=== PATIENT | female | born 1945 | race Caucasian/White ===

== ENCOUNTER 2018-07-13 09:38 | Inpatient (IN) | payer MEDICARE, OTHER, SELFPAY ==
[2018-06-29 10:52] VITALS: BMI 38.0
[2018-07-13] VITALS (23 sets, daily range): BP systolic 112–173; BP diastolic 63–97; PULSE 60–104; RESP 10–20; TEMP 36–37.1; O2SAT 88–97; BMI 38.0
--- NOTE | 2018-07-13 08:07 | DI.RAD.S_ITS ---
PROCEDURE: XR KNEE LT 1TO2V INDICATIONS: post operative total left knee TECHNIQUE: 2 view(s) of the knee acquired. COMPARISON: [facility] [place], XR KNEE ARTHRITIC SERIES LT, 01/28/2018, 14:30. FINDINGS: Bones: Patient is status post total knee joint arthroplasty. Hardware components are in expected positions. Visualized bony structures are intact. Soft tissues: Overlying postoperative changes are noted. IMPRESSION: Expected post surgical changes. Dictated by: Jack Duron M.D. on 07/13/2018 at 14:48 Approved by: Jack Duron M.D. on 07/13/2018 at 14:48
[2018-07-13] MEDS: LACTATED RINGERS 1,000 ML 42 ML IV ×2 (09:48→14:20)
[2018-07-13] MEDS: ACETAMINOPHEN 325 MG TABLET 975 MG PO ×2 (10:07→21:58)
[2018-07-13] MEDS: CELECOXIB 200 MG CAPSULE PO (10:09)
[2018-07-13] MEDS: PREGABALIN 75 MG CAPSULE PO (10:09)
--- NOTE | 2018-07-13 11:11 | PM.PREOP ---
Pre-operative Note Interval Note Pre-op Check: Yes History & Physical Reviewed by Physician and Yes Exam Performed Changes: No
[2018-07-13] MEDS: CEFAZOLIN 2 GM/100 ML FROZ.PIGGY IV ×2 (11:55→20:14)
--- NOTE | 2018-07-13 12:23 | SUR.OPER ---
Supine on padded OR bed. Pillow under head, arms secured on padded armboards <90 degree abduction. Safety belt across torso. Non-operative leg secured with tape over blanket over lower leg. Operative leg secured in DeMayo positioner.
--- NOTE | 2018-07-13 13:09 | SUR.OPER ---
Left Lateral Uni Knee components X 3 removed.
[2018-07-13] MEDS: BUPIVACAINE LIPOSOME 266 MG/20 ML VIAL INJ (13:25)
[2018-07-13] MEDS: MORPHINE 4 MG/ML INJ IM (13:26)
[2018-07-13] MEDS: BUPIVACAINE 0.25% W/ EPI VIAL 50 ML INJ (13:26)
--- NOTE | 2018-07-13 13:48 | PM.OP.1 ---
Operative Date/Time/Diagnoses Date of procedure: 07/13/18 Time of procedure: 13:40 Pre-op diagnosis: Left knee osteoarthritis with failed lateral unicompartmental arthroplasty Post-op diagnosis: same Procedure & Clinicians Procedure: Revision of left unicompartmental arthroplasty to total knee replacement Same procedure as scheduled: Yes Indications: The patient has had progressively worsening left knee pain with radiographic changes consistent with arthritis, worsening around her previously placed lateral unicompartmental replacement. Non-operative management has failed and the patient has requested total knee replacement. The risks, benefits and alternatives to surgery were discussed with the patient prior to proceeding. Risks discussed included, but were not limited to, failure to relieve pain, stiffness, infection, nerve damage, deep venous thrombosis, pulmonary embolism, stroke, coma, heart attack, permanent paralysis and , as well as the potential need for eventual revision of the prosthetic. Surgeon: Guanako Hillman Poultry Pinner: Channing Reich Click Yes if Unassisted: No Anesthesia Type: General, Spinal and Local Operative Notes Findings: Medial and patellofemoral osteoarthritis and fairly loose femoral component. Closure Type: primary Specimen(s): none sent Implants & Drains: The components of a Russell unicompartmental knee replacement were removed. Implants used in this procedure were manufactured by the [employer] and [employer] and included the BCS II Journey total knee replacement with a size 7 left cobalt chromium femur, 5 left non porous tibial base plate, 10 mm cross-linked polyethylene tibial insert, and a 32 mm oval Keyana II patellar component. Applied: implant(s) Estimated Blood Loss (mL): 100 Blood products transfused: none Tourniquet time (min): 65 Procedure in detail: The patient was seen in the pre-operative area, where the left knee was identified as the operative site and this was marked with my initials. The patient received pre-operative antibiotics with an appropriate 1st generation cephalosporin, and was taken to the operating room and placed on the operative table in the supine position. After satisfactory anesthesia, a die drawing checker out was performed. The left leg was encircled with a tourniquet about the proximal thigh, and the leg was prepared from the toes to the tourniquet with ChloroPrep in the usual fashion and draped through sterile drapes. The leg was elevated and exsanguinated with an Eschmark bandage and the tourniquet inflated to 250 mmHg pressure. The knee was approached through an approximately 18 cm incision centered over the patella, incorporating her prior lateral Uni incision, and carried into the knee through a medial parapatellar arthrotomy. The anterior osteophytes and soft tissues were removed. The rotational landmarks of Fortino's line and the transepicondylar axis were marked on the femur with electrocautery, and intramedullary guide holes for the femur and tibia were created. The distal femoral cutting guide was used to place the pins for a 6 degree valgus cut in the primary setting. The femoral prosthetic component was then removed using osteotomes. Minimal bone came with the prosthetic. The tibial component was then removed using osteotomes as well. The proximal tibial cut was then made using the intramedullary guide, taking 1 mm of bone off the lateral side where the prior prosthetic had been. The rotation of the femoral component confirmed with the markings previously made on the femur. The anterior, posterior and chamfer cuts were then made. The posterior osteophytes and soft tissues were then removed. The posterior capsule was injected with part of a mixture of 50 ml 0.25% Marcaine mixed with 20 ml Exparel and 4 mg of morphine for post-operative pain control. The remainder of this mixture was injected into the capsule and subcutaneous tissues during cement curing. The tibia was prepared with the rotation set by an extra medullary guide. Trial tibial and femoral components were then placed and the intercondylar notch cut through the femoral trial. Range of motion was 0-120 degrees, with good stability throughout the range. Further flexion was limited by the patient's obesity. The patella was then cut to accommodate the patellar prosthetic. There was no need for a lateral release. The trials were then removed, and the femoral hole plugged with a bone plug. The bone was prepared with pulsatile lavage, and dried with a sponge. Cement was applied and the final prosthetics placed. Excess cement was removed during and after cement curing. After confirming there was no extruded cement posteriorly, the final tibial insert was placed. The knee was copiously irrigated and the tourniquet deflated. Hemostasis was obtained. The capsule was closed with interrupted # 2 polyester sutures. The subcutaneous layer was closed with 3-0 Vicryl, and the skin with a running 3-0 V-Lock suture and SteriStrips. A Phong dressing was applied and the patient was taken to recovery having tolerated the procedure well. Complications: none Condition: stable Disposition: PACU Plan for aftercare: The patient will be maintained on a standard total knee replacement protocol with weight bearing as tolerated. The patient will receive aspirin and sequential compression devices for DVT prophylaxis. The patient will be discharged home when safe for the home environment.
[2018-07-13] MEDS: HYDROMORPHONE 2 MG INJ 0.5 MG IV ×2 (14:16→15:36)
[2018-07-13] MEDS: HYDROMORPHONE 2 MG INJ 1 MG IV ×2 (14:33→14:52)
--- NOTE | 2018-07-13 14:43 | SUR.PHASEI ---
Says pain is not decreasing but need for O2 and somnolent state increasing with BP decreasing. Told can not safely give an additional dose of pain med now for concern of resp state already in need for CPAP and oxygen.
--- NOTE | 2018-07-13 14:55 | SUR.PHASEI ---
Reviewing the patient history and speaking with patient, it is seen that there is a history of po opiod use. As a result will agive additioal opiod due in part to probable tolerance behind pain rating voiced.
[2018-07-13] MEDS: hydrOXYzine pamoate 25 MG CAPSULE PO ×2 (15:06→23:59)
--- NOTE | 2018-07-13 15:19 | SUR.PHASEI ---
Has been sleeping most of past 15 minutes. Does note pain to knee upon awakening. Still VS are showing meds have had some effect. Have had to increase o2 flow slightly during this time. Awaiting RN on AC to be available after shift report completed.
[2018-07-13] MEDS: OXYCODONE IR 5 MG TABLET PO ×4 (15:34→23:54)
--- NOTE | 2018-07-13 15:37 | SUR.PHASEI ---
With shift change and only able to give one Oxycodone IR (5mg), considering patient history an additional 0.5mg of Dilaudid given for pain rating of 8. Again the patient sleeps when left alone, but once awake pain rating is high. Fibromyalgia history may influence this along with hx of opiod use. As shift has just changed the additional Dilaudid is to help bridge until a full assessment by MARTA RN is able.
--- NOTE | 2018-07-13 16:00 | SUR.PHASEI ---
To floor on 4L NC. Awake for trip and CPAP off.
[2018-07-13] MEDS: LACTATED RINGERS 1,000 ML 125 ML IV (17:07)
--- NOTE | 2018-07-13 19:35 | PC.NURSE ---
Addendum entered by Brittany Ackerman R.N. 07/13/18 22:32: Pt had relatively uneventful evening. Left knee dsg CDI. Med w/good relief. Satisfactory post op course. Call light w/in reach, bed alarm on for pt. safety. Continue w/plan of care. Original Note: Addendum entered by Brittany Ackerman R.N. 07/13/18 20:26: Med at this time w/oxycodone for 7/10 pain. Original Note: Pt arrived to floor from PACU at 1555. Awake.drowsy. Denies discomfort upon arrival. IV LR infusing via pump as per orders w/o incidence. Dsg on left surgical knee CDI (concha & aquacell). Med at 1715 w/oxycodone w/fair relief. Call light w/in reach/ bed alarm on for pt safety.
--- NOTE | 2018-07-13 20:02 | RT ---
Addendum entered by Lorelei Osei, RT 07/13/18 20:24: Pt set up own CPAP and states she is self-sufficient on CPAP. Original Note: Pt worklist will not allow me to add eval and treat flow sheet. Evaluated pt, clear breath sounds, no hx of pulmonary disease, no hx of smoking, no history of respiratory medications. Pt does have home CPAP in room.
[2018-07-13] MEDS: GABAPENTIN 600 MG TABLET 1200 MG PO (20:16)
[2018-07-13] MEDS: DOCUSATE 100 MG CAPSULE PO (20:17)
[2018-07-13] MEDS: ZOLPIDEM 5 MG TABLET PO (23:56)
[2018-07-14 00:13] VITALS: BP 109/64; PULSE 65; RESP 16; TEMP 36.5; O2SAT 96
[2018-07-14] MEDS: HYDROMORPHONE 0.5 MG INJ IV ×6 (00:30→12:52)
[2018-07-14] MEDS: LACTATED RINGERS 1,000 ML 125 ML IV (01:37)
[2018-07-14] MEDS: CEFAZOLIN 2 GM/100 ML FROZ.PIGGY IV (04:14)
[2018-07-14] MEDS: OXYCODONE IR 5 MG TABLET PO ×2 (04:23→08:22)
[2018-07-14 04:44] VITALS: BP 124/75; PULSE 74; RESP 18; TEMP 36.5; O2SAT 95
[2018-07-14 06:13] LABS: Hematocrit 37.3 % (36-46); Hemoglobin 12.3 g/dL (12.0-16.0)
--- NOTE | 2018-07-14 07:45 | PM.PNPO.1 ---
Subjective Date Patient Seen: 07/14/18 Time Patient Seen: 07:45 Interval history: The patient reports she had a rough night. She has had significant, but expected pain after her knee replacement. Exam Vital Signs (past 8 hours): - 07/14/18 00:13 07/14/18 04:44 Temperature 97.7 F 97.7 F Pulse Rate 65 74 Respiratory Rate 16 18 Blood Pressure 109/64 124/75 Pulse Oximetry 96 95 Oxygen Delivery Method Room Air Oxygen Flow Rate 6 Narrative Exam Narrative: Left knee wound is dressed with no drainage on the bandage. Calf is soft. Light touch and motion are intact in the left lower extremity. Objective Labs Result Diagrams: 07/14/18 06:00 Labs: Laboratory Results - last 24 hr 07/14/18 06:00 Hgb 12.3 Hct 37.3 Assessment & Plan Post-op Postoperative Procedures Operation Date: 07/13/18 11:45 Actual Procedures Side Surgeon p Total Knee Arthroplasty Revision Left Left Guanako Hillman MD Postoperative day: 1 Postoperative status: doing well, marginal pain control and anemia Postoperative status narrative: The patient is stable postoperative day 1 after revision of a left unicompartmental knee replacement to a total knee replacement. She has had some issues with marginal pain control but generally things are going well. She has a mild and expected post hemorrhagic anemia. Postoperative plan: routine post-op care and ambulate Postoperative plan narrative: The patient will be initiated on physical therapy. It is clear she is not ready to go home and will require an additional day at minimum before discharge. Time Spent With Patient less than 15 minutes Quality VTE Deep Vein Thrombosis/Pulmonary Embolism Present on Admission: No
[2018-07-14 07:55] VITALS: BP 137/74; RESP 16; TEMP 36.5; O2SAT 100
[2018-07-14] MEDS: ACETAMINOPHEN 325 MG TABLET 975 MG PO ×3 (08:13→20:40)
[2018-07-14] MEDS: DOCUSATE 100 MG CAPSULE PO ×2 (08:20→20:41)
[2018-07-14] MEDS: ATENOLOL 25 MG TABLET PO (08:21)
[2018-07-14] MEDS: SERTRALINE 50 MG TABLET 100 MG PO (08:21)
[2018-07-14] MEDS: hydrOXYzine pamoate 25 MG CAPSULE PO ×3 (08:21→20:42)
[2018-07-14] MEDS: GABAPENTIN 600 MG TABLET 1200 MG PO ×2 (08:21→20:41)
--- NOTE | 2018-07-14 10:08 | PC.NURSE ---
Addendum entered by Cris Siddiqui R.N. 07/14/18 13:57: Pain control since increaseding oxycodone has not been adequate, SWATI Snell, rec'd orders to increase IV Dil Original Note: Am shift note Pt is uncontrolled pain and using oxycodone, and IV dilaudid. Fax down to OR for PA attention. Will continue IV dilaudid until orders rec'd.
--- NOTE | 2018-07-14 10:30 | PT.IIE ---
Current Diagnoses Unilateral primary osteoarthritis, left knee (07/13/18) Presence of left artificial knee joint (07/13/18) Surgery Performed Operation Date: 07/13/18 11:45 Actual Procedures p Total Knee Arthroplasty Revision Left(Left) - Guanako Hillman MD Surgical History (Last Updated 06/29/18 @ 11:22 by Rowan Sterling RN) History of ankle surgery (Acute) History of arthroplasty of left knee (Acute) History of arthroplasty of right knee (Acute) History of bilateral tubal ligation (Acute) Hx of appendectomy (Acute) Hx of arthroscopic knee surgery (Acute) Hx of cholecystectomy (Acute) Hx of laminectomy (Acute) Hx of thumb surgery (Acute) Hx of tonsillectomy (Acute) S/P lumbar fusion (Acute) S/P lumpectomy, left breast (Acute) S/P lumpectomy, right breast (Acute) S/P rotator cuff repair (Acute) Status post carpal tunnel release of both wrists (Acute) Medical History (Last Updated 06/29/18 @ 11:22 by Rowan Sterling RN) Anxiety and depression (Acute) Arthritis (Acute) Bilateral cataracts (Acute) Edema (Acute) Fibromyalgia (Acute) Foot fracture, right (Acute) GERD (gastroesophageal reflux disease) (Acute) Ganglion cyst (Acute) H/O: hysterectomy (Acute) HTN (hypertension) (Acute) Hamstring tendon rupture (Acute) Hyperlipidemia (Acute) Lumbar stenosis (Acute) Neuroma (Acute) JEFFERSON on CPAP (Acute) Osteoporosis (Acute) PVCs (premature ventricular contractions) (Acute) Pericarditis (Acute) Peripheral neuropathy (Acute) Pneumonia (Acute) Polycystic kidney disease (Acute) Thin skin (Acute) Physical Therapy Inpatient Evaluation/Re-Eval M1 PT/OT-IP Prior Functional Status Start: 07/14/18 12:28 Freq: NEEDED Status: Active Protocol: Document 07/14/18 10:30 AB (Rec: 07/14/18 12:44 AB [id number]) Medical Review Prior Functional Status Medical History Reviewed Yes Communication able to make needs known Mobility and Gait stated that she is modified independent with all mobilities and ambulation using SPC indoors/outdoors but occassionally without AD depending on pain level and dizziness per pt. Social History Household Members spouse Living Arrangements House Number of Floors (Floors) One Floor Number of Stairs To Enter/Railing? has ~14 steps to enter ( 5steps+platform+4steps+ platforms+ 4 steps) with wide rails on B sides can only hold on to one rail at a time. Home Environment High Toilet Walk in Shower Home Equipment Hand Held Shower Employment Status Unemployed Additional Social History Comment pt stated that spouse works and cannot assist her 07/04 at home. M2 PT-IP Current Condition Start: 07/14/18 12:28 Freq: NEEDED Status: Active Protocol: Document 07/14/18 10:30 AB (Rec: 07/14/18 12:44 AB [id number]) Physical Therapy Current Condition Current Condition Evaluation Date 07/14/18 Treatment Diagnosis s/p L TKA Onset Date Weight Bearing Status Weight Bearing Status Weight Bear as Tolerated M3 PT-IP Subjective Start: 07/14/18 12:28 Freq: NEEDED Status: Active Protocol: Document 07/14/18 10:30 AB (Rec: 07/14/18 12:44 AB [id number]) Subjective Physical Therapy Visit Type Type Initial Evaluation Visit Start Time 10:30 Visit Stop Time 11:16 Total Visit Minutes 46 Number of KENNEL AIDE Visits 0 Physical Therapy Visit Comments Patient Comments pt agreeable to do PT when asked regarding outpt PT; pt stated that she wants homehealth PT first since spouse works and she will not be able to drive Therapy Pain Assessment Pain When Pain Assessed At Rest Pain Present Pain Present Pain Reported Location Left Knee Intensity 4 Scale Used 4/10 at rest but stated increases to 12 with mobility Pain Management Techniques Apply Cold Distraction Modification of Treatment Re-positioning Timing of Activity with Medications M4 PT-IP Mobility and Gait Start: 07/14/18 12:28 Freq: NEEDED Status: Active Protocol: Document 07/14/18 10:30 AB (Rec: 07/14/18 12:44 AB [id number]) PT-Bed Mobility Assessment Supine to Sit Supine to Sit Moderate Assistance Bedrails Sit to Supine Sit to Supine Moderate Assistance Bedrails PT-Transfer Assessment Sit to and From Stand Sit to and from Stand Maximum Assistance 2 Person Assistance Use of Upper Extremities Equipment Transfer Assistive Device Front Wheeled Walker Orthotic/Prosthetic Devices or Brace: No Transfers Transfer Destination Toilet Transfer Technique pt ambulated to the toilet using FWW Transfer Ability Level of Assist Moderate Assistance 1 Person Assistance Use of Upper Extremities Comments Mobility Comments pt required 3 attempts with sit to stand requiring max A x 2 and max cues. c/o increase pain on L knee with difficulty with weight bearing . Gait Assessment Gait Gait Assistance Required: Moderate Assistance 1 Person Assist Distance (Feet) 5 Able to Maintain Weight Bearing Status Yes During Gait Assistive Devices Assistive Device Gait Belt Front Wheeled Walker Orthotic/Prosthetic Devices or Brace: No Gait Deviations General Gait Pattern Antalgic Decreased Stride Length Decreased Feet Clearance Factors Limiting Gait Function Factors Limiting Gait Function Decreased Activity Tolerance Decreased Sensation Decreased Strength Limited Range of Motion Pain Poor Balance Poor Safety Awareness Comments Gait Comments pt with difficulty moving LLE and just tends to drag it forward during ambulation. presents with LE weakness and increase pain with mobility. PT-Balance Assessment Sitting Balance and Reactions Static Sitting Balance Ability Good Standing Balance and Reactions Static Standing Balance Ability Poor Dynamic Standing Balance Ability Poor Device Used FWW M5 PT-IP Objective Assessments Start: 07/14/18 12:28 Freq: NEEDED Status: Active Protocol: Document 07/14/18 10:30 AB (Rec: 07/14/18 12:44 AB [id number]) Orientation Orientation/Cognition Level of Alertness Alert Orientation Name Age Birthday Month Date Year Day of Week Place Situation Safety Awareness Decreased Safety Awareness Gross Range of Motion Lower Extremity ROM Assessment Bilaterally Impaired Impairments L knee flexion decreased: ~ 30 deg bilateral ankle DF decrease with h/o R ankle surgeries. Strength Lower Extremity Strength Assessment Left Impaired Knee 3-/5 Sensation Assessment Sensation Gross Sensation Right LE Impaired Left LE Impaired Light Touch Impaired Sensation Description Numbness Comments Sensation Comments stated decrease sensation on BLE from the knee down to feet M6 PT-IP Treatment Start: 07/14/18 12:28 Freq: NEEDED Status: Active Protocol: Document 07/14/18 10:30 AB (Rec: 07/14/18 12:44 AB [id number]) Physical Therapy Treatment Exercises Exercises Heel Slides Education Education Provided Precautions Weight Bearing Status Post-Op Packet Safety M7 PT-IP Assessment and Plan Start: 07/14/18 12:28 Freq: NEEDED Status: Active Protocol: Document 07/14/18 10:30 AB (Rec: 07/14/18 12:44 AB [id number]) PT Summary Assessment and Plan Potential Rehabilitation Potential Poor Status of Condition at Evaluation Evolving Summary Impairments Pain ROM Strength Balance Coordination Sensation Tone Cognition Bed Mobility Transfers Gait Activity Tolerance Assessment Summary pt requiring 2 person assist with mobility and unable to tolerate weight bearing on LLE presenting with unsteady gait with decrease LE elevation. pt will require SNF rehab to improve strength and mobility Goals Bed Mobility Goal Standby Assistance Transfer Goal Standby Assistance Front Wheeled Walker Gait Goal Standby Assistance Front Wheel Walker Gait Distance 100 Other Goals up/down 14-15 stes using one rail Days to Meet Goals 5 Frequency of Treatment Frequency Of Treatment Twice a Day Treatment Plan Physical Therapy Treatment Plan Bed Mobility Training Transfer Training Gait Training Therapeutic Exercise Balance Retraining Post Op Education Discharge Planning Hot or Cold Pack Neuromuscular Re-ed Coordination Retraining Manual Therapy Other Recommendations and Next Treatment ambulation Focus Recommendations To Nursing Amount of Assist Needed 2 Person Assist Discharge Recommendations PT Discharge Recommendations SNF Rehab Equipment Needed for Home Before FWW Discharge
[2018-07-14] MEDS: ASPIRIN 325 MG TABLET PO (10:58)
[2018-07-14] MEDS: OXYCODONE IR 10 MG TABLET PO ×3 (10:58→21:01)
[2018-07-14 11:40] VITALS: BP 128/72; PULSE 63; RESP 20; TEMP 36.7; O2SAT 94
--- NOTE | 2018-07-14 12:48 | CM.DANOTE ---
Discharge Planning/Care Management DCP: assessment: case received, EMR reviewed and met with pt. Introduced self and role. PT is lying in bed, eating lunch, looking somewhat uncomfortable. She admits the knee has really been hurting. It's to be expected. Pt will see PT for the first time today. OT is not ordered at this point. Pt identifies her d/c plan as in process.. She says it is clear to her that she will not be ready to go home with her tomorrow. She is leaning toward idea of snf rehab then HH and plans to discuss same with Dr. Hillman. She also is sending her on a tour of [facility], [facility] and [facility]. P: DCP team to followup tomorrow to discuss further with her after she has had more therapy and needs are clearer. CM Discharge Assessment Start: 07/14/18 12:41 Freq: Status: Active Protocol: Document 07/14/18 12:41 ITV (Rec: 07/14/18 12:47 ITV [id number]) Discharge Planning Assessment Advance Directives? Yes Advance Directives on File Yes History Provided By Patient Medical Record Prior Living Arrangements House Household Members spouse Independent with ADL's Yes Is patient alert and oriented? Yes Caregiver for Another No Patient/Family Preference [facility] Home with Home Health Comment pt considering snf rehab then HH vs home/spouse/HH. She has choice list for both. Barriers to Discharge Yes Comment would not be comfortable going home with her 's assist unles she could do basic mobility and toileting independently. Additional Comment pt has choice list and spouse plans to do some touring....no referral placed yet. Pt expects to have a clearer idea tomorrow of what will work best for her. Comment pt will have met 3 day inpt stay/snf Medicare criteria Jul 16. Medicare Choice List Provided Yes Comment waiting for choice Whiteboard Updated in Patient Room with Yes name and ext. # of Casualty Claims Supervisor Review Status In Process Next Review Type Continued Stay Review Pre-Anesthesia Assessment Start: 06/29/18 10:52 Freq: Status: Active Protocol: Document 06/29/18 10:52 VLJ (Rec: 06/29/18 11:31 [facility] [id number]) Pre-Anesthesia Assessment Patient Information Reviewed Via Phone Assessment Assessment Completed With Patient Lab Results BMP/CMP CBC Other Comment A1c Primary Care Provider Travon Burr Seen Specialist in Last 12 Months Yes Specialist Seen Orthopedist Primary Language Czech Job Service Consultant Required No Height 175.26 cm Weight 117.027 kg Body Mass Index (BMI) 38.0 Hearing Ability Normal Visual Assist Glasses Dentition Type Teeth, Natural Present Teeth, Missing Barriers to Learning Age related Memory Other Aids No Hx Anesthesia Reactions No Hx Family Anesthesia Reaction No Hx Malignant Hyperthermia No Hx Blood Transfusions No Anesthesia Review Requested No Railroad Car Repairman No alcohol intake current alcohol intake frequency a few times a week Smoking Status Former smoker how long ago did patient quit smoking Quit 1972 Substance Use Type does not use Pain Present Pain Reported Musculoskeletal Symptoms Abnormal Gait Back Pain Difficulty Walking Joint Pain Muscle Spasms Muscle Weakness Numbness History of Falling (Recent or History of Yes ) Patient is completely paralyzed or No completely immobile Prosthesis or Orthotic Device Cane Mental Status Oriented to own ability Is patient on oxygen? No Does patient have CRAWFORD/SOB Yes: r/t weight, fatigue with increased activity/pace Hx Sleep Apnea Yes CPAP/BIPAP use prescribed and used routinely Will Bring CPAP/BIPAP DOS Yes Currently Taking a Beta Prashanth Yes: Atenolol Can You Climb a Flight of Stairs Without Yes SOB Hx Chest Pain No Hx SOB Yes: r/t weight, fatigue with increased activity/pace Hx Syncope or Dizziness No Anti-Coagulant Therapy No Has a Supervisor Hide House No Cardiac Testing No Hx Pacemaker/ICD No Pacemaker Rep Required? No Cardiac Clearance Received Not Applicable Diet Type At Home Regular dysphagia No Bladder Pattern Incontinent, Stress Urinary Catheter Present No Hx Urinary Self Catheterization No Diabetes No HgbA1C 6.0 Date 07/01/18 Patient No Lactating No Hx Drug Resistant Organism Yes: MRSA Presence of External or Internal Medical Yes Devices Have you traveled outside the [facility] in the last 30 days? Marital Status Lives With spouse Prior Living Arrangements House Number of Floors (Floors) One Floor Number of Stairs To Enter/Railing? 14, railing present Support System Friend(s) Spouse Does the Patient Have Assistance After Yes Surgery Patient Discharge Plan Description Return Home Comment Pt advised 2-3 day length of stay per surgeon's office Feels Safe in Current Environment Yes Been Physically Hurt or Threatened By a No Person in Current Environment Do you have thoughts of harming yourself None or others? Are you currently considering suicide? No Do you have a plan to hurt yourself or No Plan others? Do You Have Any Spiritual Beliefs That No May Affect Your HC Choices? Do You Have Any Cultural Practices That No May Affect Your HC Choices? Spiritual Referral None Comment Alevism Who Can We Speak to About Patient's Care Family, friends Identifying Code for Release of Patient Declines to issue Information Health Care Proxy/Next of Kin Tyron () Health Care Proxy [phone] Emergency Contact Name Tyron () Emergency Contact [phone] Advance Directives? Yes Advance Directives on File Yes Power of Glass Lathe Operator Yes Power of Glass Lathe Operator Name Tyron () Power of Glass Lathe Operator [phone] PAC Instructions Do not shave/clip surgical site Durable medical equipment Medications to take/avoid Nasal antibiotic No ETOH/petroleum product on skin DOS NPO Post-op transportation Pre-surgical wash Sturdy shoes/comfortable clothes Do not bring valuables and remove jewelry
[2018-07-14] MEDS: ONDANSETRON 4 MG ODT PO (14:38)
--- NOTE | 2018-07-14 15:10 | PT.IPTN ---
Current Diagnoses Unilateral primary osteoarthritis, left knee (07/13/18) Presence of left artificial knee joint (07/13/18) Surgery Performed Operation Date: 07/13/18 11:45 Actual Procedures p Total Knee Arthroplasty Revision Left(Left) - Guanako Hillman MD Physical Therapy Treatment Note M2 PT-IP Current Condition Start: 07/14/18 12:28 Freq: NEEDED Status: Active Protocol: Document 07/14/18 10:30 AB (Rec: 07/14/18 12:44 AB [id number]) Physical Therapy Current Condition Current Condition Evaluation Date 07/14/18 Treatment Diagnosis s/p L TKA Onset Date Weight Bearing Status Weight Bearing Status Weight Bear as Tolerated M3 PT-IP Subjective Start: 07/14/18 12:28 Freq: NEEDED Status: Active Protocol: Document 07/14/18 15:10 AB (Rec: 07/14/18 16:25 AB [id number]) Subjective Physical Therapy Visit Type Type Treatment Note Visit Start Time 15:10 Visit Stop Time 15:48 Total Visit Minutes 38 Number of POLICE PATROL LIEUTENANT Visits 0 Physical Therapy Visit Comments Patient Comments pt initially refusing but then agreed to do ambulation Therapy Pain Assessment Pain When Pain Assessed At Rest Pain Present Pain Present Pain Reported Location Left Knee Intensity 2 Scale Used pain increased per pt w/ wt bearing & ambulation but pain scale not stated Pain Management Techniques Apply Cold Re-positioning Timing of Activity with Medications M4 PT-IP Mobility and Gait Start: 07/14/18 12:28 Freq: NEEDED Status: Active Protocol: Document 07/14/18 15:10 AB (Rec: 07/14/18 16:25 AB [id number]) PT-Bed Mobility Assessment Supine to Sit Supine to Sit Maximum Assistance 1 Person Assistance 2 Person Assistance Bedrails Sit to Supine Sit to Supine Maximum Assistance 2 Person Assistance Bedrails Scooting Scooting to Edge of Bed Maximum Assistance Scooting Up and Down in Bed Maximum Assistance PT-Transfer Assessment Sit to and From Stand Sit to and from Stand Maximum Assistance 1 Person Assistance 2 Person Assistance Use of Upper Extremities Equipment Transfer Assistive Device Gait Belt Front Wheeled Walker Orthotic/Prosthetic Devices or Brace: No Transfers Transfer Destination Toilet Transfer Technique pt ambulated to the toilet using FWW Transfer Ability Level of Assist Maximum Assistance 2 Person Assistance Use of Upper Extremities Comments Mobility Comments pt requested to use the toilet . pt ambulated from the bed to the toilet using FWW mod to max A and cues. BP in room air at rest 90-94%; (+) wheezing and SOB during sit to stand and ambulation and O2 sat decreased to 93-88%. asked nurse if pt can use O2 and stated yest with 3L/min. O2 provided. O2 sat increased to 92%. Gait Assessment Gait Gait Assistance Required: Moderate Assistance Maximum Assistance Distance (Feet) 30 Able to Maintain Weight Bearing Status Yes During Gait Assistive Devices Assistive Device Gait Belt Front Wheeled Walker Orthotic/Prosthetic Devices or Brace: No Gait Deviations General Gait Pattern Antalgic Decreased Stride Length Step-to Gait Factors Limiting Gait Function Factors Limiting Gait Function Decreased Activity Tolerance Decreased Sensation Decreased Strength Pain Poor Balance Poor Safety Awareness Comments Gait Comments pt ambulated in room using FWW ~ 30 ft and requested to use the toilet after ambulation ( pls refer to mobility section) M5 PT-IP Objective Assessments Start: 07/14/18 12:28 Freq: NEEDED Status: Active Protocol: Document 07/14/18 10:30 AB (Rec: 07/14/18 12:44 AB [id number]) Orientation Orientation/Cognition Level of Alertness Alert Orientation Name Age Birthday Month Date Year Day of Week Place Situation Safety Awareness Decreased Safety Awareness Gross Range of Motion Lower Extremity ROM Assessment Bilaterally Impaired Impairments L knee flexion decreased: ~ 30 deg bilateral ankle DF decrease with h/o R ankle surgeries. Strength Lower Extremity Strength Assessment Left Impaired Knee 3-/5 Sensation Assessment Sensation Gross Sensation Right LE Impaired Left LE Impaired Light Touch Impaired Sensation Description Numbness Comments Sensation Comments stated decrease sensation on BLE from the knee down to feet M6 PT-IP Treatment Start: 07/14/18 12:28 Freq: NEEDED Status: Active Protocol: Document 07/14/18 15:10 AB (Rec: 07/14/18 16:25 AB [id number]) Physical Therapy Treatment Exercises Exercises Ankle Pumps Quad Sets Education Education Provided Precautions Weight Bearing Status Post-Op Packet Safety M7 PT-IP Assessment and Plan Start: 07/14/18 12:28 Freq: NEEDED Status: Active Protocol: Document 07/14/18 15:10 AB (Rec: 07/14/18 16:25 AB [id number]) PT Summary Assessment and Plan Potential Rehabilitation Potential Fair Summary Impairments Pain ROM Strength Balance Coordination Sensation Tone Cognition Bed Mobility Transfers Gait Activity Tolerance Progress Towards Goals Slow Progress due to Pain Slow Progress due to Medical Issues Slow Progress due to Activity Tolerance Assessment Summary pt requiring mod to max A with mobility and unable to tolerate much activity with (+ ) SOB with decrearse O2 sat with mobility. Pt will require SNF rehab to improve strength and functional mobility Goals Bed Mobility Goal Standby Assistance Transfer Goal Standby Assistance Front Wheeled Walker Gait Goal Standby Assistance Front Wheel Walker Gait Distance 100 Other Goals up/down 14-15 steps using one rail Days to Meet Goals 5 Frequency of Treatment Frequency Of Treatment Twice a Day Treatment Plan Physical Therapy Treatment Plan Bed Mobility Training Transfer Training Gait Training Therapeutic Exercise Balance Retraining Post Op Education Discharge Planning Hot or Cold Pack Neuromuscular Re-ed Coordination Retraining Manual Therapy Other Recommendations and Next Treatment ambulation Focus Recommendations To Nursing Amount of Assist Needed 2 Person Assist Discharge Recommendations PT Discharge Recommendations SNF Rehab
--- NOTE | 2018-07-14 15:24 | PC.NURSE ---
student nurse charting. I supervised RN student Kinga with Pt care and medications today. Agree with all SN charting.
--- NOTE | 2018-07-14 15:31 | PC.NURSE ---
SN charting Kinga MADRIGAL working with Pt under my supervision today. Agree with all charting.
[2018-07-14 16:50] VITALS: BP 110/75; PULSE 78; RESP 20; TEMP 36.8; O2SAT 91
--- NOTE | 2018-07-14 18:49 | PC.NURSE ---
Addendum entered by Brittany Ackerman R.N. 07/14/18 22:36: Satisfactory post op course. Med at 2100 for discomfort w/good relief. Asssisted to BR w/ 2PA/FWW, MADHU dsg CDI. Call light w/in reach, bed alarm on for pt safety. Continue w/ plan of care. Original Note: Pt resting quietly, denies discomfort early in shift. MADHU Dsg to left surgical knee CDI. HL intact/patent. Stable post op course. Call light w/in reach, bed alarm on for pt safety.
[2018-07-14 19:48] VITALS: BP 145/78; PULSE 78; RESP 18; TEMP 36.6; O2SAT 100
[2018-07-15] MEDS: OXYCODONE IR 5 MG TABLET PO ×2 (00:39→04:04)
[2018-07-15 00:55] VITALS: BP 137/69; PULSE 80; RESP 21; TEMP 36.5; O2SAT 93
[2018-07-15] MEDS: OXYCODONE IR 10 MG TABLET PO ×5 (01:04→20:40)
[2018-07-15 03:46] VITALS: BP 128/74; PULSE 78; RESP 16; TEMP 36.8; O2SAT 93
[2018-07-15] MEDS: hydrOXYzine pamoate 25 MG CAPSULE PO ×2 (04:05→10:17)
[2018-07-15 08:02] VITALS: BP 132/77; PULSE 72; RESP 20; TEMP 37.2; O2SAT 97
[2018-07-15] MEDS: ASPIRIN 325 MG TABLET PO (08:22)
[2018-07-15] MEDS: ATENOLOL 25 MG TABLET PO (08:22)
[2018-07-15] MEDS: ACETAMINOPHEN 325 MG TABLET 975 MG PO ×3 (08:22→20:40)
[2018-07-15] MEDS: GABAPENTIN 600 MG TABLET 1200 MG PO ×2 (08:23→20:41)
[2018-07-15] MEDS: DOCUSATE 100 MG CAPSULE PO ×2 (08:23→20:40)
[2018-07-15] MEDS: SERTRALINE 50 MG TABLET 100 MG PO (08:23)
--- NOTE | 2018-07-15 08:26 | PM.PNPO.1 ---
Subjective Date Patient Seen: 07/15/18 Time Patient Seen: 08:27 Interval history: POD #2 status post L total knee revision by Dr. Hillman. Patient is sitting upright in bed comfortably with no signs of distress. Patient reports that her pain is a 4/10 while resting and a 8/10 with mobility. Her pain is well managed at this time with Vistaril and oxycodone. She experienced SOB with decrease O2 sat with mobility during PT yesterday. She reports ambulating to bathroom. PT recommended patient be discharged to SNF. Patient is open to SNF but would prefer home health if possible. Patient denies any fever, chills, nausea, vomiting or chest pain. Exam Vital Signs (past 8 hours): - 07/15/18 00:55 07/15/18 03:46 07/15/18 08:02 Temperature 97.7 F 98.3 F 98.9 F Pulse Rate 80 78 72 Respiratory Rate 21 16 20 Blood Pressure 137/69 128/74 132/77 Pulse Oximetry 93 93 97 Oxygen Delivery Method CPAP Oxygen Flow Rate 0 Narrative Exam Narrative: Patient is sitting upright in bed comfortably in no acute distress. She is AOx3. Radial and dorsalis pedis pulses 2+ and symmetric. Sensation to light touch intact in legs yet decreased in foot bilaterally due to history of neuropathy. L knee dressing CDI. She is not able to dorisflex or plantarflex L foot due to neuropathy, however she has adequate strength in R foot and security services manager bilaterally. L calf tender to palpation in comparison to R, otherwise calfs are soft and compressible. Objective Labs Result Diagrams: 07/14/18 06:00 Assessment & Plan Post-op Postoperative Procedures Operation Date: 07/13/18 11:45 Actual Procedures Side Surgeon p Total Knee Arthroplasty Revision Left Left Guanako Hillman MD Postoperative day: 2 Postoperative plan: routine post-op care Postoperative plan narrative: Continue mobilizing, ambulating and sitting in chair with PT. Continue pain management. Case management has been consulted. Likely to be discharged to SNF or home health in next 1-2 days. Time Spent With Patient less than 15 minutes Quality VTE Deep Vein Thrombosis/Pulmonary Embolism Present on Admission: No
--- NOTE | 2018-07-15 10:17 | CM.DPC ---
Referral faxed to [facility] per Margo
--- NOTE | 2018-07-15 10:30 | PT.IPTN ---
Current Diagnoses Unilateral primary osteoarthritis, left knee (07/13/18) Presence of left artificial knee joint (07/13/18) Surgery Performed Operation Date: 07/13/18 11:45 Actual Procedures p Total Knee Arthroplasty Revision Left(Left) - Guanako Hillman MD Physical Therapy Treatment Note M2 PT-IP Current Condition Start: 07/14/18 12:28 Freq: NEEDED Status: Active Protocol: Document 07/14/18 10:30 AB (Rec: 07/14/18 12:44 AB [id number]) Physical Therapy Current Condition Current Condition Evaluation Date 07/14/18 Treatment Diagnosis s/p L TKA Onset Date Weight Bearing Status Weight Bearing Status Weight Bear as Tolerated M3 PT-IP Subjective Start: 07/14/18 12:28 Freq: NEEDED Status: Active Protocol: Document 07/15/18 10:30 GGD (Rec: 07/15/18 12:13 GGD [id number]) Subjective Physical Therapy Visit Type Type Treatment Note Visit Start Time 10:05 Visit Stop Time 10:30 Total Visit Minutes 25 Number of REPAIRER RESISTANCE WELDING MACHINES Visits 1 Physical Therapy Visit Comments Patient Comments Pt states she would like to shower. Therapy Pain Assessment Pain When Pain Assessed At Rest Pain Present Pain Present Pain Reported Location Left Knee Intensity 5 Scale Used Numeric (1 - 10) Pain Management Techniques Apply Cold Timing of Activity with Medications M4 PT-IP Mobility and Gait Start: 07/14/18 12:28 Freq: NEEDED Status: Active Protocol: Document 07/15/18 10:30 GGD (Rec: 07/15/18 12:13 GGD [id number]) PT-Transfer Assessment Sit to and From Stand Sit to and from Stand Moderate Assistance 1 Person Assistance Use of Upper Extremities Equipment Transfer Assistive Device Gait Belt Front Wheeled Walker Orthotic/Prosthetic Devices or Brace: No Transfers Transfer Destination Bedside Commode Transfer Ability Level of Assist Moderate Assistance 1 Person Assistance Use of Upper Extremities Gait Assessment Gait Gait Assistance Required: Moderate Assistance Distance (Feet) 60 Able to Maintain Weight Bearing Status Yes During Gait Assistive Devices Assistive Device Gait Belt Front Wheeled Walker Orthotic/Prosthetic Devices or Brace: No Gait Deviations General Gait Pattern Antalgic Decreased Stride Length Step-to Gait Factors Limiting Gait Function Factors Limiting Gait Function Decreased Activity Tolerance Decreased Sensation Decreased Strength Pain Poor Balance Poor Safety Awareness Comments Gait Comments Pt need mod cues for FWW management. M5 PT-IP Objective Assessments Start: 07/14/18 12:28 Freq: NEEDED Status: Active Protocol: Document 07/14/18 10:30 AB (Rec: 07/14/18 12:44 AB [id number]) Orientation Orientation/Cognition Level of Alertness Alert Orientation Name Age Birthday Month Date Year Day of Week Place Situation Safety Awareness Decreased Safety Awareness Gross Range of Motion Lower Extremity ROM Assessment Bilaterally Impaired Impairments L knee flexion decreased: ~ 30 deg bilateral ankle DF decrease with h/o R ankle surgeries. Strength Lower Extremity Strength Assessment Left Impaired Knee 3-/5 Sensation Assessment Sensation Gross Sensation Right LE Impaired Left LE Impaired Light Touch Impaired Sensation Description Numbness Comments Sensation Comments stated decrease sensation on BLE from the knee down to feet M6 PT-IP Treatment Start: 07/14/18 12:28 Freq: NEEDED Status: Active Protocol: Document 07/15/18 10:30 GGD (Rec: 07/15/18 12:13 GGD [id number]) Physical Therapy Treatment Exercises Exercises Ankle Pumps Quad Sets Seated Knee Flexion/Extension Education Education Provided Safety M7 PT-IP Assessment and Plan Start: 07/14/18 12:28 Freq: NEEDED Status: Active Protocol: Document 07/15/18 10:30 GGD (Rec: 07/15/18 12:13 GGD [id number]) PT Summary Assessment and Plan Summary Assessment Summary Pt unsteady with transfers and gait. She need mod A for transfers. She needed mod cues to stay close to FWW with gait and use of UE. She would benifit from SNF rehab. Frequency of Treatment Frequency Of Treatment Twice a Day Treatment Plan Other Recommendations and Next Treatment ambulation Focus Recommendations To Nursing Amount of Assist Needed 2 Person Assist Discharge Recommendations PT Discharge Recommendations SNF Rehab
[2018-07-15 11:00] VITALS: O2SAT 98
--- NOTE | 2018-07-15 14:05 | PT.IPTN ---
Current Diagnoses Unilateral primary osteoarthritis, left knee (07/13/18) Presence of left artificial knee joint (07/13/18) Surgery Performed Operation Date: 07/13/18 11:45 Actual Procedures p Total Knee Arthroplasty Revision Left(Left) - Guanako Hillman MD Physical Therapy Treatment Note M2 PT-IP Current Condition Start: 07/14/18 12:28 Freq: NEEDED Status: Active Protocol: Document 07/14/18 10:30 AB (Rec: 07/14/18 12:44 AB [id number]) Physical Therapy Current Condition Current Condition Evaluation Date 07/14/18 Treatment Diagnosis s/p L TKA Onset Date Weight Bearing Status Weight Bearing Status Weight Bear as Tolerated M3 PT-IP Subjective Start: 07/14/18 12:28 Freq: NEEDED Status: Active Protocol: Document 07/15/18 14:30 GGD (Rec: 07/15/18 16:03 GGD [id number]) Subjective Physical Therapy Visit Type Type Treatment Note Visit Start Time 14:05 Visit Stop Time 14:30 Number of SCREEDMAN Visits 2 Physical Therapy Visit Comments Patient Comments Pt states she is tired. Therapy Pain Assessment Pain When Pain Assessed At Rest Pain Present Pain Present Pain Reported Location Left Knee Intensity 6 Scale Used Numeric (1 - 10) Pain Management Techniques Apply Cold M4 PT-IP Mobility and Gait Start: 07/14/18 12:28 Freq: NEEDED Status: Active Protocol: Document 07/15/18 14:30 GGD (Rec: 07/15/18 16:03 GGD [id number]) PT-Bed Mobility Assessment Supine to Sit Supine to Sit Moderate Assistance 1 Person Assistance Bedrails Sit to Supine Sit to Supine Moderate Assistance 1 Person Assistance Bedrails PT-Transfer Assessment Sit to and From Stand Sit to and from Stand Moderate Assistance 1 Person Assistance Use of Upper Extremities Equipment Transfer Assistive Device Gait Belt Front Wheeled Walker Orthotic/Prosthetic Devices or Brace: No Transfers Transfer Destination Bed Transfer Ability Level of Assist Moderate Assistance 1 Person Assistance Use of Upper Extremities Gait Assessment Gait Gait Assistance Required: Moderate Assistance 1 Person Assist Distance (Feet) 70 Able to Maintain Weight Bearing Status Yes During Gait Assistive Devices Assistive Device Gait Belt Front Wheeled Walker Orthotic/Prosthetic Devices or Brace: No Gait Deviations General Gait Pattern Antalgic Decreased Stride Length Step-to Gait Factors Limiting Gait Function Factors Limiting Gait Function Decreased Activity Tolerance Decreased Sensation Decreased Strength Pain Poor Balance Poor Safety Awareness M5 PT-IP Objective Assessments Start: 07/14/18 12:28 Freq: NEEDED Status: Active Protocol: Document 07/14/18 10:30 AB (Rec: 07/14/18 12:44 AB [id number]) Orientation Orientation/Cognition Level of Alertness Alert Orientation Name Age Birthday Month Date Year Day of Week Place Situation Safety Awareness Decreased Safety Awareness Gross Range of Motion Lower Extremity ROM Assessment Bilaterally Impaired Impairments L knee flexion decreased: ~ 30 deg bilateral ankle DF decrease with h/o R ankle surgeries. Strength Lower Extremity Strength Assessment Left Impaired Knee 3-/5 Sensation Assessment Sensation Gross Sensation Right LE Impaired Left LE Impaired Light Touch Impaired Sensation Description Numbness Comments Sensation Comments stated decrease sensation on BLE from the knee down to feet M6 PT-IP Treatment Start: 07/14/18 12:28 Freq: NEEDED Status: Active Protocol: Document 07/15/18 14:30 GGD (Rec: 07/15/18 16:03 GGD [id number]) Physical Therapy Treatment Exercises Exercises Ankle Pumps Quad Sets Seated Knee Flexion/Extension Education Education Provided Safety M7 PT-IP Assessment and Plan Start: 07/14/18 12:28 Freq: NEEDED Status: Active Protocol: Document 07/15/18 14:30 GGD (Rec: 07/15/18 16:03 GGD [id number]) PT Summary Assessment and Plan Summary Assessment Summary Pt improving slowly with mobility. She was able to progress gait and need less cues. She did fatigue quickly and had increase unsteadiness with fatigue. She needs min to mod a for bed mobility and transfers. Frequency of Treatment Frequency Of Treatment Twice a Day Treatment Plan Physical Therapy Treatment Plan Bed Mobility Training Transfer Training Gait Training Therapeutic Exercise Balance Retraining Post Op Education Discharge Planning Hot or Cold Pack Neuromuscular Re-ed Coordination Retraining Manual Therapy Other Recommendations and Next Treatment ambulation Focus Recommendations To Nursing Amount of Assist Needed 2 Person Assist Discharge Recommendations PT Discharge Recommendations SNF Rehab
--- NOTE | 2018-07-15 14:43 | CM.DPC ---
DCP Cont: Spoke to patient in her room this morning. She was contemplating between home health or skilled. Stated that if she goes to skilled, would want [facility]. Also is requesting a private room. Let her know that we would discuss at rounds with the therapy team to see what would work better for her. Discussed case at rounds with physical therapy team. They feel that patient would benefit from longterm, for she is a max assist. Went ahead and called Tamie at [facility], and faxed clinicals. Tamie stated that she could not guarantee that she would get a private room, and if she wanted one, may have to pay extra. Faxed clinicals to [facility] as well. Spoke to Lynette, and asked about a private room. Stated that she might be able to make this happen. She mentioned that this would have to do with availability, for if patient's are in isolation or have severe medical needs, they would have preference. P: DCP to continue to follow. Plan is for longterm for rehab, either at [facility], or [facility]. Natividad Love RN/Respiratory Assistant
[2018-07-15 15:15] VITALS: BP 143/64; PULSE 76; RESP 18; TEMP 36.7; O2SAT 90
[2018-07-15 19:42] VITALS: BP 145/73; PULSE 66; RESP 18; TEMP 37.1; O2SAT 95
[2018-07-16] MEDS: OXYCODONE IR 10 MG TABLET PO ×3 (01:19→11:44)
[2018-07-16 01:52] VITALS: BP 113/70; PULSE 74; RESP 18; TEMP 36.8; O2SAT 91
[2018-07-16] MEDS: OXYCODONE IR 5 MG TABLET PO (03:19)
[2018-07-16] MEDS: hydrOXYzine pamoate 25 MG CAPSULE PO (03:21)
[2018-07-16 06:38] VITALS: BP 136/75; PULSE 70; RESP 20; TEMP 36.6; O2SAT 92
[2018-07-16 07:25] VITALS: BP 148/75; PULSE 78; RESP 20; TEMP 36.8; O2SAT 93
--- NOTE | 2018-07-16 07:48 | PM.DS.1 ---
History of Present Illness Date Patient Seen: 07/16/18 Chief complaint: left total knee revision [id number] Narrative: Patient seen bedside s/p R. TKA revision POD #3. Pain is high right now but has not received medication in several hours. She is ready to go to [facility] today. Discharge Providers Date of admission: 07/13/18 09:38 Primary care physician: Travon Burr MD Consults: 07/13/18 16:14 Consult to Discharge Planning Routine Comment: Consult to Physical Therapy Evaluate & Treat Comment: Physician Instructions: postop TKA protocol Consult to Respiratory Therapy Evaluate & Treat Comment: Physician Instructions: Evaluate and treat Discharge provider: Sultana Phan PA-C Discharge Date: 07/16/18 Summary Discharge Diagnosis: Right knee osteoarthritis Hospital Course: Patient was admitted on 07/13/18 s/p R. TKA revision. Patient tolerated procedure well with no major complications. Patient was seen by PT and recommended for d/c to SNF. Patient was stable and ready for discharge on 07/16/18. Status at Discharge Cognitive/behavioral status at discharge: Alert and oriented x3 Functional status at discharge: uses cane/walker Overall status at discharge: patient is progressing back to baseline Time Spent with Patient Less than 30 minutes Exam Vital Signs (past 8 hours): - 07/16/18 01:52 07/16/18 06:38 Temperature 98.2 F 97.8 F Pulse Rate 74 70 Respiratory Rate 18 20 Blood Pressure 113/70 136/75 Pulse Oximetry 91 92 Oxygen Delivery Method Room Air,CPAP Oxygen Flow Rate 0 Objective Labs Result Diagrams: 07/14/18 06:00 Discharge Plan Discharge Plan Patient Disposition: SNF Under care of provider: pcp I certify the postop hospital long term care is medically necessary on a continuing basis for any conditions for which he/ she received care during this hospitalization.: Yes The receiving facility has agreed to accept transfer and provide medical treatment.: Yes Discharge Med Rec/Prescriptions Prescriptions: New acetaminophen 325 mg Tablet 975 mg PO TID Qty: 0 RF: 0 docusate sodium 100 mg Capsule 100 mg PO BID Qty: 0 RF: 0 oxycodone 5 mg Tablet 5 mg PO Q4H PRN (Reason: Pain, Moderate (4-6)) Qty: 15 RF: 0 hydroxyzine pamoate 25 mg Capsule 25 mg PO Q6HR PRN (Reason: Nausea) Qty: 0 RF: 0 Continue gabapentin [Neurontin] 600 MG tablet 1,200 mg PO BID Qty: 0 RF: 0 aspirin 325 mg Tablet 325 mg PO DAILY RF: 0 sertraline [Zoloft] 100 mg Tablet 100 mg PO DAILY RF: 0 atenolol 25 mg Tablet 25 mg PO DAILY RF: 0 omeprazole 20 mg capsule,delayed release(DR/EC) 20 mg PO DAILY RF: 0 Discharge Health Status Precautions: [place] Provider Discharge Instructions Diet: Diet as Tolerated Activity: WBAT, use walker until cleared by PT Cold/Heat Therapy: Apply ice 20 minutes at a time to surgical area at least hourly while awake Skin/Wound/Dressing Care Dressing: Keep dressing clean, dry, and intact. May shower with dressing in place but no soaking. [facility] Rehabilitation Services Reason for rehabilitation: Post-operative therapy Rehab type: Physical therapy and Occupational therapy Visit Report/Discharge Packet Instructions: DI for Knee Replacement Discharge Data Primary Care Provider: Travon Burr Attending Provider: Guanako Hillman Admit Date/Time: 07/13/18 09:38 Quality VTE Deep Vein Thrombosis/Pulmonary Embolism Present on Admission: No
[2018-07-16] MEDS: GABAPENTIN 600 MG TABLET 1200 MG PO (09:38)
[2018-07-16] MEDS: DOCUSATE 100 MG CAPSULE PO (09:38)
[2018-07-16] MEDS: ATENOLOL 25 MG TABLET PO (09:39)
[2018-07-16] MEDS: SERTRALINE 50 MG TABLET 100 MG PO (09:39)
[2018-07-16] MEDS: ACETAMINOPHEN 325 MG TABLET 975 MG PO (09:39)
[2018-07-16] MEDS: ASPIRIN 325 MG TABLET PO (09:39)
--- NOTE | 2018-07-16 11:03 | CM.DPC ---
Packet faxed to [facility] per Margo. Still need signed med sheet
--- NOTE | 2018-07-16 11:40 | PT.IPTN ---
Current Diagnoses Unilateral primary osteoarthritis, left knee (07/13/18) Presence of left artificial knee joint (07/13/18) Surgery Performed Operation Date: 07/13/18 11:45 Actual Procedures p Total Knee Arthroplasty Revision Left(Left) - Guanako Hillman MD Physical Therapy Treatment Note M2 PT-IP Current Condition Start: 07/14/18 12:28 Freq: NEEDED Status: Active Protocol: Document 07/14/18 10:30 AB (Rec: 07/14/18 12:44 AB [id number]) Physical Therapy Current Condition Current Condition Evaluation Date 07/14/18 Treatment Diagnosis s/p L TKA Onset Date Weight Bearing Status Weight Bearing Status Weight Bear as Tolerated M3 PT-IP Subjective Start: 07/14/18 12:28 Freq: NEEDED Status: Active Protocol: Document 07/16/18 11:40 GGD (Rec: 07/16/18 11:59 GGD [email or web address]) Subjective Physical Therapy Visit Type Type Treatment Note Visit Start Time 11:25 Visit Stop Time 11:40 Total Visit Minutes 15 Number of PRINCIPAL AUTOMATION ENGINEER Visits 3 Physical Therapy Visit Comments Patient Comments Pt states that she needs to use the bathroom. Therapy Pain Assessment Pain When Pain Assessed At Rest Pain Present Pain Present Pain Reported Location Left Knee Intensity 9 Scale Used Numeric (1 - 10) M4 PT-IP Mobility and Gait Start: 07/14/18 12:28 Freq: NEEDED Status: Active Protocol: Document 07/16/18 11:40 GGD (Rec: 07/16/18 11:59 GGD [email or web address]) PT-Bed Mobility Assessment Supine to Sit Supine to Sit Maximum Assistance 1 Person Assistance Head of Bed Elevated Bedrails Scooting Scooting to Edge of Bed Moderate Assistance PT-Transfer Assessment Sit to and From Stand Sit to and from Stand Minimal Assistance 1 Person Assistance Use of Upper Extremities Equipment Transfer Assistive Device Gait Belt Front Wheeled Walker Orthotic/Prosthetic Devices or Brace: No Transfers Transfer Destination Toilet Transfer Ability Level of Assist Moderate Assistance 1 Person Assistance Use of Upper Extremities Comments Mobility Comments Pt stood from EOB with min A from high bed. Gait Assessment Gait Gait Assistance Required: Moderate Assistance 1 Person Assist Distance (Feet) 10 Able to Maintain Weight Bearing Status Yes During Gait Assistive Devices Assistive Device Gait Belt Front Wheeled Walker Orthotic/Prosthetic Devices or Brace: No Gait Deviations General Gait Pattern Antalgic Decreased Stride Length Step-to Gait Factors Limiting Gait Function Factors Limiting Gait Function Decreased Activity Tolerance Decreased Sensation Decreased Strength Pain Poor Balance Poor Safety Awareness M5 PT-IP Objective Assessments Start: 07/14/18 12:28 Freq: NEEDED Status: Active Protocol: Document 07/14/18 10:30 AB (Rec: 07/14/18 12:44 AB [id number]) Orientation Orientation/Cognition Level of Alertness Alert Orientation Name Age Birthday Month Date Year Day of Week Place Situation Safety Awareness Decreased Safety Awareness Gross Range of Motion Lower Extremity ROM Assessment Bilaterally Impaired Impairments L knee flexion decreased: ~ 30 deg bilateral ankle DF decrease with h/o R ankle surgeries. Strength Lower Extremity Strength Assessment Left Impaired Knee 3-/5 Sensation Assessment Sensation Gross Sensation Right LE Impaired Left LE Impaired Light Touch Impaired Sensation Description Numbness Comments Sensation Comments stated decrease sensation on BLE from the knee down to feet M6 PT-IP Treatment Start: 07/14/18 12:28 Freq: NEEDED Status: Active Protocol: Document 07/15/18 14:30 GGD (Rec: 07/15/18 16:03 GGD [id number]) Physical Therapy Treatment Exercises Exercises Ankle Pumps Quad Sets Seated Knee Flexion/Extension Education Education Provided Safety M7 PT-IP Assessment and Plan Start: 07/14/18 12:28 Freq: NEEDED Status: Active Protocol: Document 07/16/18 11:40 GGD (Rec: 07/16/18 11:59 GGD [email or web address]) PT Summary Assessment and Plan Summary Assessment Summary Pt improved with FWW management with gait. SHe needed increase in assistance with bed mobility and controlled sit. She is limited by pain. She will need SNF rehab. Frequency of Treatment Frequency Of Treatment Twice a Day Treatment Plan Physical Therapy Treatment Plan Bed Mobility Training Transfer Training Gait Training Therapeutic Exercise Balance Retraining Post Op Education Discharge Planning Hot or Cold Pack Neuromuscular Re-ed Coordination Retraining Manual Therapy Other Recommendations and Next Treatment ambulation Focus Recommendations To Nursing Amount of Assist Needed 2 Person Assist Discharge Recommendations PT Discharge Recommendations SNF Rehab
--- NOTE | 2018-07-16 12:00 | PC.NURSE ---
AM NOTE - pt awake, states pain 8/10 when she has to move and was req pain medication, given 10mg oxycodone w/juice and crackers, repeated at 1145 just prior to transport, assist x 2 person oob, pt moves very slowly and req that staff hold her l leg until she can slowly dangle and then up w/fww, cues to not push walker too far out in front, able ambul to br, voiding, discussed constipation and narcotics, had ashley, declines miralax this am, plan to tsf today to [facility], rosina dsg intact w/green light flashing, some old serosang at distal end, dsg intact w/o leakage, estella gen diet this am, phys therapy in, assisted to br w/void prior to transfer, belongings gathered and packed, including cell phone, tablet and chargers, bag, clothing, shoes, own cpap, packet with oxycodone script given to transport staff, report called to MAY Cadet at [facility].
== END 2018-07-16 12:05 | DRG 467 ==
PROVIDERS: Admitting Provider Orthopaedic Surgery; PCP Family Medicine; Visit Provider Orthopaedic Surgery
PROC: 0SRD0J9 Replacement of Left Knee Joint with Synthetic Substitute, Cemented, Open Approach (ICD-10-PCS; principal; 2018-07-13 11:45)
DX: M17.12 Unilateral primary osteoarthritis, left knee (principal); T84.033A Mechanical loosening of internal left knee prosthetic joint, initial encounter; Q61.3 Polycystic kidney, unspecified; Y79.2 Prosthetic and other implants, materials and accessory orthopedic devices associated with adverse incidents; G47.33 Obstructive sleep apnea (adult) (pediatric); G62.9 Polyneuropathy, unspecified; I10 Essential (primary) hypertension; K21.9 Gastro-esophageal reflux disease without esophagitis
CPT/HCPCS: 36415; 73560; 85014; 85018; 97116; 97162; 97530; C1776; C9290; J0690; J1100; J1170; J2250; J2270; J2405; J2704; J3010

== ENCOUNTER → 2018-08-03 15:36 | Outpatient (CLI) | payer MEDICARE, OTHER, SELFPAY ==
[2018-07-13 17:33] VITALS: BMI 38.0
--- NOTE | 2018-08-03 | DI.US.S_ITS ---
PROCEDURE: US PERIPH VENOUS LOW EXTREM LT INDICATIONS: LEFT KNEE ARTHRITIS TECHNIQUE: Real-time imaging, as well as color and pulse Doppler interrogation, were performed of the lower extremity deep veins from the inguinal ligament to the popliteal fossa. COMPARISON: None. FINDINGS: The deep veins are normally compressible, and free of intraluminal thrombus. Color and pulse Doppler demonstrate normal phasic intraluminal flow. There is normal augmentation response to distal compression maneuver. IMPRESSION: Negative for deep venous thrombosis. Note: Concordant preliminary findings given by the swahili teacher upon the completion of the examination to [facility] Surgery at 1709 hrs. [place] time on August 03, 2018. Dictated by: Scottie Roberts M.D. on 08/03/2018 at 16:38 Approved by: Scottie Roberts M.D. on 08/03/2018 at 16:39
== END ==
PROVIDERS: PCP Family Medicine; Visit Provider Physician Assistant
DX: M17.12 Unilateral primary osteoarthritis, left knee (principal); Z96.652 Presence of left artificial knee joint
CPT/HCPCS: 93971

== ENCOUNTER 2018-08-07 12:39 | Emergency (ER) | payer MEDICARE, OTHER, SELFPAY ==
[2018-07-13 17:33] VITALS: BMI 38.0
[2018-08-07 12:46] VITALS: BP 123/54; PULSE 50; RESP 14; TEMP 36.6; O2SAT 100; BMI 38.4
--- NOTE | 2018-08-07 13:58 | ED.EXTPRO ---
HPI - Extremity Problem <ADRIEN Perez - Last Filed: 08/07/18 22:24> General Chief complaint: Extremity Problem,Nontraumatic Stated complaint: Cyst on back of leg Time Seen by Provider: 08/07/18 13:58 History of Present Illness HPI Narrative: 73-year-old female with history of hypertension and is a nonsmoker here for complaint of a pain and swelling to her left knee over the past 4 weeks. She reports that almost 4 weeks ago she had a left knee replacement which is her 4th knee replacement by Dr. [facility]. She reports that she has had swelling and pain into that left knee since this timeframe. She has been performing physical therapy. She was seen by orthopedics earlier this week with an x-ray and was negative and then also obtained a ultrasound to the left calf area which was also negative for a clot. She denies any trauma to the knee. She reports that the pain has not resolved. She states she was told that she has a Francisco cyst and would like to have that Francisco cyst treated. She denies any other concerns or complaints at this time. Related Data Home Medications Medication Instructions Recorded Confirmed gabapentin [Neurontin] 1,200 mg PO BID #0 08/20/16 07/13/18 aspirin 325 mg PO DAILY 06/29/18 07/13/18 atenolol 25 mg PO DAILY 06/29/18 07/13/18 sertraline [Zoloft] 100 mg PO DAILY 06/29/18 07/13/18 omeprazole 20 mg PO DAILY 07/13/18 07/13/18 Previous Rx's Medication Instructions Recorded acetaminophen 975 mg PO TID #0 tab 07/16/18 docusate sodium 100 mg PO BID #0 cap 07/16/18 hydroxyzine pamoate 25 mg PO Q6HR PRN #0 cap 07/16/18 oxycodone 5 mg PO Q4H PRN #15 tab 07/16/18 methylprednisolone [Medrol (Maicol)] See Label Instructions PO PER PKG 08/07/18 DIR #21 each Allergies Allergy/AdvReac Type Severity Reaction Status Date / Time fenoprofen [FENOPROFEN] Allergy Intermediate Rash Verified 08/07/18 12:52 adhesive [ADHESIVE] Allergy Mild RASH Verified 08/07/18 12:52 (PAPER/SILK TAPE OK) Review of Systems <ADRIEN Perez - Last Filed: 08/07/18 22:24> Constitutional Denies chills, Denies fever(s), Denies lethargy and Denies weakness Eyes Denies change in vision, Denies eye discharge, Denies irritation and Denies loss of vision ENT Ears, Nose, Mouth, and Throat: Denies change in voice, Denies neck pain and Denies sore throat Cardiovascular Denies chest pain, Denies irregular heart rhythm, Denies lightheadedness, Denies palpitations, Denies dyspnea, Denies dyspnea on exertion and Denies orthopnea Respiratory Denies cough, Denies dyspnea, Denies dyspnea on exertion and Denies wheezing Gastrointestinal Gastrointestinal: Denies abdominal pain, Denies change in bowel habits, Denies diarrhea, Denies nausea and Denies vomiting Genitourinary Denies hematuria, Denies flank pain, Denies urinary incontinence and Denies urinary urgency Musculoskeletal Denies neck pain Comments: Left knee pain Integumentary/Breasts Denies pruritus, Denies erythema, Denies rash and Denies wounds Neurologic Denies confusion, Denies loss of vision and Denies weakness Psychiatric Denies anxiety, Denies confusion, Denies depression, Denies homicidal ideation and Denies suicidal ideation Endocrine Denies palpitations Hematologic/Lymphatic Denies easy bruising Allergic/Immunologic Denies wheezing Exam <ADRIEN Perez - Last Filed: 08/07/18 22:24> Initial Vital Signs Initial Vital Signs: Vital Signs Temperature 97.9 F 08/07/18 12:46 Pulse Rate 50 L 08/07/18 12:46 Respiratory Rate 14 08/07/18 12:46 Blood Pressure 123/54 L 08/07/18 12:46 Pulse Oximetry 100 08/07/18 12:46 Const General: cooperative and well developed Nutritional Appearance: well nourished Orientation: alert, awake, oriented x3 and not confused [facility] Mouth: oral mucosae normal and moist mucous membranes Eyes Conjunctivae: conjunctivae normal Sclera: sclerae normal Pupils: PERRL EOM: EOM intact bilaterally Resp Effort & Inspection: normal respiratory effort, able to speak in complete sentences, no respiratory distress and no use of accessory muscles Auscultation: clear to auscultation bilaterally, no rales, no rhonchi and no wheezes Cardio Rate: regular rate Rhythm: regular rhythm Heart Sounds: no click, no gallops, no murmurs and no rubs Pulses: normal peripheral pulses Skin General: no rashes or lesions noted, No jaundice and No petechiae Neuro General: alert, oriented x3, gait normal and no focal motor deficits Speech: speech normal Extrem Other: Left knee with swelling. Incision site looks to be healing well. No signs of infection. No surrounding erythema. No fluctuance or induration. Distal sensation is intact. Distal pulses are intact. Distal range of motion is intact. <Travon Robnis DO - Last Filed: 08/08/18 07:04> Initial Vital Signs Initial Vital Signs: Vital Signs Temperature 97.9 F 08/07/18 12:46 Pulse Rate 50 L 08/07/18 12:46 Respiratory Rate 14 08/07/18 12:46 Blood Pressure 123/54 L 08/07/18 12:46 Pulse Oximetry 100 08/07/18 12:46 Course <ADRIEN Perez - Last Filed: 08/07/18 22:24> Orders Ordered: Discontinued Medications Hydromorphone HCl (Dilaudid) 4 mg PO NOW ONE Stop: 08/07/18 16:11 Vital Signs - 8 hr 08/07/18 16:48 Pulse Rate 59 L Respiratory Rate 20 Blood Pressure 135/75 Pulse Oximetry 98 <DO Rachna Berman Last Filed: 08/08/18 07:04> Orders Ordered: Discontinued Medications Hydromorphone HCl (Dilaudid) 4 mg PO NOW ONE Stop: 08/07/18 16:11 Vital Signs - 8 hr 08/07/18 16:48 Pulse Rate 59 L Respiratory Rate 20 Blood Pressure 135/75 Pulse Oximetry 98 MDM - Extremity (Nontraumatic) <ADRIEN Perez - Last Filed: 08/07/18 22:24> Imaging Data knee pain: Radiologist's impression: [address] [address] XRay Report Signed Patient: Lizzy Sawant GMR#: [id number] : 6Acct:[id number] Age/Sex: 73 / FDate of Service: 08/07/18 Loc: ED Accession Number: [id number] Procedure: XR knee LT 3V Ordering Provider: Morgan Mayfield PROCEDURE: XR KNEE LT 3V INDICATIONS: Recent knee replacement surgery increased knee pain TECHNIQUE: 3 views of the knee were acquired. COMPARISON: [facility], , XR KNEE LT 1TO2V, 07/13/2018, 14:17. [facility], , KNEE 1-2 VIEWS RIGHT, 07/06/2011, 12:48. FINDINGS: Bones: No fractures or dislocations. No suspicious bony lesions. Soft tissues: No joint effusion. No suspicious soft tissue calcifications. There is soft tissue swelling above the knee level ventrally. IMPRESSION: Soft tissue swelling about the knee, ventrally. A joint effusion or intra-articular loose body is not seen. No evidence of device loosening or disruption is found. Dictated by: Chance Flores M.D. on 08/07/2018 at 15:30 Approved by: Chance Flores M.D. on 08/07/2018 at 15:31 MDM Narrative Medical decision making narrative: Repeat x-ray of the left knee was obtained was negative for any acute findings. Discussed case with Dr. ofote who is on-call for Orthopedics who evaluated the knee. He recommends placing the patient on Medrol Dosepak. Which is been prescribed. He also recommends that she continue using her prescribed medications as prescribed following up with Dr. Hillman beginning of next week. For any worsening symptoms return to the emergency room. Discharge Plan Departure Patient Disposition: Home Clinical Impression: Left knee pain Discharge Date/Time: 08/07/18 16:48 Interventions: ED Discharge Assessment Last Done: 08/07/18 16:48 Instructions: DI for Knee Pain Activity Restrictions/Additional Instructions: X-ray the left knee was obtained was negative for any acute findings. Signs and symptoms presents as postsurgical pain. No signs of infection are appreciated. Dr. foote orthopedics evaluated the knee and recommends steroids which have been prescribed use as directed. Follow up with Dr. Hillman beginning of next week for re-evaluation. For any worsening symptoms return to the emergency room. Prescriptions: New methylprednisolone [Medrol (Maicol)] 4 mg tablets,dose pack See Label Instructions PO PER PKG DIR Qty: 21 RF: 0 No Action gabapentin [Neurontin] 600 MG tablet 1,200 mg PO BID Qty: 0 RF: 0 aspirin 325 mg Tablet 325 mg PO DAILY RF: 0 sertraline [Zoloft] 100 mg Tablet 100 mg PO DAILY RF: 0 atenolol 25 mg Tablet 25 mg PO DAILY RF: 0 omeprazole 20 mg capsule,delayed release(DR/EC) 20 mg PO DAILY RF: 0 acetaminophen 325 mg Tablet 975 mg PO TID Qty: 0 RF: 0 docusate sodium 100 mg Capsule 100 mg PO BID Qty: 0 RF: 0 oxycodone 5 mg Tablet 5 mg PO Q4H PRN (Reason: Pain, Moderate (4-6)) Qty: 15 RF: 0 hydroxyzine pamoate 25 mg Capsule 25 mg PO Q6HR PRN (Reason: Nausea) Qty: 0 RF: 0 Referrals: Travon Burr MD [Primary Care Provider] - <Travon Robins DO - Last Filed: 08/08/18 07:04> Cosign ED Attending [facility] Attestation: I was available for consultation during this patient's emergency department encounter
[2018-08-07 14:08] VITALS: PULSE 88
--- NOTE | 2018-08-07 14:50 | DI.RAD.S_ITS ---
PROCEDURE: XR KNEE LT 3V INDICATIONS: Recent knee replacement surgery increased knee pain TECHNIQUE: 3 views of the knee were acquired. COMPARISON: [facility], [place], XR KNEE LT 1TO2V, 07/13/2018, 14:17. [facility], [place], KNEE 1-2 VIEWS RIGHT, 07/06/2011, 12:48. FINDINGS: Bones: No fractures or dislocations. No suspicious bony lesions. Soft tissues: No joint effusion. No suspicious soft tissue calcifications. There is soft tissue swelling above the knee level ventrally. IMPRESSION: Soft tissue swelling about the knee, ventrally. A joint effusion or intra-articular loose body is not seen. No evidence of device loosening or disruption is found. Dictated by: Chance Flores M.D. on 08/07/2018 at 15:30 Approved by: Chance Flores M.D. on 08/07/2018 at 15:31
--- NOTE | 2018-08-07 16:29 | P.CONS_ITS ---
History of Present Illness Date Patient Seen: 08/07/18 Time Patient Seen: 16:25 Chief complaint: Cyst on back of leg Reason for consult: L knee pain Requesting provider: Morgan Mayfield Narrative: She is 1 month after a left total knee replacement with Dr. Hillman. She was converted from a unicondylar knee to a total knee. She has been having ongoing pain into the left knee. The swelling is not going away and when she is on her leg it is much more swollen. She was seen in the clinic last week and sent for an ultrasound but there was no sign of DVT. She is taking Naprosyn b.i.d.. She is also taking Dilaudid 2-6 mg at a time without significant relief of her pain. No recent change in the pain level, just not getting any better. No fever or chills. She has been working with a home physical therapist who told her she probably had a Francisco cyst. She came in today hoping someone could take care of that for her. [facility] Medical History Anxiety and depression (Acute) Arthritis (Acute) Bilateral cataracts (Acute) Edema (Acute) Fibromyalgia (Acute) Foot fracture, right (Acute) GERD (gastroesophageal reflux disease) (Acute) Ganglion cyst (Acute) H/O: hysterectomy (Acute) HTN (hypertension) (Acute) Hamstring tendon rupture (Acute) Hyperlipidemia (Acute) Lumbar stenosis (Acute) Neuroma (Acute) JEFFERSON on CPAP (Acute) Osteoporosis (Acute) PVCs (premature ventricular contractions) (Acute) Pericarditis (Acute) Peripheral neuropathy (Acute) Pneumonia (Acute) Polycystic kidney disease (Acute) Thin skin (Acute) Surgical History History of ankle surgery (Acute) History of arthroplasty of left knee (Acute) History of arthroplasty of right knee (Acute) History of bilateral tubal ligation (Acute) Hx of appendectomy (Acute) Hx of arthroscopic knee surgery (Acute) Hx of cholecystectomy (Acute) Hx of laminectomy (Acute) Hx of thumb surgery (Acute) Hx of tonsillectomy (Acute) S/P lumbar fusion (Acute) S/P lumpectomy, left breast (Acute) S/P lumpectomy, right breast (Acute) S/P rotator cuff repair (Acute) Status post carpal tunnel release of both wrists (Acute) Social History household members: spouse Smoking Status: Former smoker alcohol intake: current Meds Home Medications Medication Instructions Recorded Confirmed Type gabapentin [Neurontin] 1,200 mg PO BID #0 08/20/16 07/13/18 History aspirin 325 mg PO DAILY 06/29/18 07/13/18 History atenolol 25 mg PO DAILY 06/29/18 07/13/18 History sertraline [Zoloft] 100 mg PO DAILY 06/29/18 07/13/18 History omeprazole 20 mg PO DAILY 07/13/18 07/13/18 History acetaminophen 975 mg PO TID #0 tab 07/16/18 Rx docusate sodium 100 mg PO BID #0 cap 07/16/18 Rx hydroxyzine pamoate 25 mg PO Q6HR PRN #0 cap 07/16/18 Rx oxycodone 5 mg PO Q4H PRN #15 tab 07/16/18 Rx methylprednisolone [Medrol (Maicol)] See Label Instructions PO PER PKG 08/07/18 Rx DIR #21 each Allergies Allergy/AdvReac Type Severity Reaction Status Date / Time fenoprofen [FENOPROFEN] Allergy Intermediate Rash Verified 08/07/18 12:52 adhesive [ADHESIVE] Allergy Mild RASH Verified 08/07/18 12:52 (PAPER/SILK TAPE OK) Review of Systems Constitutional Constitutional: Denies chills and Denies fever(s) Cardiovascular Cardiovascular: Denies chest pain and Denies shortness of breath Respiratory Respiratory: Denies dyspnea Exam Vital Signs (past 8 hours): - 08/07/18 12:46 08/07/18 14:08 Temperature 97.9 F Pulse Rate 50 L Pulse Rate [Left Dorsalis Pedis] 88 Respiratory Rate 14 Blood Pressure 123/54 L Pulse Oximetry 100 Oxygen Delivery Method Room Air Const Orientation: alert and oriented x3 Extrem Other: Left knee well-healed incision. Range of motion 0 to 105? without any noticeable pain. No erythema or induration or fluctuance. No drainage. Soft calf. 2+ dorsalis pedis pulse. Moderate tenderness along the medial joint line and posterior to the knee but no mass palpated behind this. Approximately 30% larger than the right knee. Assessment & Plan Plan: Assessment/Plan Narrative: She has ongoing left knee pain after a total joint replacement 1 month ago. I see no sign of any infection as she has no erythema or induration, no fever or chills, the wound looks very good, and she has a very good pain-free range of motion of the knee, nor is the pain level worsening, it is just not getting better. I am not inclined to put a needle into this as this could possibly seed an infection into the joint. I explained her that she probably does not have a Francisco cyst as she has now had a knee replacement and the inflammation should be dying down, but there still could be some residual cyst that has not resolved yet. She is already on pain medication and anti-inflammatories. My recommendation is to start her on prednisone with a Medrol Dosepak. Hopefully this will get her through the weekend and get some of the swelling down. If she is not better by Friday, she should call up to get seen by Dr. Hillman.
[2018-08-07 16:48] VITALS: BP 135/75; PULSE 59; RESP 20; O2SAT 98
== END 2018-08-07 16:48 | disposition home or self-care (01) ==
PROVIDERS: Emergency Provider Nurse Practitioner Family; PCP Family Medicine
DX: M25.562 Pain in left knee (principal); Z96.652 Presence of left artificial knee joint
CPT/HCPCS: 73562; 99282; 99283

== ENCOUNTER → 2019-06-15 15:20 | Outpatient (CLI) | payer MEDICARE, OTHER, SELFPAY ==
[2018-07-13 17:33] VITALS: BMI 38.0
--- NOTE | 2019-06-15 | DI.MG.S_ITS ---
BILATERAL DIGITAL SCREENING MAMMOGRAM 3D/2D WITH CAD: 06/15/2019 CLINICAL: Routine screening. Comparison is made to exams dated: 08/11/2017 mammogram, 01/20/2017 mammogram, 08/09/2016 mammogram, and 07/25/2016 mammogram - [facility]. There are scattered fibroglandular elements in both breasts. Current study was also evaluated with a Computer Aided Detection (CAD) system. There is an irregular asymmetry in the left breast anterior depth superior region seen on the mediolateral oblique view only. There also is an asymmetry in the left breast anterior depth central to the nipple seen on the mediolateral oblique view only. Additionally, there is an irregular asymmetry in the left breast anterior depth lateral region seen on the craniocaudal view only. This may correlate with the asymmetries described above on mediolateral oblique view. No other significant masses, calcifications, or other findings are seen in either breast. IMPRESSION: INCOMPLETE: NEEDS ADDITIONAL IMAGING EVALUATION The irregular asymmetry in the left breast anterior depth superior region seen on the mediolateral oblique view only is indeterminate. Additional views with possible ultrasound are recommended. The asymmetry in the left breast anterior depth central to the nipple seen on the mediolateral oblique view only is indeterminate. Additional views with possible ultrasound are recommended. The irregular asymmetry in the left breast anterior depth lateral region seen on the craniocaudal view only is indeterminate. Additional views with possible ultrasound are recommended. This exam was interpreted at Station ID: [id number]. NOTE: For mammograms, a report in lay terms will be sent to the patient. Approximately 15% of breast malignancies will not be visualized mammographically. In the management of a palpable breast mass, a negative mammogram must not discourage biopsy of a clinically suspicious lesion. Electronically Signed By: Delvin Mims M.D. ecl/:06/15/2019 17:01:01 letter sent: Additional Imaging Needed ACR BI-RADS Category 0: Incomplete [id number]
== END ==
PROVIDERS: PCP Family Medicine; Visit Provider Family Medicine
DX: Z12.31 Encounter for screening mammogram for malignant neoplasm of breast (principal)
CPT/HCPCS: 77063; 77067

== ENCOUNTER → 2019-06-22 08:20 | Outpatient (CLI) | payer MEDICARE, OTHER, SELFPAY ==
[2018-07-13 17:33] VITALS: BMI 38.0
--- NOTE | 2019-06-22 | DI.MG.S_ITS ---
UNILATERAL LEFT DIGITAL DIAGNOSTIC MAMMOGRAM 3D/2D WITH ADDITIONAL VIEWS: 06/22/2019 CLINICAL: Additional evaluation requested from prior study. Comparison is made to exams dated: 06/15/2019 mammogram, 08/11/2017 mammogram, and 01/20/2017 mammogram - [facility]. There are scattered fibroglandular elements in left breast. The asymmetries in the left breast seen on the complarison screening mammogram dated 06/15/19 are not seen on additional views. IMPRESSION: The asymmetries in the left breast seen on the screening mammogram likely respresent superimposed fibroglandular tissue and are benign. There is no mammographic evidence of malignancy. A 1 year screening mammogram is recommended. This exam was interpreted at Station ID: [id number]. NOTE: For mammograms, a report in lay terms will be sent to the patient. Approximately 15% of breast malignancies will not be visualized mammographically. In the management of a palpable breast mass, a negative mammogram must not discourage biopsy of a clinically suspicious lesion. Electronically Signed By: Ashly Metz M.D. lk/:06/22/2019 08:55:22 letter sent: Normal Exam ACR BI-RADS Category 2: Benign Finding(s) 3342F
== END ==
PROVIDERS: PCP Family Medicine; Visit Provider Family Medicine
DX: R92.8 Other abnormal and inconclusive findings on diagnostic imaging of breast (principal); N64.89 Other specified disorders of breast
CPT/HCPCS: 77065; G0279

== ENCOUNTER 2019-11-04 13:45 | Outpatient (RCR) | payer MEDICARE, OTHER, SELFPAY ==
[2018-07-13 17:33] VITALS: BMI 38.0
--- NOTE | 2019-08-24 16:37 | PT.OIE ---
Current Diagnoses Primary osteoarthritis, right shoulder (08/24/19) Unspecified disorder of synovium and tendon, right shoulder (08/24/19) Unspecified disorder of synovium and tendon, right upper arm (08/24/19) Incomplete rotator cuff tear or rupture of right shoulder, not specified as traumatic (08/24/19) Past Medical History (Last Updated 07/24/19 @ 16:15 by ADRIEN Tai) Anxiety and depression (Chronic) Arthritis (Acute) Bilateral cataracts (Chronic) Edema (Chronic) Fibromyalgia (Acute) Foot fracture, right (Acute) Ganglion cyst (Chronic) GERD (gastroesophageal reflux disease) (Chronic) Hamstring tendon rupture (Acute) HTN (hypertension) (Chronic) Hyperlipidemia (Chronic) Lumbar stenosis (Chronic) Neuroma (Chronic) Obstructive sleep apnea syndrome (Chronic) Osteoporosis (Chronic) Pericarditis (Acute) Peripheral neuropathy (Chronic) Pneumonia (Acute) Polycystic kidney disease (Chronic) Primary insomnia (Chronic) PVCs (premature ventricular contractions) (Acute) Thin skin (Acute) Past Surgical History (Last Reviewed 08/07/18 @ 16:30 by ADRIEN Perez) H/O: hysterectomy (Acute) History of ankle surgery (Acute) History of arthroplasty of left knee (Acute) History of arthroplasty of right knee (Acute) History of bilateral tubal ligation (Acute) Hx of appendectomy (Acute) Hx of arthroscopic knee surgery (Acute) Hx of cholecystectomy (Acute) Hx of laminectomy (Acute) Hx of thumb surgery (Acute) Hx of tonsillectomy (Acute) S/P lumbar fusion (Acute) S/P lumpectomy, left breast (Acute) S/P lumpectomy, right breast (Acute) S/P rotator cuff repair (Acute) Status post carpal tunnel release of both wrists (Acute) Visit Care Team Role Provider Type Travon Burr MD Primary Care Provider Physician Specialty: Family Practice Address: [facility] [place], [address] Email: [email or web address] Jaden Yip DO Attending Provider Non-Staff Specialty: Orthopedics Address: [facility] [place], [address] Email: Physical Therapy Initial Evaluation PT-OP-A Visit Information Start: 08/24/19 07:24 Freq: Status: Active Protocol: Document 08/24/19 13:49 MB (Rec: 08/24/19 14:30 MB [id number]) Out-Patient Physical Therapy Visit Information Visit Information Visit Type Initial Evaluation Visit Note Medicare, unlimited visit Visit Start Time 13:49 Visit Stop Time 14:29 Total Visit Minutes 40 Visit Number 1 PT-OP-B Current Condition Start: 08/24/19 07:24 Freq: Status: Active Protocol: Document 08/24/19 13:49 MB (Rec: 08/24/19 14:30 MB [id number]) Current Condition History of Current Condition Onset Date 3 years ago, right shoulder pain after fall History of Current Condition Pt hurt right shoulder after fall 3 years ago and then had another episode on January 22 when she went to fall forward and reached back to catch her balance on the door frame. She slammed her right shoulder back into the wall and she hurt a pop. Before that, she had cortisone injections in her right shoulder. Pt reports a history of 12 shots. On 07/01/19, pt underwent rotator cuff repair. She had had a biceps tear from the injury in January. She is just now getting into therapy. She just got out of the sling last week. Pt reports that she has had B LE neuropathy since back and foot surgeries. This occurs B below knees to feet. It affects her gait and she occ uses a cane at home. She describes burning sensation. Her does the driving. PMH: B LE neuropathy, ideopathic dizziness and history of low BP, falls, fibromyalgia, B TKR x2, OP, HTN, edema, JEFFERSON, arthritis, cervical disk disease, back surgery and fusion Pt is awakening 3 times a night d/t right shoulder pain. She is sleeping on her left side or her back. Pt is right handed. She has had trouble with personal hygiene. 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 Pt reports pain up to 5/10 in right shoulder. She denies numbness and tingling in UEs but she has electrical shock pain up to her right neck. Pt states that she drinks coffee in the a.m. until 11 a. m. She then drinks 4-5 glasses of water in the afternoon Pt mentions that she had complete right hamstring tear Prior Treatments and Tests Surgeries and cortisone injections PT for her right hand Pt reports that she had a poor experience with PT in the past in that she was left on machines. PT-OP-C Subjective Start: 08/24/19 07:24 Freq: Status: Active Protocol: Document 08/24/19 13:49 MB (Rec: 08/24/19 14:30 MB [id number]) OP-PT Subjective Patient Comments Patient Comments Pt's goals for PT are to decrease pain and increase right shoulder ROM and UE strength Patient Questionnaires Quick Dash- Upper Extremity Quick Dash UE Impairment 40 to 59% Impaired (Score 40- 59) PT-OP-K Range of Motion Start: 08/24/19 07:24 Freq: Status: Active Protocol: Document 08/24/19 13:49 MB (Rec: 08/24/19 16:36 MB [id number]) Cervical Spine Range of Motion Cervical Spine Active Testing Position Standing Flexion 5 Extension 15 Rotation Left 50 Rotation Right 30 Lateral Flexion Left 15 Lateral Flexion Right 15 Shoulder Goniometric Range of Motion Shoulder Right Shoulder ROM WFL No Testing Position Standing Flexion 88 Abduction 120 Internal Rotation Behind Back (text) To right sciatic notch level Left Shoulder ROM WFL Yes Testing Position Standing Internal Rotation Behind Back (text) To T12-L1 level Shoulder ROM Limitations Comments Passive ER and IR B shoulders with arm in 90/90 are normal. Pt has 3-4/10 right shoulder pain with this PT-OP-M Strength Start: 08/24/19 07:24 Freq: Status: Active Protocol: Document 08/24/19 13:49 MB (Rec: 08/24/19 16:36 MB [id number]) Shoulder Strength Shoulder Manual Muscle Testing Right Flexion 2 Poor Abduction (C5) 2 Poor External Rotation 3- Fair- Internal Rotation 3- Fair- Left Flexion 5 Normal Abduction (C5) 5 Normal External Rotation 5 Normal Internal Rotation 5 Normal Elbow/Forearm Strength Elbow and Forearm Manual Muscle Testing Right Flexion (C6) 4 Good Extension (C7) 5 Normal Pronation 4 Good Supination 4 Good Left Flexion (C6) 5 Normal Extension (C7) 5 Normal Pronation 5 Normal Supination 5 Normal Wrist Strength Wrist Manual Muscle Testing Right Flexion (C7) 5 Normal Extension (C6) 5 Normal Left Flexion (C7) 5 Normal Extension (C6) 5 Normal PT-OP-T Assessment and Plan Start: 08/24/19 07:24 Freq: Status: Active Protocol: Document 08/24/19 13:49 MB (Rec: 08/24/19 16:36 MB [id number]) Physical Therapy Assessment Rehab Potential Rehabilitation Potential Good Evaluation Complexity Number of Personal Factors/Comorbidities 3 or More Number of Body Systems Impaired 1-2 Clinical Presentation at Evaluation Evolving Impairments Impairments Activity Tolerance,Balance, Pain,Posture,ROM,Soft Tissue Mobility,Strength Other Impairments UE sensation is intact to light touch. Medical presentation is complicated in that pt presents with B LE neuropathy that affects standing balance and gait, she has multiple orthopedic problems including history of multiple surgeries and right hamstring and biceps tears, she has had many falls. She has trouble tolerating exercise d/t LEs, she reports. Goals 7 Mcc Goal (LTG) Pt will perform progressive HEP including ROM, flexibility , core and UE strengthening with I by 10/25/19. LTG Duration 8 weeks 6 Mcc Goal (LTG) Pt will present with improved left shoulder strength to 5/5 flexion, abduction, ER and IR by 10/25/19. LTG Duration 8 weeks 5 Stabilizing Machine Operator Goal (LTG) Pt will present with AROM right shoulder flexion to 120 deg flexion and abduction and internal rotation behind back to L2 by 10/25/19. LTG Duration 8 weeks 4 Mcc Goal (LTG) Pt will present with improved cervical ROM to at least 20 deg extension and 55 deg B rotation by 10/25/19. LTG Duration 8 weeks 3 Stabilizing Machine Operator Goal (LTG) Pt will report a 75% improvement in right shoulder pain by 10/25/19. LTG Duration 8 weeks 2 Mcc Goal (LTG) Pt will present with a QuickDASH score reflecting no more than 15% impairment by 07/04. LTG Duration 8 weeks 1 Stabilizing Machine Operator Goal (LTG) Pt will deny falls for 8 weeks by 10/25/19. LTG Duration 8 weeks Assessment Summary Assessment Pt is a 74 y/o female presenting with right shoulder decreased ROM and strength post-op right shoulder arthroscopy. She has a complicated medical history including multiple orthopedic injuries and surgeries, falls and LE neuropathy. Her balance is poor with performing UE tasks for evaluation. She will benefit from PT to improve ROM, strength and posture. Physical Therapy Plan Frequency and Duration Frequency of Treatment 2x/Week Duration of Treatment 8 weeks Plan of Care Start Date 08/24/19 Plan of Care End Date 10/25/19 Therapeutic Interventions Therapeutic Interventions Aquatic Therapy,Balance Training,Canalithic Repositioning,Home Exercise Program,Manual Therapy, Neuromuscular Re-education, Patient/Caregiver Education, Self-Care/Home Management,Soft Tissue Mobilization,Taping, Therapeutic Exercises Modalities Cold Pack/Ice Massage,Electric Stimulation,Hot Packs, Ultrasound Next Visit Focus/Plan Next Note Type Treatment Note Next Visit Plan Initiate HEP
--- NOTE | 2019-08-24 16:37 | PT.OPPOC ---
Current Diagnoses Primary osteoarthritis, right shoulder (08/24/19) Unspecified disorder of synovium and tendon, right shoulder (08/24/19) Unspecified disorder of synovium and tendon, right upper arm (08/24/19) Incomplete rotator cuff tear or rupture of right shoulder, not specified as traumatic (08/24/19) Visit Care Team Role Provider Type Travon Burr MD Primary Care Provider Physician Specialty: Family Practice Address: [address] [place] [address], [address], [place], [address] Email: [email or web address] Jaden Yip DO Attending Provider Non-Staff Specialty: Orthopedics Address: [facility] [facility], [place], [address] Email: Plan Of Care PT-OP-T Assessment and Plan Start: 08/24/19 07:24 Freq: Status: Active Protocol: Document 08/24/19 13:49 MB (Rec: 08/24/19 16:36 MB [id number]) Physical Therapy Assessment Rehab Potential Rehabilitation Potential Good Evaluation Complexity Number of Personal Factors/Comorbidities 3 or More Number of Body Systems Impaired 1-2 Clinical Presentation at Evaluation Evolving Impairments Impairments Activity Tolerance,Balance, Pain,Posture,ROM,Soft Tissue Mobility,Strength Other Impairments UE sensation is intact to light touch. Medical presentation is complicated in that pt presents with B LE neuropathy that affects standing balance and gait, she has multiple orthopedic problems including history of multiple surgeries and right hamstring and biceps tears, she has had many falls. She has trouble tolerating exercise d/t LEs, she reports. Goals 7 Medical Observer Goal (LTG) Pt will perform progressive HEP including ROM, flexibility , core and UE strengthening with I by 10/25/19. LTG Duration 8 weeks 6 Medical Observer Goal (LTG) Pt will present with improved left shoulder strength to 5/5 flexion, abduction, ER and IR by 10/25/19. LTG Duration 8 weeks 5 Medical Observer Goal (LTG) Pt will present with AROM right shoulder flexion to 120 deg flexion and abduction and internal rotation behind back to L2 by 10/25/19. LTG Duration 8 weeks 4 Senior Care Goal (LTG) Pt will present with improved cervical ROM to at least 20 deg extension and 55 deg B rotation by 10/25/19. LTG Duration 8 weeks 3 Senior Care Goal (LTG) Pt will report a 75% improvement in right shoulder pain by 10/25/19. LTG Duration 8 weeks 2 Senior Care Goal (LTG) Pt will present with a QuickDASH score reflecting no more than 15% impairment by 07/04. LTG Duration 8 weeks 1 Medical Observer Goal (LTG) Pt will deny falls for 8 weeks by 10/25/19. LTG Duration 8 weeks Assessment Summary Assessment Pt is a 74 y/o female presenting with right shoulder decreased ROM and strength post-op right shoulder arthroscopy. She has a complicated medical history including multiple orthopedic injuries and surgeries, falls and LE neuropathy. Her balance is poor with performing UE tasks for evaluation. She will benefit from PT to improve ROM, strength and posture. Physical Therapy Plan Frequency and Duration Frequency of Treatment 2x/Week Duration of Treatment 8 weeks Plan of Care Start Date 08/24/19 Plan of Care End Date 10/25/19 Therapeutic Interventions Therapeutic Interventions Aquatic Therapy,Balance Training,Canalithic Repositioning,Home Exercise Program,Manual Therapy, Neuromuscular Re-education, Patient/Caregiver Education, Self-Care/Home Management,Soft Tissue Mobilization,Taping, Therapeutic Exercises Modalities Cold Pack/Ice Massage,Electric Stimulation,Hot Packs, Ultrasound Next Visit Focus/Plan Next Note Type Treatment Note Next Visit Plan Initiate HEP Plan of Care Dates Plan of Care Start Date 08/24/19 Plan of Care End Date 10/25/19
--- NOTE | 2019-08-31 13:54 | PT.OTN ---
Current Diagnoses Primary osteoarthritis, right shoulder (08/31/19) Unspecified disorder of synovium and tendon, right shoulder (08/31/19) Unspecified disorder of synovium and tendon, right upper arm (08/31/19) Incomplete rotator cuff tear or rupture of right shoulder, not specified as traumatic (08/31/19) Physical Therapy Treatment Note PT-OP-A Visit Information Start: 08/24/19 07:24 Freq: Status: Active Protocol: Document 08/31/19 13:11 MB (Rec: 08/31/19 13:54 MB [id number]) Out-Patient Physical Therapy Visit Information Visit Information Visit Type Treatment Note Visit Note Pt arrives late to appointment Visit Start Time 13:11 Visit Stop Time 13:41 Total Visit Minutes 30 Visit Number 2/unlimited PT-OP-B Current Condition Start: 08/24/19 07:24 Freq: Status: Active Protocol: Document 08/24/19 13:49 MB (Rec: 08/24/19 14:30 MB [id number]) Current Condition History of Current Condition Onset Date 3 years ago, right shoulder pain after fall History of Current Condition Pt hurt right shoulder after fall 3 years ago and then had another episode on January 22 when she went to fall forward and reached back to catch her balance on the door frame. She slammed her right shoulder back into the wall and she hurt a pop. Before that, she had cortisone injections in her right shoulder. Pt reports a history of 12 shots. On 07/01/19, pt underwent rotator cuff repair. She had had a biceps tear from the injury in January. She is just now getting into therapy. She just got out of the sling last week. Pt reports that she has had B LE neuropathy since back and foot surgeries. This occurs B below knees to feet. It affects her gait and she occ uses a cane at home. She describes burning sensation. Her does the driving. PMH: B LE neuropathy, ideopathic dizziness and history of low BP, falls, fibromyalgia, B TKR x2, OP, HTN, edema, JEFFERSON, arthritis, cervical disk disease, back surgery and fusion Pt is awakening 3 times a night d/t right shoulder pain. She is sleeping on her left side or her back. Pt is right handed. She has had trouble with personal hygiene. 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 Pt reports pain up to 5/10 in right shoulder. She denies numbness and tingling in UEs but she has electrical shock pain up to her right neck. Pt states that she drinks coffee in the a.m. until 11 a. m. She then drinks 4-5 glasses of water in the afternoon Pt mentions that she had complete right hamstring tear Prior Treatments and Tests Surgeries and cortisone injections PT for her right hand Pt reports that she had a poor experience with PT in the past in that she was left on machines. PT-OP-C Subjective Start: 08/24/19 07:24 Freq: Status: Active Protocol: Document 08/31/19 13:11 MB (Rec: 08/31/19 13:54 MB [id number]) OP-PT Subjective Patient Comments Patient Comments Pt states that her right shoulder hurts as if she didn' t have surgery. PT-OP-K Range of Motion Start: 08/24/19 07:24 Freq: Status: Active Protocol: Document 08/24/19 13:49 MB (Rec: 08/24/19 16:36 MB [id number]) Cervical Spine Range of Motion Cervical Spine Active Testing Position Standing Flexion 5 Extension 15 Rotation Left 50 Rotation Right 30 Lateral Flexion Left 15 Lateral Flexion Right 15 Shoulder Goniometric Range of Motion Shoulder Right Shoulder ROM WFL No Testing Position Standing Flexion 88 Abduction 120 Internal Rotation Behind Back (text) To right sciatic notch level Left Shoulder ROM WFL Yes Testing Position Standing Internal Rotation Behind Back (text) To T12-L1 level Shoulder ROM Limitations Comments Passive ER and IR B shoulders with arm in 90/90 are normal. Pt has 3-4/10 right shoulder pain with this PT-OP-M Strength Start: 08/24/19 07:24 Freq: Status: Active Protocol: Document 08/24/19 13:49 MB (Rec: 08/24/19 16:36 MB [id number]) Shoulder Strength Shoulder Manual Muscle Testing Right Flexion 2 Poor Abduction (C5) 2 Poor External Rotation 3- Fair- Internal Rotation 3- Fair- Left Flexion 5 Normal Abduction (C5) 5 Normal External Rotation 5 Normal Internal Rotation 5 Normal Elbow/Forearm Strength Elbow and Forearm Manual Muscle Testing Right Flexion (C6) 4 Good Extension (C7) 5 Normal Pronation 4 Good Supination 4 Good Left Flexion (C6) 5 Normal Extension (C7) 5 Normal Pronation 5 Normal Supination 5 Normal Wrist Strength Wrist Manual Muscle Testing Right Flexion (C7) 5 Normal Extension (C6) 5 Normal Left Flexion (C7) 5 Normal Extension (C6) 5 Normal PT-OP-Q Treatments Start: 08/24/19 07:24 Freq: Status: Active Protocol: Document 08/31/19 13:11 MB (Rec: 08/31/19 13:54 MB [id number]) Therapeutic Exercises Supine Exercises Cane flexion supine Comments Cane flexion supine Standing Exercises Scapular retraction Comments Scapular retraction against wall Racquet ball massage Comments Over infraspinatus (no shoulder movement today), intrascapular Manual Therapy Treatment Manual Techniques KT to support right shoulder Comments I strip from mid delt to shoulder to support elevation and mid delt V strip to decrease delt tension PT-OP-T Assessment and Plan Start: 08/24/19 07:24 Freq: Status: Active Protocol: Document 08/31/19 13:11 MB (Rec: 08/31/19 13:54 MB [id number]) Physical Therapy Assessment Rehab Potential Rehabilitation Potential Good Evaluation Complexity Number of Personal Factors/Comorbidities 3 or More Number of Body Systems Impaired 1-2 Clinical Presentation at Evaluation Evolving Impairments Impairments Activity Tolerance,Balance, Pain,Posture,ROM,Soft Tissue Mobility,Strength Other Impairments UE sensation is intact to light touch. Medical presentation is complicated in that pt presents with B LE neuropathy that affects standing balance and gait, she has multiple orthopedic problems including history of multiple surgeries and right hamstring and biceps tears, she has had many falls. She has trouble tolerating exercise d/t LEs, she reports. Goals 7 Endoscopy Technican Goal (LTG) Pt will perform progressive HEP including ROM, flexibility , core and UE strengthening with I by 10/25/19. LTG Duration 8 weeks 6 Endoscopy Technican Goal (LTG) Pt will present with improved left shoulder strength to 5/5 flexion, abduction, ER and IR by 10/25/19. LTG Duration 8 weeks 5 Care Home Goal (LTG) Pt will present with AROM right shoulder flexion to 120 deg flexion and abduction and internal rotation behind back to L2 by 10/25/19. LTG Duration 8 weeks 4 Endoscopy Technican Goal (LTG) Pt will present with improved cervical ROM to at least 20 deg extension and 55 deg B rotation by 10/25/19. LTG Duration 8 weeks 3 Care Home Goal (LTG) Pt will report a 75% improvement in right shoulder pain by 10/25/19. LTG Duration 8 weeks 2 Care Home Goal (LTG) Pt will present with a QuickDASH score reflecting no more than 15% impairment by 07/04. LTG Duration 8 weeks 1 Care Home Goal (LTG) Pt will deny falls for 8 weeks by 10/25/19. LTG Duration 8 weeks Assessment Summary Assessment Pt arrives late to appointment . Initiated HEP today. Pt with pain face with all exercises and self-massage. She does not rate pain and states it is helpful-type pain. Physical Therapy Plan Frequency and Duration Frequency of Treatment 2x/Week Duration of Treatment 8 weeks Plan of Care Start Date 08/24/19 Plan of Care End Date 10/25/19 Therapeutic Interventions Therapeutic Interventions Aquatic Therapy,Balance Training,Canalithic Repositioning,Home Exercise Program,Manual Therapy, Neuromuscular Re-education, Patient/Caregiver Education, Self-Care/Home Management,Soft Tissue Mobilization,Taping, Therapeutic Exercises Modalities Cold Pack/Ice Massage,Electric Stimulation,Hot Packs, Ultrasound Next Visit Focus/Plan Next Note Type Treatment Note Next Visit Plan Progress HEP
--- NOTE | 2019-09-03 14:38 | PT.OTN ---
Current Diagnoses Primary osteoarthritis, right shoulder (09/03/19) Unspecified disorder of synovium and tendon, right shoulder (09/03/19) Unspecified disorder of synovium and tendon, right upper arm (09/03/19) Incomplete rotator cuff tear or rupture of right shoulder, not specified as traumatic (09/03/19) Physical Therapy Treatment Note PT-OP-A Visit Information Start: 08/24/19 07:24 Freq: Status: Active Protocol: Document 09/03/19 13:48 MB (Rec: 09/03/19 14:38 MB [id number]) Out-Patient Physical Therapy Visit Information Visit Information Visit Type Treatment Note Visit Start Time 13:48 Visit Stop Time 14:28 Total Visit Minutes 40 Visit Number 3/unlimited PT-OP-B Current Condition Start: 08/24/19 07:24 Freq: Status: Active Protocol: Document 08/24/19 13:49 MB (Rec: 08/24/19 14:30 MB [id number]) Current Condition History of Current Condition Onset Date 3 years ago, right shoulder pain after fall History of Current Condition Pt hurt right shoulder after fall 3 years ago and then had another episode on January 22 when she went to fall forward and reached back to catch her balance on the door frame. She slammed her right shoulder back into the wall and she hurt a pop. Before that, she had cortisone injections in her right shoulder. Pt reports a history of 12 shots. On 07/01/19, pt underwent rotator cuff repair. She had had a biceps tear from the injury in January. She is just now getting into therapy. She just got out of the sling last week. Pt reports that she has had B LE neuropathy since back and foot surgeries. This occurs B below knees to feet. It affects her gait and she occ uses a cane at home. She describes burning sensation. Her does the driving. PMH: B LE neuropathy, ideopathic dizziness and history of low BP, falls, fibromyalgia, B TKR x2, OP, HTN, edema, JEFFERSON, arthritis, cervical disk disease, back surgery and fusion Pt is awakening 3 times a night d/t right shoulder pain. She is sleeping on her left side or her back. Pt is right handed. She has had trouble with personal hygiene. 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 Pt reports pain up to 5/10 in right shoulder. She denies numbness and tingling in UEs but she has electrical shock pain up to her right neck. Pt states that she drinks coffee in the a.m. until 11 a. m. She then drinks 4-5 glasses of water in the afternoon Pt mentions that she had complete right hamstring tear Prior Treatments and Tests Surgeries and cortisone injections PT for her right hand Pt reports that she had a poor experience with PT in the past in that she was left on machines. PT-OP-C Subjective Start: 08/24/19 07:24 Freq: Status: Active Protocol: Document 09/03/19 13:48 MB (Rec: 09/03/19 14:38 MB [id number]) OP-PT Subjective Patient Comments Patient Comments Pt states that she feels a little better with the racquet ball massage. PT-OP-K Range of Motion Start: 08/24/19 07:24 Freq: Status: Active Protocol: Document 08/24/19 13:49 MB (Rec: 08/24/19 16:36 MB [id number]) Cervical Spine Range of Motion Cervical Spine Active Testing Position Standing Flexion 5 Extension 15 Rotation Left 50 Rotation Right 30 Lateral Flexion Left 15 Lateral Flexion Right 15 Shoulder Goniometric Range of Motion Shoulder Right Shoulder ROM WFL No Testing Position Standing Flexion 88 Abduction 120 Internal Rotation Behind Back (text) To right sciatic notch level Left Shoulder ROM WFL Yes Testing Position Standing Internal Rotation Behind Back (text) To T12-L1 level Shoulder ROM Limitations Comments Passive ER and IR B shoulders with arm in 90/90 are normal. Pt has 3-4/10 right shoulder pain with this PT-OP-M Strength Start: 08/24/19 07:24 Freq: Status: Active Protocol: Document 08/24/19 13:49 MB (Rec: 08/24/19 16:36 MB [id number]) Shoulder Strength Shoulder Manual Muscle Testing Right Flexion 2 Poor Abduction (C5) 2 Poor External Rotation 3- Fair- Internal Rotation 3- Fair- Left Flexion 5 Normal Abduction (C5) 5 Normal External Rotation 5 Normal Internal Rotation 5 Normal Elbow/Forearm Strength Elbow and Forearm Manual Muscle Testing Right Flexion (C6) 4 Good Extension (C7) 5 Normal Pronation 4 Good Supination 4 Good Left Flexion (C6) 5 Normal Extension (C7) 5 Normal Pronation 5 Normal Supination 5 Normal Wrist Strength Wrist Manual Muscle Testing Right Flexion (C7) 5 Normal Extension (C6) 5 Normal Left Flexion (C7) 5 Normal Extension (C6) 5 Normal PT-OP-Q Treatments Start: 08/24/19 07:24 Freq: Status: Active Protocol: Document 09/03/19 13:48 MB (Rec: 09/03/19 14:38 MB [id number]) Therapeutic Exercises Supine Exercises Posterior capsule stretch Comments Performed this date and pt to perform at home Cane abduction Comments Performed today and added to HEP Cane flexion supine Comments Cane flexion supine Manual Therapy Treatment Other Other Manual Treatments MWM right delt, infraspinatus, biceps and upper traps and pt performs active motion PT-OP-T Assessment and Plan Start: 08/24/19 07:24 Freq: Status: Active Protocol: Document 09/03/19 13:48 MB (Rec: 09/03/19 14:38 MB [id number]) Physical Therapy Assessment Rehab Potential Rehabilitation Potential Good Evaluation Complexity Number of Personal Factors/Comorbidities 3 or More Number of Body Systems Impaired 1-2 Clinical Presentation at Evaluation Evolving Impairments Impairments Activity Tolerance,Balance, Pain,Posture,ROM,Soft Tissue Mobility,Strength Other Impairments UE sensation is intact to light touch. Medical presentation is complicated in that pt presents with B LE neuropathy that affects standing balance and gait, she has multiple orthopedic problems including history of multiple surgeries and right hamstring and biceps tears, she has had many falls. She has trouble tolerating exercise d/t LEs, she reports. Goals 7 Line Up Machine Operator Goal (LTG) Pt will perform progressive HEP including ROM, flexibility , core and UE strengthening with I by 10/25/19. LTG Duration 8 weeks 6 Line Up Machine Operator Goal (LTG) Pt will present with improved left shoulder strength to 5/5 flexion, abduction, ER and IR by 10/25/19. LTG Duration 8 weeks 5 Custodial Goal (LTG) Pt will present with AROM right shoulder flexion to 120 deg flexion and abduction and internal rotation behind back to L2 by 10/25/19. LTG Duration 8 weeks 4 Line Up Machine Operator Goal (LTG) Pt will present with improved cervical ROM to at least 20 deg extension and 55 deg B rotation by 10/25/19. LTG Duration 8 weeks 3 Custodial Goal (LTG) Pt will report a 75% improvement in right shoulder pain by 10/25/19. LTG Duration 8 weeks 2 Line Up Machine Operator Goal (LTG) Pt will present with a QuickDASH score reflecting no more than 15% impairment by 07/04. LTG Duration 8 weeks 1 Line Up Machine Operator Goal (LTG) Pt will deny falls for 8 weeks by 10/25/19. LTG Duration 8 weeks Assessment Summary Assessment Initiated manual work today to improve range and decrease pain. Improved myofascial mobility afterwards. Con't to progress. Pt to start posterior capsule stretch. Physical Therapy Plan Frequency and Duration Frequency of Treatment 2x/Week Duration of Treatment 8 weeks Plan of Care Start Date 08/24/19 Plan of Care End Date 10/25/19 Therapeutic Interventions Therapeutic Interventions Aquatic Therapy,Balance Training,Canalithic Repositioning,Home Exercise Program,Manual Therapy, Neuromuscular Re-education, Patient/Caregiver Education, Self-Care/Home Management,Soft Tissue Mobilization,Taping, Therapeutic Exercises Modalities Cold Pack/Ice Massage,Electric Stimulation,Hot Packs, Ultrasound Next Visit Focus/Plan Next Note Type Treatment Note Next Visit Plan Progress HEP
--- NOTE | 2019-09-16 17:48 | PT.OTN ---
Current Diagnoses Primary osteoarthritis, right shoulder (09/16/19) Unspecified disorder of synovium and tendon, right shoulder (09/16/19) Unspecified disorder of synovium and tendon, right upper arm (09/16/19) Incomplete rotator cuff tear or rupture of right shoulder, not specified as traumatic (09/16/19) Physical Therapy Treatment Note PT-OP-A Visit Information Start: 08/24/19 07:24 Freq: Status: Active Protocol: Document 09/16/19 16:50 MB (Rec: 09/16/19 17:48 MB [id number]) Out-Patient Physical Therapy Visit Information Visit Information Visit Type Treatment Note Visit Start Time 16:50 Visit Stop Time 17:43 Total Visit Minutes 53 Visit Number 4/unlimited PT-OP-B Current Condition Start: 08/24/19 07:24 Freq: Status: Active Protocol: Document 08/24/19 13:49 MB (Rec: 08/24/19 14:30 MB [id number]) Current Condition History of Current Condition Onset Date 3 years ago, right shoulder pain after fall History of Current Condition Pt hurt right shoulder after fall 3 years ago and then had another episode on January 22 when she went to fall forward and reached back to catch her balance on the door frame. She slammed her right shoulder back into the wall and she hurt a pop. Before that, she had cortisone injections in her right shoulder. Pt reports a history of 12 shots. On 07/01/19, pt underwent rotator cuff repair. She had had a biceps tear from the injury in January. She is just now getting into therapy. She just got out of the sling last week. Pt reports that she has had B LE neuropathy since back and foot surgeries. This occurs B below knees to feet. It affects her gait and she occ uses a cane at home. She describes burning sensation. Her does the driving. PMH: B LE neuropathy, ideopathic dizziness and history of low BP, falls, fibromyalgia, B TKR x2, OP, HTN, edema, JEFFERSON, arthritis, cervical disk disease, back surgery and fusion Pt is awakening 3 times a night d/t right shoulder pain. She is sleeping on her left side or her back. Pt is right handed. She has had trouble with personal hygiene. 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 Pt reports pain up to 5/10 in right shoulder. She denies numbness and tingling in UEs but she has electrical shock pain up to her right neck. Pt states that she drinks coffee in the a.m. until 11 a. m. She then drinks 4-5 glasses of water in the afternoon Pt mentions that she had complete right hamstring tear Prior Treatments and Tests Surgeries and cortisone injections PT for her right hand Pt reports that she had a poor experience with PT in the past in that she was left on machines. PT-OP-C Subjective Start: 08/24/19 07:24 Freq: Status: Active Protocol: Document 09/16/19 16:50 MB (Rec: 09/16/19 17:48 MB [id number]) OP-PT Subjective Patient Comments Patient Comments Pt feels better and is moving better. PT-OP-K Range of Motion Start: 08/24/19 07:24 Freq: Status: Active Protocol: Document 08/24/19 13:49 MB (Rec: 08/24/19 16:36 MB [id number]) Cervical Spine Range of Motion Cervical Spine Active Testing Position Standing Flexion 5 Extension 15 Rotation Left 50 Rotation Right 30 Lateral Flexion Left 15 Lateral Flexion Right 15 Shoulder Goniometric Range of Motion Shoulder Right Shoulder ROM WFL No Testing Position Standing Flexion 88 Abduction 120 Internal Rotation Behind Back (text) To right sciatic notch level Left Shoulder ROM WFL Yes Testing Position Standing Internal Rotation Behind Back (text) To T12-L1 level Shoulder ROM Limitations Comments Passive ER and IR B shoulders with arm in 90/90 are normal. Pt has 3-4/10 right shoulder pain with this PT-OP-M Strength Start: 08/24/19 07:24 Freq: Status: Active Protocol: Document 08/24/19 13:49 MB (Rec: 08/24/19 16:36 MB [id number]) Shoulder Strength Shoulder Manual Muscle Testing Right Flexion 2 Poor Abduction (C5) 2 Poor External Rotation 3- Fair- Internal Rotation 3- Fair- Left Flexion 5 Normal Abduction (C5) 5 Normal External Rotation 5 Normal Internal Rotation 5 Normal Elbow/Forearm Strength Elbow and Forearm Manual Muscle Testing Right Flexion (C6) 4 Good Extension (C7) 5 Normal Pronation 4 Good Supination 4 Good Left Flexion (C6) 5 Normal Extension (C7) 5 Normal Pronation 5 Normal Supination 5 Normal Wrist Strength Wrist Manual Muscle Testing Right Flexion (C7) 5 Normal Extension (C6) 5 Normal Left Flexion (C7) 5 Normal Extension (C6) 5 Normal PT-OP-Q Treatments Start: 08/24/19 07:24 Freq: Status: Active Protocol: Document 09/16/19 16:50 MB (Rec: 09/16/19 17:48 MB [id number]) Therapeutic Exercises Supine Exercises Posterior capsule stretch Comments Performed this date and pt is performing at home Cane abduction Comments Performs actively today Cane flexion supine Comments Performs actively today Sitting Exercises Upper traps massage MWM Comments Sitting in chair at corner, racquet ball at trigger point and rotation Standing Exercises Racquet ball massage Comments Performed ER with racquet ball against wall; biceps against wall Manual Therapy Treatment Manual Techniques MWM left anterior delt and biceps Comments PT provides myofascial trigger point pressure and pt performs active assisted elbow flexion and extension PT-OP-T Assessment and Plan Start: 08/24/19 07:24 Freq: Status: Active Protocol: Document 09/16/19 16:50 MB (Rec: 09/16/19 17:48 MB [id number]) Physical Therapy Assessment Rehab Potential Rehabilitation Potential Good Evaluation Complexity Number of Personal Factors/Comorbidities 3 or More Number of Body Systems Impaired 1-2 Clinical Presentation at Evaluation Evolving Impairments Impairments Activity Tolerance,Balance, Pain,Posture,ROM,Soft Tissue Mobility,Strength Other Impairments UE sensation is intact to light touch. Medical presentation is complicated in that pt presents with B LE neuropathy that affects standing balance and gait, she has multiple orthopedic problems including history of multiple surgeries and right hamstring and biceps tears, she has had many falls. She has trouble tolerating exercise d/t LEs, she reports. Goals 7 Group Home Goal (LTG) Pt will perform progressive HEP including ROM, flexibility , core and UE strengthening with I by 10/25/19. LTG Duration 8 weeks 6 Group Home Goal (LTG) Pt will present with improved left shoulder strength to 5/5 flexion, abduction, ER and IR by 10/25/19. LTG Duration 8 weeks 5 Freezer Person Goal (LTG) Pt will present with AROM right shoulder flexion to 120 deg flexion and abduction and internal rotation behind back to L2 by 10/25/19. LTG Duration 8 weeks 4 Group Home Goal (LTG) Pt will present with improved cervical ROM to at least 20 deg extension and 55 deg B rotation by 10/25/19. LTG Duration 8 weeks 3 Group Home Goal (LTG) Pt will report a 75% improvement in right shoulder pain by 10/25/19. LTG Duration 8 weeks 2 Freezer Person Goal (LTG) Pt will present with a QuickDASH score reflecting no more than 15% impairment by 07/04. LTG Duration 8 weeks 1 Group Home Goal (LTG) Pt will deny falls for 8 weeks by 10/25/19. LTG Duration 8 weeks Assessment Summary Assessment Pt's AROM right shoulder is much improved today. Con't to progress HEP. She cannot tolerate biceps stretch in doorway today. Has increased fascial tension in the area. Physical Therapy Plan Frequency and Duration Frequency of Treatment 2x/Week Duration of Treatment 8 weeks Plan of Care Start Date 08/24/19 Plan of Care End Date 10/25/19 Therapeutic Interventions Therapeutic Interventions Aquatic Therapy,Balance Training,Canalithic Repositioning,Home Exercise Program,Manual Therapy, Neuromuscular Re-education, Patient/Caregiver Education, Self-Care/Home Management,Soft Tissue Mobilization,Taping, Therapeutic Exercises Modalities Cold Pack/Ice Massage,Electric Stimulation,Hot Packs, Ultrasound Next Visit Focus/Plan Next Note Type Treatment Note Next Visit Plan Progress HEP
--- NOTE | 2019-09-20 11:15 | PT.OTN ---
Current Diagnoses Primary osteoarthritis, right shoulder (09/20/19) Unspecified disorder of synovium and tendon, right shoulder (09/20/19) Unspecified disorder of synovium and tendon, right upper arm (09/20/19) Incomplete rotator cuff tear or rupture of right shoulder, not specified as traumatic (09/20/19) Physical Therapy Treatment Note PT-OP-A Visit Information Start: 08/24/19 07:24 Freq: Status: Active Protocol: Document 09/20/19 10:33 MB (Rec: 09/20/19 11:15 MB [id number]) Out-Patient Physical Therapy Visit Information Visit Information Visit Type Treatment Note Visit Start Time 10:33 Visit Stop Time 11:13 Total Visit Minutes 40 Visit Number 5/unlimited PT-OP-B Current Condition Start: 08/24/19 07:24 Freq: Status: Active Protocol: Document 08/24/19 13:49 MB (Rec: 08/24/19 14:30 MB [id number]) Current Condition History of Current Condition Onset Date 3 years ago, right shoulder pain after fall History of Current Condition Pt hurt right shoulder after fall 3 years ago and then had another episode on January 22 when she went to fall forward and reached back to catch her balance on the door frame. She slammed her right shoulder back into the wall and she hurt a pop. Before that, she had cortisone injections in her right shoulder. Pt reports a history of 12 shots. On 07/01/19, pt underwent rotator cuff repair. She had had a biceps tear from the injury in January. She is just now getting into therapy. She just got out of the sling last week. Pt reports that she has had B LE neuropathy since back and foot surgeries. This occurs B below knees to feet. It affects her gait and she occ uses a cane at home. She describes burning sensation. Her does the driving. PMH: B LE neuropathy, ideopathic dizziness and history of low BP, falls, fibromyalgia, B TKR x2, OP, HTN, edema, JEFFERSON, arthritis, cervical disk disease, back surgery and fusion Pt is awakening 3 times a night d/t right shoulder pain. She is sleeping on her left side or her back. Pt is right handed. She has had trouble with personal hygiene. 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 Pt reports pain up to 5/10 in right shoulder. She denies numbness and tingling in UEs but she has electrical shock pain up to her right neck. Pt states that she drinks coffee in the a.m. until 11 a. m. She then drinks 4-5 glasses of water in the afternoon Pt mentions that she had complete right hamstring tear Prior Treatments and Tests Surgeries and cortisone injections PT for her right hand Pt reports that she had a poor experience with PT in the past in that she was left on machines. PT-OP-C Subjective Start: 08/24/19 07:24 Freq: Status: Active Protocol: Document 09/20/19 10:33 MB (Rec: 09/20/19 11:15 MB [id number]) OP-PT Subjective Patient Comments Patient Comments Pt states that she did upper traps massage in standing at home and hurt her back. She returns to Dr. Yip on Fri at 1325. PT-OP-K Range of Motion Start: 08/24/19 07:24 Freq: Status: Active Protocol: Document 08/24/19 13:49 MB (Rec: 08/24/19 16:36 MB [id number]) Cervical Spine Range of Motion Cervical Spine Active Testing Position Standing Flexion 5 Extension 15 Rotation Left 50 Rotation Right 30 Lateral Flexion Left 15 Lateral Flexion Right 15 Shoulder Goniometric Range of Motion Shoulder Right Shoulder ROM WFL No Testing Position Standing Flexion 88 Abduction 120 Internal Rotation Behind Back (text) To right sciatic notch level Left Shoulder ROM WFL Yes Testing Position Standing Internal Rotation Behind Back (text) To T12-L1 level Shoulder ROM Limitations Comments Passive ER and IR B shoulders with arm in 90/90 are normal. Pt has 3-4/10 right shoulder pain with this PT-OP-M Strength Start: 08/24/19 07:24 Freq: Status: Active Protocol: Document 08/24/19 13:49 MB (Rec: 08/24/19 16:36 MB [id number]) Shoulder Strength Shoulder Manual Muscle Testing Right Flexion 2 Poor Abduction (C5) 2 Poor External Rotation 3- Fair- Internal Rotation 3- Fair- Left Flexion 5 Normal Abduction (C5) 5 Normal External Rotation 5 Normal Internal Rotation 5 Normal Elbow/Forearm Strength Elbow and Forearm Manual Muscle Testing Right Flexion (C6) 4 Good Extension (C7) 5 Normal Pronation 4 Good Supination 4 Good Left Flexion (C6) 5 Normal Extension (C7) 5 Normal Pronation 5 Normal Supination 5 Normal Wrist Strength Wrist Manual Muscle Testing Right Flexion (C7) 5 Normal Extension (C6) 5 Normal Left Flexion (C7) 5 Normal Extension (C6) 5 Normal PT-OP-Q Treatments Start: 08/24/19 07:24 Freq: Status: Active Protocol: Document 09/20/19 10:33 MB (Rec: 09/20/19 11:15 MB [id number]) Manual Therapy Treatment Soft Tissue Mobilization Counterstain Comments Pt agrees to Counterstrain to assess and treat fascial tension. She denies eye issues . PT assesses and treats B stacks: right spinal vein extension, standard row LV PT-OP-T Assessment and Plan Start: 08/24/19 07:24 Freq: Status: Active Protocol: Document 09/20/19 10:33 MB (Rec: 09/20/19 11:15 MB [id number]) Physical Therapy Assessment Rehab Potential Rehabilitation Potential Good Evaluation Complexity Number of Personal Factors/Comorbidities 3 or More Number of Body Systems Impaired 1-2 Clinical Presentation at Evaluation Evolving Impairments Impairments Activity Tolerance,Balance, Pain,Posture,ROM,Soft Tissue Mobility,Strength Other Impairments UE sensation is intact to light touch. Medical presentation is complicated in that pt presents with B LE neuropathy that affects standing balance and gait, she has multiple orthopedic problems including history of multiple surgeries and right hamstring and biceps tears, she has had many falls. She has trouble tolerating exercise d/t LEs, she reports. Goals 7 Automatic Engraver Goal (LTG) Pt will perform progressive HEP including ROM, flexibility , core and UE strengthening with I by 10/25/19. LTG Duration 8 weeks 6 Alf Goal (LTG) Pt will present with improved left shoulder strength to 5/5 flexion, abduction, ER and IR by 10/25/19. LTG Duration 8 weeks 5 Alf Goal (LTG) Pt will present with AROM right shoulder flexion to 120 deg flexion and abduction and internal rotation behind back to L2 by 10/25/19. LTG Duration 8 weeks 4 Automatic Engraver Goal (LTG) Pt will present with improved cervical ROM to at least 20 deg extension and 55 deg B rotation by 10/25/19. LTG Duration 8 weeks 3 Alf Goal (LTG) Pt will report a 75% improvement in right shoulder pain by 10/25/19. LTG Duration 8 weeks 2 Alf Goal (LTG) Pt will present with a QuickDASH score reflecting no more than 15% impairment by 07/04. LTG Duration 8 weeks 1 Alf Goal (LTG) Pt will deny falls for 8 weeks by 10/25/19. LTG Duration 8 weeks Assessment Summary Assessment Initiated Counterstrain this date and monitor pt's response . Tried scapular retraction this date with band and pt has back pain. Physical Therapy Plan Frequency and Duration Frequency of Treatment 2x/Week Duration of Treatment 8 weeks Plan of Care Start Date 09/02/19 Plan of Care End Date 10/25/19 Therapeutic Interventions Therapeutic Interventions Aquatic Therapy,Balance Training,Canalithic Repositioning,Home Exercise Program,Manual Therapy, Neuromuscular Re-education, Patient/Caregiver Education, Self-Care/Home Management,Soft Tissue Mobilization,Taping, Therapeutic Exercises Modalities Cold Pack/Ice Massage,Electric Stimulation,Hot Packs, Ultrasound Next Visit Focus/Plan Next Note Type Treatment Note Next Visit Plan Progress HEP
--- NOTE | 2019-09-22 11:21 | PT.OTN ---
Current Diagnoses Primary osteoarthritis, right shoulder (09/22/19) Unspecified disorder of synovium and tendon, right shoulder (09/22/19) Unspecified disorder of synovium and tendon, right upper arm (09/22/19) Incomplete rotator cuff tear or rupture of right shoulder, not specified as traumatic (09/22/19) Physical Therapy Treatment Note PT-OP-A Visit Information Start: 08/24/19 07:24 Freq: Status: Active Protocol: Document 09/22/19 10:33 MB (Rec: 09/22/19 11:21 MB [id number]) Out-Patient Physical Therapy Visit Information Visit Information Visit Type Treatment Note Visit Start Time 10:33 Visit Stop Time 11:13 Total Visit Minutes 40 Visit Number 6/unlimited PT-OP-B Current Condition Start: 08/24/19 07:24 Freq: Status: Active Protocol: Document 08/24/19 13:49 MB (Rec: 08/24/19 14:30 MB [id number]) Current Condition History of Current Condition Onset Date 3 years ago, right shoulder pain after fall History of Current Condition Pt hurt right shoulder after fall 3 years ago and then had another episode on January 22 when she went to fall forward and reached back to catch her balance on the door frame. She slammed her right shoulder back into the wall and she hurt a pop. Before that, she had cortisone injections in her right shoulder. Pt reports a history of 12 shots. On 07/01/19, pt underwent rotator cuff repair. She had had a biceps tear from the injury in January. She is just now getting into therapy. She just got out of the sling last week. Pt reports that she has had B LE neuropathy since back and foot surgeries. This occurs B below knees to feet. It affects her gait and she occ uses a cane at home. She describes burning sensation. Her does the driving. PMH: B LE neuropathy, ideopathic dizziness and history of low BP, falls, fibromyalgia, B TKR x2, OP, HTN, edema, JEFFERSON, arthritis, cervical disk disease, back surgery and fusion Pt is awakening 3 times a night d/t right shoulder pain. She is sleeping on her left side or her back. Pt is right handed. She has had trouble with personal hygiene. 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 Pt reports pain up to 5/10 in right shoulder. She denies numbness and tingling in UEs but she has electrical shock pain up to her right neck. Pt states that she drinks coffee in the a.m. until 11 a. m. She then drinks 4-5 glasses of water in the afternoon Pt mentions that she had complete right hamstring tear Prior Treatments and Tests Surgeries and cortisone injections PT for her right hand Pt reports that she had a poor experience with PT in the past in that she was left on machines. PT-OP-C Subjective Start: 08/24/19 07:24 Freq: Status: Active Protocol: Document 09/22/19 10:33 MB (Rec: 09/22/19 11:21 MB [id number]) OP-PT Subjective Patient Comments Patient Comments Pt found that vacuuming is good exercise. Her biceps is still tight. PT-OP-K Range of Motion Start: 08/24/19 07:24 Freq: Status: Active Protocol: Document 08/24/19 13:49 MB (Rec: 08/24/19 16:36 MB [id number]) Cervical Spine Range of Motion Cervical Spine Active Testing Position Standing Flexion 5 Extension 15 Rotation Left 50 Rotation Right 30 Lateral Flexion Left 15 Lateral Flexion Right 15 Shoulder Goniometric Range of Motion Shoulder Right Shoulder ROM WFL No Testing Position Standing Flexion 88 Abduction 120 Internal Rotation Behind Back (text) To right sciatic notch level Left Shoulder ROM WFL Yes Testing Position Standing Internal Rotation Behind Back (text) To T12-L1 level Shoulder ROM Limitations Comments Passive ER and IR B shoulders with arm in 90/90 are normal. Pt has 3-4/10 right shoulder pain with this PT-OP-M Strength Start: 08/24/19 07:24 Freq: Status: Active Protocol: Document 08/24/19 13:49 MB (Rec: 08/24/19 16:36 MB [id number]) Shoulder Strength Shoulder Manual Muscle Testing Right Flexion 2 Poor Abduction (C5) 2 Poor External Rotation 3- Fair- Internal Rotation 3- Fair- Left Flexion 5 Normal Abduction (C5) 5 Normal External Rotation 5 Normal Internal Rotation 5 Normal Elbow/Forearm Strength Elbow and Forearm Manual Muscle Testing Right Flexion (C6) 4 Good Extension (C7) 5 Normal Pronation 4 Good Supination 4 Good Left Flexion (C6) 5 Normal Extension (C7) 5 Normal Pronation 5 Normal Supination 5 Normal Wrist Strength Wrist Manual Muscle Testing Right Flexion (C7) 5 Normal Extension (C6) 5 Normal Left Flexion (C7) 5 Normal Extension (C6) 5 Normal PT-OP-Q Treatments Start: 08/24/19 07:24 Freq: Status: Active Protocol: Document 09/22/19 10:33 MB (Rec: 09/22/19 11:21 MB [id number]) Therapeutic Exercises Supine Exercises PNF2 AROM in hook lying Comments Performed x10 reps and added to HEP Shoulder ER with band in hook lying Comments Level 1 band, performed 10 reps and added to HEP Manual Therapy Treatment Soft Tissue Mobilization Counterstain Comments MWM right brachialis and biceps with pt performing active elbow flexion and extension PT-OP-T Assessment and Plan Start: 08/24/19 07:24 Freq: Status: Active Protocol: Document 09/22/19 10:33 MB (Rec: 09/22/19 11:21 MB [id number]) Physical Therapy Assessment Rehab Potential Rehabilitation Potential Good Evaluation Complexity Number of Personal Factors/Comorbidities 3 or More Number of Body Systems Impaired 1-2 Clinical Presentation at Evaluation Evolving Impairments Impairments Activity Tolerance,Balance, Pain,Posture,ROM,Soft Tissue Mobility,Strength Other Impairments UE sensation is intact to light touch. Medical presentation is complicated in that pt presents with B LE neuropathy that affects standing balance and gait, she has multiple orthopedic problems including history of multiple surgeries and right hamstring and biceps tears, she has had many falls. She has trouble tolerating exercise d/t LEs, she reports. Goals 7 Correction Goal (LTG) Pt will perform progressive HEP including ROM, flexibility , core and UE strengthening with I by 10/25/19. LTG Duration 8 weeks 6 Correction Goal (LTG) Pt will present with improved left shoulder strength to 5/5 flexion, abduction, ER and IR by 10/25/19. LTG Duration 8 weeks 5 Home Appliances Mechanic Goal (LTG) Pt will present with AROM right shoulder flexion to 120 deg flexion and abduction and internal rotation behind back to L2 by 10/25/19. LTG Duration 8 weeks 4 Home Appliances Mechanic Goal (LTG) Pt will present with improved cervical ROM to at least 20 deg extension and 55 deg B rotation by 10/25/19. LTG Duration 8 weeks 3 Correction Goal (LTG) Pt will report a 75% improvement in right shoulder pain by 10/25/19. LTG Duration 8 weeks 2 Home Appliances Mechanic Goal (LTG) Pt will present with a QuickDASH score reflecting no more than 15% impairment by 07/04. LTG Duration 8 weeks 1 Correction Goal (LTG) Pt will deny falls for 8 weeks by 10/25/19. LTG Duration 8 weeks Assessment Summary Assessment Con't manual work, shoulder and scapular and core strengthening. Physical Therapy Plan Frequency and Duration Frequency of Treatment 2x/Week Duration of Treatment 8 weeks Plan of Care Start Date 09/02/19 Plan of Care End Date 10/25/19 Therapeutic Interventions Therapeutic Interventions Aquatic Therapy,Balance Training,Canalithic Repositioning,Home Exercise Program,Manual Therapy, Neuromuscular Re-education, Patient/Caregiver Education, Self-Care/Home Management,Soft Tissue Mobilization,Taping, Therapeutic Exercises Modalities Cold Pack/Ice Massage,Electric Stimulation,Hot Packs, Ultrasound Next Visit Focus/Plan Next Note Type Treatment Note Next Visit Plan Progress HEP
--- NOTE | 2019-09-28 10:48 | PT-OP ANOTE ---
Cancelled appointment in setting of snow.
--- NOTE | 2019-09-30 15:36 | PT.OTN ---
Current Diagnoses Primary osteoarthritis, right shoulder (09/22/19) Unspecified disorder of synovium and tendon, right shoulder (09/22/19) Unspecified disorder of synovium and tendon, right upper arm (09/22/19) Incomplete rotator cuff tear or rupture of right shoulder, not specified as traumatic (09/22/19) Physical Therapy Treatment Note PT-OP-A Visit Information Start: 08/24/19 07:24 Freq: Status: Active Protocol: Document 09/30/19 14:33 MB (Rec: 09/30/19 15:28 MB [id number]) Out-Patient Physical Therapy Visit Information Visit Information Visit Type Treatment Note Visit Start Time 14:33 Visit Stop Time 15:13 Total Visit Minutes 40 Visit Number 7/unlimited PT-OP-B Current Condition Start: 08/24/19 07:24 Freq: Status: Active Protocol: Document 08/24/19 13:49 MB (Rec: 08/24/19 14:30 MB [id number]) Current Condition History of Current Condition Onset Date 3 years ago, right shoulder pain after fall History of Current Condition Pt hurt right shoulder after fall 3 years ago and then had another episode on January 22 when she went to fall forward and reached back to catch her balance on the door frame. She slammed her right shoulder back into the wall and she hurt a pop. Before that, she had cortisone injections in her right shoulder. Pt reports a history of 12 shots. On 07/01/19, pt underwent rotator cuff repair. She had had a biceps tear from the injury in January. She is just now getting into therapy. She just got out of the sling last week. Pt reports that she has had B LE neuropathy since back and foot surgeries. This occurs B below knees to feet. It affects her gait and she occ uses a cane at home. She describes burning sensation. Her does the driving. PMH: B LE neuropathy, ideopathic dizziness and history of low BP, falls, fibromyalgia, B TKR x2, OP, HTN, edema, JEFFERSON, arthritis, cervical disk disease, back surgery and fusion Pt is awakening 3 times a night d/t right shoulder pain. She is sleeping on her left side or her back. Pt is right handed. She has had trouble with personal hygiene. 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 Pt reports pain up to 5/10 in right shoulder. She denies numbness and tingling in UEs but she has electrical shock pain up to her right neck. Pt states that she drinks coffee in the a.m. until 11 a. m. She then drinks 4-5 glasses of water in the afternoon Pt mentions that she had complete right hamstring tear Prior Treatments and Tests Surgeries and cortisone injections PT for her right hand Pt reports that she had a poor experience with PT in the past in that she was left on machines. PT-OP-C Subjective Start: 08/24/19 07:24 Freq: Status: Active Protocol: Document 09/30/19 14:33 MB (Rec: 09/30/19 15:28 MB [id number]) OP-PT Subjective Patient Comments Patient Comments Pt states that she does the sword exercise and then her right shoulder is flared up. PT-OP-K Range of Motion Start: 08/24/19 07:24 Freq: Status: Active Protocol: Document 08/24/19 13:49 MB (Rec: 08/24/19 16:36 MB [id number]) Cervical Spine Range of Motion Cervical Spine Active Testing Position Standing Flexion 5 Extension 15 Rotation Left 50 Rotation Right 30 Lateral Flexion Left 15 Lateral Flexion Right 15 Shoulder Goniometric Range of Motion Shoulder Right Shoulder ROM WFL No Testing Position Standing Flexion 88 Abduction 120 Internal Rotation Behind Back (text) To right sciatic notch level Left Shoulder ROM WFL Yes Testing Position Standing Internal Rotation Behind Back (text) To T12-L1 level Shoulder ROM Limitations Comments Passive ER and IR B shoulders with arm in 90/90 are normal. Pt has 3-4/10 right shoulder pain with this PT-OP-M Strength Start: 08/24/19 07:24 Freq: Status: Active Protocol: Document 08/24/19 13:49 MB (Rec: 08/24/19 16:36 MB [id number]) Shoulder Strength Shoulder Manual Muscle Testing Right Flexion 2 Poor Abduction (C5) 2 Poor External Rotation 3- Fair- Internal Rotation 3- Fair- Left Flexion 5 Normal Abduction (C5) 5 Normal External Rotation 5 Normal Internal Rotation 5 Normal Elbow/Forearm Strength Elbow and Forearm Manual Muscle Testing Right Flexion (C6) 4 Good Extension (C7) 5 Normal Pronation 4 Good Supination 4 Good Left Flexion (C6) 5 Normal Extension (C7) 5 Normal Pronation 5 Normal Supination 5 Normal Wrist Strength Wrist Manual Muscle Testing Right Flexion (C7) 5 Normal Extension (C6) 5 Normal Left Flexion (C7) 5 Normal Extension (C6) 5 Normal PT-OP-Q Treatments Start: 08/24/19 07:24 Freq: Status: Active Protocol: Document 09/30/19 14:33 MB (Rec: 09/30/19 15:28 MB [id number]) Manual Therapy Treatment Other Other Manual Treatments Counterstrain to assess and treat fascial tension. Pt agrees to this and PT treats stacks: B lymphatic venous standard row cervical and shoulder PT-OP-T Assessment and Plan Start: 08/24/19 07:24 Freq: Status: Active Protocol: Document 09/30/19 14:33 MB (Rec: 09/30/19 15:28 MB [id number]) Physical Therapy Assessment Rehab Potential Rehabilitation Potential Good Evaluation Complexity Number of Personal Factors/Comorbidities 3 or More Number of Body Systems Impaired 1-2 Clinical Presentation at Evaluation Evolving Impairments Impairments Activity Tolerance,Balance, Pain,Posture,ROM,Soft Tissue Mobility,Strength Other Impairments UE sensation is intact to light touch. Medical presentation is complicated in that pt presents with B LE neuropathy that affects standing balance and gait, she has multiple orthopedic problems including history of multiple surgeries and right hamstring and biceps tears, she has had many falls. She has trouble tolerating exercise d/t LEs, she reports. Goals 7 Head Of Human Resources Goal (LTG) Pt will perform progressive HEP including ROM, flexibility , core and UE strengthening with I by 10/25/19. LTG Duration 8 weeks 6 Head Of Human Resources Goal (LTG) Pt will present with improved left shoulder strength to 5/5 flexion, abduction, ER and IR by 10/25/19. LTG Duration 8 weeks 5 Head Of Human Resources Goal (LTG) Pt will present with AROM right shoulder flexion to 120 deg flexion and abduction and internal rotation behind back to L2 by 10/25/19. LTG Duration 8 weeks 4 Head Of Human Resources Goal (LTG) Pt will present with improved cervical ROM to at least 20 deg extension and 55 deg B rotation by 10/25/19. LTG Duration 8 weeks 3 Head Of Human Resources Goal (LTG) Pt will report a 75% improvement in right shoulder pain by 10/25/19. LTG Duration 8 weeks 2 Mcc Goal (LTG) Pt will present with a QuickDASH score reflecting no more than 15% impairment by 07/04. LTG Duration 8 weeks 1 Head Of Human Resources Goal (LTG) Pt will deny falls for 8 weeks by 10/25/19. LTG Duration 8 weeks Assessment Summary Assessment Pt reports that orthopedist cleared her for gentle strengthening. She con't to present with improvements with active range and ability to perform functional exercises and theraband for scapular strengthening. Counterstrain this date. Initiated cold laser (LLT) this date to see if it assists with pain, acute pulsed low for right AC joint and muscle pain chronic pulsed medium. Documenting here as unable to open in other sections. 5' today, not enough time to charge. Monitor response. Con' t manual work, shoulder and scapular and core strengthening. Physical Therapy Plan Frequency and Duration Frequency of Treatment 2x/Week Duration of Treatment 8 weeks Plan of Care Start Date 09/02/19 Plan of Care End Date 10/25/19 Therapeutic Interventions Therapeutic Interventions Aquatic Therapy,Balance Training,Canalithic Repositioning,Home Exercise Program,Manual Therapy, Neuromuscular Re-education, Patient/Caregiver Education, Self-Care/Home Management,Soft Tissue Mobilization,Taping, Therapeutic Exercises Modalities Cold Pack/Ice Massage,Electric Stimulation,Hot Packs, Ultrasound Other Therapeutic Interventions LLT (cold laser) Next Visit Focus/Plan Next Note Type Treatment Note Next Visit Plan Progress HEP, scapular strengthening when appropriate
--- NOTE | 2019-10-08 13:49 | PT.OTN ---
Current Diagnoses Primary osteoarthritis, right shoulder (10/08/19) Unspecified disorder of synovium and tendon, right shoulder (10/08/19) Unspecified disorder of synovium and tendon, right upper arm (10/08/19) Incomplete rotator cuff tear or rupture of right shoulder, not specified as traumatic (10/08/19) Physical Therapy Treatment Note PT-OP-A Visit Information Start: 08/24/19 07:24 Freq: Status: Active Protocol: Document 10/08/19 13:02 MB (Rec: 10/08/19 13:49 MB [id number]) Out-Patient Physical Therapy Visit Information Visit Information Visit Type Treatment Note Visit Start Time 13:02 Visit Stop Time 13:42 Total Visit Minutes 40 Visit Number 8/unlimited PT-OP-B Current Condition Start: 08/24/19 07:24 Freq: Status: Active Protocol: Document 08/24/19 13:49 MB (Rec: 08/24/19 14:30 MB [id number]) Current Condition History of Current Condition Onset Date 3 years ago, right shoulder pain after fall History of Current Condition Pt hurt right shoulder after fall 3 years ago and then had another episode on January 22 when she went to fall forward and reached back to catch her balance on the door frame. She slammed her right shoulder back into the wall and she hurt a pop. Before that, she had cortisone injections in her right shoulder. Pt reports a history of 12 shots. On 07/01/19, pt underwent rotator cuff repair. She had had a biceps tear from the injury in January. She is just now getting into therapy. She just got out of the sling last week. Pt reports that she has had B LE neuropathy since back and foot surgeries. This occurs B below knees to feet. It affects her gait and she occ uses a cane at home. She describes burning sensation. Her does the driving. PMH: B LE neuropathy, ideopathic dizziness and history of low BP, falls, fibromyalgia, B TKR x2, OP, HTN, edema, JEFFERSON, arthritis, cervical disk disease, back surgery and fusion Pt is awakening 3 times a night d/t right shoulder pain. She is sleeping on her left side or her back. Pt is right handed. She has had trouble with personal hygiene. 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 Pt reports pain up to 5/10 in right shoulder. She denies numbness and tingling in UEs but she has electrical shock pain up to her right neck. Pt states that she drinks coffee in the a.m. until 11 a. m. She then drinks 4-5 glasses of water in the afternoon Pt mentions that she had complete right hamstring tear Prior Treatments and Tests Surgeries and cortisone injections PT for her right hand Pt reports that she had a poor experience with PT in the past in that she was left on machines. PT-OP-C Subjective Start: 08/24/19 07:24 Freq: Status: Active Protocol: Document 10/08/19 13:02 MB (Rec: 10/08/19 13:49 MB [id number]) OP-PT Subjective Patient Comments Patient Comments Pt states that she feels fine but the main thing is that she has AC joint pain when she horizontally adducts or abducts arm. PT-OP-K Range of Motion Start: 08/24/19 07:24 Freq: Status: Active Protocol: Document 08/24/19 13:49 MB (Rec: 08/24/19 16:36 MB [id number]) Cervical Spine Range of Motion Cervical Spine Active Testing Position Standing Flexion 5 Extension 15 Rotation Left 50 Rotation Right 30 Lateral Flexion Left 15 Lateral Flexion Right 15 Shoulder Goniometric Range of Motion Shoulder Right Shoulder ROM WFL No Testing Position Standing Flexion 88 Abduction 120 Internal Rotation Behind Back (text) To right sciatic notch level Left Shoulder ROM WFL Yes Testing Position Standing Internal Rotation Behind Back (text) To T12-L1 level Shoulder ROM Limitations Comments Passive ER and IR B shoulders with arm in 90/90 are normal. Pt has 3-4/10 right shoulder pain with this PT-OP-M Strength Start: 08/24/19 07:24 Freq: Status: Active Protocol: Document 08/24/19 13:49 MB (Rec: 08/24/19 16:36 MB [id number]) Shoulder Strength Shoulder Manual Muscle Testing Right Flexion 2 Poor Abduction (C5) 2 Poor External Rotation 3- Fair- Internal Rotation 3- Fair- Left Flexion 5 Normal Abduction (C5) 5 Normal External Rotation 5 Normal Internal Rotation 5 Normal Elbow/Forearm Strength Elbow and Forearm Manual Muscle Testing Right Flexion (C6) 4 Good Extension (C7) 5 Normal Pronation 4 Good Supination 4 Good Left Flexion (C6) 5 Normal Extension (C7) 5 Normal Pronation 5 Normal Supination 5 Normal Wrist Strength Wrist Manual Muscle Testing Right Flexion (C7) 5 Normal Extension (C6) 5 Normal Left Flexion (C7) 5 Normal Extension (C6) 5 Normal PT-OP-Q Treatments Start: 08/24/19 07:24 Freq: Status: Active Protocol: Document 10/08/19 13:02 MB (Rec: 10/08/19 13:49 MB [id number]) Therapeutic Exercises Supine Exercises Racquet ball massage latissmus dorsi Comments Performed today and added to HEP Shoulder ER and scap retraction Comments Hands under head supine Cane ER Comments No need to perform, when checked, normal passive ER PNF2 AROM in hook lying Comments 5 reps this date and pt is performing well at home Posterior capsule stretch Comments 3 reps, 20 sec Cane abduction Comments Performed 10 reps and added to HEP Cane flexion supine Comments 10 reps and pt to perform before bed at night Manual Therapy Treatment Manual Techniques MWM left anterior delt and biceps Comments Performed today right UE. Gentle grade II AP mobs right AC joint, CFM front of AC joint PT-OP-T Assessment and Plan Start: 08/24/19 07:24 Freq: Status: Active Protocol: Document 10/08/19 13:02 MB (Rec: 10/08/19 13:49 MB [id number]) Physical Therapy Assessment Rehab Potential Rehabilitation Potential Good Evaluation Complexity Number of Personal Factors/Comorbidities 3 or More Number of Body Systems Impaired 1-2 Clinical Presentation at Evaluation Evolving Impairments Impairments Activity Tolerance,Balance, Pain,Posture,ROM,Soft Tissue Mobility,Strength Other Impairments UE sensation is intact to light touch. Medical presentation is complicated in that pt presents with B LE neuropathy that affects standing balance and gait, she has multiple orthopedic problems including history of multiple surgeries and right hamstring and biceps tears, she has had many falls. She has trouble tolerating exercise d/t LEs, she reports. Goals 7 Intermediate Goal (LTG) Pt will perform progressive HEP including ROM, flexibility , core and UE strengthening with I by 10/25/19. LTG Duration 8 weeks 6 Intermediate Goal (LTG) Pt will present with improved left shoulder strength to 5/5 flexion, abduction, ER and IR by 10/25/19. LTG Duration 8 weeks 5 Intermediate Goal (LTG) Pt will present with AROM right shoulder flexion to 120 deg flexion and abduction and internal rotation behind back to L2 by 10/25/19. LTG Duration 8 weeks 4 Vat Overhauler Goal (LTG) Pt will present with improved cervical ROM to at least 20 deg extension and 55 deg B rotation by 10/25/19. LTG Duration 8 weeks 3 Vat Overhauler Goal (LTG) Pt will report a 75% improvement in right shoulder pain by 10/25/19. LTG Duration 8 weeks 2 Vat Overhauler Goal (LTG) Pt will present with a QuickDASH score reflecting no more than 15% impairment by 07/04. LTG Duration 8 weeks 1 Intermediate Goal (LTG) Pt will deny falls for 8 weeks by 10/25/19. LTG Duration 8 weeks Assessment Summary Assessment Pt con't with improved right shoulder movement. Con't manual work, shoulder and scapular and core strengthening. Physical Therapy Plan Frequency and Duration Frequency of Treatment 2x/Week Duration of Treatment 8 weeks Plan of Care Start Date 09/02/19 Plan of Care End Date 10/25/19 Therapeutic Interventions Therapeutic Interventions Aquatic Therapy,Balance Training,Canalithic Repositioning,Home Exercise Program,Manual Therapy, Neuromuscular Re-education, Patient/Caregiver Education, Self-Care/Home Management,Soft Tissue Mobilization,Taping, Therapeutic Exercises Modalities Cold Pack/Ice Massage,Electric Stimulation,Hot Packs, Ultrasound Other Therapeutic Interventions LLT (cold laser) Next Visit Focus/Plan Next Note Type Treatment Note Next Visit Plan Progress HEP, scapular strengthening when appropriate
--- NOTE | 2019-10-12 14:28 | PT.OTN ---
Current Diagnoses Primary osteoarthritis, right shoulder (10/12/19) Unspecified disorder of synovium and tendon, right shoulder (10/12/19) Unspecified disorder of synovium and tendon, right upper arm (10/12/19) Incomplete rotator cuff tear or rupture of right shoulder, not specified as traumatic (10/12/19) Physical Therapy Treatment Note PT-OP-A Visit Information Start: 08/24/19 07:24 Freq: Status: Active Protocol: Document 10/12/19 13:46 MB (Rec: 10/12/19 14:28 MB [id number]) Out-Patient Physical Therapy Visit Information Visit Information Visit Type Treatment Note Visit Start Time 13:46 Visit Stop Time 14:26 Total Visit Minutes 40 Visit Number 9/unlimited PT-OP-B Current Condition Start: 08/24/19 07:24 Freq: Status: Active Protocol: Document 08/24/19 13:49 MB (Rec: 08/24/19 14:30 MB [id number]) Current Condition History of Current Condition Onset Date 3 years ago, right shoulder pain after fall History of Current Condition Pt hurt right shoulder after fall 3 years ago and then had another episode on January 22 when she went to fall forward and reached back to catch her balance on the door frame. She slammed her right shoulder back into the wall and she hurt a pop. Before that, she had cortisone injections in her right shoulder. Pt reports a history of 12 shots. On 07/01/19, pt underwent rotator cuff repair. She had had a biceps tear from the injury in January. She is just now getting into therapy. She just got out of the sling last week. Pt reports that she has had B LE neuropathy since back and foot surgeries. This occurs B below knees to feet. It affects her gait and she occ uses a cane at home. She describes burning sensation. Her does the driving. PMH: B LE neuropathy, ideopathic dizziness and history of low BP, falls, fibromyalgia, B TKR x2, OP, HTN, edema, JEFFERSON, arthritis, cervical disk disease, back surgery and fusion Pt is awakening 3 times a night d/t right shoulder pain. She is sleeping on her left side or her back. Pt is right handed. She has had trouble with personal hygiene. 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 Pt reports pain up to 5/10 in right shoulder. She denies numbness and tingling in UEs but she has electrical shock pain up to her right neck. Pt states that she drinks coffee in the a.m. until 11 a. m. She then drinks 4-5 glasses of water in the afternoon Pt mentions that she had complete right hamstring tear Prior Treatments and Tests Surgeries and cortisone injections PT for her right hand Pt reports that she had a poor experience with PT in the past in that she was left on machines. PT-OP-C Subjective Start: 08/24/19 07:24 Freq: Status: Active Protocol: Document 10/12/19 13:46 MB (Rec: 10/12/19 14:28 MB [id number]) OP-PT Subjective Patient Comments Patient Comments Pt states that her feet are really bothering her. It is the neuropathy. She had some lateral right AC joint and biceps pain. PT-OP-K Range of Motion Start: 08/24/19 07:24 Freq: Status: Active Protocol: Document 08/24/19 13:49 MB (Rec: 08/24/19 16:36 MB [id number]) Cervical Spine Range of Motion Cervical Spine Active Testing Position Standing Flexion 5 Extension 15 Rotation Left 50 Rotation Right 30 Lateral Flexion Left 15 Lateral Flexion Right 15 Shoulder Goniometric Range of Motion Shoulder Right Shoulder ROM WFL No Testing Position Standing Flexion 88 Abduction 120 Internal Rotation Behind Back (text) To right sciatic notch level Left Shoulder ROM WFL Yes Testing Position Standing Internal Rotation Behind Back (text) To T12-L1 level Shoulder ROM Limitations Comments Passive ER and IR B shoulders with arm in 90/90 are normal. Pt has 3-4/10 right shoulder pain with this PT-OP-M Strength Start: 08/24/19 07:24 Freq: Status: Active Protocol: Document 08/24/19 13:49 MB (Rec: 08/24/19 16:36 MB [id number]) Shoulder Strength Shoulder Manual Muscle Testing Right Flexion 2 Poor Abduction (C5) 2 Poor External Rotation 3- Fair- Internal Rotation 3- Fair- Left Flexion 5 Normal Abduction (C5) 5 Normal External Rotation 5 Normal Internal Rotation 5 Normal Elbow/Forearm Strength Elbow and Forearm Manual Muscle Testing Right Flexion (C6) 4 Good Extension (C7) 5 Normal Pronation 4 Good Supination 4 Good Left Flexion (C6) 5 Normal Extension (C7) 5 Normal Pronation 5 Normal Supination 5 Normal Wrist Strength Wrist Manual Muscle Testing Right Flexion (C7) 5 Normal Extension (C6) 5 Normal Left Flexion (C7) 5 Normal Extension (C6) 5 Normal PT-OP-Q Treatments Start: 08/24/19 07:24 Freq: Status: Active Protocol: Document 10/12/19 13:46 MB (Rec: 10/12/19 14:28 MB [id number]) Therapeutic Exercises Standing Exercises Wall abduction Comments AAROM and pt is able to move to abduction 160 deg Pect stretch Comments Pect stretch in doorway with scapular retraction Manual Therapy Treatment Manual Techniques MWM left anterior delt and biceps Comments Performed today right UE. Gentle grade II AP mobs right AC joint, CFM front of AC joint. Also, MWM biceps, anterior delt, pect. PT-OP-T Assessment and Plan Start: 08/24/19 07:24 Freq: Status: Active Protocol: Document 10/12/19 13:46 MB (Rec: 10/12/19 14:28 MB [id number]) Physical Therapy Assessment Rehab Potential Rehabilitation Potential Good Evaluation Complexity Number of Personal Factors/Comorbidities 3 or More Number of Body Systems Impaired 1-2 Clinical Presentation at Evaluation Evolving Impairments Impairments Activity Tolerance,Balance, Pain,Posture,ROM,Soft Tissue Mobility,Strength Other Impairments UE sensation is intact to light touch. Medical presentation is complicated in that pt presents with B LE neuropathy that affects standing balance and gait, she has multiple orthopedic problems including history of multiple surgeries and right hamstring and biceps tears, she has had many falls. She has trouble tolerating exercise d/t LEs, she reports. Goals 7 Senior Care Goal (LTG) Pt will perform progressive HEP including ROM, flexibility , core and UE strengthening with I by 10/25/19. LTG Duration 8 weeks 6 Dextrine Mixer Goal (LTG) Pt will present with improved left shoulder strength to 5/5 flexion, abduction, ER and IR by 10/25/19. LTG Duration 8 weeks 5 Senior Care Goal (LTG) Pt will present with AROM right shoulder flexion to 120 deg flexion and abduction and internal rotation behind back to L2 by 10/25/19. LTG Duration 8 weeks 4 Dextrine Mixer Goal (LTG) Pt will present with improved cervical ROM to at least 20 deg extension and 55 deg B rotation by 10/25/19. LTG Duration 8 weeks 3 Dextrine Mixer Goal (LTG) Pt will report a 75% improvement in right shoulder pain by 10/25/19. LTG Duration 8 weeks 2 Senior Care Goal (LTG) Pt will present with a QuickDASH score reflecting no more than 15% impairment by 07/04. LTG Duration 8 weeks 1 Senior Care Goal (LTG) Pt will deny falls for 8 weeks by 10/25/19. LTG Duration 8 weeks Assessment Summary Assessment Pt presents with improved shoulder ER with hands behind back. Progressed pect mobility this date both manually and with ther-ex. Physical Therapy Plan Frequency and Duration Frequency of Treatment 2x/Week Duration of Treatment 8 weeks Plan of Care Start Date 09/02/19 Plan of Care End Date 10/25/19 Therapeutic Interventions Therapeutic Interventions Aquatic Therapy,Balance Training,Canalithic Repositioning,Home Exercise Program,Manual Therapy, Neuromuscular Re-education, Patient/Caregiver Education, Self-Care/Home Management,Soft Tissue Mobilization,Taping, Therapeutic Exercises Modalities Cold Pack/Ice Massage,Electric Stimulation,Hot Packs, Ultrasound Other Therapeutic Interventions LLT (cold laser) Next Visit Focus/Plan Next Note Type Progress Note Next Visit Plan Progress HEP, scapular strengthening when appropriate
--- NOTE | 2019-10-15 17:28 | PT.OTN ---
Current Diagnoses Primary osteoarthritis, right shoulder (10/12/19) Unspecified disorder of synovium and tendon, right shoulder (10/12/19) Unspecified disorder of synovium and tendon, right upper arm (10/12/19) Incomplete rotator cuff tear or rupture of right shoulder, not specified as traumatic (10/12/19) Physical Therapy Treatment Note PT-OP-A Visit Information Start: 08/24/19 07:24 Freq: Status: Active Protocol: Document 10/15/19 16:55 MB (Rec: 10/15/19 17:28 MB [id number]) Out-Patient Physical Therapy Visit Information Visit Information Visit Type Progress Note Visit Note Shortened treatment d/t pt needing to leave early for dinner date Visit Start Time 16:55 Visit Stop Time 17:15 Total Visit Minutes 20 Visit Number 10/unlimited PT-OP-B Current Condition Start: 08/24/19 07:24 Freq: Status: Active Protocol: Document 08/24/19 13:49 MB (Rec: 08/24/19 14:30 MB [id number]) Current Condition History of Current Condition Onset Date 3 years ago, right shoulder pain after fall History of Current Condition Pt hurt right shoulder after fall 3 years ago and then had another episode on January 22 when she went to fall forward and reached back to catch her balance on the door frame. She slammed her right shoulder back into the wall and she hurt a pop. Before that, she had cortisone injections in her right shoulder. Pt reports a history of 12 shots. On 07/01/19, pt underwent rotator cuff repair. She had had a biceps tear from the injury in January. She is just now getting into therapy. She just got out of the sling last week. Pt reports that she has had B LE neuropathy since back and foot surgeries. This occurs B below knees to feet. It affects her gait and she occ uses a cane at home. She describes burning sensation. Her does the driving. PMH: B LE neuropathy, ideopathic dizziness and history of low BP, falls, fibromyalgia, B TKR x2, OP, HTN, edema, JEFFERSON, arthritis, cervical disk disease, back surgery and fusion Pt is awakening 3 times a night d/t right shoulder pain. She is sleeping on her left side or her back. Pt is right handed. She has had trouble with personal hygiene. 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 Pt reports pain up to 5/10 in right shoulder. She denies numbness and tingling in UEs but she has electrical shock pain up to her right neck. Pt states that she drinks coffee in the a.m. until 11 a. m. She then drinks 4-5 glasses of water in the afternoon Pt mentions that she had complete right hamstring tear Prior Treatments and Tests Surgeries and cortisone injections PT for her right hand Pt reports that she had a poor experience with PT in the past in that she was left on machines. PT-OP-C Subjective Start: 08/24/19 07:24 Freq: Status: Active Protocol: Document 10/15/19 16:55 MB (Rec: 10/15/19 17:28 MB [id number]) OP-PT Subjective Patient Comments Patient Comments Pt states that she feels 75% better since starting PT. She has increased soreness in the front of her right shoulder since last PT treatment. PT-OP-K Range of Motion Start: 08/24/19 07:24 Freq: Status: Active Protocol: Document 08/24/19 13:49 MB (Rec: 08/24/19 16:36 MB [id number]) Cervical Spine Range of Motion Cervical Spine Active Testing Position Standing Flexion 5 Extension 15 Rotation Left 50 Rotation Right 30 Lateral Flexion Left 15 Lateral Flexion Right 15 Shoulder Goniometric Range of Motion Shoulder Right Shoulder ROM WFL No Testing Position Standing Flexion 88 Abduction 120 Internal Rotation Behind Back (text) To right sciatic notch level Left Shoulder ROM WFL Yes Testing Position Standing Internal Rotation Behind Back (text) To T12-L1 level Shoulder ROM Limitations Comments Passive ER and IR B shoulders with arm in 90/90 are normal. Pt has 3-4/10 right shoulder pain with this PT-OP-M Strength Start: 08/24/19 07:24 Freq: Status: Active Protocol: Document 08/24/19 13:49 MB (Rec: 08/24/19 16:36 MB [id number]) Shoulder Strength Shoulder Manual Muscle Testing Right Flexion 2 Poor Abduction (C5) 2 Poor External Rotation 3- Fair- Internal Rotation 3- Fair- Left Flexion 5 Normal Abduction (C5) 5 Normal External Rotation 5 Normal Internal Rotation 5 Normal Elbow/Forearm Strength Elbow and Forearm Manual Muscle Testing Right Flexion (C6) 4 Good Extension (C7) 5 Normal Pronation 4 Good Supination 4 Good Left Flexion (C6) 5 Normal Extension (C7) 5 Normal Pronation 5 Normal Supination 5 Normal Wrist Strength Wrist Manual Muscle Testing Right Flexion (C7) 5 Normal Extension (C6) 5 Normal Left Flexion (C7) 5 Normal Extension (C6) 5 Normal PT-OP-Q Treatments Start: 08/24/19 07:24 Freq: Status: Active Protocol: Document 10/15/19 16:55 MB (Rec: 10/15/19 17:28 MB [id number]) Self-Care/Home Management Treatment Education Other Education Pt con't to rub her anterior right shoulder despite cues not to d/t pain, demonstrated quick ice and pt feels better and PT ed her to perform at home, take breaks when sitting and knitting to stand up and make a proud chest posture, ed in better sleeping position ( her cat is sleeping on her right arm), ed pt in Counterstrain PT-OP-T Assessment and Plan Start: 08/24/19 07:24 Freq: Status: Active Protocol: Document 10/15/19 16:55 MB (Rec: 10/15/19 17:28 MB [id number]) Physical Therapy Assessment Rehab Potential Rehabilitation Potential Good Evaluation Complexity Number of Personal Factors/Comorbidities 3 or More Number of Body Systems Impaired 1-2 Clinical Presentation at Evaluation Evolving Impairments Impairments Activity Tolerance,Balance, Pain,Posture,ROM,Soft Tissue Mobility,Strength Other Impairments UE sensation is intact to light touch. Medical presentation is complicated in that pt presents with B LE neuropathy that affects standing balance and gait, she has multiple orthopedic problems including history of multiple surgeries and right hamstring and biceps tears, she has had many falls. She has trouble tolerating exercise d/t LEs, she reports. Goals 7 Wincher Goal (LTG) Pt will perform progressive HEP including ROM, flexibility , core and UE strengthening with I to increase functional strength by 12/13/2019. 10/15/2019: Pt is performing HEP LTG Duration 8 weeks 6 Custodial Goal (LTG) Pt will present with improved right shoulder strength to 5/5 flexion, abduction, ER and IR by 12/13/2019. 10/15/2019: LUE normal MMT; right shoulder flexion 5/5; right shoulder abduction 4/5, right shoulder ER and IR 4/5 LTG Duration 8 weeks 5 Custodial Goal (LTG) Pt will present with AROM right shoulder flexion to 120 deg flexion and abduction and internal rotation behind back to L2 to improve functional range of motion by 12/13/2019. 10/15/2019: Pt presents with improved active motion all directions this date, will con 't to monitor LTG Duration 8 weeks 4 Wincher Goal (LTG) Pt will present with improved cervical ROM to at least 20 deg extension and 55 deg B rotation to improve upper body movement by 12/13/2019. 10/15/2019: Cervical extension 15 deg, right rotation 40 deg, left rotation 43 deg LTG Duration 8 weeks 3 Wincher Goal (LTG) Pt will report a 95% improvement in right shoulder pain by 12/13/2019. 10/15/2019: Pt reports a 75% improvement in right shoulder pain since starting PT LTG Duration 8 weeks 2 Custodial Goal (LTG) Pt will present with a QuickDASH score reflecting no more than 15% impairment by . 10/15/2019: Pt reports improvement with ADLs including taking care of cats, knitting and vacuuming, con't to monitor QuickDASH LTG Duration 8 weeks 1 Custodial Goal (LTG) Pt will deny falls for 8 weeks by 12/13/2019. 10/15/2019: Pt denies falls since starting PT LTG Duration 8 weeks Assessment Summary Assessment Pt has progressed towards all functional, pain, mobility, strengthening and exercise goals since starting PT. She will benefit from ongoing PT to maximize strength and function. Will benefit from initiating gentle fascial treatment, Counterstrain. Physical Therapy Plan Frequency and Duration Frequency of Treatment 2x/Week Duration of Treatment 8 weeks Plan of Care Start Date 10/15/19 Plan of Care End Date 12/13/19 Therapeutic Interventions Therapeutic Interventions Aquatic Therapy,Balance Training,Canalithic Repositioning,Home Exercise Program,Manual Therapy, Neuromuscular Re-education, Patient/Caregiver Education, Self-Care/Home Management,Soft Tissue Mobilization,Taping, Therapeutic Exercises Modalities Cold Pack/Ice Massage,Electric Stimulation,Hot Packs, Ultrasound Other Therapeutic Interventions LLT (cold laser) Next Visit Focus/Plan Next Note Type Treatment Note Next Visit Plan Progress HEP, scapular strengthening when appropriate
--- NOTE | 2019-10-15 17:29 | PT.OPPOC ---
Physical, Occupational & Speech Therapy At [facility] Current Diagnoses Primary osteoarthritis, right shoulder (10/12/19) Unspecified disorder of synovium and tendon, right shoulder (10/12/19) Unspecified disorder of synovium and tendon, right upper arm (10/12/19) Incomplete rotator cuff tear or rupture of right shoulder, not specified as traumatic (10/12/19) Visit Care Team Role Provider Type Tarvon Burr MD Primary Care Provider Physician Specialty: Family Practice Address: [address] [place] [address] [place], [address] Email: [email or web address] Yip DO Attending Provider Non-Staff Specialty: Orthopedics Address: [address] [place] [address], [id number] Email: Plan Of Care PT-OP-T Assessment and Plan Start: 08/24/19 07:24 Freq: Status: Active Protocol: Document 10/15/19 16:55 MB (Rec: 10/15/19 17:28 MB [id number]) Physical Therapy Assessment Rehab Potential Rehabilitation Potential Good Evaluation Complexity Number of Personal Factors/Comorbidities 3 or More Number of Body Systems Impaired 1-2 Clinical Presentation at Evaluation Evolving Impairments Impairments Activity Tolerance,Balance, Pain,Posture,ROM,Soft Tissue Mobility,Strength Other Impairments UE sensation is intact to light touch. Medical presentation is complicated in that pt presents with B LE neuropathy that affects standing balance and gait, she has multiple orthopedic problems including history of multiple surgeries and right hamstring and biceps tears, she has had many falls. She has trouble tolerating exercise d/t LEs, she reports. Goals 7 Mcfp Goal (LTG) Pt will perform progressive HEP including ROM, flexibility , core and UE strengthening with I to increase functional strength by 12/13/2019. 10/15/2019: Pt is performing HEP LTG Duration 8 weeks 6 Floor Care Specialist Goal (LTG) Pt will present with improved right shoulder strength to 5/5 flexion, abduction, ER and IR by 12/13/2019. 10/15/2019: LUE normal MMT; right shoulder flexion 5/5; right shoulder abduction 4/5, right shoulder ER and IR 4/5 LTG Duration 8 weeks 5 Floor Care Specialist Goal (LTG) Pt will present with AROM right shoulder flexion to 120 deg flexion and abduction and internal rotation behind back to L2 to improve functional range of motion by 12/13/2019. 10/15/2019: Pt presents with improved active motion all directions this date, will con 't to monitor LTG Duration 8 weeks 4 Mcfp Goal (LTG) Pt will present with improved cervical ROM to at least 20 deg extension and 55 deg B rotation to improve upper body movement by 12/13/2019. 10/15/2019: Cervical extension 15 deg, right rotation 40 deg, left rotation 43 deg LTG Duration 8 weeks 3 Floor Care Specialist Goal (LTG) Pt will report a 95% improvement in right shoulder pain by 12/13/2019. 10/15/2019: Pt reports a 75% improvement in right shoulder pain since starting PT LTG Duration 8 weeks 2 Floor Care Specialist Goal (LTG) Pt will present with a QuickDASH score reflecting no more than 15% impairment by . 10/15/2019: Pt reports improvement with ADLs including taking care of cats, knitting and vacuuming, con't to monitor QuickDASH LTG Duration 8 weeks 1 Floor Care Specialist Goal (LTG) Pt will deny falls for 8 weeks by 12/13/2019. 10/15/2019: Pt denies falls since starting PT LTG Duration 8 weeks Assessment Summary Assessment Pt has progressed towards all functional, pain, mobility, strengthening and exercise goals since starting PT. She will benefit from ongoing PT to maximize strength and function. Will benefit from initiating gentle fascial treatment, Counterstrain. Physical Therapy Plan Frequency and Duration Frequency of Treatment 2x/Week Duration of Treatment 8 weeks Plan of Care Start Date 10/15/19 Plan of Care End Date 12/13/19 Therapeutic Interventions Therapeutic Interventions Aquatic Therapy,Balance Training,Canalithic Repositioning,Home Exercise Program,Manual Therapy, Neuromuscular Re-education, Patient/Caregiver Education, Self-Care/Home Management,Soft Tissue Mobilization,Taping, Therapeutic Exercises Modalities Cold Pack/Ice Massage,Electric Stimulation,Hot Packs, Ultrasound Other Therapeutic Interventions LLT (cold laser) Next Visit Focus/Plan Next Note Type Treatment Note Next Visit Plan Progress HEP, scapular strengthening when appropriate Plan of Care Dates Plan of Care Start Date 10/15/19 Plan of Care End Date 12/13/19 Electronically Signed by: Pauly Schmitt, PT 10/15/19 [id number] Please Sign and Return: I have reviewed this Plan of Care and certify that the skilled therapy services above are required to meet the patient?s needs. Physician Signature Date Printed Name and Credentials Clinical Instructor Signature Printed Name and Credentials
--- NOTE | 2019-10-19 14:32 | PT.OTN ---
Current Diagnoses Primary osteoarthritis, right shoulder (10/19/19) Unspecified disorder of synovium and tendon, right shoulder (10/19/19) Unspecified disorder of synovium and tendon, right upper arm (10/19/19) Incomplete rotator cuff tear or rupture of right shoulder, not specified as traumatic (10/19/19) Physical Therapy Treatment Note PT-OP-A Visit Information Start: 08/24/19 07:24 Freq: Status: Active Protocol: Document 10/19/19 13:50 MB (Rec: 10/19/19 14:32 MB [id number]) Out-Patient Physical Therapy Visit Information Visit Information Visit Type Treatment Note Visit Start Time 13:50 Visit Stop Time 15:30 Total Visit Minutes 40 Visit Number 09/24 unlimited PT-OP-B Current Condition Start: 08/24/19 07:24 Freq: Status: Active Protocol: Document 08/24/19 13:49 MB (Rec: 08/24/19 14:30 MB [id number]) Current Condition History of Current Condition Onset Date 3 years ago, right shoulder pain after fall History of Current Condition Pt hurt right shoulder after fall 3 years ago and then had another episode on January 22 when she went to fall forward and reached back to catch her balance on the door frame. She slammed her right shoulder back into the wall and she hurt a pop. Before that, she had cortisone injections in her right shoulder. Pt reports a history of 12 shots. On 07/01/19, pt underwent rotator cuff repair. She had had a biceps tear from the injury in January. She is just now getting into therapy. She just got out of the sling last week. Pt reports that she has had B LE neuropathy since back and foot surgeries. This occurs B below knees to feet. It affects her gait and she occ uses a cane at home. She describes burning sensation. Her does the driving. PMH: B LE neuropathy, ideopathic dizziness and history of low BP, falls, fibromyalgia, B TKR x2, OP, HTN, edema, JEFFERSON, arthritis, cervical disk disease, back surgery and fusion Pt is awakening 3 times a night d/t right shoulder pain. She is sleeping on her left side or her back. Pt is right handed. She has had trouble with personal hygiene. 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 Pt reports pain up to 5/10 in right shoulder. She denies numbness and tingling in UEs but she has electrical shock pain up to her right neck. Pt states that she drinks coffee in the a.m. until 11 a. m. She then drinks 4-5 glasses of water in the afternoon Pt mentions that she had complete right hamstring tear Prior Treatments and Tests Surgeries and cortisone injections PT for her right hand Pt reports that she had a poor experience with PT in the past in that she was left on machines. PT-OP-C Subjective Start: 08/24/19 07:24 Freq: Status: Active Protocol: Document 10/19/19 13:50 MB (Rec: 10/19/19 14:32 MB [id number]) OP-PT Subjective Patient Comments Patient Comments Pt states that her right shoulder con't to have pain. She had to take a pain pill on Friday. When she gets into the van, she reaches up to pull herself into the van. PT-OP-K Range of Motion Start: 08/24/19 07:24 Freq: Status: Active Protocol: Document 08/24/19 13:49 MB (Rec: 08/24/19 16:36 MB [id number]) Cervical Spine Range of Motion Cervical Spine Active Testing Position Standing Flexion 5 Extension 15 Rotation Left 50 Rotation Right 30 Lateral Flexion Left 15 Lateral Flexion Right 15 Shoulder Goniometric Range of Motion Shoulder Right Shoulder ROM WFL No Testing Position Standing Flexion 88 Abduction 120 Internal Rotation Behind Back (text) To right sciatic notch level Left Shoulder ROM WFL Yes Testing Position Standing Internal Rotation Behind Back (text) To T12-L1 level Shoulder ROM Limitations Comments Passive ER and IR B shoulders with arm in 90/90 are normal. Pt has 3-4/10 right shoulder pain with this PT-OP-M Strength Start: 08/24/19 07:24 Freq: Status: Active Protocol: Document 08/24/19 13:49 MB (Rec: 08/24/19 16:36 MB [id number]) Shoulder Strength Shoulder Manual Muscle Testing Right Flexion 2 Poor Abduction (C5) 2 Poor External Rotation 3- Fair- Internal Rotation 3- Fair- Left Flexion 5 Normal Abduction (C5) 5 Normal External Rotation 5 Normal Internal Rotation 5 Normal Elbow/Forearm Strength Elbow and Forearm Manual Muscle Testing Right Flexion (C6) 4 Good Extension (C7) 5 Normal Pronation 4 Good Supination 4 Good Left Flexion (C6) 5 Normal Extension (C7) 5 Normal Pronation 5 Normal Supination 5 Normal Wrist Strength Wrist Manual Muscle Testing Right Flexion (C7) 5 Normal Extension (C6) 5 Normal Left Flexion (C7) 5 Normal Extension (C6) 5 Normal PT-OP-Q Treatments Start: 08/24/19 07:24 Freq: Status: Active Protocol: Document 10/19/19 13:50 MB (Rec: 10/19/19 14:32 MB [id number]) Manual Therapy Treatment Other Other Manual Treatments Pt agrees to Counterstrain to assess and treat fascial tension. PT treats stacks B: right ALL, posterior and anterior somatic neuro cervical and UE. PT-OP-T Assessment and Plan Start: 08/24/19 07:24 Freq: Status: Active Protocol: Document 10/19/19 13:50 MB (Rec: 10/19/19 14:32 MB [id number]) Physical Therapy Assessment Rehab Potential Rehabilitation Potential Good Evaluation Complexity Number of Personal Factors/Comorbidities 3 or More Number of Body Systems Impaired 1-2 Clinical Presentation at Evaluation Evolving Impairments Impairments Activity Tolerance,Balance, Pain,Posture,ROM,Soft Tissue Mobility,Strength Other Impairments UE sensation is intact to light touch. Medical presentation is complicated in that pt presents with B LE neuropathy that affects standing balance and gait, she has multiple orthopedic problems including history of multiple surgeries and right hamstring and biceps tears, she has had many falls. She has trouble tolerating exercise d/t LEs, she reports. Goals 7 Alarm Signal Operator Goal (LTG) Pt will perform progressive HEP including ROM, flexibility , core and UE strengthening with I to increase functional strength by 12/13/2019. 10/15/2019: Pt is performing HEP LTG Duration 8 weeks 6 Detention Goal (LTG) Pt will present with improved right shoulder strength to 5/5 flexion, abduction, ER and IR by 12/13/2019. 10/15/2019: LUE normal MMT; right shoulder flexion 5/5; right shoulder abduction 4/5, right shoulder ER and IR 4/5 LTG Duration 8 weeks 5 Detention Goal (LTG) Pt will present with AROM right shoulder flexion to 120 deg flexion and abduction and internal rotation behind back to L2 to improve functional range of motion by 12/13/2019. 10/15/2019: Pt presents with improved active motion all directions this date, will con 't to monitor LTG Duration 8 weeks 4 Detention Goal (LTG) Pt will present with improved cervical ROM to at least 20 deg extension and 55 deg B rotation to improve upper body movement by 12/13/2019. 10/15/2019: Cervical extension 15 deg, right rotation 40 deg, left rotation 43 deg LTG Duration 8 weeks 3 Detention Goal (LTG) Pt will report a 95% improvement in right shoulder pain by 12/13/2019. 10/15/2019: Pt reports a 75% improvement in right shoulder pain since starting PT LTG Duration 8 weeks 2 Detention Goal (LTG) Pt will present with a QuickDASH score reflecting no more than 15% impairment by . 10/15/2019: Pt reports improvement with ADLs including taking care of cats, knitting and vacuuming, con't to monitor QuickDASH LTG Duration 8 weeks 1 Alarm Signal Operator Goal (LTG) Pt will deny falls for 8 weeks by 12/13/2019. 10/15/2019: Pt denies falls since starting PT LTG Duration 8 weeks Assessment Summary Assessment Counterstrain today to decrease fascial tension. She presents with increased fascial tension cervical, shoulder and thoracic spine. Pt states that she will get a step to get into van. Physical Therapy Plan Frequency and Duration Frequency of Treatment 2x/Week Duration of Treatment 8 weeks Plan of Care Start Date 10/15/19 Plan of Care End Date 12/13/19 Therapeutic Interventions Therapeutic Interventions Aquatic Therapy,Balance Training,Canalithic Repositioning,Home Exercise Program,Manual Therapy, Neuromuscular Re-education, Patient/Caregiver Education, Self-Care/Home Management,Soft Tissue Mobilization,Taping, Therapeutic Exercises Modalities Cold Pack/Ice Massage,Electric Stimulation,Hot Packs, Ultrasound Other Therapeutic Interventions LLT (cold laser) Next Visit Focus/Plan Next Note Type Treatment Note Next Visit Plan Progress HEP, scapular strengthening when appropriate
--- NOTE | 2019-10-21 14:34 | PT.OTN ---
Current Diagnoses Primary osteoarthritis, right shoulder (10/21/19) Unspecified disorder of synovium and tendon, right shoulder (10/21/19) Unspecified disorder of synovium and tendon, right upper arm (10/21/19) Incomplete rotator cuff tear or rupture of right shoulder, not specified as traumatic (10/21/19) Physical Therapy Treatment Note PT-OP-A Visit Information Start: 08/24/19 07:24 Freq: Status: Active Protocol: Document 10/21/19 13:48 MB (Rec: 10/21/19 14:33 MB [id number]) Out-Patient Physical Therapy Visit Information Visit Information Visit Type Treatment Note Visit Start Time 13:48 Visit Stop Time 14:30 Total Visit Minutes 42 Visit Number 10/25 unlimited PT-OP-B Current Condition Start: 08/24/19 07:24 Freq: Status: Active Protocol: Document 08/24/19 13:49 MB (Rec: 08/24/19 14:30 MB [id number]) Current Condition History of Current Condition Onset Date 3 years ago, right shoulder pain after fall History of Current Condition Pt hurt right shoulder after fall 3 years ago and then had another episode on January 22 when she went to fall forward and reached back to catch her balance on the door frame. She slammed her right shoulder back into the wall and she hurt a pop. Before that, she had cortisone injections in her right shoulder. Pt reports a history of 12 shots. On 07/01/19, pt underwent rotator cuff repair. She had had a biceps tear from the injury in January. She is just now getting into therapy. She just got out of the sling last week. Pt reports that she has had B LE neuropathy since back and foot surgeries. This occurs B below knees to feet. It affects her gait and she occ uses a cane at home. She describes burning sensation. Her does the driving. PMH: B LE neuropathy, ideopathic dizziness and history of low BP, falls, fibromyalgia, B TKR x2, OP, HTN, edema, JEFFERSON, arthritis, cervical disk disease, back surgery and fusion Pt is awakening 3 times a night d/t right shoulder pain. She is sleeping on her left side or her back. Pt is right handed. She has had trouble with personal hygiene. 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 Pt reports pain up to 5/10 in right shoulder. She denies numbness and tingling in UEs but she has electrical shock pain up to her right neck. Pt states that she drinks coffee in the a.m. until 11 a. m. She then drinks 4-5 glasses of water in the afternoon Pt mentions that she had complete right hamstring tear Prior Treatments and Tests Surgeries and cortisone injections PT for her right hand Pt reports that she had a poor experience with PT in the past in that she was left on machines. PT-OP-C Subjective Start: 08/24/19 07:24 Freq: Status: Active Protocol: Document 10/21/19 13:48 MB (Rec: 10/21/19 14:33 MB [id number]) OP-PT Subjective Patient Comments Patient Comments Pt states that she is still pulling a little bit to get into the car. She is pushing up to stand up. She states that she has to use both hands . PT-OP-K Range of Motion Start: 08/24/19 07:24 Freq: Status: Active Protocol: Document 08/24/19 13:49 MB (Rec: 08/24/19 16:36 MB [id number]) Cervical Spine Range of Motion Cervical Spine Active Testing Position Standing Flexion 5 Extension 15 Rotation Left 50 Rotation Right 30 Lateral Flexion Left 15 Lateral Flexion Right 15 Shoulder Goniometric Range of Motion Shoulder Right Shoulder ROM WFL No Testing Position Standing Flexion 88 Abduction 120 Internal Rotation Behind Back (text) To right sciatic notch level Left Shoulder ROM WFL Yes Testing Position Standing Internal Rotation Behind Back (text) To T12-L1 level Shoulder ROM Limitations Comments Passive ER and IR B shoulders with arm in 90/90 are normal. Pt has 3-4/10 right shoulder pain with this PT-OP-M Strength Start: 08/24/19 07:24 Freq: Status: Active Protocol: Document 08/24/19 13:49 MB (Rec: 08/24/19 16:36 MB [id number]) Shoulder Strength Shoulder Manual Muscle Testing Right Flexion 2 Poor Abduction (C5) 2 Poor External Rotation 3- Fair- Internal Rotation 3- Fair- Left Flexion 5 Normal Abduction (C5) 5 Normal External Rotation 5 Normal Internal Rotation 5 Normal Elbow/Forearm Strength Elbow and Forearm Manual Muscle Testing Right Flexion (C6) 4 Good Extension (C7) 5 Normal Pronation 4 Good Supination 4 Good Left Flexion (C6) 5 Normal Extension (C7) 5 Normal Pronation 5 Normal Supination 5 Normal Wrist Strength Wrist Manual Muscle Testing Right Flexion (C7) 5 Normal Extension (C6) 5 Normal Left Flexion (C7) 5 Normal Extension (C6) 5 Normal PT-OP-Q Treatments Start: 08/24/19 07:24 Freq: Status: Active Protocol: Document 10/21/19 13:48 MB (Rec: 10/21/19 14:33 MB [id number]) Manual Therapy Treatment Manual Techniques MWM left anterior delt and biceps Comments Performed today and pt presents with increased tension anterior biceps, pt performing active flexion and extension. B SC mobs, greatest tension on the left. Quick ice STM AC joint after. PT-OP-T Assessment and Plan Start: 08/24/19 07:24 Freq: Status: Active Protocol: Document 10/21/19 13:48 MB (Rec: 10/21/19 14:33 MB [id number]) Physical Therapy Assessment Goals 7 [employer] Sales Assistant Goal (LTG) Pt will perform progressive HEP including ROM, flexibility , core and UE strengthening with I to increase functional strength by 12/13/2019. 10/15/2019: Pt is performing HEP LTG Duration 8 weeks 6 [employer] Goal (LTG) Pt will present with improved right shoulder strength to 5/5 flexion, abduction, ER and IR by 12/13/2019. 10/15/2019: LUE normal MMT; right shoulder flexion 5/5; right shoulder abduction 4/5, right shoulder ER and IR 4/5 LTG Duration 8 weeks 5 [employer] Assistant Goal (LTG) Pt will present with AROM right shoulder flexion to 120 deg flexion and abduction and internal rotation behind back to L2 to improve functional range of motion by 12/13/2019. 10/15/2019: Pt presents with improved active motion all directions this date, will con 't to monitor LTG Duration 8 weeks 4 Group Home Goal (LTG) Pt will present with improved cervical ROM to at least 20 deg extension and 55 deg B rotation to improve upper body movement by 12/13/2019. 10/15/2019: Cervical extension 15 deg, right rotation 40 deg, left rotation 43 deg LTG Duration 8 weeks 3 Group Home Goal (LTG) Pt will report a 95% improvement in right shoulder pain by 12/13/2019. 10/15/2019: Pt reports a 75% improvement in right shoulder pain since starting PT LTG Duration 8 weeks 2 [employer] Goal (LTG) Pt will present with a QuickDASH score reflecting no more than 15% impairment by . 10/15/2019: Pt reports improvement with ADLs including taking care of cats, knitting and vacuuming, con't to monitor QuickDASH LTG Duration 8 weeks 1 Group Home Goal (LTG) Pt will deny falls for 8 weeks by 12/13/2019. 10/15/2019: Pt denies falls since starting PT LTG Duration 8 weeks Assessment Summary Assessment LLT left proximal biceps and deltoid insertions. Manual work to improve mobility of biceps and she has less tension after treatment. Con't check for BPPV given dizziness with sitting up. Physical Therapy Plan Frequency and Duration Frequency of Treatment 2x/Week Duration of Treatment 8 weeks Plan of Care Start Date 10/15/19 Plan of Care End Date 12/13/19 Therapeutic Interventions Therapeutic Interventions Aquatic Therapy,Balance Training,Canalithic Repositioning,Home Exercise Program,Manual Therapy, Neuromuscular Re-education, Patient/Caregiver Education, Self-Care/Home Management,Soft Tissue Mobilization,Taping, Therapeutic Exercises Modalities Cold Pack/Ice Massage,Electric Stimulation,Hot Packs, Ultrasound Other Therapeutic Interventions LLT (cold laser) Next Visit Focus/Plan Next Note Type Treatment Note Next Visit Plan Progress HEP, scapular strengthening when appropriate
--- NOTE | 2019-10-26 13:46 | PT.OTN ---
Current Diagnoses Primary osteoarthritis, right shoulder (10/26/19) Unspecified disorder of synovium and tendon, right shoulder (10/26/19) Unspecified disorder of synovium and tendon, right upper arm (10/26/19) Incomplete rotator cuff tear or rupture of right shoulder, not specified as traumatic (10/26/19) Physical Therapy Treatment Note PT-OP-A Visit Information Start: 08/24/19 07:24 Freq: Status: Active Protocol: Document 10/26/19 13:00 MB (Rec: 10/26/19 13:45 MB [id number]) Out-Patient Physical Therapy Visit Information Visit Information Visit Type Treatment Note Visit Start Time 13:00 Visit Stop Time 13:38 Total Visit Minutes 38 Visit Number 11/22 unlimited PT-OP-B Current Condition Start: 08/24/19 07:24 Freq: Status: Active Protocol: Document 08/24/19 13:49 MB (Rec: 08/24/19 14:30 MB [id number]) Current Condition History of Current Condition Onset Date 3 years ago, right shoulder pain after fall History of Current Condition Pt hurt right shoulder after fall 3 years ago and then had another episode on January 22 when she went to fall forward and reached back to catch her balance on the door frame. She slammed her right shoulder back into the wall and she hurt a pop. Before that, she had cortisone injections in her right shoulder. Pt reports a history of 12 shots. On 07/01/19, pt underwent rotator cuff repair. She had had a biceps tear from the injury in January. She is just now getting into therapy. She just got out of the sling last week. Pt reports that she has had B LE neuropathy since back and foot surgeries. This occurs B below knees to feet. It affects her gait and she occ uses a cane at home. She describes burning sensation. Her does the driving. PMH: B LE neuropathy, ideopathic dizziness and history of low BP, falls, fibromyalgia, B TKR x2, OP, HTN, edema, JEFFERSON, arthritis, cervical disk disease, back surgery and fusion Pt is awakening 3 times a night d/t right shoulder pain. She is sleeping on her left side or her back. Pt is right handed. She has had trouble with personal hygiene. 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 Pt reports pain up to 5/10 in right shoulder. She denies numbness and tingling in UEs but she has electrical shock pain up to her right neck. Pt states that she drinks coffee in the a.m. until 11 a. m. She then drinks 4-5 glasses of water in the afternoon Pt mentions that she had complete right hamstring tear Prior Treatments and Tests Surgeries and cortisone injections PT for her right hand Pt reports that she had a poor experience with PT in the past in that she was left on machines. PT-OP-C Subjective Start: 08/24/19 07:24 Freq: Status: Active Protocol: Document 10/26/19 13:00 MB (Rec: 10/26/19 13:46 MB [id number]) OP-PT Subjective Patient Comments Patient Comments Pt is doing okay. Still has pain over right AC area with pain in different spot than previous treatment dates. PT-OP-K Range of Motion Start: 08/24/19 07:24 Freq: Status: Active Protocol: Document 08/24/19 13:49 MB (Rec: 08/24/19 16:36 MB [id number]) Cervical Spine Range of Motion Cervical Spine Active Testing Position Standing Flexion 5 Extension 15 Rotation Left 50 Rotation Right 30 Lateral Flexion Left 15 Lateral Flexion Right 15 Shoulder Goniometric Range of Motion Shoulder Right Shoulder ROM WFL No Testing Position Standing Flexion 88 Abduction 120 Internal Rotation Behind Back (text) To right sciatic notch level Left Shoulder ROM WFL Yes Testing Position Standing Internal Rotation Behind Back (text) To T12-L1 level Shoulder ROM Limitations Comments Passive ER and IR B shoulders with arm in 90/90 are normal. Pt has 3-4/10 right shoulder pain with this PT-OP-M Strength Start: 08/24/19 07:24 Freq: Status: Active Protocol: Document 08/24/19 13:49 MB (Rec: 08/24/19 16:36 MB [id number]) Shoulder Strength Shoulder Manual Muscle Testing Right Flexion 2 Poor Abduction (C5) 2 Poor External Rotation 3- Fair- Internal Rotation 3- Fair- Left Flexion 5 Normal Abduction (C5) 5 Normal External Rotation 5 Normal Internal Rotation 5 Normal Elbow/Forearm Strength Elbow and Forearm Manual Muscle Testing Right Flexion (C6) 4 Good Extension (C7) 5 Normal Pronation 4 Good Supination 4 Good Left Flexion (C6) 5 Normal Extension (C7) 5 Normal Pronation 5 Normal Supination 5 Normal Wrist Strength Wrist Manual Muscle Testing Right Flexion (C7) 5 Normal Extension (C6) 5 Normal Left Flexion (C7) 5 Normal Extension (C6) 5 Normal PT-OP-Q Treatments Start: 08/24/19 07:24 Freq: Status: Active Protocol: Document 10/26/19 13:00 MB (Rec: 10/26/19 13:45 MB [id number]) Therapeutic Exercises Supine Exercises Shoulder ER and scap retraction Comments Reviewed actively without band today Standing Exercises Shoulder extension and scapular retraction as well as shouler ER with level 1 band Comments 10 reps, B for ER, cues for posture, added to HEP Manual Therapy Treatment Other Other Manual Treatments R shoulder: Gentle ice STM with cup over AC joint, lateral and posteriour shoulder over surgical areas as well as upper traps and supraspinatus. PT also performing manual palpation of areas to be treated and released during treatment PT-OP-T Assessment and Plan Start: 08/24/19 07:24 Freq: Status: Active Protocol: Document 10/26/19 13:00 MB (Rec: 10/26/19 13:45 MB [id number]) Physical Therapy Assessment Rehab Potential Rehabilitation Potential Good Evaluation Complexity Number of Personal Factors/Comorbidities 3 or More Number of Body Systems Impaired 1-2 Clinical Presentation at Evaluation Evolving Impairments Impairments Activity Tolerance,Balance, Pain,Posture,ROM,Soft Tissue Mobility,Strength Other Impairments UE sensation is intact to light touch. Medical presentation is complicated in that pt presents with B LE neuropathy that affects standing balance and gait, she has multiple orthopedic problems including history of multiple surgeries and right hamstring and biceps tears, she has had many falls. She has trouble tolerating exercise d/t LEs, she reports. Goals 7 Mcfp Goal (LTG) Pt will perform progressive HEP including ROM, flexibility , core and UE strengthening with I to increase functional strength by 12/13/2019. 10/15/2019: Pt is performing HEP LTG Duration 8 weeks 6 [employer] Technician Goal (LTG) Pt will present with improved right shoulder strength to 5/5 flexion, abduction, ER and IR by 12/13/2019. 10/15/2019: LUE normal MMT; right shoulder flexion 5/5; right shoulder abduction 4/5, right shoulder ER and IR 4/5 LTG Duration 8 weeks 5 [employer] Technician Goal (LTG) Pt will present with AROM right shoulder flexion to 120 deg flexion and abduction and internal rotation behind back to L2 to improve functional range of motion by 12/13/2019. 10/15/2019: Pt presents with improved active motion all directions this date, will con 't to monitor LTG Duration 8 weeks 4 [employer] Goal (LTG) Pt will present with improved cervical ROM to at least 20 deg extension and 55 deg B rotation to improve upper body movement by 12/13/2019. 10/15/2019: Cervical extension 15 deg, right rotation 40 deg, left rotation 43 deg LTG Duration 8 weeks 3 [employer] Technician Goal (LTG) Pt will report a 95% improvement in right shoulder pain by 12/13/2019. 10/15/2019: Pt reports a 75% improvement in right shoulder pain since starting PT LTG Duration 8 weeks 2 [employer] Goal (LTG) Pt will present with a QuickDASH score reflecting no more than 15% impairment by . 10/15/2019: Pt reports improvement with ADLs including taking care of cats, knitting and vacuuming, con't to monitor QuickDASH LTG Duration 8 weeks 1 [employer] Goal (LTG) Pt will deny falls for 8 weeks by 12/13/2019. 10/15/2019: Pt denies falls since starting PT LTG Duration 8 weeks Assessment Summary Assessment Progressed strengthening today and pt has increased right shoulder discomfort with ER with band in standing, con't to monitor. She responds well to ice STM to decrease inflammation. Pt to see surgeon next week and talk about pain. Physical Therapy Plan Frequency and Duration Frequency of Treatment 2x/Week Duration of Treatment 8 weeks Plan of Care Start Date 10/15/19 Plan of Care End Date 12/13/19 Therapeutic Interventions Therapeutic Interventions Aquatic Therapy,Balance Training,Canalithic Repositioning,Home Exercise Program,Manual Therapy, Neuromuscular Re-education, Patient/Caregiver Education, Self-Care/Home Management,Soft Tissue Mobilization,Taping, Therapeutic Exercises Modalities Cold Pack/Ice Massage,Electric Stimulation,Hot Packs, Ultrasound Other Therapeutic Interventions LLT (cold laser) Next Visit Focus/Plan Next Note Type Treatment Note Next Visit Plan Progress HEP, scapular strengthening when appropriate
--- NOTE | 2019-10-28 14:06 | PT-OP ANOTE ---
PT calls pt who states that she responded to text about treatment appointment to cancel it d/t family emergency. She is aware of appointment next week.
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
== END 2019-11-09 08:44 ==
LOC: PHYS 13:45
PROVIDERS: PCP Family Medicine; Visit Provider Orthopaedic Surgery
DX: M75.111 Incomplete rotator cuff tear or rupture of right shoulder, not specified as traumatic (principal); M19.011 Primary osteoarthritis, right shoulder; M67.921 Unspecified disorder of synovium and tendon, right upper arm; M67.911 Unspecified disorder of synovium and tendon, right shoulder
CPT/HCPCS: 97110; 97140; 97161; 97535

== ENCOUNTER → 2020-06-22 12:39 | Outpatient (CLI) | payer MEDICARE, OTHER, SELFPAY ==
[2018-07-13 17:33] VITALS: BMI 38.0
== END ==
PROVIDERS: PCP Family Medicine; Referring Provider Podiatrist; Visit Provider Family Medicine
DX: E11.40 Type 2 diabetes mellitus with diabetic neuropathy, unspecified (principal); L97.811 Non-pressure chronic ulcer of other part of right lower leg limited to breakdown of skin; R60.0 Localized edema; S81.802A Unspecified open wound, left lower leg, initial encounter
CPT/HCPCS: 11042; 99203; 99213

== ENCOUNTER → 2020-06-29 11:03 | Outpatient (CLI) | payer MEDICARE, OTHER, SELFPAY ==
[2018-07-13 17:33] VITALS: BMI 38.0
== END ==
PROVIDERS: PCP Family Medicine; Referring Provider Family Medicine; Visit Provider Family Medicine
DX: G60.9 Hereditary and idiopathic neuropathy, unspecified (principal); S81.802A Unspecified open wound, left lower leg, initial encounter; R60.0 Localized edema; R73.03 Prediabetes; L97.511 Non-pressure chronic ulcer of other part of right foot limited to breakdown of skin
CPT/HCPCS: 93923; 99213

== ENCOUNTER → 2020-07-06 13:13 | Outpatient (CLI) | payer MEDICARE, OTHER, SELFPAY ==
[2018-07-13 17:33] VITALS: BMI 38.0
== END ==
PROVIDERS: PCP Family Medicine; Referring Provider Family Medicine; Visit Provider Family Medicine
DX: E11.40 Type 2 diabetes mellitus with diabetic neuropathy, unspecified (principal); L97.511 Non-pressure chronic ulcer of other part of right foot limited to breakdown of skin; S81.802A Unspecified open wound, left lower leg, initial encounter
CPT/HCPCS: 97597

== ENCOUNTER → 2020-07-13 13:27 | Outpatient (CLI) | payer MEDICARE, OTHER, SELFPAY ==
[2018-07-13 17:33] VITALS: BMI 38.0
== END ==
PROVIDERS: PCP Family Medicine; Referring Provider Family Medicine; Visit Provider Family Medicine
DX: E11.40 Type 2 diabetes mellitus with diabetic neuropathy, unspecified (principal); L97.511 Non-pressure chronic ulcer of other part of right foot limited to breakdown of skin; I87.2 Venous insufficiency (chronic) (peripheral); L97.821 Non-pressure chronic ulcer of other part of left lower leg limited to breakdown of skin; R60.0 Localized edema
CPT/HCPCS: 11042; 87070; 87075; 87077; 87147; 87186; 87205; 99212

== ENCOUNTER 2020-07-14 12:05 | Outpatient (RCR) | payer MEDICARE, OTHER, SELFPAY ==
[2018-07-13 17:33] VITALS: BMI 38.0
--- NOTE | 2020-07-14 15:59 | PT.OIE ---
Current Diagnoses Dizziness and giddiness (07/14/20) Past Medical History (Last Reviewed 10/07/19 @ 16:59 by ADRIEN Tai) Anxiety and depression (Chronic) Arthritis (Acute) Bilateral cataracts (Chronic) Edema (Chronic) Fibromyalgia (Acute) Foot fracture, right (Acute) Ganglion cyst (Chronic) GERD (gastroesophageal reflux disease) (Chronic) Hamstring tendon rupture (Acute) HTN (hypertension) (Chronic) Hyperlipidemia (Chronic) Lumbar stenosis (Chronic) Neuroma (Chronic) Obstructive sleep apnea syndrome (Chronic) Osteoporosis (Chronic) Pericarditis (Acute) Peripheral neuropathy (Chronic) Pneumonia (Acute) Polycystic kidney disease (Chronic) Primary insomnia (Chronic) PVCs (premature ventricular contractions) (Acute) Thin skin (Acute) Past Surgical History (Last Reviewed 10/07/19 @ 16:59 by ADRIEN Tai) H/O: hysterectomy (Acute) History of ankle surgery (Acute) History of arthroplasty of left knee (Acute) History of arthroplasty of right knee (Acute) History of bilateral tubal ligation (Acute) Hx of appendectomy (Acute) Hx of arthroscopic knee surgery (Acute) Hx of cholecystectomy (Acute) Hx of laminectomy (Acute) Hx of thumb surgery (Acute) Hx of tonsillectomy (Acute) S/P lumbar fusion (Acute) S/P lumpectomy, left breast (Acute) S/P lumpectomy, right breast (Acute) S/P rotator cuff repair (Acute) Status post carpal tunnel release of both wrists (Acute) Visit Care Team Role Provider Type Cesilia Lara MD Attending Provider Physician Primary Care Provider Referring Provider Specialty: [facility] Address: [address] [place] [address], [facility] Email: [email or web address] Physical Therapy Initial Evaluation PT-OP-A Visit Information Start: 07/13/20 15:40 Freq: Status: Active Protocol: Document 07/14/20 12:14 MB (Rec: 07/14/20 12:38 MB [id number]) Out-Patient Physical Therapy Visit Information Visit Information Visit Type Initial Evaluation Visit Note Medicare Visit Start Time 12:14 Visit Stop Time 13:14 Total Visit Minutes 60 Visit Number 1 Evaluation Information Evaluation Date 07/14/20 Precautions Precautions Fall risk, right foot wound and pt wears surgical shoe on the left and post op boot on the right PT-OP-B Current Condition Start: 07/13/20 15:40 Freq: Status: Active Protocol: Document 07/14/20 12:14 MB (Rec: 07/14/20 12:38 MB [id number]) Current Condition History of Current Condition Onset Date Chronic intermittent for 5 years Current Complaints Room spinning with rolling into bed and getting up History of Current Condition Pt reports that going to lie down to the left makes the room spin. Going to sit up also makes the room spin for 30 sec. Pt reports a history of dizziness. Pt reports history of right metatarsal fractures, wound and to have surgery. She is using a cane in her right or left hand. Her left becker has wound and her left foot is having possible wound development. Pt reports occ tinnitus. Pt denies: vision changes, ear pressure, history of concussion and whiplash, performance of sit-ups, anemia , B12 deficiency, weakness, hearing changes, sinus/allergy issues, trouble swallowing, recent overhead lifting, eye pressure changes, chiropractor treatment, TMJ problems and headaches. Prior Treatments and Tests R shoulder arthroscopy surgery and PT R foot wound and pt wears surgical shoe and boot PT-OP-C Subjective Start: 07/13/20 15:40 Freq: Status: Active Protocol: Document 07/14/20 12:14 MB (Rec: 07/14/20 15:56 MB [id number]) OP-PT Subjective Patient Comments Patient Comments See history of current condition Patient Questionnaires Dizziness Handicap Inventory DHI Score 20 DHI Functional Impairment 20 to 39% Impaired (Score 20- 39) PT-OP-D Balance Start: 07/13/20 15:40 Freq: Status: Active Protocol: Document 07/14/20 12:14 MB (Rec: 07/14/20 15:56 MB [id number]) Balance Tests Other Other Balance Tests Performed Pt cannot perform formal balance testing d/t wearing boot and surgical shoe d/t foot wound PT-OP-G Mobility & Gait Start: 07/13/20 15:40 Freq: Status: Active Protocol: Document 07/14/20 12:14 MB (Rec: 07/14/20 15:56 MB [id number]) OP Gait Assessment Gait Gait Assistance Required: Standby Assistance,1 Person Assist Distance (Feet) 100 Assistive Devices Assistive Device Straight Cane Orthotic/Prosthetic Devices or Brace: Yes Gait Deviations General Gait Pattern Ataxic,Decreased Stride Length ,Decreased Feet Clearance, Flexed Trunk,Lateral Trunk Lean Factors Limiting Gait Function Factors Limiting Gait Function Decreased Activity Tolerance, Decreased Sensation,Decreased Strength,Pain,Poor Balance Comments Gait Comments Pt wears custom made surgical boot on right LE d/t plantar wound and surgical shoe on left foot. She uses SPC in right hand and it is too tall. PT adjusts it 3 lower and encourages her to use in left hand and she gait trains better. She requires superv to SBA to gait train before BPPV treatment and CGA to min A to transfer and gait afterwards d/t nausea. PT-OP-K Range of Motion Start: 07/13/20 15:40 Freq: Status: Active Protocol: Document 07/14/20 12:14 MB (Rec: 07/14/20 15:56 MB [id number]) Cervical Spine Range of Motion Cervical Spine Active Comments Forward head, rounded shoulders, elevated shoulders, pt tends to have right SB cervical spine Shoulder Goniometric Range of Motion Shoulder Right Shoulder ROM WFL Yes Testing Position Sitting Left Shoulder ROM WFL Yes Testing Position Sitting PT-OP-M Strength Start: 07/13/20 15:40 Freq: Status: Active Protocol: Document 07/14/20 12:14 MB (Rec: 07/14/20 15:56 MB [id number]) Shoulder Strength Shoulder Manual Muscle Testing Bilateral Flexion 5 Normal Abduction (C5) 5 Normal Elbow/Forearm Strength Elbow and Forearm Manual Muscle Testing Bilateral Flexion (C6) 5 Normal PT-OP-O Vestibular Start: 07/13/20 15:40 Freq: Status: Active Protocol: Document 07/14/20 12:14 MB (Rec: 07/14/20 15:56 MB [id number]) Vestibular Assessment Visual Testing Smooth Pursuits Horizontal Normal Smooth Pursuits Vertical Normal Saccades Horizontal Normal Gaze Evoked Nystagmus With Fixation Negative Spontaneous Nystagmus Negative Positional Testing Tara-Hallpike Positive Right,Negative Left, Upbeating,< 60 Seconds PT-OP-Q Treatments Start: 07/13/20 15:40 Freq: Status: Active Protocol: Document 07/14/20 12:14 MB (Rec: 07/14/20 15:56 MB [id number]) Gait Training Gait Activity Gait with SPC Comments Pt wears custom made surgical boot on right LE d/t plantar wound and surgical shoe on left foot. She uses SPC in right hand and it is too tall. PT adjusts it 3 lower and encourages her to use in left hand and she gait trains better. She requires superv to SBA to gait train before BPPV treatment and CGA to min A to transfer and gait afterwards d/t nausea. 100'x2 Self-Care/Home Management Treatment Education Other Education Ed pt and provide handouts on: anatomy of semicircular canals, treatment for BPPV, post-repositioning instructions: cervical support in pillow, sitting up and not lying down when she goes home , gentle cervical rotation and nods, no prolonged knitting or use of cell phone, increased non-caffeinated fluid intake Canalithic Repositioning BPPV Treatment Other Comments Modified Shefali for right posterior canalithiasis, pt moves head during first treatment and so treated a second time: pt is very symptomatic with nausea, diaphoresis after treatment PT-OP-T Assessment and Plan Start: 07/13/20 15:40 Freq: Status: Active Protocol: Document 07/14/20 12:14 MB (Rec: 07/14/20 15:56 MB [id number]) Physical Therapy Assessment Rehab Potential Rehabilitation Potential Fair Evaluation Complexity Number of Personal Factors/Comorbidities 1-2 Number of Body Systems Impaired 1-2 Clinical Presentation at Evaluation Stable Impairments Impairments Activity Tolerance,Balance, Gait,Pain,Posture,Transfers, Vestibular Other Concerns Fall Risk Yes Goals 1 Human Resources Safety Manager Goal (LTG) Pt will report a 95% improvement in vertigo when going to lie down, sit up and roll over by 08/16/2020. LTG Duration 5 weeks Assessment Summary Assessment Pt is a 75 y/o female presenting with right posterior canalithiasis BPPV. Treated today and pt is very symptomatic after treatment with diaphoresis, nausea and dry heaving. Provided water, cervical ice and reassurance to pt. Also provided post- repositioning education/ instructions. She does not know if she wants to undergo treatment again if needed d/t severity of symptoms today. Did schedule two appointments at this time to reassess and treat as needed. Physical Therapy Plan Frequency and Duration Frequency of Treatment 1x/Week Duration of Treatment 5 weeks Plan of Care Start Date 07/14/20 Plan of Care End Date 08/16/20 Therapeutic Interventions Therapeutic Interventions Balance Training,Canalithic Repositioning,Gait Training, Home Exercise Program,Manual Therapy,Neuromuscular Re- education,Patient/Caregiver Education,Self-Care/Home Management,Soft Tissue Mobilization,Taping, Therapeutic Activities, Therapeutic Exercises, Vestibular Rehabilitation Modalities Cold Pack/Ice Massage Next Visit Focus/Plan Next Note Type Treatment Note Next Visit Plan Reassess for BPPV as needed and if pt agrees
--- NOTE | 2020-07-14 15:59 | PT.OPPOC ---
Physical, Occupational & Speech Therapy At [facility] Current Diagnoses Dizziness and giddiness (07/14/20) Visit Care Team Role Provider Type Cesilia Lara MD Attending Provider Physician Primary Care Provider Referring Provider Specialty: Family Practice Address: [address] [place] [address], [facility] [place], [address] Email: [email or web address] Plan Of Care PT-OP-T Assessment and Plan Start: 07/13/20 15:40 Freq: Status: Active Protocol: Document 07/14/20 12:14 MB (Rec: 07/14/20 15:56 MB [id number]) Physical Therapy Assessment Rehab Potential Rehabilitation Potential Fair Evaluation Complexity Number of Personal Factors/Comorbidities 1-2 Number of Body Systems Impaired 1-2 Clinical Presentation at Evaluation Stable Impairments Impairments Activity Tolerance,Balance, Gait,Pain,Posture,Transfers, Vestibular Other Concerns Fall Risk Yes Goals 1 Pipeline Inspector Goal (LTG) Pt will report a 95% improvement in vertigo when going to lie down, sit up and roll over by 08/16/2020. LTG Duration 5 weeks Assessment Summary Assessment Pt is a 75 y/o female presenting with right posterior canalithiasis BPPV. Treated today and pt is very symptomatic after treatment with diaphoresis, nausea and dry heaving. Provided water, cervical ice and reassurance to pt. Also provided post- repositioning education/ instructions. She does not know if she wants to undergo treatment again if needed d/t severity of symptoms today. Did schedule two appointments at this time to reassess and treat as needed. Physical Therapy Plan Frequency and Duration Frequency of Treatment 1x/Week Duration of Treatment 5 weeks Plan of Care Start Date 07/14/20 Plan of Care End Date 08/16/20 Therapeutic Interventions Therapeutic Interventions Balance Training,Canalithic Repositioning,Gait Training, Home Exercise Program,Manual Therapy,Neuromuscular Re- education,Patient/Caregiver Education,Self-Care/Home Management,Soft Tissue Mobilization,Taping, Therapeutic Activities, Therapeutic Exercises, Vestibular Rehabilitation Modalities Cold Pack/Ice Massage Next Visit Focus/Plan Next Note Type Treatment Note Next Visit Plan Reassess for BPPV as needed and if pt agrees Plan of Care Dates Plan of Care Start Date 07/14/20 Plan of Care End Date 08/16/20 Electronically Signed by: Pauly Schmitt, PT 07/14/20 1559 Please Sign and Return: I have reviewed this Plan of Care and certify that the skilled therapy services above are required to meet the patient?s needs. Physician Signature Date Printed Name and Credentials Clinical Instructor Signature Printed Name and Credentials
--- NOTE | 2020-07-17 07:22 | PT.OPDS ---
Current Diagnoses Dizziness and giddiness (07/14/20) Visit Care Team Role Provider Type Cesilia Lara MD Attending Provider Physician Primary Care Provider Referring Provider Specialty: Family Practice Address: [address] [place] [address], [facility], [place], [address] Email: [email or web address] Visit Number Visit Number 1 Discharge Summary PT-OP-B Current Condition Start: 07/13/20 15:40 Freq: Status: Active Protocol: Document 07/14/20 12:14 MB (Rec: 07/14/20 12:38 MB [id number]) Current Condition History of Current Condition Onset Date Chronic intermittent for 5 years Current Complaints Room spinning with rolling into bed and getting up History of Current Condition Pt reports that going to lie down to the left makes the room spin. Going to sit up also makes the room spin for 30 sec. Pt reports a history of dizziness. Pt reports history of right metatarsal fractures, wound and to have surgery. She is using a cane in her right or left hand. Her left becker has wound and her left foot is having possible wound development. Pt reports occ tinnitus. Pt denies: vision changes, ear pressure, history of concussion and whiplash, performance of sit-ups, anemia , B12 deficiency, weakness, hearing changes, sinus/allergy issues, trouble swallowing, recent overhead lifting, eye pressure changes, chiropractor treatment, TMJ problems and headaches. Prior Treatments and Tests R shoulder arthroscopy surgery and PT R foot wound and pt wears surgical shoe and boot PT-OP-C Subjective Start: 07/13/20 15:40 Freq: Status: Active Protocol: Document 07/14/20 12:14 MB (Rec: 07/14/20 15:56 MB [id number]) OP-PT Subjective Patient Comments Patient Comments See history of current condition Patient Questionnaires Dizziness Handicap Inventory DHI Score 20 DHI Functional Impairment 20 to 39% Impaired (Score 20- 39) PT-OP-D Balance Start: 07/13/20 15:40 Freq: Status: Active Protocol: Document 07/14/20 12:14 MB (Rec: 07/14/20 15:56 MB [id number]) Balance Tests Other Other Balance Tests Performed Pt cannot perform formal balance testing d/t wearing boot and surgical shoe d/t foot wound PT-OP-G Mobility & Gait Start: 07/13/20 15:40 Freq: Status: Active Protocol: Document 07/14/20 12:14 MB (Rec: 07/14/20 15:56 MB [id number]) OP Gait Assessment Gait Gait Assistance Required: Standby Assistance,1 Person Assist Distance (Feet) 100 Assistive Devices Assistive Device Straight Cane Orthotic/Prosthetic Devices or Brace: Yes Gait Deviations General Gait Pattern Ataxic,Decreased Stride Length ,Decreased Feet Clearance, Flexed Trunk,Lateral Trunk Lean Factors Limiting Gait Function Factors Limiting Gait Function Decreased Activity Tolerance, Decreased Sensation,Decreased Strength,Pain,Poor Balance Comments Gait Comments Pt wears custom made surgical boot on right LE d/t plantar wound and surgical shoe on left foot. She uses SPC in right hand and it is too tall. PT adjusts it 3 lower and encourages her to use in left hand and she gait trains better. She requires superv to SBA to gait train before BPPV treatment and CGA to min A to transfer and gait afterwards d/t nausea. PT-OP-K Range of Motion Start: 07/13/20 15:40 Freq: Status: Active Protocol: Document 07/14/20 12:14 MB (Rec: 07/14/20 15:56 MB [id number]) Cervical Spine Range of Motion Cervical Spine Active Comments Forward head, rounded shoulders, elevated shoulders, pt tends to have right SB cervical spine Shoulder Goniometric Range of Motion Shoulder Right Shoulder ROM WFL Yes Testing Position Sitting Left Shoulder ROM WFL Yes Testing Position Sitting PT-OP-M Strength Start: 07/13/20 15:40 Freq: Status: Active Protocol: Document 07/14/20 12:14 MB (Rec: 07/14/20 15:56 MB [id number]) Shoulder Strength Shoulder Manual Muscle Testing Bilateral Flexion 5 Normal Abduction (C5) 5 Normal Elbow/Forearm Strength Elbow and Forearm Manual Muscle Testing Bilateral Flexion (C6) 5 Normal PT-OP-O Vestibular Start: 07/13/20 15:40 Freq: Status: Active Protocol: Document 07/14/20 12:14 MB (Rec: 07/14/20 15:56 MB [id number]) Vestibular Assessment Visual Testing Smooth Pursuits Horizontal Normal Smooth Pursuits Vertical Normal Saccades Horizontal Normal Gaze Evoked Nystagmus With Fixation Negative Spontaneous Nystagmus Negative Positional Testing [place]-Hallpike Positive Right,Negative Left, Upbeating,< 60 Seconds PT-OP-T Assessment and Plan Start: 07/13/20 15:40 Freq: Status: Active Protocol: Document 07/17/20 07:22 MB (Rec: 07/17/20 07:22 MB [id number]) Physical Therapy Plan Discharge Physical Therapy Discharge Reasons Patient Request
== END 2020-07-24 15:20 ==
LOC: PHYS 12:05
PROVIDERS: PCP Family Medicine; Referring Provider Family Medicine; Visit Provider Family Medicine
DX: R42 Dizziness and giddiness (principal)
CPT/HCPCS: 95992; 97161; 97535

== ENCOUNTER → 2020-07-18 11:29 | Outpatient (CLI) | payer MEDICARE, OTHER, SELFPAY ==
[2018-07-13 17:33] VITALS: BMI 38.0
== END ==
PROVIDERS: PCP Family Medicine; Referring Provider Family Medicine; Visit Provider Family Medicine
DX: E11.40 Type 2 diabetes mellitus with diabetic neuropathy, unspecified (principal); L97.511 Non-pressure chronic ulcer of other part of right foot limited to breakdown of skin; I87.2 Venous insufficiency (chronic) (peripheral); L97.821 Non-pressure chronic ulcer of other part of left lower leg limited to breakdown of skin; R60.0 Localized edema; L08.9 Local infection of the skin and subcutaneous tissue, unspecified; B95.61 Methicillin susceptible Staphylococcus aureus infection as the cause of diseases classified elsewhere
CPT/HCPCS: 11042; 93922; 99214

== ENCOUNTER → 2020-07-20 11:20 | Outpatient (CLI) | payer MEDICARE, OTHER, SELFPAY ==
[2018-07-13 17:33] VITALS: BMI 38.0
== END ==
PROVIDERS: PCP Family Medicine; Referring Provider Family Medicine; Visit Provider Family Medicine
DX: E11.621 Type 2 diabetes mellitus with foot ulcer (principal); L97.511 Non-pressure chronic ulcer of other part of right foot limited to breakdown of skin; I87.2 Venous insufficiency (chronic) (peripheral); L97.821 Non-pressure chronic ulcer of other part of left lower leg limited to breakdown of skin
CPT/HCPCS: 29581

== ENCOUNTER → 2020-07-21 13:17 | Outpatient (CLI) | payer MEDICARE, OTHER, SELFPAY ==
[2018-07-13 17:33] VITALS: BMI 38.0
== END ==
PROVIDERS: PCP Family Medicine; Referring Provider Family Medicine; Visit Provider Podiatrist
DX: Z01.818 Encounter for other preprocedural examination (principal)
CPT/HCPCS: 93005

== ENCOUNTER → 2020-07-26 11:25 | Outpatient (CLI) | payer MEDICARE, OTHER, SELFPAY ==
[2018-07-13 17:33] VITALS: BMI 38.0
[2020-07-26 13:25] LABS: COVID19 -Nasal RAPID Negative (Negative)
== END ==
PROVIDERS: PCP Family Medicine; Visit Provider Physician Assistant
DX: Z11.59 Encounter for screening for other viral diseases (principal)
CPT/HCPCS: 87635

== ENCOUNTER 2020-07-28 08:35 | Day surgery (SDC) | payer MEDICARE, OTHER, SELFPAY ==
[2018-07-13 17:33] VITALS: BMI 38.0
[2020-07-25 12:29] VITALS: BMI 36.9
[2020-07-28] VITALS (10 sets, daily range): BP systolic 128–152; BP diastolic 58–70; PULSE 49–89; RESP 11–17; TEMP 36.3–36.6; O2SAT 94–98; BMI 38.4
--- NOTE | 2020-07-28 | PATH_ITS ---
[facility] Accession Number: [id number] . 01 Material submitted: . toe - RIGHT FOOT 3RD METATARSAL HEAD . 01 Diagnosis: Bone, Right Foot Third Metatarsal Head, Excision: Osteonecrosis and marrow with necrosis, including fat necrosis. Diagnostic histologic features of osteomyelitis are not definitively identified in section examined. . Note: Clinical and radiographic correlation is recommended. [facility] 08/03/2020 1651 Local . 01 Comment: This case has been reviewed by Dr. Ramya Katz. . 01 Electronically signed: . Vipul Levine MD, Dermatopathologist NPI- [id number] . 01 Gross description: . The specimen is received fresh in a sterile container, labeled right foot third metatarsal head, and consists of a 2.0 x 1.5 x 1.2 cm disarticulated portion of bone with one ragged margin and one smooth, foster, convex surface with a 0.5 x 0.4 cm, slightly irregular, granular area of disruption. The margin is inked blue. The specimen is sectioned to reveal foster, trabeculated cut surfaces. A telephone sales representative cross-section is submitted following decalcification in cassette A1. ([id number]) /[facility] 07/29/2020 1534 Local . 01 Pathologist provided ICD-10: M87.9 . 01 CPT . 303326, [id number] Performed at: [address] [address], [place], [place] [id number] MD Norman Mike MD Phone: [phone]
[2020-07-28] MEDS: LACTATED RINGERS 1,000 ML 100 ML IV (09:19)
--- NOTE | 2020-07-28 09:19 | PM.PREOP ---
Pre-operative Note COVID-19 COVID-19 status: Negative Result date/Date tested (Pos, Neg/Pending): 07/26/20 Interval Note History & Physical reviewed/Exam performed by Physician: Yes Changes to H&P: No
--- NOTE | 2020-07-28 09:20 | PM.OP.1 ---
Operative Date/Time/Diagnoses Date of procedure: 07/28/20 Time of procedure: 09:20 Pre-op diagnosis: Right third metatarsal head ulceration foot, h/o possible fracture, possible osteomyelitis Post-op diagnosis: same Procedure & Clinicians Procedure: Right third metatarsal head resection Right foot plantar ulceration wound revision and closure Same procedure as scheduled: Yes Indications: Ongoing ulceration to the plantar right foot with h/o metatarsal fracture and peripheral neuropathy. Conservative efforts have not eliminated the wound and she is at risk for further breakdown. She wished to have surgical intervention at this time. She is still taking antibiotics for the left becker wound and being followed by Wound Care. Right foot has new area of preulceration with what may have been some blistering from friction plantar sulcus today, but does not appear open, erythematous. No contraindication to the procedure at this time; the right foot procedure is to heal an existing wound which is justified circumstance in the presence of her left becker healing wound. Surgeon: Kylie Parks Click Yes if Unassisted: Yes Anesthesia Type: General Operative Notes Closure Type: primary Specimen(s): other (1) Right third metatarsal head to pathology to review for osteomyelitis; 2) culture of proximal edge metatarsal #3 bone) Estimated Blood Loss (mL): 30 Blood products transfused: none Tourniquet time (min): 27 Procedure in detail: The patient was brought to the operating room and placed on the operating table in the supine position. The tourniquet was placed about the right ankle. Well-padded appropriately aligned. After induction of general anesthesia the foot and ankle were prepped and draped in the usual aseptic manner. The tourniquet was inflated. Next attention was directed to the dorsal third metatarsal head where an incision was made over the dorsal third metatarsophalangeal joint. The incision was deepened through subcutaneous tissues being careful to identify and retract all vital neural and vascular structures. All bleeders were cauterized and ligated as necessary. Once the capsule was entered the metatarsal head and neck were exposed. 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 A saw was used to resect the head of the metatarsal in a gently angulated style. The head was removed from the foot and inspected to show it being a little more yellowed along the dorsal and plantar cartilage. No purulence or necrotic areas were seen. Proximally on the third metatarsal shaft where the resection was performed, a small amount of bone was taken and sent for culture. The remaining edge of the third metatarsal was smoothed with a manual rasp. The area was irrigated with copious amounts of normal saline. Next the ulceration on the plantar surface of the skin in the area of the former third metatarsal head was assessed and determined it was able to be cleanly revised. Two converging semi-elliptical incisions were made full-thickness and the skin and subcutaneous tissue was removed from the central ellipse and wound. It was able to bleed well. The area showed no abscess beyond the granulation tissue and no purulence. The area was irrigated with copious amounts of normal saline. The tourniquet was deflated, a prompt hyperemic response was seen to the foot. All bleeders were cautertized as necessary. The dorsal incision was closed with 3-0,4-0 vicryl to the subcut tissues and 3-0 nylon to the skin. The plantar ulceration was closed with 2-0 and 3-0 nylon to the skin. The areas were dressed with sterile, lightly compressive dressings. Post op shoe was placed on the foot. She was tranferred to PACU with VSS and vascular status intact to the foot. Complications: none Post-operative Condition: stable Disposition: PACU Plan for aftercare: Following a period of postoperative monitoring, the patient be discharged home on written and oral postoperative instructions including keeping the dressing dry and intact, no ambulation on the right foot, and elevating the foot when seated home. DVT prevention techniques have been reviewed. For the 1st postoperative visit the dressing will be changed and close to the 3rd postoperative week we will likely remove the sutures. We'll watch for culture results back and also be in contact with her wound care physician in regards to these results.
--- NOTE | 2020-07-28 09:24 | SUR.OPER ---
Supine on padded OR bed, head on pillow, arms secured on padded arm boards at <90 degrees abduction, legs uncrossed, safety belt at thigh, tape over blanket over nonoperative leg.
[2020-07-28] MEDS: CEFAZOLIN 2 GM/100 ML FROZ.PIGGY IV (10:19)
[2020-07-28] MEDS: BUPIVACAINE 0.5% (PF) VIAL 30 ML INJ (10:35)
[2020-07-28] MEDS: ACETAMINOPHEN 325 MG TABLET 975 MG PO (11:41)
[2020-07-28] MEDS: OXYCODONE IR 5 MG TABLET PO (11:41)
[2020-07-28] MEDS: ONDANSETRON 4 MG/2 ML INJ IV (11:41)
== END 2020-07-28 12:20 | disposition home or self-care (01) ==
PROVIDERS: PCP Family Medicine; Referring Provider Family Medicine; Visit Provider Podiatrist
PROC: 0QBN0ZZ Excision of Right Metatarsal, Open Approach (ICD-10-PCS; CPT 28292; principal; 2020-07-28 09:45)
DX: R26.2 Difficulty in walking, not elsewhere classified (principal); L97.511 Non-pressure chronic ulcer of other part of right foot limited to breakdown of skin; S92.33 Fracture of third metatarsal bone; G60.3 Idiopathic progressive neuropathy; E66.9 Obesity, unspecified; I10 Essential (primary) hypertension; E78.5 Hyperlipidemia, unspecified; E11.40 Type 2 diabetes mellitus with diabetic neuropathy, unspecified; Z79.84 Long term (current) use of oral hypoglycemic drugs; G47.33 Obstructive sleep apnea (adult) (pediatric); K21.9 Gastro-esophageal reflux disease without esophagitis; M79.7 Fibromyalgia
CPT/HCPCS: 28112; 11042; 87070; 87075; 87077; 87186; 87205; J0690; J2250; J2405; J2704; J3010

== ENCOUNTER → 2020-08-08 12:25 | Outpatient (CLI) | payer MEDICARE, OTHER, SELFPAY ==
[2018-07-13 17:33] VITALS: BMI 38.0
--- NOTE | 2020-08-08 12:29 | DI.MG.S_ITS ---
BILATERAL DIGITAL DIAGNOSTIC MAMMOGRAM 3D/2D: 08/08/2020 CLINICAL: Left lump. Comparison is made to exams dated: 06/22/2019 mammogram, 06/15/2019 mammogram, and 08/11/2017 mammogram - [facility]. The tissue of both breasts is heterogeneously dense. This may lower the sensitivity of mammography. No significant masses, calcifications, or other findings are seen in either breast. No finding in the region of the palpable abnormality/ area of skin thickening. IMPRESSION: INCOMPLETE: NEEDS ADDITIONAL IMAGING EVALUATION No mammographic evidence of malignancy. A targeted ultrasound of the left breast palpable abnormality is recommended and will immediately follow. This exam was interpreted at Station ID: [id number]. NOTE: For mammograms, a report in lay terms will be sent to the patient. Approximately 15% of breast malignancies will not be visualized mammographically. In the management of a palpable breast mass, a negative mammogram must not discourage biopsy of a clinically suspicious lesion. Electronically Signed By: Henok Jacobs M.D. slc/:08/08/2020 15:32:13 ACR BI-RADS Category 0: Incomplete [id number]
--- NOTE | 2020-08-08 12:30 | DI.US.S_ITS ---
LIMITED ULTRASOUND OF LEFT BREAST: 08/08/2020 CLINICAL: Palpable left breast lump. Comparison is made to exams dated: 08/08/2020 mammogram, 06/22/2019 mammogram, 06/15/2019 mammogram, 08/11/2017 mammogram, 07/25/2016 mammogram, and 07/25/2016 mammogram - [facility]. Color flow and real-time ultrasound of the left breast 2 o'clock region were performed. Buchanan scale images of the real-time examination were reviewed. No mass, fluid collection, or dilated ducts. IMPRESSION: NEGATIVE There is no sonographic evidence of malignancy at the site of palpable abnormality/ area of skin thickening. A 1 year screening mammogram is recommended. Exam findings were conveyed to the patient. Patient is advised to monitor for significant change. Clinical follow-up as needed. This exam was interpreted at Station ID: [id number]. Electronically Signed By: Henok Jacobs M.D. slc/:08/08/2020 15:35:00 letter sent: Normal Exam Ultrasound BI-RADS: 1 Negative
== END ==
PROVIDERS: PCP Family Medicine; Referring Provider Family Medicine; Visit Provider Family Medicine
DX: R92.8 Other abnormal and inconclusive findings on diagnostic imaging of breast (principal); N63.20 Unspecified lump in the left breast, unspecified quadrant
CPT/HCPCS: 76642; 77066; G0279

== ENCOUNTER 2020-11-06 13:00 | Outpatient (RCR) | payer MEDICARE, OTHER, SELFPAY ==
[2018-07-13 17:33] VITALS: BMI 38.0
--- NOTE | 2020-10-24 16:00 | PT.OIE ---
Current Diagnoses Other forms of scoliosis, lumbar region (10/24/20) Strain of muscle, fascia and tendon of lower back, subsequent encounter (10/24/20) Arthrodesis status (10/24/20) Past Medical History (Last Updated 07/25/20 @ 12:45 by Rowan Sterling RN) Anxiety and depression Arthritis Bilateral cataracts Diabetes Edema Fibromyalgia Foot fracture, right Ganglion cyst GERD (gastroesophageal reflux disease) Hamstring tendon rupture 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) HTN (hypertension) Hyperlipidemia Lumbar stenosis Neuroma Obstructive sleep apnea syndrome Osteoporosis Pericarditis Peripheral neuropathy Pneumonia Polycystic kidney disease Primary insomnia PVCs (premature ventricular contractions) Thin skin Wound of left leg (~07/2020) Past Surgical History (Last Reviewed 10/07/19 @ 16:59 by ADRIEN Tai) H/O: hysterectomy History of ankle surgery History of arthroplasty of left knee History of arthroplasty of right knee History of bilateral tubal ligation Hx of appendectomy Hx of arthroscopic knee surgery Hx of cholecystectomy Hx of laminectomy Hx of thumb surgery Hx of tonsillectomy S/P lumbar fusion S/P lumpectomy, left breast S/P lumpectomy, right breast S/P rotator cuff repair Status post carpal tunnel release of both wrists Visit Care Team Role Provider Type Cesilia Lara MD Primary Care Provider Physician Specialty: Family Practice Address: [address] [place] [address], [id number] Email: [email or web address] Jair Fay MD Attending Provider Physician Referring Provider Specialty: Orthopedic Surgery Address: [address] [place] [address], [id number] Email: [email or web address] Physical Therapy Initial Evaluation PT-OP-A Visit Information Start: 10/23/20 14:07 Freq: Status: Active Protocol: Document 10/24/20 12:15 MB (Rec: 10/24/20 12:35 MB [id number]) Out-Patient Physical Therapy Visit Information Visit Information Visit Type Initial Evaluation Visit Note Medicare, 19 visits until KX modifier Visit Start Time 12:15 Visit Stop Time 13:00 Total Visit Minutes 45 Visit Number 1 Number of SERVICES ACCOUNT MANAGER Visits 0 Evaluation Information Evaluation Date 10/24/20 PT-OP-B Current Condition Start: 10/23/20 14:07 Freq: Status: Active Protocol: Document 10/24/20 12:15 MB (Rec: 10/24/20 12:35 MB [id number]) Current Condition History of Current Condition Onset Date 08/2020 Current Complaints Back pain when up on feet History of Current Condition Pt reports that she got worse back pain after walking in boot for 7 months. PMH includes right shoulder arthroscopic and PT and pt did well, B feet neuropathy, right foot ulcer and bone resection, right foot wound now healed and pt is now wearing more normal shoes, lumbar spinal fusion. Pt reports possible new onset of DM. Pt has history of B TKR x2 , right ankle surgery, neuropathy below B knees and decreased sensation B. Pt saw Dr. Fay and she states that her surgical changes are stable and that she arthritic changes above it . Pt reports 4/10 pain central upper lumbar spine and over B kidney areas. She denies pain with breathing, pain and paresthesias in LEs. Pt prefers flexion positioning to extension. Other tasks that are troublesome including vacuuming, walking, other standing activities. Pt is sleeping on left side with two pillows under her head. Prior Treatments and Tests PT for BPPV and s/p right shoulder arthroscopic surgery Treatment Goals Patient/Caregiver Goals To decrease back pain PT-OP-C Subjective Start: 10/23/20 14:07 Freq: Status: Active Protocol: Document 10/24/20 12:15 MB (Rec: 10/24/20 12:35 MB [id number]) OP-PT Subjective Patient Comments Patient Comments See history of current condition Patient Questionnaires Oswestry Low Back Index Oswestry Score 13 Oswestry Impairment 1 to 19% Impaired (Score 1-19) PT-OP-G Mobility & Gait Start: 10/23/20 14:07 Freq: Status: Active Protocol: Document 10/24/20 12:15 MB (Rec: 10/24/20 16:00 MB [id number]) OP Mobility Evaluation Bed Mobility Rolling Increased time and effort to log roll on the narrow plinth OP Gait Assessment Gait Gait Assistance Required: Independent Distance (Feet) 75 Able to Maintain Weight Bearing Status Yes During Gait Assistive Devices Assistive Device None Orthotic/Prosthetic Devices or Brace: No Gait Deviations General Gait Pattern Flexed Trunk,Wide Based Gait Factors Limiting Gait Function Factors Limiting Gait Function Pain,Poor Balance Comments Gait Comments Pt presents with postural changes and slow, antalgic type pattern with wide JEFF and decreased step-length and foot clearance, decreased great toe push off B PT-OP-J Posture/Palpation/Skin Start: 10/23/20 14:07 Freq: Status: Active Protocol: Document 10/24/20 12:15 MB (Rec: 10/24/20 16:00 MB [id number]) Posture Evaluation Comments Posture Comments Forward head, rounded shoulders, trunk is forward flexed and spinal changes with increased flexion of spine, decreased cervical lordosis, Dowager's hump, increased lumbar lordosis with post-op changes and healed scar that lies over vertebrae, left tragus is 1 in front of left AC joint, increased edema right greater than left ankle and skin is dry and mildly discolored, shoulders are forward and B thigh and knee approximation in standing. PT-OP-M Strength Start: 10/23/20 14:07 Freq: Status: Active Protocol: Document 10/24/20 12:15 MB (Rec: 10/24/20 16:00 MB [id number]) Hip Strength Hip Manual Muscle Testing Left Flexion (L2) 3- Fair- Abduction 3+ Fair+ Comments Pt supine Right Flexion (L2) 4 Good Abduction 4 Good Comments Pt supine Knee Strength Knee Manual Muscle Testing Left Flexion (S2) 4 Good Extension (L3) 5 Normal Comments Pt supine Right Flexion (S2) 4 Good Extension (L3) 5 Normal Comments Pt supine Ankle/Foot Strength Ankle and Foot Manual Muscle Testing Bilateral Comments Pt cannot readily follow MMT commands d/t reports of severe neuropathy B LEs below her knees PT-OP-Q Treatments Start: 10/23/20 14:07 Freq: Status: Active Protocol: Document 10/24/20 12:15 MB (Rec: 10/24/20 16:00 MB [id number]) Therapeutic Exercises Supine Exercises Pelvic realignment exercises Side bilateral Comments 5 reps all exercises with 3 sec hold all exercises PT-OP-T Assessment and Plan Start: 10/23/20 14:07 Freq: Status: Active Protocol: Document 10/24/20 12:15 MB (Rec: 10/24/20 16:00 MB [id number]) Physical Therapy Assessment Rehab Potential Rehabilitation Potential Good Evaluation Complexity Number of Personal Factors/Comorbidities 1-2 Number of Body Systems Impaired 1-2 Clinical Presentation at Evaluation Evolving Impairments Impairments Activity Tolerance,Balance, Functional Activities, Functional Mobility,Gait,Pain, Posture,Sensation,Soft Tissue Mobility,Strength Other Impairments Personal factors include decreased ability to tolerate HEP in the past and increased body mass. Body systems affected include musculoskeletal, sensory (feet ) and metabolic. Her clinical presentation is evolving. Goals 3 Group Home Goal (LTG) Pt will perform progressive HEP with I including pelvic realignment and other postural exercises, strengthening, balance and gait exercises to improve mobility and upright tolerance for ADLs by 12/22/20. LTG Duration 8 weeks 2 Can Capper Goal (LTG) Pt will present with improved B hip flexion and abduction and knee extension and flexion strength to 5/5 to improve functional mobility by 12/22/20. LTG Duration 8 weeks 1 Group Home Goal (LTG) Pt will present with an improved Oswestry LBP score to reflect no more than 5% impairment to improve overall quality of life by 12/22/20. LTG Duration 8 weeks Assessment Summary Assessment Pt is a 75 y/o female presenting with long history of back pain s/p lumbar fusion and multiple orthopedic injuries and surgeries. Pt has most recently had right shoulder arthroscopic surgery, BPPV and bone resection on her right foot. Pt reports that her back pain got worse when she got out of the boot she was wearing for 7 months. She has been using AD intermittently during the treatment of her foot. Pt presents with postural and body mass changes that are contributory to pain and presentation. She presents with gait changes and LE weakness. She will benefit from PT for manual work including Counterstrain to assess fascial changes and thoracic tension, pelvic realignment and postural exercises and progressive strengthening and balance exercises. Physical Therapy Plan Frequency and Duration Frequency of Treatment 2x/Week Duration of Treatment 8 weeks Plan of Care Start Date 10/24/20 Plan of Care End Date 12/22/20 Therapeutic Interventions Therapeutic Interventions Balance Training,Canalithic Repositioning,Gait Training, Home Exercise Program,Joint Mobilizations,Manual Therapy, Neuromuscular Re-education, Patient/Caregiver Education, Self-Care/Home Management, Sensory Integration,Soft Tissue Mobilization,Taping, Therapeutic Activities, Therapeutic Exercises Modalities Cold Pack/Ice Massage,Electric Stimulation,Hot Packs, Ultrasound Next Visit Focus/Plan Next Note Type Treatment Note Next Visit Plan Initiate Counterstrain to assess and treat fascial changes
--- NOTE | 2020-10-24 16:00 | PT.OPPOC ---
Physical, Occupational & Speech Therapy At [facility] Current Diagnoses Other forms of scoliosis, lumbar region (10/24/20) Strain of muscle, fascia and tendon of lower back, subsequent encounter (10/24/20) Arthrodesis status (10/24/20) Visit Care Team Role Provider Type Cesilia Lara MD Primary Care Provider Physician Specialty: Family Practice Address: [address] [place] [address], [place], [address] Email: [email or web address] Jair Fay MD Attending Provider Physician Referring Provider Specialty: Orthopedic Surgery Address: [address] [place] [address], [place], [address] Email: [email or web address] Plan Of Care PT-OP-T Assessment and Plan Start: 10/23/20 14:07 Freq: Status: Active Protocol: Document 10/24/20 12:15 MB (Rec: 10/24/20 16:00 MB [id number]) Physical Therapy Assessment Rehab Potential Rehabilitation Potential Good Evaluation Complexity Number of Personal Factors/Comorbidities 1-2 Number of Body Systems Impaired 1-2 Clinical Presentation at Evaluation Evolving Impairments Impairments Activity Tolerance,Balance, Functional Activities, Functional Mobility,Gait,Pain, Posture,Sensation,Soft Tissue Mobility,Strength Other Impairments Personal factors include decreased ability to tolerate HEP in the past and increased body mass. Body systems affected include musculoskeletal, sensory (feet ) and metabolic. Her clinical presentation is evolving. Goals 3 Jail Goal (LTG) Pt will perform progressive HEP with I including pelvic realignment and other postural exercises, strengthening, balance and gait exercises to improve mobility and upright tolerance for ADLs by 12/22/20. LTG Duration 8 weeks 2 Rewinder Operator Goal (LTG) Pt will present with improved B hip flexion and abduction and knee extension and flexion strength to 5/5 to improve functional mobility by 12/22/20. LTG Duration 8 weeks 1 Rewinder Operator Goal (LTG) Pt will present with an improved Oswestry LBP score to reflect no more than 5% impairment to improve overall quality of life by 12/22/20. LTG Duration 8 weeks Assessment Summary Assessment Pt is a 75 y/o female presenting with long history of back pain s/p lumbar fusion and multiple orthopedic injuries and surgeries. Pt has most recently had right shoulder arthroscopic surgery, BPPV and bone resection on her right foot. Pt reports that her back pain got worse when she got out of the boot she was wearing for 7 months. She has been using AD intermittently during the treatment of her foot. Pt presents with postural and body mass changes that are contributory to pain and presentation. She presents with gait changes and LE weakness. She will benefit from PT for manual work including Counterstrain to assess fascial changes and thoracic tension, pelvic realignment and postural exercises and progressive strengthening and balance exercises. Physical Therapy Plan Frequency and Duration Frequency of Treatment 2x/Week Duration of Treatment 8 weeks Plan of Care Start Date 10/24/20 Plan of Care End Date 12/22/20 Therapeutic Interventions Therapeutic Interventions Balance Training,Canalithic Repositioning,Gait Training, Home Exercise Program,Joint Mobilizations,Manual Therapy, Neuromuscular Re-education, Patient/Caregiver Education, Self-Care/Home Management, Sensory Integration,Soft Tissue Mobilization,Taping, Therapeutic Activities, Therapeutic Exercises Modalities Cold Pack/Ice Massage,Electric Stimulation,Hot Packs, Ultrasound Next Visit Focus/Plan Next Note Type Treatment Note Next Visit Plan Initiate Counterstrain to assess and treat fascial changes Plan of Care Dates Plan of Care Start Date 10/24/20 Plan of Care End Date 12/22/20 Electronically Signed by: Pauly Schmitt PT 10/24/20 1600 Please Sign and Return: I have reviewed this Plan of Care and certify that the skilled therapy services above are required to meet the patient?s needs. Physician Signature Date Printed Name and Credentials Clinical Instructor Signature Printed Name and Credentials
--- NOTE | 2020-10-26 13:00 | PT.OTN ---
Current Diagnoses Other forms of scoliosis, lumbar region (10/26/20) Strain of muscle, fascia and tendon of lower back, subsequent encounter (10/26/20) Arthrodesis status (10/26/20) Physical Therapy Treatment Note PT-OP-A Visit Information Start: 10/23/20 14:07 Freq: Status: Active Protocol: Document 10/26/20 12:16 MB (Rec: 10/26/20 12:46 MB [id number]) Out-Patient Physical Therapy Visit Information Visit Information Visit Type Treatment Note Visit Note Medicare, 19 visits until KX modifier Visit Start Time 12:16 Visit Stop Time 12:59 Total Visit Minutes 43 Visit Number 2 PT-OP-B Current Condition Start: 10/23/20 14:07 Freq: Status: Active Protocol: Document 10/24/20 12:15 MB (Rec: 10/24/20 12:35 MB [id number]) Current Condition History of Current Condition Onset Date 08/2020 Current Complaints Back pain when up on feet History of Current Condition Pt reports that she got worse back pain after walking in boot for 7 months. PMH includes right shoulder arthroscopic and PT and pt did well, B feet neuropathy, right foot ulcer and bone resection, right foot wound now healed and pt is now wearing more normal shoes, lumbar spinal fusion. Pt reports possible new onset of DM. Pt has history of B TKR x2 , right ankle surgery, neuropathy below B knees and decreased sensation B. Pt saw Dr. Fay and she states that her surgical changes are stable and that she arthritic changes above it . Pt reports 4/10 pain central upper lumbar spine and over B kidney areas. She denies pain with breathing, pain and paresthesias in LEs. Pt prefers flexion positioning to extension. Other tasks that are troublesome including vacuuming, walking, other standing activities. Pt is sleeping on left side with two pillows under her head. Prior Treatments and Tests PT for BPPV and s/p right shoulder arthroscopic surgery Treatment Goals Patient/Caregiver Goals To decrease back pain PT-OP-C Subjective Start: 10/23/20 14:07 Freq: Status: Active Protocol: Document 10/26/20 12:16 MB (Rec: 10/26/20 12:46 MB [id number]) OP-PT Subjective Patient Comments Patient Comments Pt states that she did the pelvic realignment exercises and she was a little sore on her left side. PT-OP-G Mobility & Gait Start: 10/23/20 14:07 Freq: Status: Active Protocol: Document 10/24/20 12:15 MB (Rec: 10/24/20 16:00 MB [id number]) OP Mobility Evaluation Bed Mobility Rolling Increased time and effort to log roll on the narrow plinth OP Gait Assessment Gait Gait Assistance Required: Independent Distance (Feet) 75 Able to Maintain Weight Bearing Status Yes During Gait Assistive Devices Assistive Device None Orthotic/Prosthetic Devices or Brace: No Gait Deviations General Gait Pattern Flexed Trunk,Wide Based Gait Factors Limiting Gait Function Factors Limiting Gait Function Pain,Poor Balance Comments Gait Comments Pt presents with postural changes and slow, antalgic type pattern with wide JEFF and decreased step-length and foot clearance, decreased great toe push off B PT-OP-J Posture/Palpation/Skin Start: 10/23/20 14:07 Freq: Status: Active Protocol: Document 10/24/20 12:15 MB (Rec: 10/24/20 16:00 MB [id number]) Posture Evaluation Comments Posture Comments Forward head, rounded shoulders, trunk is forward flexed and spinal changes with increased flexion of spine, decreased cervical lordosis, Dowager's hump, increased lumbar lordosis with post-op changes and healed scar that lies over vertebrae, left tragus is 1 in front of left AC joint, increased edema right greater than left ankle and skin is dry and mildly discolored, shoulders are forward and B thigh and knee approximation in standing. PT-OP-M Strength Start: 10/23/20 14:07 Freq: Status: Active Protocol: Document 10/24/20 12:15 MB (Rec: 10/24/20 16:00 MB [id number]) Hip Strength Hip Manual Muscle Testing Left Flexion (L2) 3- Fair- Abduction 3+ Fair+ Comments Pt supine Right Flexion (L2) 4 Good Abduction 4 Good Comments Pt supine Knee Strength Knee Manual Muscle Testing Left Flexion (S2) 4 Good Extension (L3) 5 Normal Comments Pt supine Right Flexion (S2) 4 Good Extension (L3) 5 Normal Comments Pt supine Ankle/Foot Strength Ankle and Foot Manual Muscle Testing Bilateral Comments Pt cannot readily follow MMT commands d/t reports of severe neuropathy B LEs below her knees PT-OP-Q Treatments Start: 10/23/20 14:07 Freq: Status: Active Protocol: Document 10/26/20 12:16 MB (Rec: 10/26/20 12:46 MB [id number]) Manual Therapy Treatment Other Other Manual Treatments Pt agrees to Counterstrain to assess and treat fascial tension. Pt presents with tension in the following fascial systems: ALL right, vagus nerve, dura, LF, preganglionic and PT treats stacks in the following systems: dura, vagus nerve. PT-OP-T Assessment and Plan Start: 10/23/20 14:07 Freq: Status: Active Protocol: Document 10/26/20 12:16 MB (Rec: 10/26/20 12:46 MB [id number]) Physical Therapy Assessment Rehab Potential Rehabilitation Potential Good Evaluation Complexity Number of Personal Factors/Comorbidities 1-2 Number of Body Systems Impaired 1-2 Clinical Presentation at Evaluation Evolving Impairments Impairments Activity Tolerance,Balance, Functional Activities, Functional Mobility,Gait,Pain, Posture,Sensation,Soft Tissue Mobility,Strength Other Impairments Personal factors include decreased ability to tolerate HEP in the past and increased body mass. Body systems affected include musculoskeletal, sensory (feet ) and metabolic. Her clinical presentation is evolving. Goals 3 Compliance Representative Goal (LTG) Pt will perform progressive HEP with I including pelvic realignment and other postural exercises, strengthening, balance and gait exercises to improve mobility and upright tolerance for ADLs by 12/22/20. LTG Duration 8 weeks 2 Compliance Representative Goal (LTG) Pt will present with improved B hip flexion and abduction and knee extension and flexion strength to 5/5 to improve functional mobility by 12/22/20. LTG Duration 8 weeks 1 Compliance Representative Goal (LTG) Pt will present with an improved Oswestry LBP score to reflect no more than 5% impairment to improve overall quality of life by 12/22/20. LTG Duration 8 weeks Assessment Summary Assessment Initiated Counterstrain today to address fascial tension and pt responds well. Con't progression as pt tolerates, exercises. Physical Therapy Plan Frequency and Duration Frequency of Treatment 2x/Week Duration of Treatment 8 weeks Plan of Care Start Date 10/24/20 Plan of Care End Date 12/22/20 Therapeutic Interventions Therapeutic Interventions Balance Training,Canalithic Repositioning,Gait Training, Home Exercise Program,Joint Mobilizations,Manual Therapy, Neuromuscular Re-education, Patient/Caregiver Education, Self-Care/Home Management, Sensory Integration,Soft Tissue Mobilization,Taping, Therapeutic Activities, Therapeutic Exercises Modalities Cold Pack/Ice Massage,Electric Stimulation,Hot Packs, Ultrasound Next Visit Focus/Plan Next Note Type Treatment Note Next Visit Plan Con't manual work and progressive exercises
--- NOTE | 2020-11-03 15:25 | PT.OTN ---
Current Diagnoses Other forms of scoliosis, lumbar region (11/03/20) Strain of muscle, fascia and tendon of lower back, subsequent encounter (11/03/20) Arthrodesis status (11/03/20) Physical Therapy Treatment Note PT-OP-A Visit Information Start: 10/23/20 14:07 Freq: Status: Active Protocol: Document 11/03/20 14:35 MB (Rec: 11/03/20 15:24 MB [id number]) Out-Patient Physical Therapy Visit Information Visit Information Visit Type Treatment Note Visit Note Medicare Visit Start Time 14:35 Visit Stop Time 15:15 Total Visit Minutes 40 Visit Number 3 PT-OP-B Current Condition Start: 10/23/20 14:07 Freq: Status: Active Protocol: Document 10/24/20 12:15 MB (Rec: 10/24/20 12:35 MB [id number]) Current Condition History of Current Condition Onset Date 08/2020 Current Complaints Back pain when up on feet History of Current Condition Pt reports that she got worse back pain after walking in boot for 7 months. PMH includes right shoulder arthroscopic and PT and pt did well, B feet neuropathy, right foot ulcer and bone resection, right foot wound now healed and pt is now wearing more normal shoes, lumbar spinal fusion. Pt reports possible new onset of DM. Pt has history of B TKR x2 , right ankle surgery, neuropathy below B knees and decreased sensation B. Pt saw Dr. Fay and she states that her surgical changes are stable and that she arthritic changes above it . Pt reports 4/10 pain central upper lumbar spine and over B kidney areas. She denies pain with breathing, pain and paresthesias in LEs. Pt prefers flexion positioning to extension. Other tasks that are troublesome including vacuuming, walking, other standing activities. Pt is sleeping on left side with two pillows under her head. Prior Treatments and Tests PT for BPPV and s/p right shoulder arthroscopic surgery Treatment Goals Patient/Caregiver Goals To decrease back pain PT-OP-C Subjective Start: 10/23/20 14:07 Freq: Status: Active Protocol: Document 11/03/20 14:35 MB (Rec: 11/03/20 15:24 MB [id number]) OP-PT Subjective Patient Comments Patient Comments Pt walked a few blocks for the first time since her foot surgery. She has been busy. Her back is bothering her today. PT-OP-G Mobility & Gait Start: 10/23/20 14:07 Freq: Status: Active Protocol: Document 10/24/20 12:15 MB (Rec: 10/24/20 16:00 MB [id number]) OP Mobility Evaluation Bed Mobility Rolling Increased time and effort to log roll on the narrow plinth OP Gait Assessment Gait Gait Assistance Required: Independent Distance (Feet) 75 Able to Maintain Weight Bearing Status Yes During Gait Assistive Devices Assistive Device None Orthotic/Prosthetic Devices or Brace: No Gait Deviations General Gait Pattern Flexed Trunk,Wide Based Gait Factors Limiting Gait Function Factors Limiting Gait Function Pain,Poor Balance Comments Gait Comments Pt presents with postural changes and slow, antalgic type pattern with wide JEFF and decreased step-length and foot clearance, decreased great toe push off B PT-OP-J Posture/Palpation/Skin Start: 10/23/20 14:07 Freq: Status: Active Protocol: Document 10/24/20 12:15 MB (Rec: 10/24/20 16:00 MB [id number]) Posture Evaluation Comments Posture Comments Forward head, rounded shoulders, trunk is forward flexed and spinal changes with increased flexion of spine, decreased cervical lordosis, Dowager's hump, increased lumbar lordosis with post-op changes and healed scar that lies over vertebrae, left tragus is 1 in front of left AC joint, increased edema right greater than left ankle and skin is dry and mildly discolored, shoulders are forward and B thigh and knee approximation in standing. PT-OP-M Strength Start: 10/23/20 14:07 Freq: Status: Active Protocol: Document 10/24/20 12:15 MB (Rec: 10/24/20 16:00 MB [id number]) Hip Strength Hip Manual Muscle Testing Left Flexion (L2) 3- Fair- Abduction 3+ Fair+ Comments Pt supine Right Flexion (L2) 4 Good Abduction 4 Good Comments Pt supine Knee Strength Knee Manual Muscle Testing Left Flexion (S2) 4 Good Extension (L3) 5 Normal Comments Pt supine Right Flexion (S2) 4 Good Extension (L3) 5 Normal Comments Pt supine Ankle/Foot Strength Ankle and Foot Manual Muscle Testing Bilateral Comments Pt cannot readily follow MMT commands d/t reports of severe neuropathy B LEs below her knees PT-OP-Q Treatments Start: 10/23/20 14:07 Freq: Status: Active Protocol: Document 11/03/20 14:35 MB (Rec: 11/03/20 15:24 MB [id number]) Manual Therapy Treatment Other Other Manual Treatments Attempted prone and kneeling on wedge over therapy mat and pt cannot tolerate positions. Pt sitting on 65 cm ball and resting over therapy mat: STM B thoracolumbar paraspinals, intrascapular muscles and QL, over lumbar scar. Pt responds well to treatment. She has increased tension on the left near her scar. PT-OP-T Assessment and Plan Start: 10/23/20 14:07 Freq: Status: Active Protocol: Document 11/03/20 14:35 MB (Rec: 11/03/20 15:24 MB [id number]) Physical Therapy Assessment Rehab Potential Rehabilitation Potential Good Evaluation Complexity Number of Personal Factors/Comorbidities 1-2 Number of Body Systems Impaired 1-2 Clinical Presentation at Evaluation Evolving Impairments Impairments Activity Tolerance,Balance, Functional Activities, Functional Mobility,Gait,Pain, Posture,Sensation,Soft Tissue Mobility,Strength Other Impairments Personal factors include decreased ability to tolerate HEP in the past and increased body mass. Body systems affected include musculoskeletal, sensory (feet ) and metabolic. Her clinical presentation is evolving. Goals 3 Fci Goal (LTG) Pt will perform progressive HEP with I including pelvic realignment and other postural exercises, strengthening, balance and gait exercises to improve mobility and upright tolerance for ADLs by 12/22/20. LTG Duration 8 weeks 2 Section Housekeeper Goal (LTG) Pt will present with improved B hip flexion and abduction and knee extension and flexion strength to 5/5 to improve functional mobility by 12/22/20. LTG Duration 8 weeks 1 Fci Goal (LTG) Pt will present with an improved Oswestry LBP score to reflect no more than 5% impairment to improve overall quality of life by 12/22/20. LTG Duration 8 weeks Assessment Summary Assessment Direct manual work today and pt responds well. Ed pt on benefits of 65 cm ball for home on which to sit for her knitting and painting and how this will help with spine, balance and posture and pt is interested in this. Physical Therapy Plan Frequency and Duration Frequency of Treatment 2x/Week Duration of Treatment 8 weeks Plan of Care Start Date 10/24/20 Plan of Care End Date 12/22/20 Therapeutic Interventions Therapeutic Interventions Balance Training,Canalithic Repositioning,Gait Training, Home Exercise Program,Joint Mobilizations,Manual Therapy, Neuromuscular Re-education, Patient/Caregiver Education, Self-Care/Home Management, Sensory Integration,Soft Tissue Mobilization,Taping, Therapeutic Activities, Therapeutic Exercises Modalities Cold Pack/Ice Massage,Electric Stimulation,Hot Packs, Ultrasound Next Visit Focus/Plan Next Note Type Treatment Note Next Visit Plan Con't manual work and progressive exercises: flexibility and racquet ball, progressive core exercises
--- NOTE | 2020-11-06 13:52 | PT.OTN ---
Current Diagnoses Other forms of scoliosis, lumbar region (11/06/20) Strain of muscle, fascia and tendon of lower back, subsequent encounter (11/06/20) Arthrodesis status (11/06/20) Physical Therapy Treatment Note PT-OP-A Visit Information Start: 10/23/20 14:07 Freq: Status: Active Protocol: Document 11/06/20 13:02 MB (Rec: 11/06/20 13:51 MB [id number]) Out-Patient Physical Therapy Visit Information Visit Information Visit Type Treatment Note Visit Note Medicare Visit Start Time 13:02 Visit Stop Time 13:45 Total Visit Minutes 43 Visit Number 4 PT-OP-B Current Condition Start: 10/23/20 14:07 Freq: Status: Active Protocol: Document 10/24/20 12:15 MB (Rec: 10/24/20 12:35 MB [id number]) Current Condition History of Current Condition Onset Date 08/2020 Current Complaints Back pain when up on feet History of Current Condition Pt reports that she got worse back pain after walking in boot for 7 months. PMH includes right shoulder arthroscopic and PT and pt did well, B feet neuropathy, right foot ulcer and bone resection, right foot wound now healed and pt is now wearing more normal shoes, lumbar spinal fusion. Pt reports possible new onset of DM. Pt has history of B TKR x2 , right ankle surgery, neuropathy below B knees and decreased sensation B. Pt saw Dr. Fay and she states that her surgical changes are stable and that she arthritic changes above it . Pt reports 4/10 pain central upper lumbar spine and over B kidney areas. She denies pain with breathing, pain and paresthesias in LEs. Pt prefers flexion positioning to extension. Other tasks that are troublesome including vacuuming, walking, other standing activities. Pt is sleeping on left side with two pillows under her head. Prior Treatments and Tests PT for BPPV and s/p right shoulder arthroscopic surgery Treatment Goals Patient/Caregiver Goals To decrease back pain PT-OP-C Subjective Start: 10/23/20 14:07 Freq: Status: Active Protocol: Document 11/06/20 13:02 MB (Rec: 11/06/20 13:51 MB [id number]) OP-PT Subjective Patient Comments Patient Comments Pt states that she felt a lot better after manual PT. Her aquarium leaked and she had to deal with that on Friday and that required a lot of pressure on her back. PT-OP-G Mobility & Gait Start: 10/23/20 14:07 Freq: Status: Active Protocol: Document 10/24/20 12:15 MB (Rec: 10/24/20 16:00 MB [id number]) OP Mobility Evaluation Bed Mobility Rolling Increased time and effort to log roll on the narrow plinth OP Gait Assessment Gait Gait Assistance Required: Independent Distance (Feet) 75 Able to Maintain Weight Bearing Status Yes During Gait Assistive Devices Assistive Device None Orthotic/Prosthetic Devices or Brace: No Gait Deviations General Gait Pattern Flexed Trunk,Wide Based Gait Factors Limiting Gait Function Factors Limiting Gait Function Pain,Poor Balance Comments Gait Comments Pt presents with postural changes and slow, antalgic type pattern with wide JEFF and decreased step-length and foot clearance, decreased great toe push off B PT-OP-J Posture/Palpation/Skin Start: 10/23/20 14:07 Freq: Status: Active Protocol: Document 10/24/20 12:15 MB (Rec: 10/24/20 16:00 MB [id number]) Posture Evaluation Comments Posture Comments Forward head, rounded shoulders, trunk is forward flexed and spinal changes with increased flexion of spine, decreased cervical lordosis, Dowager's hump, increased lumbar lordosis with post-op changes and healed scar that lies over vertebrae, left tragus is 1 in front of left AC joint, increased edema right greater than left ankle and skin is dry and mildly discolored, shoulders are forward and B thigh and knee approximation in standing. PT-OP-M Strength Start: 10/23/20 14:07 Freq: Status: Active Protocol: Document 10/24/20 12:15 MB (Rec: 10/24/20 16:00 MB [id number]) Hip Strength Hip Manual Muscle Testing Left Flexion (L2) 3- Fair- Abduction 3+ Fair+ Comments Pt supine Right Flexion (L2) 4 Good Abduction 4 Good Comments Pt supine Knee Strength Knee Manual Muscle Testing Left Flexion (S2) 4 Good Extension (L3) 5 Normal Comments Pt supine Right Flexion (S2) 4 Good Extension (L3) 5 Normal Comments Pt supine Ankle/Foot Strength Ankle and Foot Manual Muscle Testing Bilateral Comments Pt cannot readily follow MMT commands d/t reports of severe neuropathy B LEs below her knees PT-OP-Q Treatments Start: 10/23/20 14:07 Freq: Status: Active Protocol: Document 11/06/20 13:02 MB (Rec: 11/06/20 13:51 MB [id number]) Therapeutic Exercises Sitting Exercises LAQ Side bilateral Comments APx5 when leg extended, 5 reps B Hamstring stretch Side bilateral Comments 30 sec, toes up Thoracic rotation Side bilateral Comments Deep breaths end-range Standing Exercises Racquet ball STM Comments Pt performs lumbar spine, glutes Kids ball thoracic mobility Comments Pt standing with green ball behind her back Manual Therapy Treatment Other Other Manual Treatments Pt sitting on 65 cm ball and resting over therapy mat: STM B thoracolumbar paraspinals, intrascapular muscles and QL, over lumbar scar. Pt responds well to treatment. She has increased tension on the left near her scar. [ End ] PT-OP-T Assessment and Plan Start: 10/23/20 14:07 Freq: Status: Active Protocol: Document 11/06/20 13:02 MB (Rec: 11/06/20 13:51 MB [id number]) Physical Therapy Assessment Rehab Potential Rehabilitation Potential Good Evaluation Complexity Number of Personal Factors/Comorbidities 1-2 Number of Body Systems Impaired 1-2 Clinical Presentation at Evaluation Evolving Impairments Impairments Activity Tolerance,Balance, Functional Activities, Functional Mobility,Gait,Pain, Posture,Sensation,Soft Tissue Mobility,Strength Other Impairments Personal factors include decreased ability to tolerate HEP in the past and increased body mass. Body systems affected include musculoskeletal, sensory (feet ) and metabolic. Her clinical presentation is evolving. Goals 3 Custodial Goal (LTG) Pt will perform progressive HEP with I including pelvic realignment and other postural exercises, strengthening, balance and gait exercises to improve mobility and upright tolerance for ADLs by 12/22/20. LTG Duration 8 weeks 2 Customer Program Manager Goal (LTG) Pt will present with improved B hip flexion and abduction and knee extension and flexion strength to 5/5 to improve functional mobility by 12/22/20. LTG Duration 8 weeks 1 Customer Program Manager Goal (LTG) Pt will present with an improved Oswestry LBP score to reflect no more than 5% impairment to improve overall quality of life by 12/22/20. LTG Duration 8 weeks Assessment Summary Assessment Initiated flexibility exercises today and pt responds well. She states that she will do these at home. Con't progression as pt tolerates. Physical Therapy Plan Frequency and Duration Frequency of Treatment 2x/Week Duration of Treatment 8 weeks Plan of Care Start Date 10/24/20 Plan of Care End Date 12/22/20 Therapeutic Interventions Therapeutic Interventions Balance Training,Canalithic Repositioning,Gait Training, Home Exercise Program,Joint Mobilizations,Manual Therapy, Neuromuscular Re-education, Patient/Caregiver Education, Self-Care/Home Management, Sensory Integration,Soft Tissue Mobilization,Taping, Therapeutic Activities, Therapeutic Exercises Modalities Cold Pack/Ice Massage,Electric Stimulation,Hot Packs, Ultrasound Next Visit Focus/Plan Next Note Type Treatment Note Next Visit Plan Con't manual work and progress flexibility and strengthening in standing
--- NOTE | 2020-11-20 07:32 | PT.OPDS ---
Current Diagnoses Other forms of scoliosis, lumbar region (11/06/20) Strain of muscle, fascia and tendon of lower back, subsequent encounter (11/06/20) Arthrodesis status (11/06/20) Visit Care Team Role Provider Type Cesilia Lara MD Primary Care Provider Physician Specialty: Family Practice Address: [address] [place] [address], [address], [place], [address] Email: [email or web address] Jair Fay MD Attending Provider Physician Referring Provider Specialty: Orthopedic Surgery Address: [address] [place] [address], [id number] Email: [email or web address] Visit Number Visit Number 4 Discharge Summary PT-OP-B Current Condition Start: 10/23/20 14:07 Freq: Status: Active Protocol: Document 10/24/20 12:15 MB (Rec: 10/24/20 12:35 MB [id number]) Current Condition History of Current Condition Onset Date 08/2020 Current Complaints Back pain when up on feet History of Current Condition Pt reports that she got worse back pain after walking in boot for 7 months. PMH includes right shoulder arthroscopic and PT and pt did well, B feet neuropathy, right foot ulcer and bone resection, right foot wound now healed and pt is now wearing more normal shoes, lumbar spinal fusion. Pt reports possible new onset of DM. Pt has history of B TKR x2 , right ankle surgery, neuropathy below B knees and decreased sensation B. Pt saw Dr. Fay and she states that her surgical changes are stable and that she arthritic changes above it . Pt reports 4/10 pain central upper lumbar spine and over B kidney areas. She denies pain with breathing, pain and paresthesias in LEs. Pt prefers flexion positioning to extension. Other tasks that are troublesome including vacuuming, walking, other standing activities. Pt is sleeping on left side with two pillows under her head. Prior Treatments and Tests PT for BPPV and s/p right shoulder arthroscopic surgery Treatment Goals Patient/Caregiver Goals To decrease back pain PT-OP-C Subjective Start: 10/23/20 14:07 Freq: Status: Active Protocol: Document 11/06/20 13:02 MB (Rec: 11/06/20 13:51 MB [id number]) OP-PT Subjective Patient Comments Patient Comments Pt states that she felt a lot better after manual PT. Her aquarium leaked and she had to deal with that on Friday and that required a lot of pressure on her back. PT-OP-G Mobility & Gait Start: 10/23/20 14:07 Freq: Status: Active Protocol: Document 10/24/20 12:15 MB (Rec: 10/24/20 16:00 MB [id number]) OP Mobility Evaluation Bed Mobility Rolling Increased time and effort to log roll on the narrow plinth OP Gait Assessment Gait Gait Assistance Required: Independent Distance (Feet) 75 Able to Maintain Weight Bearing Status Yes During Gait Assistive Devices Assistive Device None Orthotic/Prosthetic Devices or Brace: No Gait Deviations General Gait Pattern Flexed Trunk,Wide Based Gait Factors Limiting Gait Function Factors Limiting Gait Function Pain,Poor Balance Comments Gait Comments Pt presents with postural changes and slow, antalgic type pattern with wide JEFF and decreased step-length and foot clearance, decreased great toe push off B PT-OP-J Posture/Palpation/Skin Start: 10/23/20 14:07 Freq: Status: Active Protocol: Document 10/24/20 12:15 MB (Rec: 10/24/20 16:00 MB [id number]) Posture Evaluation Comments Posture Comments Forward head, rounded shoulders, trunk is forward flexed and spinal changes with increased flexion of spine, decreased cervical lordosis, Dowager's hump, increased lumbar lordosis with post-op changes and healed scar that lies over vertebrae, left tragus is 1 in front of left AC joint, increased edema right greater than left ankle and skin is dry and mildly discolored, shoulders are forward and B thigh and knee approximation in standing. PT-OP-M Strength Start: 10/23/20 14:07 Freq: Status: Active Protocol: Document 10/24/20 12:15 MB (Rec: 10/24/20 16:00 MB [id number]) Hip Strength Hip Manual Muscle Testing Left Flexion (L2) 3- Fair- Abduction 3+ Fair+ Comments Pt supine Right Flexion (L2) 4 Good Abduction 4 Good Comments Pt supine Knee Strength Knee Manual Muscle Testing Left Flexion (S2) 4 Good Extension (L3) 5 Normal Comments Pt supine Right Flexion (S2) 4 Good Extension (L3) 5 Normal Comments Pt supine Ankle/Foot Strength Ankle and Foot Manual Muscle Testing Bilateral Comments Pt cannot readily follow MMT commands d/t reports of severe neuropathy B LEs below her knees PT-OP-T Assessment and Plan Start: 10/23/20 14:07 Freq: Status: Active Protocol: Document 11/20/20 07:32 MB (Rec: 11/20/20 07:32 MB [id number]) Physical Therapy Plan Discharge Physical Therapy Discharge Reasons Patient Request Discharge Comments Pt to leave town to help sick friend and requests d/c PT.
== END 2020-11-21 08:19 | disposition home or self-care (01) ==
LOC: PHYS 13:00
PROVIDERS: PCP Family Medicine; Referring Provider Orthopaedic Surgery; Visit Provider Orthopaedic Surgery
DX: M41.86 Other forms of scoliosis, lumbar region (principal); Z98.1 Arthrodesis status; S39.012D Strain of muscle, fascia and tendon of lower back, subsequent encounter
CPT/HCPCS: 97110; 97140; 97161

== ENCOUNTER → 2020-11-06 13:57 | Outpatient (CLI) | payer MEDICARE, OTHER, SELFPAY ==
[2018-07-13 17:33] VITALS: BMI 38.0
[2020-11-06 16:25] LABS: COVID19 -Nasal RAPID Negative (Negative)
== END ==
PROVIDERS: PCP Family Medicine; Visit Provider Physician Assistant
DX: Z01.812 Encounter for preprocedural laboratory examination (principal); Z20.822 Contact with and (suspected) exposure to COVID-19
CPT/HCPCS: 87635; C9803

== ENCOUNTER 2020-11-07 07:02 | Day surgery (SDC) | payer MEDICARE, OTHER, SELFPAY ==
[2018-07-13 17:33] VITALS: BMI 38.0
[2020-11-07] MEDS: PROPARACAINE 0.5% OPHTH SOL 2 DROPS EYE-OP (07:28)
[2020-11-07 07:31] VITALS: BP 159/73; PULSE 52; RESP 20; TEMP 36.2; O2SAT 98; BMI 38.4
[2020-11-07] MEDS: CATARACT EYE COMPOUND (10 DROPS/SYRINGE) 3 DROPS EYE-OP (07:40)
--- NOTE | 2020-11-07 08:29 | PM.PREOP ---
Pre-operative Note Interval Note History & Physical reviewed/Exam performed by Physician: Yes Changes to H&P: No
--- NOTE | 2020-11-07 08:30 | P.OP_ITS ---
Operative Date/Time/Diagnoses Pre-op diagnosis: Nuclear Cataract Left eye Post-op diagnosis: same Procedure & Clinicians Same procedure as scheduled: Yes Surgeon: Guanako Mary Anesthesia Type: MAC +/- and Sedation Operative Notes Procedure in detail: Patient brought to the operating suite. Tetracaine drops placed in the left eye. Marking instrument was used to angle the vertical and horizontal meridians. Patient was prepped and draped in sterile manner. Wire lid speculum was placed in the eye. Marking instrument was used to angle the 10 degree meridian. Betadine drops were placed on the eye. This was irrigated. Lidocaine jelly was placed on the eye. A paracentesis port was created with a side-port blade. 0.1 mL 1% preservative free lidocaine was injected into the anterior chamber. The anterior chamber was deepened with viscoelastic. 2.6 mm keratome was used to create a temporal clear corneal incision. Cystotome and Utrata forceps were used to create continuous tear capsulorrhexis. Balanced salt solution was used to hydro dissect the nucleus. The phacoemulsification handpiece was inserted and the nucleus was removed using the stop and chop te chnique. The irrigation aspiration handpiece was inserted and the remaining cortex was removed. Anterior chamber was deepened with viscoelastic. An Ellison [id number] intraocular lens with a power of 21.0 was injected into the capsular bag. Irrigation aspiration handpiece was inserted and the remaining viscoelastic was removed. The lens was rotated to the 10 degree meridian. Incision was hydrated with balanced salt solution and found to be leak free with pressure with Weck- Ewa sponges. 0.1 mL Vigamox injected anterior chamber. 0.3 mL Kenalog 10 mg was injected subconjunctivally. Lid speculum was removed. The patient left the operating room in excellent condition. Complications: none Post-operative Condition: stable Disposition: same day surgery
--- NOTE | 2020-11-07 08:30 | PM.PREOP ---
Pre-operative Note Interval Note History & Physical reviewed/Exam performed by Physician: Yes Changes to H&P: No
[2020-11-07] MEDS: TRIAMCINOLONE 50 MG/5 ML VIAL INJ (08:53)
[2020-11-07] MEDS: LIDOCAINE JELLY 2% 5 ML 1 APPLIC TOP (08:53)
[2020-11-07] MEDS: PHENYLEPHRINE/LIDOCAINE VIAL (OR) 0.2 ML EYE-OP (08:53)
[2020-11-07] MEDS: MOXIFLOXACIN INJ 5 MG/ML VIAL EYE-OP (08:53)
[2020-11-07] MEDS: BALANCED SALT IRRIG SOLN NO.2 500 ML, EPINEPHrine 1 MG IRR (08:54)
[2020-11-07] MEDS: CHONDROIDTIN/SOD HYALURONATE 1.05 ML SYRINGE INTRAOCULA (08:54)
[2020-11-07] MEDS: TETRACAINE 0.5% OPHTH DROPS 4 ML 2 DROPS EYE-OP (08:54)
[2020-11-07 09:05] VITALS: BP 143/74; PULSE 51; RESP 16; TEMP 36; O2SAT 97
== END 2020-11-07 09:20 | disposition home or self-care (01) ==
PROVIDERS: PCP Family Medicine; Referring Provider Family Medicine; Visit Provider Ophthalmology
PROC: (CPT 66984; principal; 2020-11-07 08:45)
DX: H25.12 Age-related nuclear cataract, left eye (principal); E66.01 Morbid (severe) obesity due to excess calories; G47.33 Obstructive sleep apnea (adult) (pediatric); I10 Essential (primary) hypertension; E11.9 Type 2 diabetes mellitus without complications; M79.7 Fibromyalgia
CPT/HCPCS: 66984; J0171; J2250; J3010; J3301; V2787

== ENCOUNTER → 2020-11-20 11:21 | Outpatient (CLI) | payer MEDICARE, OTHER, SELFPAY ==
[2018-07-13 17:33] VITALS: BMI 38.0
[2020-11-20 13:06] LABS: COVID19 -Nasal RAPID Negative (Negative)
== END ==
PROVIDERS: PCP Family Medicine; Visit Provider Physician Assistant
DX: Z01.812 Encounter for preprocedural laboratory examination (principal); Z20.822 Contact with and (suspected) exposure to COVID-19
CPT/HCPCS: 87635; C9803

== ENCOUNTER 2020-11-21 08:11 | Day surgery (SDC) | payer MEDICARE, OTHER, SELFPAY ==
[2018-07-13 17:33] VITALS: BMI 38.0
[2020-11-21 08:43] VITALS: BP 142/71; PULSE 51; RESP 18; TEMP 36.7; O2SAT 95; BMI 38.4
[2020-11-21] MEDS: PROPARACAINE 0.5% OPHTH SOL 2 DROPS EYE-OP (09:05)
[2020-11-21] MEDS: CATARACT EYE COMPOUND (10 DROPS/SYRINGE) 3 DROPS EYE-OP (09:06)
--- NOTE | 2020-11-21 09:30 | P.OP_ITS ---
Operative Date/Time/Diagnoses Pre-op diagnosis: Nuclear cataract right eye Procedure & Clinicians Procedure: Cataract Surgery Same procedure as scheduled: Yes Surgeon: Guanako Mary Anesthesia Type: MAC +/- and Sedation Operative Notes Procedure in detail: Patient brought to the operating suite. Tetracaine drops placed in the right eye. Marking instrument was used to angle vertical and horizontal meridians. Patient was prepped and draped in sterile manner. Wire lid speculum was placed in the eye. Marking instrument was used to angle 150 degree meridian. Betadine drops were placed on the eye. This was irrigated. Lidocaine jelly was placed on the eye. A paracentesis port was created with a side-port blade. 0.1 mL 1% preservative free lidocaine was injected into the anterior chamber. The anterior chamber was deepened with viscoelastic. 2.6 mm keratome was used to create a temporal clear corneal incision. Cystotome and Utrata forceps were used to create continuous tear capsulorrhexis. Balanced salt solution was used to hydro dissect the nucleus. The phacoemulsification handpiece was inserted and the nucleus was removed using the stop and chop technique. The irrigation aspiration handpiece was inserted and the remaining cortex was removed. Anterior chamber was deepened with viscoelastic. An Ellison [id number] intraocular lens with a power of 21.5 was injected into the capsular bag. Irrigation aspiration handpiece was inserted and the remaining viscoelastic was removed. The lens was rotated to the 150 degree meridian. Incision was hydrated with balanced salt solution and found to be leak free with pressure with Weck- Ewa sponges. 0.1 mL Vigamox injected anterior chamber. 0.3 mL Kenalog 10 mg was injected subconjunctivally. Lid speculum was removed. The patient left the operating room in excellent condition. Complications: none Post-operative Condition: stable Disposition: same day surgery
--- NOTE | 2020-11-21 09:30 | PM.PREOP ---
Pre-operative Note Interval Note History & Physical reviewed/Exam performed by Physician: Yes Changes to H&P: No
[2020-11-21] MEDS: LIDOCAINE JELLY 2% 5 ML 1 APPLIC TOP (09:50)
[2020-11-21] MEDS: TRIAMCINOLONE 50 MG/5 ML VIAL INJ (09:50)
[2020-11-21] MEDS: MOXIFLOXACIN INJ 5 MG/ML VIAL EYE-OP (09:50)
[2020-11-21] MEDS: PHENYLEPHRINE/LIDOCAINE VIAL (OR) 0.2 ML EYE-OP (09:51)
[2020-11-21] MEDS: BALANCED SALT IRRIG SOLN NO.2 500 ML, EPINEPHrine 1 MG IRR (09:51)
[2020-11-21] MEDS: CHONDROIDTIN/SOD HYALURONATE 1.05 ML SYRINGE INTRAOCULA (09:52)
[2020-11-21] MEDS: TETRACAINE 0.5% OPHTH DROPS 4 ML 2 DROPS EYE-OP (09:52)
[2020-11-21 10:11] VITALS: BP 130/72; PULSE 53; RESP 17; TEMP 36.3; O2SAT 97
== END 2020-11-21 10:17 | disposition home or self-care (01) ==
PROVIDERS: PCP Family Medicine; Referring Provider Ophthalmology; Visit Provider Ophthalmology
PROC: (CPT 66984; principal; 2020-11-21 09:45)
DX: H25.11 Age-related nuclear cataract, right eye (principal); M79.7 Fibromyalgia; F41.9 Anxiety disorder, unspecified; F32.9 Major depressive disorder, single episode, unspecified; E66.9 Obesity, unspecified; E78.5 Hyperlipidemia, unspecified; G47.33 Obstructive sleep apnea (adult) (pediatric)
CPT/HCPCS: 66984; J0171; J2250; J3010; J3301; V2787

== ENCOUNTER → 2021-08-14 14:11 | Outpatient (CLI) | payer MEDICARE, OTHER, SELFPAY ==
[2018-07-13 17:33] VITALS: BMI 38.0
--- NOTE | 2021-08-14 14:13 | DI.MG.S_ITS ---
BILATERAL DIGITAL SCREENING MAMMOGRAM 3D/2D WITH CAD: 08/14/2021 CLINICAL: Routine screening. Comparison is made to exams dated: 08/08/2020 mammogram, 06/15/2019 mammogram, 08/11/2017 mammogram, and 06/22/2019 mammogram - [facility]. The tissue of both breasts is heterogeneously dense. This may lower the sensitivity of mammography. Current study was also evaluated with a Computer Aided Detection (CAD) system. There are benign calcifications in both breasts. There also are biopsy clips in the right breast. No significant masses, calcifications, or other findings are seen in either breast. There has been no significant interval change. IMPRESSION: BENIGN There is no mammographic evidence of malignancy. A 1 year screening mammogram is recommended. This exam was interpreted at Station ID: [id number]. NOTE: For mammograms, a report in lay terms will be sent to the patient. Approximately 15% of breast malignancies will not be visualized mammographically. In the management of a palpable breast mass, a negative mammogram must not discourage biopsy of a clinically suspicious lesion. Electronically Signed By: Yvon [email or web address]/erika:08/15/2021 09:06:11 letter sent: Normal Exam ACR BI-RADS Category 2: Benign Finding(s) 3342F
== END ==
PROVIDERS: PCP Family Medicine; Referring Provider Family Medicine; Visit Provider Family Medicine
DX: Z12.31 Encounter for screening mammogram for malignant neoplasm of breast (principal)
CPT/HCPCS: 77063; 77067

== ENCOUNTER → 2021-10-01 16:50 | Outpatient (ROUT) | payer MEDICARE, OTHER, SELFPAY ==
[2018-07-13 17:33] VITALS: BMI 38.0
[2021-10-01 18:20] LABS: COVID-19 CEPHEID PCR (VTM/NP) Negative (Negative)
== END ==
PROVIDERS: PCP Family Medicine; Visit Provider Family Medicine
DX: Z20.822 Contact with and (suspected) exposure to COVID-19 (principal); R05.1 Acute cough; J02.9 Acute pharyngitis, unspecified
CPT/HCPCS: U0003

== ENCOUNTER → 2021-12-20 09:33 | Outpatient (CLI) | payer MEDICARE, OTHER, SELFPAY ==
[2018-07-13 17:33] VITALS: BMI 38.0
--- NOTE | 2021-12-20 10:01 | DI.CT.S_ITS ---
PROCEDURE: CT ANGIO CHEST INDICATIONS: Chest pain, unspecified TECHNIQUE: Helical axial CT of the chest was obtained after intravenous contrast injection utilizing an angiographic technique and reformatted in multiple planes. Radiation dose reduction was achieved utilizing automated exposure control and/or parameter adjustment according to patient's size. COMPARISON: None. FINDINGS: Image quality: Excellent. Pulmonary arteries: Pulmonary arteries are normal in size, and demonstrate no intraluminal filling defects to suggest central pulmonary embolism. Lungs and pleura: 3 mm juxta fissural solid nodule noted in the left upper lobe on image 5/116. Remainder the lungs and both pleural spaces are clear. Mediastinum: Heart size is normal, without pericardial effusion. No mediastinal or hilar adenopathy. Thoracic aorta is normal in caliber and enhancement. Esophagus is normal in caliber, without hiatal hernia. Bones and chest wall: No suspicious bony lesions. Ribs and thoracic spine appear intact throughout. Thyroid gland unremarkable. No axillary or supraclavicular adenopathy. Abdomen: Partially imaged left renal peripelvic cysts present. Cholecystectomy noted. IMPRESSION: 1. No evidence of pulmonary embolism, aortic dissection or aneurysm. 2. Small 4 mm left upper lobe pulmonary nodule is probably inflammatory nodule. Consider single follow-up in 1 year to assure stability. If stable at that time, no additional follow-up necessary Approved by: Marko Ortiz M.D. on 12/20/2021 at 11:42
== END ==
PROVIDERS: PCP Family Medicine; Referring Provider Family Medicine; Visit Provider Family Medicine
DX: R07.9 Chest pain, unspecified (principal); R91.1 Solitary pulmonary nodule
CPT/HCPCS: 71275

== ENCOUNTER 2022-08-01 11:15 | Outpatient (RCR) | payer MEDICARE, OTHER, SELFPAY ==
[2018-07-13 17:33] VITALS: BMI 38.0
[2022-07-22 12:00] VITALS: BP 118/70; PULSE 44
--- NOTE | 2022-07-22 18:49 | PT.OIE ---
Current Diagnoses Other abnormalities of gait and mobility (07/22/22) Dizziness and giddiness (07/22/22) History of falling (07/22/22) Past Medical History (Last Reviewed 11/20/21 @ 13:08 by Mike Luna MD) Anxiety and depression Arthritis Bilateral cataracts Diabetes Edema Fibromyalgia Foot fracture, right Ganglion cyst GERD (gastroesophageal reflux disease) Hamstring tendon rupture 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) HTN (hypertension) Hyperlipidemia Lumbar stenosis Neuroma Obstructive sleep apnea syndrome Osteoporosis Pericarditis Peripheral neuropathy Pneumonia Polycystic kidney disease Primary insomnia PVCs (premature ventricular contractions) Thin skin Wound of left leg (~07/2020) Past Surgical History (Last Reviewed 11/20/21 @ 13:08 by Mike Luna MD) H/O: hysterectomy History of ankle surgery History of arthroplasty of left knee History of arthroplasty of right knee History of bilateral tubal ligation Hx of appendectomy Hx of arthroscopic knee surgery Hx of cholecystectomy Hx of laminectomy Hx of thumb surgery Hx of tonsillectomy S/P lumbar fusion S/P lumpectomy, left breast S/P lumpectomy, right breast S/P rotator cuff repair Status post carpal tunnel release of both wrists Visit Care Team Role Provider Type Shalom Alston MD Family Provider Physician Primary Care Provider Specialty: Family Practice Address: [address] [place] [address], [id number] Email: [email or web address] Gerardo Cash MD Attending Provider Physician Referring Provider Specialty: Ear, Nose, Throat Address: [address] [place] [address], [address] Email: [email or web address] Physical Therapy Initial Evaluation PT-OP-A Visit Information Start: 07/22/22 18:20 Freq: Status: Active Protocol: Document 07/22/22 12:00 DCW (Rec: 07/22/22 18:49 DCW [id number]) Out-Patient Physical Therapy Visit Information Visit Information Visit Type Initial Evaluation Visit Start Time 12:00 Visit Stop Time 12:45 Total Visit Minutes 45 Visit Number 1 Number of CRITICAL CARE NURSE Visits 0 Evaluation Information Evaluation Date 07/22/22 PT-OP-B Current Condition Start: 07/22/22 18:20 Freq: Status: Active Protocol: Document 07/22/22 12:00 DCW (Rec: 07/22/22 18:49 DCW [id number]) Current Condition History of Current Condition Onset Date Multi-year history Current Complaints Poor balance, weakness, dizziness History of Current Condition 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 Pt notes she has twice had terrible, hours-long episodes of vertigo, which required hospitalization for 3-4 days, the most recent of which was three years ago. Additionally, pt notes symptoms of ~30 seconds of dizziness upon laying down in bed in the evening. Hwever, pt is not really interested in any treatment for that currently, due to a terrible experience when attempting to seek treatment for BPPV previously. Pt reports she would prefer to just focus on her poor balance. 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 Pt reports she used to be very active, hiking up mountains and walking two miles around [facility], but is now unable to walk around her block because her balance is so poor. Pt has in the past used a cane or a FWW, but does not like to use either of them. Treatment Goals Patient/Caregiver Goals Pt's goal is to return to walking around [facility] PT-OP-C Subjective Start: 07/22/22 18:20 Freq: Status: Active Protocol: Document 07/22/22 12:00 DCW (Rec: 07/22/22 18:49 DCW [id number]) OP-PT Subjective Patient Comments Patient Comments Between feeling dizzy and the neuropathy, I feel like I look drunk. Patient Questionnaires ABC- Activity Specific Balance Confidence Scale ABC Score 30.63% ABC Functional Impairment 60 to <80% Impaired (Score 21- 40) Dizziness Handicap Inventory DHI Score 60% DHI Functional Impairment 60 to 79% Impaired (Score 60- 79) PT-OP-D Balance Start: 07/22/22 18:20 Freq: Status: Active Protocol: Document 07/22/22 12:00 DCW (Rec: 07/22/22 18:49 DCW [id number]) OP-PT Balance Assessment Sitting Balance Static Sitting Balance Ability Good Dynamic Sitting Balance Ability Good Standing Balance Static Standing Balance Ability Fair Dynamic Standing Balance Ability Fair Balance Tests Aden Balance Test Aden Balance Test Score 27/56 Aden Impairment Rating 40 to 59% Impaired (Score 23- 33) Aden Balance Assessment Evaluation Sitting to Standing Ability Independent w/out Hands Unsupported Stance 30 seconds Sitting Unsupported, Feet on Floor Safely- 2 minutes Standing to Sitting Ability Assist, Use Legs on Chair Transfer Ability Safely, Hand Use Unsupported Stance- Eyes Closed 3 seconds Unsupported Stance- Eyes Open Assist to attain,<15 secs Reaching Forward Standing Safely, 2 inches Pick- Up Object From Floor Supervision Look Behind Shoulder - Standing Supervision w/Turning Turning 360 Degrees Supervision/Verbal Cues Unsupported Stance, Alternating Feet on 2 Steps w/Minimum Assist Stair Unsupported Tandem Stance Assist to Step-15 seconds Unilateral Leg Stance Lifts Leg/Unable to Hold Total Score Aden Total Score (out of 56 points) 27 Aden Impairment Rating 40 to 59% Impaired (Score 23- 33) Haines Fall Scale Copyright Permission PT-OP-H Neuro Start: 07/22/22 18:20 Freq: Status: Active Protocol: Document 07/22/22 12:00 DCW (Rec: 07/22/22 18:49 DCW [id number]) Sensation Evaluation Gross Sensation Gross Sensation Left LE Impaired,Right LE Impaired Sensation Description Numbness,Tingling,Pins & [place],Burning,Heaviness Comments Summary Comments Neuropathic pain bilaterally from distally from knees Vital Signs Pulse 1 Pulse at Rest (bpm) 44 Pulse Assessment Method Palpation Blood Pressure Sitting Blood Pressure (90/60-120/80 mmHg) 118/70 Blood Pressure Source Manual Cuff,Right Upper Extremity PT-OP-M Strength Start: 07/22/22 18:20 Freq: Status: Active Protocol: Document 07/22/22 12:00 DCW (Rec: 07/22/22 18:49 DCW [id number]) Hip Strength Hip Manual Muscle Testing Right Flexion (L2) 4+ Good+ Extension (S1) 4+ Good+ Abduction 4+ Good+ Adduction 4+ Good+ Left Flexion (L2) 4+ Good+ Extension (S1) 4+ Good+ Abduction 4+ Good+ Adduction 4+ Good+ Knee Strength Knee Manual Muscle Testing Right Flexion (S2) 4+ Good+ Extension (L3) 4+ Good+ Left Flexion (S2) 4+ Good+ Extension (L3) 4+ Good+ Ankle/Foot Strength Ankle and Foot Manual Muscle Testing Right Dorsiflexion (L4) 3+ Fair+ Plantarflexion (S1) 3- Fair- Left Dorsiflexion (L4) 3+ Fair+ Plantarflexion (S1) 3- Fair- PT-OP-Q Treatments Start: 07/22/22 18:20 Freq: Status: Active Protocol: Document 07/22/22 12:00 DCW (Rec: 07/22/22 18:49 DCW [id number]) Therapeutic Exercises Sitting Exercises Ankle Flexion Sitting Exercise Name DF/PF Side bilateral Resistance Lv 2 PT-OP-T Assessment and Plan Start: 07/22/22 18:20 Freq: Status: Active Protocol: Document 07/22/22 12:00 DCW (Rec: 07/22/22 18:49 DCW [id number]) Physical Therapy Assessment Rehab Potential Rehabilitation Potential Fair Evaluation Complexity Number of Personal Factors/Comorbidities 3 or More Number of Body Systems Impaired 4 or More Clinical Presentation at Evaluation Unstable Impairments Impairments Activity Tolerance,Balance, Functional Activities, Functional Mobility,Sensation, Strength,Vestibular Goals Two Impairment Pt presents as an increased falls risk with community ambulation, per 27/56 Aden score Nurse Transplant Goal (LTG) Pt to improve ADEN score by at least 8 points to 35/56 to exhibit decreasing falls risk. LTG Duration 09/30/22 One Impairment Pt does not have an appropriate home exercise program Short Term Goal (STG) Pt to be independent and compliant with an appropriate HEP STG Duration 08/26/22 Assessment Summary Assessment Pt presents with signs and symptoms consistent with poor static and dynamic balance, decreased LE sensation, ankle weakness, and is at an increased risk of falling. Additionally, pt complains of two episodes of hours-long vertigo, however these have not occurred for more than three years. Pt also notes symptoms that are suggestive of potential BPPV, however pt is strongly against attempting to treat these symptoms, as the last time she underwent attempted treatment, she feels that it made her significantly worse, and it took her two hours to feel well enough to leave the clinic, stating they almost had to call an ambulance for me. Pt's severe neuropathy will likely be a fairly significant limiting factor in her rehab, however should benefit from skilled therapy focusing on static and dynamic balance training, gait training, and ankle strengthening. Physical Therapy Plan Frequency and Duration Frequency of Treatment 2x/Week Duration of treatment (weeks) 10 Plan of Care Start Date 07/22/22 Plan of Care End Date 09/30/22
--- NOTE | 2022-07-22 18:49 | PT.OPPOC ---
Physical, Occupational & Speech Therapy At [facility] Current Diagnoses Other abnormalities of gait and mobility (07/22/22) Dizziness and giddiness (07/22/22) History of falling (07/22/22) Visit Care Team Role Provider Type Shalom Alston MD Family Provider Physician Primary Care Provider Specialty: Family Practice Address: [address] [place] [address], [address] Email: [email or web address] Gerardo Cash MD Attending Provider Physician Referring Provider Specialty: Ear, Nose, Throat Address: [address] [place] [address], [address] Email: [email or web address] Plan Of Care PT-OP-T Assessment and Plan Start: 07/22/22 18:20 Freq: Status: Active Protocol: Document 07/22/22 12:00 DCW (Rec: 07/22/22 18:49 DCW [id number]) Physical Therapy Assessment Rehab Potential Rehabilitation Potential Fair Evaluation Complexity Number of Personal Factors/Comorbidities 3 or More Number of Body Systems Impaired 4 or More Clinical Presentation at Evaluation Unstable Impairments Impairments Activity Tolerance,Balance, Functional Activities, Functional Mobility,Sensation, Strength,Vestibular Goals Two Impairment Pt presents as an increased falls risk with community ambulation, per 27/56 Aden score Parole Or Probation Officer Goal (LTG) Pt to improve ADEN score by at least 8 points to 35/56 to exhibit decreasing falls risk. LTG Duration 09/30/22 One Impairment Pt does not have an appropriate home exercise program Short Term Goal (STG) Pt to be independent and compliant with an appropriate HEP STG Duration 08/26/22 Assessment Summary Assessment Pt presents with signs and symptoms consistent with poor static and dynamic balance, decreased LE sensation, ankle weakness, and is at an increased risk of falling. Additionally, pt complains of two episodes of hours-long vertigo, however these have not occurred for more than three years. Pt also notes symptoms that are suggestive of potential BPPV, however pt is strongly against attempting to treat these symptoms, as the last time she underwent attempted treatment, she feels that it made her significantly worse, and it took her two hours to feel well enough to leave the clinic, stating they almost had to call an ambulance for me. Pt's severe neuropathy will likely be a fairly significant limiting factor in her rehab, however should benefit from skilled therapy focusing on static and dynamic balance training, gait training, and ankle strengthening. Physical Therapy Plan Frequency and Duration Frequency of Treatment 2x/Week Duration of treatment (weeks) 10 Plan of Care Start Date 07/22/22 Plan of Care End Date 09/30/22 Plan of Care Dates Plan of Care Start Date 07/22/22 Plan of Care End Date 09/30/22 Electronically Signed by: Lane Rizo, PT 07/22/22 [id number] If you are in agreement with this Plan of Care, please return a signed and dated copy. I have reviewed this Plan of Care and certify that the skilled therapy services above are required to meet the patient?s needs. Physician Signature Date Printed Name and Credentials Clinical Instructor Signature Printed Name and Credentials
--- NOTE | 2022-07-30 12:46 | PT.OTN ---
Current Diagnoses Other abnormalities of gait and mobility (07/30/22) Dizziness and giddiness (07/30/22) History of falling (07/30/22) Physical Therapy Treatment Note PT-OP-A Visit Information Start: 07/22/22 18:20 Freq: Status: Active Protocol: Document 07/30/22 12:05 DCW (Rec: 07/30/22 12:46 DCW [id number]) Out-Patient Physical Therapy Visit Information Visit Information Visit Type Treatment Note Visit Start Time 12:05 Visit Stop Time 12:45 Total Visit Minutes 45 Visit Number 2 Number of SAW OFFBEARER Visits 0 Evaluation Information Evaluation Date 07/22/22 PT-OP-B Current Condition Start: 07/22/22 18:20 Freq: Status: Active Protocol: Document 07/22/22 12:00 DCW (Rec: 07/22/22 18:49 DCW [id number]) Current Condition History of Current Condition Onset Date Multi-year history Current Complaints Poor balance, weakness, dizziness History of Current Condition 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 Pt notes she has twice had terrible, hours-long episodes of vertigo, which required hospitalization for 3-4 days, the most recent of which was three years ago. Additionally, pt notes symptoms of ~30 seconds of dizziness upon laying down in bed in the evening. Hwever, pt is not really interested in any treatment for that currently, due to a terrible experience when attempting to seek treatment for BPPV previously. Pt reports she would prefer to just focus on her poor balance. 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 Pt reports she used to be very active, hiking up mountains and [place] [facility] but is now unable to walk around her block because her balance is so poor. Pt has in the past used a cane or a FWW, but does not like to use either of them. Treatment Goals Patient/Caregiver Goals Pt's goal is to return to walking [place] [facility] PT-OP-C Subjective Start: 07/22/22 18:20 Freq: Status: Active Protocol: Document 07/30/22 12:05 DCW (Rec: 07/30/22 12:46 DCW [id number]) OP-PT Subjective Patient Comments Patient Comments I don't think I'm getting a lot out of that exercise. PT-OP-D Balance Start: 07/22/22 18:20 Freq: Status: Active Protocol: Document 07/22/22 12:00 DCW (Rec: 07/22/22 18:49 DCW [id number]) OP-PT Balance Assessment Sitting Balance Static Sitting Balance Ability Good Dynamic Sitting Balance Ability Good Standing Balance Static Standing Balance Ability Fair Dynamic Standing Balance Ability Fair Balance Tests Aden Balance Test Aden Balance Test Score 27/56 Aden Impairment Rating 40 to 59% Impaired (Score 23- 33) Aden Balance Assessment Evaluation Sitting to Standing Ability Independent w/out Hands Unsupported Stance 30 seconds Sitting Unsupported, Feet on Floor Safely- 2 minutes Standing to Sitting Ability Assist, Use Legs on Chair Transfer Ability Safely, Hand Use Unsupported Stance- Eyes Closed 3 seconds Unsupported Stance- Eyes Open Assist to attain,<15 secs Reaching Forward Standing Safely, 2 inches Pick- Up Object From Floor Supervision Look Behind Shoulder - Standing Supervision w/Turning Turning 360 Degrees Supervision/Verbal Cues Unsupported Stance, Alternating Feet on 2 Steps w/Minimum Assist Stair Unsupported Tandem Stance Assist to Step-15 seconds Unilateral Leg Stance Lifts Leg/Unable to Hold Total Score Aden Total Score (out of 56 points) 27 Aden Impairment Rating 40 to 59% Impaired (Score 23- 33) Haines Fall Scale Copyright Permission PT-OP-H Neuro Start: 07/22/22 18:20 Freq: Status: Active Protocol: Document 07/22/22 12:00 DCW (Rec: 07/22/22 18:49 DCW [id number]) Sensation Evaluation Gross Sensation Gross Sensation Left LE Impaired,Right LE Impaired Sensation Description Numbness,Tingling,Pins & [place],Burning,Heaviness Comments Summary Comments Neuropathic pain bilaterally from distally from knees Vital Signs Pulse 1 Pulse at Rest (bpm) 44 Pulse Assessment Method Palpation Blood Pressure Sitting Blood Pressure (90/60-120/80 mmHg) 118/70 Blood Pressure Source Manual Cuff,Right Upper Extremity PT-OP-M Strength Start: 07/22/22 18:20 Freq: Status: Active Protocol: Document 07/22/22 12:00 DCW (Rec: 07/22/22 18:49 DCW [id number]) Hip Strength Hip Manual Muscle Testing Right Flexion (L2) 4+ Good+ Extension (S1) 4+ Good+ Abduction 4+ Good+ Adduction 4+ Good+ Left Flexion (L2) 4+ Good+ Extension (S1) 4+ Good+ Abduction 4+ Good+ Adduction 4+ Good+ Knee Strength Knee Manual Muscle Testing Right Flexion (S2) 4+ Good+ Extension (L3) 4+ Good+ Left Flexion (S2) 4+ Good+ Extension (L3) 4+ Good+ Ankle/Foot Strength Ankle and Foot Manual Muscle Testing Right Dorsiflexion (L4) 3+ Fair+ Plantarflexion (S1) 3- Fair- Left Dorsiflexion (L4) 3+ Fair+ Plantarflexion (S1) 3- Fair- PT-OP-Q Treatments Start: 07/22/22 18:20 Freq: Status: Active Protocol: Document 07/30/22 12:05 DCW (Rec: 07/30/22 12:46 DCW [id number]) Cardio Equipment Recumbent Elliptical (Biodex) Duration (Minutes) 4 Resistance 4 Seat Position 10 Therapeutic Exercises Sitting Exercises Ankle Flexion Sitting Exercise Name DF/PF Side bilateral Resistance Lv 4 Standing Exercises Heel Raises Standing Exercise Name Heel raises Side bilateral Equipment Used // bars Neuro Re-Education Treatment Balance Activities Tilt Board Details DF/PF, Lateral Foam Stance Details NBOS Surface Wild foam Comments EO/EC Tandem Details Tandem Stance Equipment // bars PT-OP-T Assessment and Plan Start: 07/22/22 18:20 Freq: Status: Active Protocol: Document 07/30/22 12:05 DCW (Rec: 07/30/22 12:46 DCW [id number]) Physical Therapy Assessment Impairments Impairments Activity Tolerance,Balance, Functional Activities, Functional Mobility,Sensation, Strength,Vestibular Goals Two Impairment Pt presents as an increased falls risk with community ambulation, per Aden score Prison Goal (LTG) Pt to improve ADEN score by at least 8 points to 35/56 to exhibit decreasing falls risk. LTG Duration 09/30/22 One Impairment Pt does not have an appropriate home exercise program Short Term Goal (STG) Pt to be independent and compliant with an appropriate HEP STG Duration 08/26/22 Assessment Summary Assessment Pt fatigues quickly, struggled some with balance challenges, but did well with standing on foam. Was a bit hesitant with most activities, however was then able to perform all fairly well. Physical Therapy Plan Frequency and Duration Frequency of Treatment 2x/Week Duration of treatment (weeks) 10 Plan of Care Start Date 07/22/22 Plan of Care End Date 09/30/22 Therapeutic Interventions Therapeutic Interventions Balance Training,Coordination Training,Gait Training,Home Exercise Program,Manual Therapy,Neuromuscular Re- education,Patient/Caregiver Education,Self-Care/Home Management,Soft Tissue Mobilization,Therapeutic Activities,Therapeutic Exercises Next Visit Focus/Plan Next Note Type Treatment Note
--- NOTE | 2022-08-01 12:05 | PT.OTN ---
Current Diagnoses Other abnormalities of gait and mobility (08/01/22) Dizziness and giddiness (08/01/22) History of falling (08/01/22) Physical Therapy Treatment Note PT-OP-A Visit Information Start: 07/22/22 18:20 Freq: Status: Active Protocol: Document 08/01/22 11:20 DCW (Rec: 08/01/22 12:05 DCW [id number]) Out-Patient Physical Therapy Visit Information Visit Information Visit Type Treatment Note Visit Start Time 11:20 Visit Stop Time 12:00 Total Visit Minutes 40 Visit Number 3 Number of CONCERT SINGER Visits 0 Evaluation Information Evaluation Date 07/22/22 PT-OP-B Current Condition Start: 07/22/22 18:20 Freq: Status: Active Protocol: Document 07/22/22 12:00 DCW (Rec: 07/22/22 18:49 DCW [id number]) Current Condition History of Current Condition Onset Date Multi-year history Current Complaints Poor balance, weakness, dizziness History of Current Condition 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 Pt notes she has twice had terrible, hours-long episodes of vertigo, which required hospitalization for 3-4 days, the most recent of which was three years ago. Additionally, pt notes symptoms of ~30 seconds of dizziness upon laying down in bed in the evening. Hwever, pt is not really interested in any treatment for that currently, due to a terrible experience when attempting to seek treatment for BPPV previously. Pt reports she would prefer to just focus on her poor balance. 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 Pt reports she used to be very active, hiking up mountains and walking two miles around [facility], but is now unable to walk around her block because her balance is so poor. Pt has in the past used a cane or a FWW, but does not like to use either of them. Treatment Goals Patient/Caregiver Goals Pt's goal is to return to walking around [facility] PT-OP-C Subjective Start: 07/22/22 18:20 Freq: Status: Active Protocol: Document 08/01/22 11:20 DCW (Rec: 08/01/22 12:05 DCW [id number]) OP-PT Subjective Patient Comments Patient Comments My feet this morning are terrible. My balance is so off . PT-OP-D Balance Start: 07/22/22 18:20 Freq: Status: Active Protocol: Document 07/22/22 12:00 DCW (Rec: 07/22/22 18:49 DCW [id number]) OP-PT Balance Assessment Sitting Balance Static Sitting Balance Ability Good Dynamic Sitting Balance Ability Good Standing Balance Static Standing Balance Ability Fair Dynamic Standing Balance Ability Fair Balance Tests Aden Balance Test Aden Balance Test Score 27/56 Aden Impairment Rating 40 to 59% Impaired (Score 23- 33) Aden Balance Assessment Evaluation Sitting to Standing Ability Independent w/out Hands Unsupported Stance 30 seconds Sitting Unsupported, Feet on Floor Safely- 2 minutes Standing to Sitting Ability Assist, Use Legs on Chair Transfer Ability Safely, Hand Use Unsupported Stance- Eyes Closed 3 seconds Unsupported Stance- Eyes Open Assist to attain,<15 secs Reaching Forward Standing Safely, 2 inches Pick- Up Object From Floor Supervision Look Behind Shoulder - Standing Supervision w/Turning Turning 360 Degrees Supervision/Verbal Cues Unsupported Stance, Alternating Feet on 2 Steps w/Minimum Assist Stair Unsupported Tandem Stance Assist to Step-15 seconds Unilateral Leg Stance Lifts Leg/Unable to Hold Total Score Aden Total Score (out of 56 points) 27 Aden Impairment Rating 40 to 59% Impaired (Score 23- 33) Haines Fall Scale Copyright Permission PT-OP-H Neuro Start: 07/22/22 18:20 Freq: Status: Active Protocol: Document 07/22/22 12:00 DCW (Rec: 07/22/22 18:49 DCW [id number]) Sensation Evaluation Gross Sensation Gross Sensation Left LE Impaired,Right LE Impaired Sensation Description Numbness,Tingling,[place],Burning,Heaviness Comments Summary Comments Neuropathic pain bilaterally from distally from knees Vital Signs Pulse 1 Pulse at Rest (bpm) 44 Pulse Assessment Method Palpation Blood Pressure Sitting Blood Pressure (90/60-120/80 mmHg) 118/70 Blood Pressure Source Manual Cuff,Right Upper Extremity PT-OP-M Strength Start: 07/22/22 18:20 Freq: Status: Active Protocol: Document 07/22/22 12:00 DCW (Rec: 07/22/22 18:49 DCW [id number]) Hip Strength Hip Manual Muscle Testing Right Flexion (L2) 4+ Good+ Extension (S1) 4+ Good+ Abduction 4+ Good+ Adduction 4+ Good+ Left Flexion (L2) 4+ Good+ Extension (S1) 4+ Good+ Abduction 4+ Good+ Adduction 4+ Good+ Knee Strength Knee Manual Muscle Testing Right Flexion (S2) 4+ Good+ Extension (L3) 4+ Good+ Left Flexion (S2) 4+ Good+ Extension (L3) 4+ Good+ Ankle/Foot Strength Ankle and Foot Manual Muscle Testing Right Dorsiflexion (L4) 3+ Fair+ Plantarflexion (S1) 3- Fair- Left Dorsiflexion (L4) 3+ Fair+ Plantarflexion (S1) 3- Fair- PT-OP-Q Treatments Start: 07/22/22 18:20 Freq: Status: Active Protocol: Document 08/01/22 11:20 DCW (Rec: 08/01/22 12:05 DCW [id number]) Cardio Equipment Recumbent Elliptical (Biodex) Duration (Minutes) 4 Resistance 4 Seat Position 10 Therapeutic Exercises Standing Exercises Hip Extension Standing Exercise Name Hip Extension Side bilateral Resistance Red Other Exercises Resisted Ambulation Other Exercise Name Side-stepping Resistance Red Neuro Re-Education Treatment Balance Activities Foam Details Foam stepping stones Surface Blue/Green/Black foam Hurdles Details Hurdles Equipment // bars Comments Fwd, Lateral Tandem Details Tandem Stance Equipment // bars PT-OP-T Assessment and Plan Start: 07/22/22 18:20 Freq: Status: Active Protocol: Document 08/01/22 11:20 DCW (Rec: 08/01/22 12:05 DCW [id number]) Physical Therapy Assessment Impairments Impairments Activity Tolerance,Balance, Functional Activities, Functional Mobility,Sensation, Strength,Vestibular Goals Two Impairment Pt presents as an increased falls risk with community ambulation, per 56 Aden score Esthetic Dermatologist Goal (LTG) Pt to improve ADEN score by at least 8 points to 35/56 to exhibit decreasing falls risk. LTG Duration 09/30/22 One Impairment Pt does not have an appropriate home exercise program Short Term Goal (STG) Pt to be independent and compliant with an appropriate HEP STG Duration 08/26/22 Assessment Summary Assessment Pt tolerated treatment better today, no requests for rest breaks, increased confidence to attempt balance challenges, despite complaints entering clinic today of worsening balance. Physical Therapy Plan Frequency and Duration Frequency of Treatment 2x/Week Duration of treatment (weeks) 10 Plan of Care Start Date 07/22/22 Plan of Care End Date 09/30/22 Therapeutic Interventions Therapeutic Interventions Balance Training,Coordination Training,Gait Training,Home Exercise Program,Manual Therapy,Neuromuscular Re- education,Patient/Caregiver Education,Self-Care/Home Management,Soft Tissue Mobilization,Therapeutic Activities,Therapeutic Exercises Next Visit Focus/Plan Next Note Type Treatment Note Next Visit Plan Balance and gait training
--- NOTE | 2022-10-31 14:40 | PT.OPDS ---
Current Diagnoses Other abnormalities of gait and mobility (08/01/22) Dizziness and giddiness (08/01/22) History of falling (08/01/22) Visit Care Team Role Provider Type Shalom Alston MD Family Provider Physician Primary Care Provider Specialty: Family Practice Address: [address] [place], [address] Email: [email or web address] Gerardo Cash MD Attending Provider Physician Referring Provider Specialty: Ear, Nose, Throat Address: [address] [place] [address], [id number] Email: [email or web address] Visit Number Visit Number 3 Discharge Summary PT-OP-B Current Condition Start: 07/22/22 18:20 Freq: Status: Active Protocol: Document 07/22/22 12:00 DCW (Rec: 07/22/22 18:49 DCW [id number]) Current Condition History of Current Condition Onset Date Multi-year history Current Complaints Poor balance, weakness, dizziness History of Current Condition 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 Pt notes she has twice had terrible, hours-long episodes of vertigo, which required hospitalization for 3-4 days, the most recent of which was three years ago. Additionally, pt notes symptoms of ~30 seconds of dizziness upon laying down in bed in the evening. Hwever, pt is not really interested in any treatment for that currently, due to a terrible experience when attempting to seek treatment for BPPV previously. Pt reports she would prefer to just focus on her poor balance. 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 Pt reports she used to be very active, hiking up mountains and walking two miles around [facility], but is now unable to walk around her block because her balance is so poor. Pt has in the past used a cane or a FWW, but does not like to use either of them. Treatment Goals Patient/Caregiver Goals Pt's goal is to return to walking around [facility] PT-OP-C Subjective Start: 07/22/22 18:20 Freq: Status: Active Protocol: Document 08/01/22 11:20 DCW (Rec: 08/01/22 12:05 DCW [id number]) OP-PT Subjective Patient Comments Patient Comments My feet this morning are terrible. My balance is so off . PT-OP-D Balance Start: 07/22/22 18:20 Freq: Status: Active Protocol: Document 07/22/22 12:00 DCW (Rec: 07/22/22 18:49 DCW [id number]) OP-PT Balance Assessment Sitting Balance Static Sitting Balance Ability Good Dynamic Sitting Balance Ability Good Standing Balance Static Standing Balance Ability Fair Dynamic Standing Balance Ability Fair Balance Tests Haji Balance Test Haji Balance Test Score 27/56 Haji Impairment Rating 40 to 59% Impaired (Score 23- 33) Haji Balance Assessment Evaluation Sitting to Standing Ability Independent w/out Hands Unsupported Stance 30 seconds Sitting Unsupported, Feet on Floor Safely- 2 minutes Standing to Sitting Ability Assist, Use Legs on Chair Transfer Ability Safely, Hand Use Unsupported Stance- Eyes Closed 3 seconds Unsupported Stance- Eyes Open Assist to attain,<15 secs Reaching Forward Standing Safely, 2 inches Pick- Up Object From Floor Supervision Look Behind Shoulder - Standing Supervision w/Turning Turning 360 Degrees Supervision/Verbal Cues Unsupported Stance, Alternating Feet on 2 Steps w/Minimum Assist Stair Unsupported Tandem Stance Assist to Step-15 seconds Unilateral Leg Stance Lifts Leg/Unable to Hold Total Score Haji Total Score (out of 56 points) 27 Haji Impairment Rating 40 to 59% Impaired (Score 23- 33) Haines Fall Scale Copyright Permission PT-OP-H Neuro Start: 07/22/22 18:20 Freq: Status: Active Protocol: Document 07/22/22 12:00 DCW (Rec: 07/22/22 18:49 DCW [id number]) Sensation Evaluation Gross Sensation Gross Sensation Left LE Impaired,Right LE Impaired Sensation Description Numbness,Tingling,Pins & [place],Burning,Heaviness Comments Summary Comments Neuropathic pain bilaterally from distally from knees Vital Signs Pulse 1 Pulse at Rest (bpm) 44 Pulse Assessment Method Palpation Blood Pressure Sitting Blood Pressure (90/60-120/80 mmHg) 118/70 Blood Pressure Source Manual Cuff,Right Upper Extremity PT-OP-M Strength Start: 07/22/22 18:20 Freq: Status: Active Protocol: Document 07/22/22 12:00 DCW (Rec: 07/22/22 18:49 [facility] [id number]) Hip Strength Hip Manual Muscle Testing Right Flexion (L2) 4+ Good+ Extension (S1) 4+ Good+ Abduction 4+ Good+ Adduction 4+ Good+ Left Flexion (L2) 4+ Good+ Extension (S1) 4+ Good+ Abduction 4+ Good+ Adduction 4+ Good+ Knee Strength Knee Manual Muscle Testing Right Flexion (S2) 4+ Good+ Extension (L3) 4+ Good+ Left Flexion (S2) 4+ Good+ Extension (L3) 4+ Good+ Ankle/Foot Strength Ankle and Foot Manual Muscle Testing Right Dorsiflexion (L4) 3+ Fair+ Plantarflexion (S1) 3- Fair- Left Dorsiflexion (L4) 3+ Fair+ Plantarflexion (S1) 3- Fair- PT-OP-T Assessment and Plan Start: 07/22/22 18:20 Freq: Status: Active Protocol: Document 10/31/22 14:39 DCW (Rec: 10/31/22 14:40 [facility] [id number]) Physical Therapy Assessment Assessment Summary Assessment Pt had to take a break from therapy to care for her , as now not been seen in three months. Pt will be discharged from skilled therapy at this time. Will require a new referral in order to return. Physical Therapy Plan Discharge Physical Therapy Discharge Reasons No Longer Attending PT
== END 2022-11-01 10:25 | disposition home or self-care (01) ==
LOC: PHYS 11:15
PROVIDERS: Family Provider Family Medicine; PCP Family Medicine; Referring Provider Otolaryngology; Visit Provider Otolaryngology
DX: R42 Dizziness and giddiness (principal); R26.89 Other abnormalities of gait and mobility; Z91.81 History of falling
CPT/HCPCS: 97110; 97112; 97163

== ENCOUNTER → 2022-09-03 10:11 | Outpatient (CLI) | payer MEDICARE, OTHER, SELFPAY ==
[2018-07-13 17:33] VITALS: BMI 38.0
[2022-09-03 11:31] LABS: COVID19 -Nasal RAPID Negative (Negative)
[2022-09-03 12:00] LABS: TSH w/ Reflex to FT4 2.25 uIU/mL (0.47-4.68)
[2022-09-03 16:44] LABS: Alanine Aminotransferase 43 IU/L (<35); Albumin 4.3 g/dL (3.5-5.0); Albumin Globulin Ratio 1.2 (1.0-2.8); Alkaline Phosphatase 83 U/L (38-126); Aspartate Aminotransferase 35 IU/L (14-36); BUN Creatinine Ratio 26.7 (6-22); Bilirubin Total 0.7 mg/dL (0.2-1.3); Blood Urea Nitrogen 20 mg/dL (7-17); Calcium 9.5 mg/dL (8.4-10.2); Carbon Dioxide 22 mmol/L (22-32); Chloride 107 mmol/L (98-107); Cholesterol 172 mg/dL (140-199); Estimated Glomerular Filt Rate > 60 mL/min (>60); Globulin 3.6 g/dL (1.7-4.1); Glucose 132 mg/dL (80-110); HDL Cholesterol 52 mg/dL (40-60); HEMOLYSIS < 15 (0-50); LDL Cholesterol Calculated 101 mg/dL (<100); Potassium 4.4 mmol/L (3.4-5.1); Sodium 140 mmol/L (137-145); Total Protein 7.9 g/dL (6.3-8.2); Triglycerides 96 mg/dL (35-150)
--- NOTE | 2022-09-04 19:27 | DI.NM.S_ITS ---
DATE OF SERVICE: PROCEDURE: Pharmacological perfusion study INDICATION: Chest pain with underlying hypertension and hyperlipidemia. RADIOPHARMACEUTICAL: 25.5 mCi technetium-99m Myoview IV was injected at stress and 26.9 mCi technetium-99m Myoview IV was injected at rest. CARDIAC STRESS: The patient underwent IV Lexiscan perfusion study under the supervision of an attending staff. The patient remained hemodynamically stable. Baseline blood pressure 128/86. Peak blood pressure 142/78. Baseline rhythm was sinus with mild sinus bradycardia rate about 52 beats per minute. During stress, no convincing new ischemic changes or significant arrhythmias seen. No chest pain. No reversal agent needed. RAW DATA: Significant enlarged breast shadows seen engulfing the entire heart. The patient's weight is 240 pounds. GATED STUDY: Resting LV ejection fraction is 70 percent and stress LV ejection fraction is 72 percent without any obvious wall motion abnormalities. Resting end-diastolic volume 148 mL. TID ratio 0.98, which is within normal limits. Lung/heart ratio 0.51, which is abnormal. MYOCARDIAL PERFUSION: Stress supine, resting supine, and stress prone images were compared to each other. There appears to be predominantly fixed, small size, mildly decreased perfusion of distal anterior wall extending into the distal anterior septum sparing apex. No reversible ischemia. CONCLUSION: There is a predominantly fixed, small size, mildly decreased perfusion of distal anterior wall extending into the distal anterior septum sparing apex. On raw images, significant breast shadow seen which is encircling the entire heart. Preserved left ventricular function. There are no wall motion abnormalities which goes against the diagnosis of previous transmural myocardial infarction. Hence, most likely, we are dealing with persistent breast tissue attenuation artifact; however, one cannot rule out the possibility of small nontransmural myocardial infarction of distal anterior wall and distal anterior septum. No significant transient ischemic dilatation; however, lung heart ratio 0.51. Consider two-dimensional echo to rule out diastolic dysfunction or valvular pathology. In absence of reversible ischemia, a small size perfusion defect, preserved left ventricular systolic function, as far as perfusion scan is concerned this is a low-risk myocardial perfusion scan. Correlate clinically. Lizzy Sawant - Clara/EDELMIRA doc#: [id number]/job#: [id number] dd: 09/04/2022 17:11:00 dt: 09/04/2022 19:07:00 DICTATING MD/COPIES TO: Apryl Napier MD COPIES MNE: BUZZ;
== END ==
PROVIDERS: Family Provider Family Medicine; PCP Family Medicine; Referring Provider Internal Medicine Cardiovascular Disease; Visit Provider Internal Medicine Cardiovascular Disease
DX: R07.9 Chest pain, unspecified (principal); I10 Essential (primary) hypertension; E78.5 Hyperlipidemia, unspecified; R00.1 Bradycardia, unspecified; R06.09 Other forms of dyspnea; Z20.822 Contact with and (suspected) exposure to COVID-19
CPT/HCPCS: 36415; 78452; 80053; 80061; 84443; 87635; 93017; A9502; J2785

== ENCOUNTER → 2022-09-18 13:04 | Outpatient (CLI) | payer MEDICARE, OTHER, SELFPAY ==
[2018-07-13 17:33] VITALS: BMI 38.0
== END ==
PROVIDERS: Family Provider Family Medicine; PCP Family Medicine; Referring Provider Family Medicine; Visit Provider Surgery
DX: L08.9 Local infection of the skin and subcutaneous tissue, unspecified (principal); E11.621 Type 2 diabetes mellitus with foot ulcer; L97.522 Non-pressure chronic ulcer of other part of left foot with fat layer exposed; E11.40 Type 2 diabetes mellitus with diabetic neuropathy, unspecified; L53.9 Erythematous condition, unspecified; L84 Corns and callosities
CPT/HCPCS: 11042; 73630; 87070; 87075; 87077; 87147; 87186; 87205; 99214

== ENCOUNTER → 2022-09-18 14:27 | Outpatient (CLI) | payer MEDICARE, OTHER, SELFPAY ==
[2018-07-13 17:33] VITALS: BMI 38.0
--- NOTE | 2022-09-18 14:28 | DI.RAD.S_ITS ---
PROCEDURE: XR FOOT LT MIN 3V INDICATIONS: evaluate for osteomyelitis TECHNIQUE: 3 views of the foot were acquired. COMPARISON: [facility], CR, FOOT 2V RIGHT, 11/30/2006, 19:01. FINDINGS: Bones: There is deformity involving distal 5th metatarsal shaft suggestive of prior surgical resection versus chronic erosive changes secondary to osteomyelitis. Subtle erosive changes are noted involving 5th proximal phalangeal base and distal tip of the 5th metatarsal shaft concerning for osteomyelitis in this area. No other area of bony erosive changes are seen. No suspicious bony lesions. Soft tissues: No tibiotalar joint effusion. Achilles tendon appears normal. IMPRESSION: Finding is concerning for osteomyelitis involving 5th metatarsal stump and adjacent 5th proximal phalangeal base. No acute fracture or dislocation. No other areas of bony erosive changes are seen. Dictated by: Yury Blackburn M.D. on 09/18/2022 at 17:02 Approved by: Yury Blackburn M.D. on 09/18/2022 at 17:07
== END ==
PROVIDERS: Family Provider Family Medicine; PCP Family Medicine; Referring Provider Surgery; Visit Provider Surgery
DX: E11.621 Type 2 diabetes mellitus with foot ulcer (principal); L08.9 Local infection of the skin and subcutaneous tissue, unspecified
CPT/HCPCS: 73630

== ENCOUNTER → 2022-09-19 12:26 | Outpatient (CLI) | payer MEDICARE, OTHER, SELFPAY ==
[2018-07-13 17:33] VITALS: BMI 38.0
--- NOTE | 2022-09-19 12:26 | DI.US.S_ITS ---
PROCEDURE: US ARTERIAL DUPLEX LE BI INDICATIONS: evaluate for arterial insufficiency TECHNIQUE: Color and pulse Doppler interrogation was performed of both lower extremity arterial systems, with image documentation. COMPARISON: [facility], US, ARTERIAL LOW.EXTREM.BILATERAL, 12/06/2013, 13:18. FINDINGS: Right lower extremity: Common femoral artery: 108 cm/sec, with biphasic flow. Deep femoral artery: 116 cm/sec, with biphasic flow. Proximal superficial femoral artery: 146 cm/sec, with biphasic flow. Mid superficial femoral artery: 92 cm/sec, with biphasic flow. Distal superficial femoral artery: 111 cm/sec, with biphasic flow. Popliteal artery: 133 cm/sec, with biphasic flow. Posterior tibial artery: 50 cm/sec, with biphasic flow. Anterior tibial artery/dorsalis pedis: 88 cm/sec, with biphasic flow. Buchanan-scale imaging description: Mild diffuse plaque Left lower extremity: Common femoral artery: 136 cm/sec, with biphasic flow. Deep femoral artery: 73 cm/sec, with biphasic flow. Proximal superficial femoral artery: 143 cm/sec, with biphasic flow. Mid superficial femoral artery: 90 cm/sec, with by flow. Distal superficial femoral artery: 125 cm/sec, with biphasic flow. Popliteal artery: 118 cm/sec, with biphasic flow. Posterior tibial artery: 103 cm/sec, with biphasic flow. Anterior tibial artery/dorsalis pedis: 73 cm/sec, with biphasic flow. Buchanan-scale imaging description: Mild diffuse plaque IMPRESSION: No evidence of arterial insufficiency to the bilateral lower extremities. Dictated by: Lou Fortune M.D. on 09/19/2022 at 14:21 Transcribed by: CHAPITO on 09/19/2022 at 14:23 Approved by: Lou Fortune M.D. on 09/19/2022 at 16:31
== END ==
PROVIDERS: Family Provider Family Medicine; PCP Family Medicine; Referring Provider Surgery; Visit Provider Surgery
DX: E11.621 Type 2 diabetes mellitus with foot ulcer (principal)
CPT/HCPCS: 93925

== ENCOUNTER → 2022-09-25 14:36 | Outpatient (CLI) | payer MEDICARE, OTHER, SELFPAY ==
[2018-07-13 17:33] VITALS: BMI 38.0
== END ==
PROVIDERS: Family Provider Family Medicine; PCP Family Medicine; Referring Provider Family Medicine; Visit Provider Surgery
DX: E11.621 Type 2 diabetes mellitus with foot ulcer (principal); L97.522 Non-pressure chronic ulcer of other part of left foot with fat layer exposed; E11.40 Type 2 diabetes mellitus with diabetic neuropathy, unspecified; L84 Corns and callosities; L53.9 Erythematous condition, unspecified
CPT/HCPCS: 11042

== ENCOUNTER → 2022-10-02 09:51 | Outpatient (CLI) | payer MEDICARE, OTHER, SELFPAY ==
[2018-07-13 17:33] VITALS: BMI 38.0
== END ==
PROVIDERS: Family Provider Family Medicine; PCP Family Medicine; Referring Provider Family Medicine; Visit Provider Surgery
DX: E11.621 Type 2 diabetes mellitus with foot ulcer (principal); L97.522 Non-pressure chronic ulcer of other part of left foot with fat layer exposed; E11.40 Type 2 diabetes mellitus with diabetic neuropathy, unspecified; L84 Corns and callosities; L53.9 Erythematous condition, unspecified
CPT/HCPCS: 11042

== ENCOUNTER → 2022-10-04 11:43 | Outpatient (CLI) | payer MEDICARE, OTHER, SELFPAY ==
[2018-07-13 17:33] VITALS: BMI 38.0
--- NOTE | 2022-10-04 | DI.RAD.S_ITS ---
PROCEDURE: XR LUMBAR SPINE 2-3V INDICATIONS: LOW BACK PAIN TECHNIQUE: 3 views of the lumbar spine were acquired. COMPARISON: [facility], , L-SPINE 2-3 VIEWS, 11/29/2014, 9:28. FINDINGS: Bones: 5 [id number] vertebrae are present. There is prior right posterior fusion at L4-5 level with intervertebral spacer placement. No gross hardware loosening or failure is seen. 6 mm anterolisthesis of L3 on L4 is seen. 5 mm retrolisthesis of L2 on L3 is also noted. Degenerative endplate changes and bilateral facet arthrosis throughout lumbar spine is seen.. No vertebral body compression fractures. No suspicious bony lesions. Soft tissues: Overlying bowel gas pattern is normal. No suspicious soft tissue calcifications. IMPRESSION: Postfusion changes at L4-5 level. Grade 1 spondylolisthesis at L2-3 and L3-4 levels as above. Degenerative disc disease throughout lumbar spine. No acute compression fracture. No gross hardware loosening or failure. Dictated by: Yury Blackburn M.D. on 10/04/2022 at 15:29 Approved by: Yury Blackburn M.D. on 10/04/2022 at 15:30
--- NOTE | 2022-10-04 | DI.RAD.S_ITS ---
PROCEDURE: XR THORACIC SPINE 2V INDICATIONS: BACK PAIN TECHNIQUE: 3 views of the thoracic spine were acquired. COMPARISON: None. FINDINGS: Bones: No acute compression fractures or dislocations. No suspicious bony lesions. 12 pairs of ribs are noted, and appear intact where visualized. Chronic appearing anterior compression deformities of the lower thoracic spine. Soft tissues: No paravertebral stripe thickening. Surgical clips project over the right upper quadrant likely from prior cholecystectomy. IMPRESSION: 1. Thoracic spine without acute fracture. 2. Multilevel thoracic spondylosis with chronic appearing anterior compression deformities involving several lower thoracic spine vertebral bodies. Dictated by: Manuel Pastrana M.D. on 10/04/2022 at 16:18 Approved by: Manuel Pastrana M.D. on 10/04/2022 at 16:19
== END ==
PROVIDERS: Family Provider Family Medicine; PCP Family Medicine; Referring Provider Family Medicine; Visit Provider Family Medicine
DX: M47.814 Spondylosis without myelopathy or radiculopathy, thoracic region (principal); M51.36 Other intervertebral disc degeneration, lumbar region; M43.16 Spondylolisthesis, lumbar region; M54.50 Low back pain, unspecified; Z98.1 Arthrodesis status
CPT/HCPCS: 72070; 72100

== ENCOUNTER → 2022-10-09 13:05 | Outpatient (CLI) | payer MEDICARE, OTHER, SELFPAY ==
[2018-07-13 17:33] VITALS: BMI 38.0
== END ==
PROVIDERS: Family Provider Family Medicine; PCP Family Medicine; Referring Provider Family Medicine; Visit Provider Surgery
DX: E11.621 Type 2 diabetes mellitus with foot ulcer (principal); T87.9 Unspecified complications of amputation stump; L97.522 Non-pressure chronic ulcer of other part of left foot with fat layer exposed; E11.40 Type 2 diabetes mellitus with diabetic neuropathy, unspecified; L84 Corns and callosities
CPT/HCPCS: 11042

== ENCOUNTER → 2022-10-24 11:09 | Outpatient (CLI) | payer MEDICARE, OTHER, SELFPAY ==
[2018-07-13 17:33] VITALS: BMI 38.0
== END ==
PROVIDERS: Family Provider Family Medicine; PCP Family Medicine; Referring Provider Family Medicine; Visit Provider Surgery
DX: Z86.31 Personal history of diabetic foot ulcer (principal); E11.40 Type 2 diabetes mellitus with diabetic neuropathy, unspecified; L84 Corns and callosities; L53.9 Erythematous condition, unspecified
CPT/HCPCS: 99213

== ENCOUNTER → 2022-11-07 12:57 | Outpatient (CLI) | payer MEDICARE, OTHER, SELFPAY ==
[2018-07-13 17:33] VITALS: BMI 38.0
--- NOTE | 2022-11-07 12:59 | DI.MRI.S_ITS ---
PROCEDURE: MR LUMBAR SPINE WO CON INDICATIONS: Spondylosis lumbar region TECHNIQUE: Noncontrast sagittal T1 spin echo and T2 fast echo, sagittal STIR, and T2 fast spin echo through the lumbar spine. In cases with scoliosis, additional coronal T2 fast spin echo may be performed. COMPARISON: [facility], MR, L-SPINE W&WO CONTRAST, 10/06/2014, 14:50. [facility], MR, L-SPINE WITHOUT CONTRAST, 05/31/2011, 14:44. FINDINGS: Image quality: Excellent. Alignment and Curvature: The numbering convention is similar to the comparison MRI dated May 31, 2011. As before, there is trace L4 on L5 anterolisthesis. Patient has undergone interval right-sided fixation at L5-S1 and L5-S1 discectomy. Bone Marrow: There is diffuse multilevel reactive endplate change which is increased in extent when compared with the MRI dated October 06, 2014. No compression deformities. Spinal Cord: Conus medullaris terminates at the L1 level. Visualized cord demonstrates normal signal and size. Paraspinous Soft Tissues: There are likely bilateral pararenal cysts, although bilateral hydronephrosis cannot be excluded on this limited view of the kidneys. T12-L1: Moderate disc desiccation and height loss. No canal stenosis. No neural foraminal stenosis. The degree of degenerative disc disease is increased from the prior study. L1-L2: Moderate disc desiccation and height loss. Mild facet ligamentum flavum hypertrophy. Mild bilateral neural foraminal stenosis. The degree of degenerative disc disease has increased from the prior study. L2-L3: Severe disc desiccation and height loss. Severe reactive endplate change. Broad-based disc bulge. Severe facet and ligamentum flavum hypertrophy. No canal stenosis. Mild right and moderate left foraminal narrowing. Increased reactive endplate changes from the 2015 study. No change in canal stenosis or foraminal stenosis. L3-L4: Severe disc desiccation and height loss. Severe facet ligamentum flavum hypertrophy. No canal stenosis. Severe right foraminal narrowing. No left foraminal narrowing. Findings are unchanged. L4-L5: Severe disc desiccation and height loss. Vacuum disc phenomenon which is new when compared with the prior study. Severe facet and ligamentum flavum hypertrophy. Epidural lipomatosis. Mild canal stenosis. Moderate bilateral foraminal stenosis with flattening of the exiting nerve roots. This is unchanged from the 2015 study. L5-S1: Status post discectomy. Severe facet and ligamentum flavum hypertrophy. Epidural lipomatosis. No neural foraminal stenosis. No canal stenosis. IMPRESSION: 1. Overall there are increased reactive endplate changes and degenerative disc disease throughout the lumbar spine when compared with the prior MRI from October 06, 2014. Vacuum disc phenomenon is now present at L4-5. 2. There is slightly increased epidural lipomatosis noted at L4-5 and L5-S1 when compared with the 2015 study. 3. No significant change in canal stenosis or foraminal stenosis when compared with the prior study. As before, there is moderate bilateral L4-5 foraminal stenosis with flattening of the exiting nerve roots. 4. Questionable bilateral pararenal cysts versus hydronephrosis. If further characterization is warranted, renal ultrasound could be used. Dictated by: Ashly Metz M.D. on 11/07/2022 at 17:25 Approved by: Ashly Metz M.D. on 11/07/2022 at 17:35
== END ==
PROVIDERS: Family Provider Family Medicine; PCP Family Medicine; Referring Provider Physician Assistant Surgical; Visit Provider Physician Assistant Surgical
DX: M47.816 Spondylosis without myelopathy or radiculopathy, lumbar region (principal); M48.061 Spinal stenosis, lumbar region without neurogenic claudication; G62.89 Other specified polyneuropathies; M51.36 Other intervertebral disc degeneration, lumbar region; Z98.1 Arthrodesis status; Z98.890 Other specified postprocedural states
CPT/HCPCS: 72148

== ENCOUNTER → 2022-11-14 13:33 | Outpatient (CLI) | payer MEDICARE, OTHER, SELFPAY ==
[2018-07-13 17:33] VITALS: BMI 38.0
--- NOTE | 2022-11-14 13:36 | DI.ECHO.S_ITS ---
[facility] +---------+ : : [address] : [place] : : : : [id number] : : : : Phone: [phone]---------+ Echocardiogram Report + + :Name: KY BATES Study Date: 11/14/2022 Height: 69 in : :[facility] ReadingLocation: Weight: 260 lb : : Gender: Female BSA: 2.3 m2 : :: 1945 Age: 77 yrs BP: 156/82 mmHg: :Reason For Study: Chest pain : :Ordering Physician: Naty : :Loren Performed By: Salma Potter : :Referring: NATY PIMENTEL E : + + Interpretation Summary The ejection fraction is estimated to be 60-65%. Diastolic parameters suggest probable normal left ventricular diastolic function and normal filling pressures. The left atrium is moderately dilated. The right ventricle is normal in size and function. The right atrium is mildly dilated. No significant valvular abnormalities. Pulmonary artery pressures cannot be estimated because of the lack of a measurable TR jet velocity. Procedure: A two-dimensional transthoracic echocardiogram with color flow and Doppler was performed. The study quality was technically adequate. There has been no significant change since the previous study. The patient was in sinus bradycardia with heart rates between 54-59 bpm during the exam. Left Ventricle: The left ventricle is borderline dilated. There is normal left ventricular wall thickness. The ejection fraction is estimated to be 60- 65%. Diastolic parameters suggest probable normal left ventricular diastolic function and normal filling pressures. Right Ventricle: The right ventricle is normal in size and function. Atria: The left atrium is moderately dilated. The right atrium is mildly dilated. There is no Doppler evidence for an interatrial shunt. Mitral Valve: The mitral valve is normal in structure and function. The mitral valve leaflets are slightly calcified. There is trace mitral regurgitation. Aortic Valve: The aortic valve is trileaflet. The aortic valve opens well. There is mild aortic valve sclerosis. There is no aortic valve stenosis. There is trace aortic regurgitation. Tricuspid Valve: The tricuspid valve is normal in structure and function. There is a trace or physiologic amount of tricuspid regurgitation. Pulmonary artery pressures cannot be estimated because of the lack of a measurable TR jet velocity. Pulmonic Valve: The pulmonic valve leaflets are thin and pliable; valve motion is normal. There is no pulmonic valvular regurgitation. Great Vessels: The ascending aorta is normal in size. The IVC is dilated (diameter is greater than 2.1 cm) yet it collapses greater than 50% with a sniff. This suggests a right atrial pressure of 8 mm Hg. Pericardium/ Pleura There is no pericardial effusion. There is an anterior echo-free space consistent with a fat pad. There is no pleural effusion. MMode/2D Measurements & Calculations LVIDd: 5.5 cm LVOT diam: 2.0 cm LVIDs: 3.5 cm Ao root diam: 2.9 cm FS: 36.3 % asc Aorta Diam: 3.3 cm EPSS: 0.37 cm IVSd: 0.91 cm LVPWd: 0.89 cm LV cruz. diameter/BSA (cm/m^2): 2.4 LV sys. diameter/BSA (cm/m^2): 1.5 LA A2 area: 26.2 cm2 RA long axis: 5.3 cm LA A4 area: 25.9 cm2 RA area: 21.1 cm2 LA length (vol): 6.1 cm RA vol: 71.7 ml LA vol: 94.7 ml RA : 31.1 ml/m2 LA vol index: 41.0 ml/m2 IVC diam: 2.6 cm RVD1 (basal): 4.2 cm TAPSE: 2.4 cm Doppler Measurements & Calculations Ao V2 max: 175.9 cm/sec LVOT Max Jose J: 107.7 cm/sec Ao V2 mean: 126.5 cm/sec LV V1 max P.6 mmHg Ao max P.4 mmHg LV V1 VTI: 27.9 cm Ao mean P.9 mmHg FIDELINA(I,D): 2.1 cm2 Ao V2 VTI: 44.1 cm FIDELINA(V,D): 2.0 cm2 sev ratio: 0.63 FIDELINA indexed to BSA (cm^2/m^2): 0.89 MV E max jose j: 83.7 cm/sec PA V2 max: 88.3 cm/sec MV A max jose j: 75.4 cm/sec PA V2 mean: 67.0 cm/sec MV E/A: 1.1 PA mean P.9 mmHg Med Peak E' Jose J: 8.6 cm/sec E/E' med: 9.8 Lat Peak E' Jose J: 10.6 cm/sec E/E' lat: 7.9 E/e' average: 8.8 MV dec time: 0.19 sec MVA(VTI): 2.8 cm2 MV V2 mean: 57.0 cm/sec SV(LVOT): 90.6 ml MV mean P.5 mmHg MV V2 VTI: 32.1 cm Reading Physician:02:41 PM
[2022-11-14 14:52] LABS: BUN Creatinine Ratio 23.7 (6-22); Blood Urea Nitrogen 18 mg/dL (7-17); Calcium 8.8 mg/dL (8.4-10.2); Carbon Dioxide 25 mmol/L (22-32); Chloride 104 mmol/L (98-107); Estimated Glomerular Filt Rate > 60 mL/min (>60); Glucose 99 mg/dL (80-110); HEMOLYSIS < 15 (0-50); Potassium 4.5 mmol/L (3.4-5.1); Sodium 139 mmol/L (137-145)
== END ==
PROVIDERS: Family Provider Family Medicine; PCP Family Medicine; Referring Provider Internal Medicine Cardiovascular Disease; Visit Provider Internal Medicine Cardiovascular Disease
DX: R07.9 Chest pain, unspecified (principal); R06.09 Other forms of dyspnea; I35.8 Other nonrheumatic aortic valve disorders
CPT/HCPCS: 36415; 80048; 93306

== ENCOUNTER → 2022-12-04 13:49 | Outpatient (CLI) | payer MEDICARE, OTHER, SELFPAY ==
[2018-07-13 17:33] VITALS: BMI 38.0
--- NOTE | 2022-12-04 | DI.CT.S_ITS ---
PROCEDURE: CT KNEE RIGHT WITHOUT CON INDICATIONS: Pain in right knee TECHNIQUE: Noncontrast 1-1.5 mm axial sections acquired from the mid-patella to the proximal tibia, with coronal and sagittal reformats. COMPARISON: None. FINDINGS: Image quality: Excellent. Bones: Patient is status post right total knee arthroplasty. Right knee alignment is anatomic. No evidence of hardware loosening or failure. No acute fracture or dislocation. Approximately 11 degree internal rotation of tibial component is noted. No suspicious intraosseous lesion. Soft tissues: There is no significant joint effusion. No abnormal intra-articular loose bodies. Distal quadriceps tendon and patellar tendon are grossly intact. No abnormal soft tissue calcifications. IMPRESSION: 1. Prior right total knee arthroplasty with anatomic right knee alignment. No evidence of hardware loosening or failure. No acute fracture or dislocation. 2. No significant joint effusion or intra-articular loose bodies. No abnormal soft tissue calcifications. No full-thickness quadriceps tendon or patellar tendon rupture. Dictated by: Yury Blackburn M.D. on 12/04/2022 at 15:12 Approved by: Yury Blackburn M.D. on 12/04/2022 at 15:17
== END ==
PROVIDERS: Family Provider Family Medicine; PCP Family Medicine; Referring Provider Student in an Organized Health Care Education/Training Program; Visit Provider Student in an Organized Health Care Education/Training Program
DX: M25.561 Pain in right knee (principal); Z96.651 Presence of right artificial knee joint
CPT/HCPCS: 73700

== ENCOUNTER 2022-12-26 14:08 | Outpatient (CLI) | payer MEDICARE, OTHER, SELFPAY ==
[2018-07-13 17:33] VITALS: BMI 38.0
[2022-12-26] VITALS (7 sets, daily range): BP systolic 130–160; BP diastolic 70–77; PULSE 63–97; RESP 14–20; TEMP 36.7; O2SAT 98–100
--- NOTE | 2022-12-26 14:10 | DI.RAD.S_ITS ---
PROCEDURE: PAIN L/SI FACET INJ/BLK 1STL INDICATIONS: SPONDYLOSIS COMPARISON: None. FINDINGS: Fluoroscopic spot filming was performed to verify placement of spinal needles at the left L1-2, L2-3, and L3-4 levels, as labeled on the films. Appropriate locations of the needle tips was confirmed by injection of iodinated contrast. IMPRESSION: Intraprocedural examination demonstrates appropriate needle position. Approved by: Yvon Collazo M.D. on 12/26/2022 at 16:43
[2022-12-26] MEDS: MIDAZOLAM 2 MG/2 ML VIAL IV (15:02)
[2022-12-26] MEDS: BETAMETHASONE 30 MG/5 ML MDV 12 MG INJ (15:07)
[2022-12-26] MEDS: BUPIVACAINE 0.5% (PF) 30 ML VIAL 5 ML INJ (15:07)
[2022-12-26] MEDS: IOPAMIDOL 15 ML VIAL 3 ML INJ (15:08)
--- NOTE | 2022-12-26 15:16 | P.PCN_ITS ---
Date/Time/Diagnoses Date of procedure: 12/26/22 Time of procedure: 15:16 Pre-procedure diagnosis: 1. FACET ARTHROPATHY, 2. AXIAL LBP, 3. MULTILEVEL DDD, Post-procedure diagnosis: same Procedure Notes Procedure: 1. FLUOROSCOPICALLY GUIDED CONTRAST CONTROLLED FACET JOINT INJECTIONS LEFT L1/2, L2/3, L3/4 Indications: Lizzy is referred by Dr. Alston is referred for treatment of Axial LBP Physician: Mike hCilds Total Fluoroscopy time (seconds): 7 Total sedation minutes: 10 Complications: none Procedure in detail & Post-procedure care: FINDINGS Multilevel Facet Arthropathy with Clinically significant axial LBP DESCRIPTION OF PROCEDURE Fluoroscopically guided, contrast-controlled left L1/2, L2/3, L3/4 facet joint injections. Following review of allergy and review of potential side effects and complications, including, but not necessarily limited to, infection, allergic reaction, local tissue breakdown, stroke, temporary or permanent nerve injury, paralysis, and possible , the patient indicated that the patient understood and agreed to proceed. An informed consent document was signed by the patient, witnessed by a nurse, and placed in the patient's chart. Additionally, other treatment options including medications, modalities, and physical therapy were reviewed with the patient. After review of previous anaesthesic history and IV conscious sedation the patient was deemed safe to proceed with today?s procedure with IV conscious sedation as ASA class II designation. Safety time-out was performed to confirm patient ID, procedure to be performed and site of procedure. IV sedation was accomplished with a combination of 2mg of Versed administered by the RN after DO order, titrated to patient comfort during the course of the procedure while the patient remained responsive to all verbal commands In the prone position, following sterile prep and drape of the lumbar region, the posterior aspect of the left L1/2, L2/3, L3/4 facet joints were identified fluoroscopically. The skin was anesthetized via a 25-gauge 1.5-inch needle with 1% lidocaine solution into the corresponding facet joints. At this point, a 22- gauge 3.5-inch spinal needle was atraumatically introduced and advanced under fluoroscopic guidance into the corresponding facet joints. Following negative aspiration, injections of approximately 0.2-cc of Isovue 200 confirmed inte rarticular placement without vascular uptake. Radiological data, including multiple fluoroscopic views of the lumbosacral spine, reveal a spinal needle at the left L1/2, L2/3, L3/4 facet joints. Sub sequent views show flow of contrast material both superiorly and inferiorly within the joint space without vascular or intrathecal uptake. At this point, a total of 0.5 cc including a mixture of 0.25cc Marcaine and 0.25cc betamethasone was injected without complication into each of the corresponding facet joints. The patient tolerated the procedure well without signs or symptoms of complicati ons prior to transfer to the recovery area continued monitoring without incident. The patient was then transferred to the recovery area where they were observed for an appropriate period of time after the injection. The patient reported a VAS score of 7 prior to the procedure and a post-procedure VAS of 0. POST OP INSTRUCTIONS The patient was provided a Pain Log to continue to record their response to the target-specific procedure prior to follow-up visit with their referring physician. Additionally, specific post-injection care instructions and a contact number to our office were provided if concerns arise regarding possible complications associated with the procedure are suspected.
== END 2022-12-26 15:34 | disposition home or self-care (01) ==
LOC: RAD 14:09
PROVIDERS: Family Provider Family Medicine; PCP Family Medicine; Referring Provider Physical Medicine & Rehabilitation; Visit Provider Physical Medicine & Rehabilitation
DX: M47.816 Spondylosis without myelopathy or radiculopathy, lumbar region (principal)
CPT/HCPCS: 64493; 64494; 64495; 99152; J0702; J2250

== ENCOUNTER → 2023-06-24 11:17 | Outpatient (CLI) | payer MEDICARE, OTHER, SELFPAY ==
[2023-03-27 11:18] VITALS: BMI 38.0
--- NOTE | 2023-06-24 | DI.US.S_ITS ---
PROCEDURE: US RENAL COMPLETE INDICATIONS: LEFT FLANK PAIN TECHNIQUE: Real-time scanning was performed of the kidneys and bladder, with image documentation. COMPARISON: [facility], , RENAL COMPLETE, 07/12/2016, 12:35. FINDINGS: Kidneys: Kidneys are normal in size. Right kidney measures 11.6 cm long; left kidney measures 11.0 cm long. Right renal cortical thickness is 1.1 cm; left renal cortical thickness is 1.0 cm. There is mild right and moderate left hydronephrosis. Bladder: Pre-void bladder volume is 83 mL. Post-void residual is 0 mL. Pre-void images demonstrate no intraluminal masses or stones. On pre-void images, neither ureteral jets are noted with color Doppler interrogation. (Of note, ureteral jets may not be detectable in up to 25% of cases due to insufficient differences in specific gravity between ureteral and bladder urine). Miscellaneous: No free pelvic fluid. IMPRESSION: [id number] bilateral hydronephrosis persisting postvoid. Dictated by: Tammy Arshad M.D. on 06/24/2023 at 16:06 Approved by: Tammy Arshad M.D. on 06/24/2023 at 16:07
== END ==
PROVIDERS: Family Provider Family Medicine; PCP Family Medicine; Referring Provider Family Medicine; Visit Provider Family Medicine
DX: R10.9 Unspecified abdominal pain (principal); N13.30 Unspecified hydronephrosis
CPT/HCPCS: 76770

== ENCOUNTER → 2023-07-01 14:49 | Outpatient (CLI) | payer MEDICARE, OTHER, SELFPAY ==
[2023-03-27 11:18] VITALS: BMI 38.0
--- NOTE | 2023-07-01 | DI.MG.S_ITS ---
BILATERAL DIGITAL SCREENING MAMMOGRAM 3D/2D WITH CAD: 07/01/2023 CLINICAL: Routine screening. Comparison is made to exams dated: 08/14/2021 mammogram, 08/08/2020 mammogram, and 06/15/2019 mammogram - [facility]. Both breasts are heterogeneously dense, which may obscure small masses (category c / 51-75% glandular tissue). Current study was also evaluated with a Computer Aided Detection (CAD) system. There are benign calcifications in both breasts. There also are benign vascular calcifications in the right breast. Additionally, there are biopsy clips in the right breast. Additionally, there also are benign post operative findings in the left breast. No significant masses, calcifications, or other findings are seen in either breast. There has been no significant interval change. IMPRESSION: BENIGN There is no mammographic evidence of malignancy. A 1 year screening mammogram is recommended. Based on Tyrer-Cuzick model (a risk assessment model), the patient's lifetime risk is 20.7% and her 10 year risk is 0.0%. If a patient has an elevated risk, a more comprehensive evaluation should be considered and/or a referral to a genetic counselor. The [place] [employer], [place] [employer], and NCCN Guidelines advise the consideration of Breast MRI as an adjunct to screening mammography in patients whose Lifetime risk to develop breast cancer is 20% or higher. This exam was interpreted at Station ID: [id number]. NOTE: For mammograms, a report in lay terms will be sent to the patient. Approximately 15% of breast malignancies will not be visualized mammographically. In the management of a palpable breast mass, a negative mammogram must not discourage biopsy of a clinically suspicious lesion. Electronically Signed By: Ashly thompson/erika:07/01/2023 17:03:05 letter sent: Normal Exam ACR BI-RADS Category 2: Benign Finding(s) 3342F
== END ==
PROVIDERS: Family Provider Family Medicine; PCP Family Medicine; Referring Provider Family Medicine; Visit Provider Family Medicine
DX: Z12.31 Encounter for screening mammogram for malignant neoplasm of breast (principal)
CPT/HCPCS: 77063; 77067

== ENCOUNTER 2023-07-10 09:25 | Outpatient (CLI) | payer MEDICARE, OTHER, SELFPAY ==
[2023-03-27 11:18] VITALS: BMI 38.0
[2023-07-10] VITALS (8 sets, daily range): BP systolic 133–153; BP diastolic 61–82; PULSE 54–70; RESP 14–20; TEMP 36.2; O2SAT 97–100
--- NOTE | 2023-07-10 09:26 | DI.RAD.S_ITS ---
PROCEDURE: PAIN L INTERLAMINAR/CAUDAL INJ INDICATIONS: SPONDYLOSIS COMPARISON: [facility], MR, MR LUMBAR SPINE WO CON, 11/07/2022, 13:17. FINDINGS: Fluoroscopic spot filming was performed to verify placement of spinal needles at the L5-S1 level(s), as labeled on the films. Appropriate location(s) of the needle tip(s) was confirmed by injection of iodinated contrast. IMPRESSION: Fluoroscopy for pain management. Dictated by: Jack Duron M.D. on 07/10/2023 at 12:44 Approved by: Jack Duron M.D. on 07/10/2023 at 12:44
[2023-07-10] MEDS: MIDAZOLAM 2 MG/2 ML VIAL IV (10:35)
[2023-07-10] MEDS: fentaNYL 100 MCG/2 ML INJ 50 MCG IV (10:36)
[2023-07-10] MEDS: BETAMETHASONE 30 MG/5 ML MDV 6 MG INJ (10:39)
[2023-07-10] MEDS: iopamidoL 15 ML VIAL 3 ML INJ (10:39)
[2023-07-10] MEDS: BUPIVACAINE 0.25% (PF) VIAL 2 ML INJ (10:39)
[2023-07-10] MEDS: DEXAMETHASONE 10 MG/ML VIAL INJ (10:40)
--- NOTE | 2023-07-10 10:49 | P.PCN_ITS ---
Date/Time/Diagnoses Date of procedure: 07/10/23 Time of procedure: 10:49 Pre-procedure diagnosis: 1. HNP WITH RADICULAR FEATURES, 2. MULTILEVEL CENTRAL STENOSIS, Post-procedure diagnosis: same Procedure Notes Procedure: 1. FLUOROSCOPICALLY GUIDED CONTRAST CONTROLLED INTERLAMINAR EPIDURAL STEROID INJECTION - L5/S1 Indications: Lizzy is referred by Dr. Alston for treatment of Bilateral Foraminal Stenosis L>R LE symptoms. Physician: Mike Childs Total Fluoroscopy time (seconds): 7 Total sedation minutes: 10 Complications: none Procedure in detail & Post-procedure care: FINDINGS Multilevel Central Spinal Stenosis with Nerve Root Compression DESCRIPTION OF PROCEDURE Fluoroscopically guided, contrast-controlled L5/S1 translaminar epidural steroid injection. Following review of allergy and review of potential side effects and complications, including, but not necessarily limited to, infection, allergic reaction, local tissue breakdown, temporary as well as permanent nerve injury, paralysis, stroke and possible , the patient indicated that the patient understood and agreed to proceed. An informed consent document was signed by the patient, witnessed by a nurse, and placed in the patient's chart. Additionally, other treatment options including modalities, medications, and physical therapy were reviewed with the patient. After review of previous anaesthesic history and IV conscious sedation the patient was deemed safe to proceed with today?s procedure with IV conscious sedation as ASA class II designation. Safety time-out was performed to confirm p atient ID, procedure to be performed and site of procedure. IV sedation was accomplished with a combination of 2mg of Versed and 50mcg of Fentanyl administered by the RN after DO order, titrated to patient comfort during the course of the procedure while the patient remained responsive to all verbal commands. In the prone position, following sterile prep and drape of the lumbar region, the L5/S1 translaminar space was identified fluoroscopically. The skin was anesthetized via a 25-gauge, 1.5-inch needle with 1% lidocaine solution. At this point, a 22-gauge short bevel spinal needle was atraumatically introduced and advanced under fluoroscopic guidance into the region of the L5/S1 translaminar space. Depth was confirmed on lateral view. Radiological data, including multiple fluoroscopic views of the lumbar spine, reveal a spinal needle at the L5/S1 translaminar space. Lateral views then show placement of the needle in the epidural space. Subsequent views show contrast material flowing superiorly and inferiorly in the epidural space. No vascular or intrathecal uptake is observed. At this point, using loss of resistance technique with saline and air, the epidural space was entered. This was confirmed following negative aspiration with injection of approximately 1.5cc of Isovue 200, showing excellent epidural flow without vascular or intrathecal uptake. At this point, 1 cc of 1% lidocaine solution combined with 2cc or 10mg of dexamethasone and 6mg of betamethasone was injected without incident. The patent tolerated the procedure without signs of symptoms of complications prior to transfer to the recovery area for further monitoring. The patient was then transferred to the recovery area where they were observed for an appropriate period of time after the injection. The patient reported a VAS score of 8 prior to the procedure and a post-procedure VAS of 1. POST OP INSTRUCTIONS The patient was provided a Pain Log to continue to record their response to the target-specific procedure prior to follow-up visit with their referring physician. Additionally, specific post-injection care instructions and a contact number to our office were provided if concerns arise regarding possible complications associated with the procedure are suspected.
== END 2023-07-10 11:12 | disposition home or self-care (01) ==
PROVIDERS: Family Provider Family Medicine; PCP Family Medicine; Referring Provider Physical Medicine & Rehabilitation; Visit Provider Physical Medicine & Rehabilitation
DX: M51.17 Intervertebral disc disorders with radiculopathy, lumbosacral region (principal); M48.07 Spinal stenosis, lumbosacral region
CPT/HCPCS: 62323; 99152; J0702; J1100; J2250; J3010; J3490

== ENCOUNTER 2023-08-19 14:50 | Outpatient (CLI) | payer MEDICARE, OTHER, SELFPAY ==
[2023-03-27 11:18] VITALS: BMI 38.0
[2023-08-19] VITALS (9 sets, daily range): BP systolic 124–142; BP diastolic 66–85; PULSE 72–81; RESP 16–18; TEMP 36.2; O2SAT 98–100
--- NOTE | 2023-08-19 15:30 | DI.RAD.S_ITS ---
PROCEDURE: PAIN L/S FACET INJ/BLK 1ST ELAINE INDICATIONS: SPONDYLOSIS COMPARISON: None. FINDINGS: Fluoroscopic spot filming was performed to verify placement of spinal needles at the L2, L3 and L4 level(s), as labeled on the films. Appropriate location(s) of the needle tip(s) was confirmed by injection of iodinated contrast. IMPRESSION: L2, L3 and L4 medial branch block. Dictated by: Morgan Gómez M.D. on 08/19/2023 at 17:59 Approved by: Morgan Gómez M.D. on 08/19/2023 at 18:00
[2023-08-19] MEDS: MIDAZOLAM 2 MG/2 ML VIAL IV ×2 (16:13→16:18)
[2023-08-19] MEDS: iopamidoL 15 ML VIAL 3 ML INJ (16:19)
[2023-08-19] MEDS: LIDOCAINE 1% 20 ML 5 ML INJ (16:20)
[2023-08-19] MEDS: BUPIVACAINE 0.5% (PF) 10 ML VIAL 5 ML SUBCUT (16:21)
--- NOTE | 2023-08-19 16:41 | PM.PROC.IR.1 ---
Date/Time/Diagnoses Date of procedure: 08/19/23 Time of procedure: 16:41 Pre-procedure diagnosis: FACET ARTHROPATHY Post-procedure diagnosis: same Procedure Notes Procedure: 1. BILATERAL L2, L3, L4 DIAGNOSTIC MB BLOCKS Indications: Lizzy is referred by Dr. Alston for treatment of Bilateral Axial LBP. Physician: Mike Childs Total Fluoroscopy time (seconds): 17 Total sedation minutes: 21 Complications: none Procedure in detail & Post-procedure care: DESCRIPTION OF PROCEDURE Fluoroscopically guided, contrast-controlled bilateral L2, L3, L4 medial branch blocks with 0.5cc of 0.5% Marcaine. Following review of allergy and review of potential side effects and complications, including, but not necessarily limited to, infection, allergic reaction, local tissue breakdown, nerve injury, paralysis, stroke and possible , the patient indicated that the patient understood and agreed to proceed. An informed consent document was signed by the patient, witnessed by a nurse, and placed in the patient's chart. After review of previous anaesthesic history and IV conscious sedation the patient was deemed safe to proceed with today's procedure with IV conscious sedation as ASA class II designation. Safety time-out was performed to confirm patient ID, procedure to be performed and site of procedure. IV sedation was accomplished with a combination of 4mg of Versed was administered by the RN after DO order, titrated to patient comfort during the course of the procedure while the patient remained responsive to all verbal commands In the prone position, following sterile prep and drape of the lumbar region, the right L2, L3, L4 anatomical location of the medial branch of the dorsal ramus was identified fluoroscopically. Subsequently an anesthetic skin wheal using 1% lidocaine solution was initiated at each of the anatomical spots. Subsequently then a 22-gauge 3.5-inch spinal needle was atraumatically introduced and advanced under fluoroscopic guidance at each of the corresponding sites at the right L2, L3, L4 MB. After negative aspiration, 0.2cc of Isovue 200 was injected, confirming placement without vascular or intrathecal uptake. Subsequently then 0.5cc of 0.5% Marcaine solution was injected at each of the corresponding sites at the right L2, L3, L4 medial branch locations. The identical procedure was replicated on the left. The patient tolerated the procedure well without signs or symptoms of complications. The patient tolerated the procedure well without signs or symptoms of complications prior to transfer to the recovery area continued monitoring without incident. Post-procedure, the patient was monitored initiating provocative activities to measure the amount of relief from block of the facetogenic pain. The patient reported a VAS of 7 prior to the procedure and a post-procedure VAS of 1. It has been a pleasure to assist in the diagnostic and therapeutic care of your patient. POST OP INSTRUCTIONS The patient was provided with a Pain Log to complete over the next several hours and subsequent days prior to the patient's follow up with the ordering physician. If the patient has medical technologist chemistry relief to the solution applied, then they may be a candidate for medial branch rhizotomy. The patient is aware, was provided, once again, with a Pain Log and will follow up with the referring physician for review and clinical correlation
== END 2023-08-19 16:55 | disposition home or self-care (01) ==
PROVIDERS: Family Provider Family Medicine; PCP Family Medicine; Referring Provider Physical Medicine & Rehabilitation; Visit Provider Physical Medicine & Rehabilitation
DX: M47.816 Spondylosis without myelopathy or radiculopathy, lumbar region (principal)
CPT/HCPCS: 64493; 64494; 99152; J2250

== ENCOUNTER → 2023-10-02 09:58 | Outpatient (CLI) | payer MEDICARE, OTHER, SELFPAY ==
[2023-03-27 11:18] VITALS: BMI 38.0
[2023-10-02] VITALS (8 sets, daily range): BP systolic 141–167; BP diastolic 69–81; PULSE 54–62; RESP 13–19; TEMP 36.2; O2SAT 96–100
--- NOTE | 2023-10-02 10:45 | DI.RAD.S_ITS ---
PROCEDURE: PAIN L/S FACET INJ/BLK 1ST ELAINE INDICATIONS: FACET ARTHROPATHY COMPARISON: [facility], , PAIN L/S FACET INJ/BLK 1ST ELAINE, 08/19/2023, 17:19. FINDINGS: Fluoroscopic spot filming was performed to verify placement of spinal needles at the bilateral L2, L3 and L4 level(s), as labeled on the films. Appropriate location(s) of the needle tip(s) was confirmed by injection of iodinated contrast. IMPRESSION: Intra procedural examination demonstrating appropriate positions of the needles. Dictated by: Jose Cruz Ford M.D. on 10/02/2023 at 13:25 Approved by: Jose Cruz Ford M.D. on 10/02/2023 at 13:26
[2023-10-02] MEDS: MIDAZOLAM 2 MG/2 ML VIAL IV (12:12)
[2023-10-02] MEDS: LIDOCAINE 1% 20 ML 5 ML INJ (12:17)
[2023-10-02] MEDS: iopamidoL 15 ML VIAL 3 ML INJ (12:17)
[2023-10-02] MEDS: LIDOCAINE 2% INJ SDV 5ML 10 ML INJ (12:18)
--- NOTE | 2023-10-02 12:38 | P.PCN_ITS ---
Date/Time/Diagnoses Date of procedure: 10/02/23 Time of procedure: 12:38 Pre-procedure diagnosis: 1. FACET ARTHROPATHY Post-procedure diagnosis: same Procedure Notes Procedure: 1. BILATERAL L2, L3, L4 DIAGNOSTIC MB BLOCKS Indications: Lizzy is referred by Dr. Alston for treatment of Bilateral Axial LBP. Physician: Mike Childs Total Fluoroscopy time (seconds): 20 Total sedation minutes: 11 Complications: none Procedure in detail & Post-procedure care: DESCRIPTION OF PROCEDURE Fluoroscopically guided, contrast-controlled bilateral L2, L3, L4 medial branch blocks with 0.5cc of 2% Lidocaine. Following review of allergy and review of potential side effects and complications, including, but not necessarily limited to, infection, allergic reaction, local tissue breakdown, nerve injury, paralysis, stroke and possible , the patient indicated that the patient understood and agreed to proceed. An informed consent document was signed by the patient, witnessed by a nurse, and placed in the patient's chart. After review of previous anaesthesic history and IV conscious sedation the patient was deemed safe to proceed with today's procedure with IV conscious sedation as ASA class II designation. Safety time-out was performed to confirm patient ID, procedure to be performed and site of procedure. IV sedation was accomplished with a combination of 2mg of Versed was administered by the RN afte r DO order, titrated to patient comfort during the course of the procedure while the patient remained responsive to all verbal commands In the prone position, following sterile prep and drape of the lumbar region, the right L2, L3, L4 anatomical location of the medial branch of the dorsal ramus was identified fluoroscopically. Subsequently an anesthetic skin wheal using 1% lidocaine solution was initiated at each of the anatomical spots. Subsequently then a 22-gauge 3.5-inch spinal needle was atraumatically introduced and advanced under fluoroscopic guidance at each of the corresponding sites at the right L2, L3, L4 MB. After negative aspiration, 0.2cc of Isovue 200 was injected, confirming placement without vascular or intrathecal uptake. Subsequently then 0.5cc of 2% Lidocaine solution was injected at each of the corresponding sites at the right L2, L3, L4 medial branch locations. The identical procedure was replicated on the left. The patient tolerated the procedure well without signs or symptoms of complications. The patient tolerated the procedure well without signs or symptoms of complications prior to transfer to the recovery area continued monitoring without incident. Post-procedure, the patient was monitored initiating provocative activities to measure the amount of relief from block of the facetogenic pain. The patient reported a VAS of 7 prior to the procedure and a post-procedure VAS of 1. It has been a pleasure to assist in the diagnostic and therapeutic care of your patient. POST OP INSTRUCTIONS The patient was provided with a Pain Log to complete over the next several hours and subsequent days prior to the patient's follow up with the ordering physician. If the patient has covering machine tender relief to the solution applied, then they may be a candidate for medial branch rhizotomy. The patient is aware, was provided, once again, with a Pain Log and will follow up with the referring physician for review and clinical correlation
== END ==
LOC: RAD 09:59
PROVIDERS: Family Provider Family Medicine; PCP Family Medicine; Referring Provider Physical Medicine & Rehabilitation; Visit Provider Physical Medicine & Rehabilitation
DX: M47.816 Spondylosis without myelopathy or radiculopathy, lumbar region (principal)
CPT/HCPCS: 64493; 64494; 99152; J2250

== ENCOUNTER 2023-10-22 17:55 | Emergency (ER) | payer MEDICARE, OTHER, SELFPAY ==
[2023-03-27 11:18] VITALS: BMI 38.0
[2023-10-22 18:01] VITALS: BP 163/97; PULSE 67; RESP 16; TEMP 35.8; O2SAT 99; BMI 41.9
--- NOTE | 2023-10-22 18:48 | ED_ITS ---
HPI - Extremity Problem General Chief complaint: Extremity Problem,Nontraumatic Stated complaint: DVT Time Seen by Provider: 10/22/23 18:15 Source: patient Mode of arrival: Ambulatory Limitations: no limitations History of Present Illness HPI Narrative: Patient is a 73-year-old female who is here for evaluation of redness and pain to her left upper inner thigh. She states has been worsening over the past couple days. No chest pain. No shortness of breath. Is not on blood thinners. Has never had a blood clot in the past. She denies any specific trauma to the area. It is tender to the touch. States that it feels like there is a lump under the area. Related Data Home Medications Medication Instructions Recorded Confirmed aspirin 325 mg tablet 325 mg PO DAILY 06/29/18 10/13/23 atenolol 25 mg tablet 25 mg PO DAILY 06/29/18 10/13/23 sertraline 100 mg tablet (Zoloft) 100 mg PO DAILY 06/29/18 10/13/23 omeprazole 20 mg capsule,delayed 20 mg PO DAILY 07/13/18 10/13/23 release calcium carbonate 500 mg calcium 500 mg PO DAILY 12/11/22 10/13/23 (1,250 mg) chewable tablet (Calcium 500) cholecalciferol (vitamin D3) 50 50 mcg PO DAILY 12/11/22 10/13/23 mcg (2,000 unit) capsule furosemide 20 mg tablet (Lasix) 10 mg PO DAILY 12/11/22 10/13/23 mecobalamin (vitamin B12) 2,500 2,500 mcg PO DAILY 12/11/22 10/13/23 mcg chewable tablet mirabegron 25 mg tablet,extended 25 mg PO DAILY 12/11/22 10/13/23 release 24 hr (Myrbetriq) omega-3 900 mg-dha 360 mg-epa 455 1 cap PO DAILY 12/11/22 10/13/23 mg-fish oil 1,000 mg capsule (Fish Oil) atorvastatin 10 mg tablet 10 mg PO DAILY 07/09/23 10/13/23 pregabalin 100 mg capsule 200 mg PO BID 07/09/23 10/13/23 Previous Rx's Medication Instructions Recorded celecoxib 200 mg capsule (Celebrex) 200 mg PO DAILY #30 caps 07/28/23 diazepam 10 mg tablet (Valium) 10 mg PO .COMPLEX PRN 1-2 prior to 10/13/23 MRI and for possible steroid flare #10 tabs tramadol 50 mg tablet 50 mg PO BID PRN pain #42 tabs 10/13/23 cephalexin 500 mg capsule 500 mg PO QID 7 days #28 caps 10/22/23 Allergies Allergy/AdvReac Type Severity Reaction Status Date / Time adhesive [ADHESIVE] Allergy Mild RASH Verified 10/13/23 09:49 (PAPER/SILK TAPE OK) Review of Systems Cardiovascular Cardiovascular: Reports system reviewed and no additional complaints, except as documented Respiratory Respiratory: Reports system reviewed and no additional complaints, except as documented Musculoskeletal Musculoskeletal: Reports system reviewed and no additional complaints, except as documented Integumentary/Breasts Skin/Breast: Reports system reviewed and no additional complaints, except as documented Hematologic/Lymphatic On Anticoagulants: No Patient History Medical History Lumbar radiculopathy Status post lumbar spinal arthrodesis Facet arthropathy, lumbar Wound of left leg (~07/2020) Diabetes 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) Primary insomnia Obstructive sleep apnea syndrome Hamstring tendon rupture Anxiety and depression Thin skin Hyperlipidemia Edema Pneumonia Bilateral cataracts PVCs (premature ventricular contractions) Peripheral neuropathy Lumbar stenosis Pericarditis Foot fracture, right Ganglion cyst Neuroma Fibromyalgia Polycystic kidney disease GERD (gastroesophageal reflux disease) HTN (hypertension) Osteoporosis Arthritis Surgical History Hx of thumb surgery S/P lumbar fusion Hx of laminectomy Hx of tonsillectomy H/O: hysterectomy S/P rotator cuff repair Hx of appendectomy Hx of cholecystectomy S/P lumpectomy, right breast S/P lumpectomy, left breast History of bilateral tubal ligation Hx of arthroscopic knee surgery History of arthroplasty of left knee History of arthroplasty of right knee Status post carpal tunnel release of both wrists History of ankle surgery Family History Father Drowning Mother Old age Social History household members: spouse Smoking Status: Former smoker alcohol intake: current Smoking Status: Former smoker alcohol intake frequency: a few times a week Substance Use Type: does not use Exam Initial Vital Signs Initial Vital Signs: Vital Signs Temperature 96.4 F L 10/22/23 18:01 Pulse Rate 67 10/22/23 18:01 Respiratory Rate 16 10/22/23 18:01 Blood Pressure 163/97 H 10/22/23 18:01 Pulse Oximetry 99 10/22/23 18:01 Oxygen Delivery Method Room Air 10/22/23 18:01 Skin Other: Patient has a hand size area of redness on the left upper inner thigh that is warm to the touch. It is fairly localized but does not have very well demarcated edges. There is some fullness under the area. No crepitus. Skin has no pustules or vesicles Extrem Other: Minimal if any swelling to the left upper thigh Course Orders Ordered: ED Orders 10/22/23 18:36 Basic Metabolic Panel Stat Complete Blood Count AUTO DIFF Stat D Dimer Stat 10/22/23 19:04 periph venous low extrem lt Stat Discontinued Medications Cephalexin HCl (Cephalexin 250 Mg Capsule) 500 mg PO NOW ONE Stop: 10/22/23 20:08 Vital Signs Vital signs: Vital Signs - 8 hr 10/22/23 18:01 Temperature 96.4 F L Pulse Rate 67 Respiratory Rate 16 Blood Pressure 163/97 H Pulse Oximetry 99 Oxygen Delivery Method Room Air MDM - Extremity (Nontraumatic) Lab Data 10/22/23 18:36 10/22/23 18:36 Labs: Lab Results 10/22/23 Range/Units 18:36 WBC 6.1 (4.5-11.0) X10^3/uL RBC 5.02 (4.0-5.2) X10^6/uL Hgb 14.7 (12.0-16.0) g/dL Hct 43.4 (36-46) % MCV 86.4 (80-100) fL MCH 29.2 (26-34) PG MCHC 33.8 (30-36) % RDW 13.7 (11.6-14.8) % Plt Count 148 L (150-400) X10^3/uL Neut % (Auto) 57.8 (50-75) % Lymph % (Auto) 26.8 (25-40) % [place] % (Auto) 11.6 (3-14) % Eos % (Auto) 3.1 (2-4) % Baso % (Auto) 0.7 (0-2) % Neut # (Auto) 3600 (8321-5583) /uL Lymph # (Auto) 1600 (3636-9763) /uL [place] # (Auto) 700 (0-900) /uL Eos # (Auto) 200 (0-450) /uL Baso # (Auto) 0 (0-100) /uL D-Dimer 1788 H (<500) ng/ml Sodium 137 (137-145) mmol/L Potassium 4.5 (3.4-5.1) mmol/L Chloride 101 (98-107) mmol/L Carbon Dioxide 29 (22-32) mmol/L BUN 17 (7-17) mg/dL Creatinine 0.69 (0.52-1.04) mg/dL Estimated GFR > 60 (>60) mL/min BUN/Creatinine Ratio 24.6 H (6-22) Glucose 116 H (80-110) mg/dL Calcium 9.9 (8.4-10.2) mg/dL Imaging Data US - DVT: Radiologist's Impression: PROCEDURE: [facility] VENOUS LOW EXTREM LT INDICATIONS: eval for DVT TECHNIQUE: Real-time imaging, as well as color and pulse Doppler interrogation, were performed of the lower extremity deep veins from the inguinal ligament to the popliteal fossa, with documentation of the visualized calf veins. COMPARISON: [facility], , [facility] VENOUS LOW EXTREM LT, 08/03/2018, 17:03. FINDINGS: The common femoral, femoral, popliteal, and the visualized calf veins are normally compressible, and free of intraluminal thrombus. Color and pulse Doppler demonstrate normal phasic intraluminal flow. There is normal augmentation response to distal compression maneuver. IMPRESSION: No findings of lower extremity deep venous thrombosis. [facility] Narrative Medical decision making narrative: D-dimer is elevated. DVT ultrasound was ordered. No signs of DVT nor deep abscess. Given the appearance of the wound and that it is warm and tender to the touch it is most consistent with a cellulitis. Was given 1st dose of antibiotics here in the emergency department and a prescription was sent to the pharmacy of her choice. There was no indication of a deep abscess there was no indication for incision and drainage. Patient is well-appearing. Not septic. She was given return precautions. She expressed understanding and agreement. Discharge Plan Departure Patient Disposition: Home Clinical Impression: Cellulitis Instructions: DI for Cellulitis -- Adult Activity Restrictions/Additional Instructions: Your workup today was negative for blood clot in your leg however the findings are consistent with a skin infection. A prescription for antibiotics was sent to [facility]. Please take it as directed. Contact your primary doctor for a follow-up. Return to the emergency department for new symptoms. Prescriptions: New cephalexin 500 mg capsule 500 mg PO QID 7 Days Qty: 28 0RF No Action aspirin 325 mg Tablet 325 mg PO DAILY sertraline [Zoloft] 100 mg Tablet 100 mg PO DAILY atenolol 25 mg Tablet 25 mg PO DAILY omeprazole 20 mg capsule,delayed release(DR/EC) 20 mg PO DAILY Myrbetriq 25 mg tablet extended release 24 hr 25 mg PO DAILY furosemide [Lasix] 20 mg tablet 10 mg PO DAILY cholecalciferol (vitamin D3) 50 mcg (2,000 unit) capsule 50 mcg PO DAILY mecobalamin (vitamin B12) 2,500 mcg tablet,chewable 2,500 mcg PO DAILY Fish Oil 900 mg-360 mg- 455 mg-1,000 mg capsule 1 cap PO DAILY calcium carbonate [Calcium 500] 500 mg calcium (1,250 mg) tablet,chewable 500 mg PO DAILY diazepam [Valium] 10 mg tablet 10 mg PO .COMPLEX MDD 3 tabs PRN (Reason: 1-2 prior to MRI and for possible steroid flare) Qty: 10 0RF Rx Instructions: 10 mg PO PRN; tramadol 50 mg tablet 50 mg PO BID PRN (Reason: pain) Qty: 42 1RF pregabalin 100 mg capsule 200 mg PO BID atorvastatin 10 mg tablet 10 mg PO DAILY celecoxib [Celebrex] 200 mg capsule 200 mg PO DAILY Qty: 30 2RF Referrals: Shalom Alston MD [Primary Care Provider] - Stand Alone Forms: Patient Portal/API
[2023-10-22 18:49] LABS: Add Manual Diff / Slide Review NO; Basophils Absolute Auto 0 /uL (0-100); Basophils Percent Auto 0.7 % (0-2); Eosinophils Absolute Auto 200 /uL (0-450); Eosinophils Percent Auto 3.1 % (2-4); Hematocrit 43.4 % (36-46); Hemoglobin 14.7 g/dL (12.0-16.0); Lymphocytes Absolute Auto 1600 /uL (1100-4500); Lymphocytes Percent Auto 26.8 % (25-40); Mean Corpuscular HGB Conc 33.8 % (30-36); Mean Corpuscular Hemoglobin 29.2 PG (26-34); Mean Corpuscular Volume 86.4 fL (80-100); Monocytes Absolute Auto 700 /uL (0-900); Monocytes Percent Auto 11.6 % (3-14); Neutrophils Absolute Auto 3600 /uL (1500-7000); Neutrophils Percent Auto 57.8 % (50-75); Platelet Count 148 X10^3/uL (150-400); Red Blood Cell Count 5.02 X10^6/uL (4.0-5.2); Red Cell Distribution Width 13.7 % (11.6-14.8); White Blood Cell Count 6.1 X10^3/uL (4.5-11.0)
[2023-10-22 18:55] LABS: D Dimer 1788 ng/ml (<500)
[2023-10-22 18:58] LABS: BUN Creatinine Ratio 24.6 (6-22); Blood Urea Nitrogen 17 mg/dL (7-17); Calcium 9.9 mg/dL (8.4-10.2); Carbon Dioxide 29 mmol/L (22-32); Chloride 101 mmol/L (98-107); Estimated Glomerular Filt Rate > 60 mL/min (>60); Glucose 116 mg/dL (80-110); HEMOLYSIS 29 (0-50); Potassium 4.5 mmol/L (3.4-5.1); Sodium 137 mmol/L (137-145)
--- NOTE | 2023-10-22 19:04 | DI.US.S_ITS ---
PROCEDURE: US PERIP VENOUS LOW EXTREM LT INDICATIONS: eval for DVT TECHNIQUE: Real-time imaging, as well as color and pulse Doppler interrogation, were performed of the lower extremity deep veins from the inguinal ligament to the popliteal fossa, with documentation of the visualized calf veins. COMPARISON: [facility], , [facility] VENOUS LOW EXTREM LT, 08/03/2018, 17:03. FINDINGS: The common femoral, femoral, popliteal, and the visualized calf veins are normally compressible, and free of intraluminal thrombus. Color and pulse Doppler demonstrate normal phasic intraluminal flow. There is normal augmentation response to distal compression maneuver. IMPRESSION: No findings of lower extremity deep venous thrombosis. Dictated by: Jack Duron M.D. on 10/22/2023 at 20:01 Approved by: Jack Duron M.D. on 10/22/2023 at 20:02
[2023-10-22] MEDS: cephALEXin 250 MG CAPSULE 500 MG PO (20:19)
[2023-10-22 20:35] VITALS: BP 176/81; PULSE 70; RESP 16; O2SAT 99
== END 2023-10-22 20:35 | disposition home or self-care (01) ==
PROVIDERS: Emergency Provider Emergency Medicine; Family Provider Family Medicine; PCP Family Medicine
DX: L03.116 Cellulitis of left lower limb (principal); Z79.899 Other long term (current) drug therapy
CPT/HCPCS: 80048; 85025; 85379; 93971; 99283; 99284

== ENCOUNTER 2023-11-06 10:47 | Outpatient (CLI) | payer MEDICARE, OTHER, SELFPAY ==
[2023-03-27 11:18] VITALS: BMI 38.0
[2023-11-06] VITALS (13 sets, daily range): BP systolic 136–158; BP diastolic 55–69; PULSE 57–65; RESP 14–18; TEMP 36.6; O2SAT 88–100
--- NOTE | 2023-11-06 11:15 | DI.RAD.S_ITS ---
PROCEDURE: PAIN L/S MED/LAT N RFA BILAT INDICATIONS: LUMBAR FACET ARTHROPATHY COMPARISON: None. FINDINGS: Fluoroscopic spot filming was performed to verify placement of spinal needles at the bilateral L2, L3 and L4 level(s), as labeled on the films. Appropriate location(s) of the needle tip(s) was confirmed by injection of iodinated contrast. IMPRESSION: Needle placement at bilateral L2, L3 and L4 vertebral bodies. Please see separately dictated procedure report for full details. Approved by: Rosalina De Leon M.D. on 11/06/2023 at 17:31
[2023-11-06] MEDS: MIDAZOLAM 2 MG/2 ML VIAL IV ×2 (11:44→12:04)
[2023-11-06] MEDS: fentaNYL 100 MCG/2 ML INJ 50 MCG IV ×2 (11:44→12:10)
[2023-11-06] MEDS: LIDOCAINE 1% 20 ML 5 ML INJ (11:51)
[2023-11-06] MEDS: BUPIVACAINE 0.5% (PF) 10 ML VIAL 5 ML INJ (11:52)
--- NOTE | 2023-11-06 12:34 | P.PCN_ITS ---
Date/Time/Diagnoses Date of procedure: 11/06/23 Time of procedure: 12:34 Pre-procedure diagnosis: 1. RECALCITRANT FACET ARTHROPATHY Post-procedure diagnosis: same Procedure Notes Procedure: 1. BILATERAL L2, L3, L4 MEDIAL BRANCH RADIOFREQUENCY NEUROTOMY Indications: Lizzy is referred by Dr. Alston for treatment of facet arthropathy. Physician: Mike Childs Total Fluoroscopy time (seconds): 34 Total sedation minutes: 44 Complications: none Procedure in detail & Post-procedure care: DESCRIPTION OF PROCEDURE Bilateral L2, L3, L4 medial branch radiofrequency neurotomy The patient is well known to this clinic having undergone previous facet injections with good but temporary relief. The patient has experienced appropriate, concordant relief with previous facet and median branch blocks but the patient's pain has been recalcitrant to further conservative measures. Therefore, based upon the patient's relief and persistent symptoms, the patient is considered an appropriate candidate for facet rhizotomy. All of the patient's questions regarding the risks versus benefits of the procedure, including, but not limited to, bleeding, infection, temporary as well as lasting nerve injury, paralysis, stroke, and , as well treatment alternatives were answered to satisfaction. After obtaining informed consent, denial of pertinent drug allergies, as well as being made aware of the potential risks of bleeding, infection, spinal cord trauma, paralysis, temporary and permanent nerve damage, seizure, stroke, and possible , the patient was brought to the fluoroscopy suite and positioned prone on the fluoroscopy table. After review of previous anaesthesic history and IV conscious sedation the patient was deemed safe to proceed with today's procedure with IV conscious sedation as ASA class II designation. Safety time-out was performed to confirm patient ID, procedure to be performed and site of procedure. IV sedation was accomplished with a combination of 4mg of Versed and 100mcg of Fentanyl administered by the RN after DO order, titrated to patient comfort during the course of the procedure while the patient remained responsive to all verbal commands. The lumbar region was prepped in usual sterile fashion and covered with a fenestrated drape in the usual sterile fashion. Appropriate monitors applied including pulse oximeter, pulse, and blood pressure for regular monitoring throughout the procedure. After local infiltration using 1% lidocaine, under fluoroscopic guidance, a 10- cm RF insulated needle with a 10-mm active tip was positioned parallel to the junction of the right the superior articulating process where the L4 medial branch resides. Needle placement was confirmed with motor stimulation of .5v on the right which produced local stimulation without radicular component. The stimulation was then increased to 2v with, once again, only local multifidus stimulation without radicular component. The needle was then removed and the identical procedure was performed along the length of the right L3 medial branch with motor stimulation at .7v on the right. The identical procedure was once again performed along the length of the right L2 and medial branch with motor stimulation of .5v on the right. The medial branches were then anesthetised with 0.5% marcaine. This was then followed by two discreet lesions performed at 80 degrees Celsius for 90 seconds each. The identical procedures were repeated on the left. The patient tolerated the procedure well without signs or symptoms of complications prior to transfer to the recovery area continued monitoring without incident. The patient was then transferred to the recovery area where they were observed for an appropriate period of time after the injection. The patient reported a VAS score of 8 prior to the procedure and a post-procedure VAS of 1. POST OP INSTRUCTIONS The patient was provided a Pain Log to continue to record the patient's response to the target-specific procedure prior to the patient's follow-up visit with the referring physician. Additionally, specific post-injection care instructions and a contact number to our office were provided if concerns arise regarding possible complications associated with the procedure are suspected.
== END 2023-11-06 12:50 | disposition home or self-care (01) ==
LOC: RAD 10:48
PROVIDERS: Family Provider Family Medicine; PCP Family Medicine; Referring Provider Physical Medicine & Rehabilitation; Visit Provider Physical Medicine & Rehabilitation
DX: M47.816 Spondylosis without myelopathy or radiculopathy, lumbar region (principal)
CPT/HCPCS: 64494; 64635; 64636; 99152; 99153; J2250; J3010

== ENCOUNTER → 2024-06-29 16:27 | Outpatient (CLI) | payer MEDICARE, OTHER, SELFPAY ==
[2023-03-27 11:18] VITALS: BMI 38.0
--- NOTE | 2024-06-29 16:28 | DI.MRI.S_ITS ---
PROCEDURE: MR ANKLE RT WO CON INDICATIONS: RIGHT CALF PAIN TECHNIQUE: Noncontrast sagittal T1 spin echo and T2 fast spin echo with fat saturation, axial proton density fast spin echo and T2 fast spin echo with fat saturation, coronal T1 spin echo and T2 fast spin echo with fat saturation through the ankle/hindfoot. COMPARISON: None. FINDINGS: Image quality: Excellent. Bones and joints: Diffuse ankle soft tissue swelling is seen. Mild midfoot and hindfoot joint osteoarthritic changes are noted with joint space narrowing and subchondral sclerosis. There is no fracture or dislocation. No gross osteochondral injuries of talar dome. Small tibiotalar joint effusion is seen, no gross loose bodies. Small plantar and dorsal calcaneal enthesophytes are seen. Medial structures: The posterior tibialis tendon is thickened with small amount of fluid distending tendon sheath at the level of mid to distal talus and talar dome. The flexor digitorum longus, and flexor hallucis longus tendons are intact. The posterior tibial neurovascular bundle appears normal within the tarsal tunnel, without extrinsic mass effect. The deltoid ligament and spring ligament are mildly thickened. Lateral structures: The anterior talofibular, calcaneofibular, and posterior talofibular ligaments appear intact. More superiorly, the anterior and posterior tibiofibular ligaments appear intact, as is the intermalleolar ligament. The tibiofibular syndesmosis is normal in width at 2 mm or less. Fluid is seen distending peroneus tendon she is with thickened peroneus longus tendon at the level of lateral malleolus tip with intrasubstance T2 hyperintense signal extending to its distal insertion. The peroneus brevis tendon is intact. The sinus tarsi demonstrates normal fatty signal, without edema, fibrosis, or cyst formation. Visualized sinus tarsi components (cervical ligament, interosseous talocalcaneal ligament, roots of the inferior extensor retinaculum) appear normal. Anterior structures: The tibialis anterior, extensor hallucis longus, and extensor digitorum longus tendons appear intact. The dorsal talonavicular ligament appears intact. Posterior and plantar structures: Achilles tendon is intact. Medial and lateral bands of the plantar fascia are of normal thickness. No abductor digiti quinti muscle atrophy to suggest Kidd neuropathy. IMPRESSION: 1. Mild midfoot and hindfoot joint osteoarthritis. No fracture or dislocation. Diffuse ankle soft tissue swelling. No osteochondral injuries of talar dome. Small joint effusion, no loose bodies. Small plantar and dorsal calcaneal enthesophytes. 2. Low-grade tenosynovitis involving posterior tibialis tendon at the level of mid to distal talus and talar dome. 3. Low to moderate grade intrasubstance partial-thickness tear involving peroneus longus tendon at the level of lateral malleolus tip extending to its distal insertion. 4. Low-grade medial ankle ligament sprain. No full-thickness ankle ligament rupture. 5. Achilles tendon is intact. Dictated by: Yury Blackburn M.D. on 06/30/2024 at 9:32 Approved by: Yury Blackburn M.D. on 06/30/2024 at 9:45
== END ==
PROVIDERS: Family Provider Family Medicine; PCP Family Medicine; Referring Provider Podiatrist; Visit Provider Podiatrist
DX: S96.811A Strain of other specified muscles and tendons at ankle and foot level, right foot, initial encounter (principal); M19.071 Primary osteoarthritis, right ankle and foot; M79.661 Pain in right lower leg; M25.471 Effusion, right ankle; M77.31 Calcaneal spur, right foot; M65.971 Unspecified synovitis and tenosynovitis, right ankle and foot
CPT/HCPCS: 73721

== ENCOUNTER → 2024-07-02 14:25 | Outpatient (CLI) | payer MEDICARE, OTHER, SELFPAY ==
[2023-03-27 11:18] VITALS: BMI 38.0
[2024-07-02 15:28] LABS: Appearance Urine UA CLEAR; Bilirubin Urine UA NEGATIVE (NEGATIVE); Color Urine UA YELLOW; Glucose Urine UA NEGATIVE (Negative); Ketones Urine UA NEGATIVE (NEGATIVE); Leukocyte Esterase Urine UA NEGATIVE (NEGATIVE); Nitrite Urine UA NEGATIVE (Negative); Occult Blood Urine UA NEGATIVE (Negative); Protein Urine UA NEGATIVE (Negative); Specific Gravity Urine UA 1.015 (1.000-1.035); Urobilinogen Urine UA 0.2 E.U./dL (0.2)
[2024-07-02 15:30] LABS: pH Urine UA 5.5 (4.5-8.0)
[2024-07-02 15:35] LABS: Bacteria Urine Occasional (0-1); Culture Indicated Urine Cult Not Indicated; RBC Urine 0-1/HPF (0-5/HPF); Squamous Epithelial Cell Urine 0-1 /HPF (0-5/HPF); Urine Volume Low Vol <10mL (spun); WBC Urine 0-1/HPF (0-5/HPF)
== END ==
LOC: LAB 14:28
PROVIDERS: Family Provider Family Medicine; PCP Family Medicine; Referring Provider Physician Assistant Medical; Visit Provider Physician Assistant Medical
DX: N32.81 Overactive bladder (principal); N30.01 Acute cystitis with hematuria; R39.15 Urgency of urination
CPT/HCPCS: 81001

== ENCOUNTER → 2025-07-09 14:09 | Outpatient (CLI) | payer MEDICARE, OTHER, SELFPAY ==
[2023-03-27 11:18] VITALS: BMI 38.0
--- NOTE | 2025-07-09 14:11 | DI.MRI.S_ITS ---
PROCEDURE: MR HIP RT WO CON INDICATIONS: Right hip pain TECHNIQUE: Noncontrast coronal T1 spin echo and STIR through the bony pelvis. Coronal and axial T2 fast spin echo with fat saturation, sagittal T1 spin echo, and oblique axial T2 fast spin echo with fat saturation through the hip. COMPARISON: [facility], CR, XR LUMBAR SPINE WITH FLEXION EXTENSION 5 VIEWS, 10/31/2022, 14:12. [facility] [place], CR, XR PELVIS WITH LATERAL HIP LEFT, 11/20/2023, 14:06. FINDINGS: Image quality: Diagnostic. Right Hip (small FOV): Intermediate thinning and fraying of the superior central and superior lateral femoral acetabular articular cartilage. Intrasubstance degeneration of the anterior superior to superior lateral labrum. No paralabral cyst. No displaced tear. No hip joint effusion. Intact ligamentum teres. Lumbar spine: Changes of L4-5 posterior spinal instrumented fusion with intervertebral cage placement. There is associated susceptibility artifact. Sacroiliac joints/pubic symphysis: Mild degenerative proliferation with small osteophytosis of the anterior sacroiliac joints. Mild degenerative proliferation the pubic symphysis. No acute diastasis or inflammatory change within the sacroiliac joints or pubic symphysis.. Tendons/bursae: Moderate tendinosis of the right gluteus medius with undersurface partial tearing at the lateral facet. There is moderate atrophy and fatty infiltration of the right gluteus minimus. Mild tendinosis and slight tenosynovitis of obturator internus centered about the ischial tuberosity. Edema within the right rectus femoris muscle belly with grade 2 strain of a total length of 3.7 cm. Acute complete avulsion of the right semimembranosus and conjoint hamstring origin tendons from the ischial tuberosity with distal retraction by 4.1 cm (11/29). There is surrounding soft tissue edema without loculated hematoma or seroma. The right iliopsoas tendon is unremarkable. Moderate volume ischial bursitis. Muscles: Complete tear of the right hamstring origin as above. Grade 2 strain of the right quadratus femoris as above. Normal quadriceps muscle bulk. Mild tendinosis of the indirect head of the right rectus femoris. Neurovascular: Poor visualization the retracted hamstring tendons adjacent to the sciatic nerve, which is only seen on large [id number] sequences. Pelvic viscera: Changes of anterior oblique interbody fusion on the right. Post hysterectomy. Subcutaneous tissues: Unremarkable. IMPRESSION: 1. Acute complete avulsion of the right semimembranosus and conjoint hamstring tendon origin with distal retraction by 5 cm and surrounding soft tissue edema. Poor evaluation of the retracted tendon relative to the sciatic nerve on large field of view images only. 2. Grade 2 strain of the right quadratus femoris. 3. 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 4. Moderate tendinosis of the right gluteus medius with undersurface partial thickness tearing at the lateral facet. Dictated by: Reinaldo Garcia M.D. on 07/11/2025 at 12:00 Approved by: Reinaldo Garcia M.D. on 07/11/2025 at 12:14
== END ==
LOC: MRI 14:10
PROVIDERS: Family Provider Family Medicine; PCP Family Medicine; Referring Provider Family Medicine; Visit Provider Family Medicine
DX: S76.091A Other specified injury of muscle, fascia and tendon of right hip, initial encounter (principal); S76.811A Strain of other specified muscles, fascia and tendons at thigh level, right thigh, initial encounter; M70.71 Other bursitis of hip, right hip; M94.251 Chondromalacia, right hip; M25.551 Pain in right hip; Z98.1 Arthrodesis status
CPT/HCPCS: 73721

== ENCOUNTER 2025-08-30 15:10 | Outpatient (CLI) | payer MEDICARE, OTHER, SELFPAY ==
[2023-03-27 11:18] VITALS: BMI 38.0
[2025-08-30] VITALS (8 sets, daily range): BP systolic 120–165; BP diastolic 63–84; PULSE 65–84; RESP 14–20; TEMP 36.3; O2SAT 95–98
[2025-08-30] MEDS: MIDAZOLAM 2 MG/2 ML VIAL IV (16:26)
[2025-08-30] MEDS: BETAMETHASONE 30 MG/5 ML MDV 12 MG INJ (16:30)
--- NOTE | 2025-08-30 16:43 | P.PCN_ITS ---
Date/Time/Diagnoses Date of procedure: 08/30/25 Time of procedure: 16:43 Pre-procedure diagnosis: 1. HNP WITH RADICULAR FEATURES, 2. MULTILEVEL CENTRAL STENOSIS, Post-procedure diagnosis: same Procedure Notes Procedure: 1. FLUOROSCOPICALLY GUIDED CONTRAST CONTROLLED INTERLAMINAR EPIDURAL STEROID INJECTION - L5/S1 Indications: Lizzy is referred by Dr. Alston for treatment of Bilateral Foraminal Stenosis L>R LE symptoms. Physician: Mike Childs Total Fluoroscopy time (seconds): 7 Total sedation minutes: 11 Complications: none Procedure in detail & Post-procedure care: FINDINGS Multilevel Central Spinal Stenosis with Nerve Root Compression DESCRIPTION OF PROCEDURE Fluoroscopically guided, contrast-controlled L5/S1 translaminar epidural steroid injection. Following review of allergy and review of potential side effects and complications, including, but not necessarily limited to, infection, allergic reaction, local tissue breakdown, temporary as well as permanent nerve injury, paralysis, stroke and possible , the patient indicated that the patient understood and agreed to proceed. An informed consent document was signed by the patient, witnessed by a nurse, and placed in the patient's chart. Additionally, other treatment options including modalities, medications, and physical therapy were reviewed with the patient. After review of previous anaesthesic history and IV conscious sedation the patient was deemed safe to proceed with today?s procedure with IV conscious sedation as ASA class II designation. Safety time-out was performed to confirm p atient ID, procedure to be performed and site of procedure. IV sedation was accomplished with a combination of 2mg of Versed administered by the RN after DO order, titrated to patient comfort during the course of the procedure while the patient remained responsive to all verbal commands. In the prone position, following sterile prep and drape of the lumbar region, the L5/S1 translaminar space was identified fluoroscopically. The skin was anesthetized via a 25-gauge, 1.5-inch needle with 1% lidocaine solution. At this point, a 22-gauge short bevel spinal needle was atraumatically introduced and advanced under fluoroscopic guidance into the region of the L5/S1 translaminar space. Depth was confirmed on lateral view. Radiological data, including multiple fluoroscopic views of the lumbar spine, reveal a spinal needle at the L5/S1 translaminar space. Lateral views then show placement of the needle in the epidural space. Subsequent views show contrast material flowing superiorly and inferiorly in the epidural space. No vascular or intrathecal uptake is observed. At this point, using loss of resistance technique with saline and air, the epidural space was entered. This was confirmed following negative aspiration with injection of approximately 1.5cc of Isovue 200, showing excellent epidural flow without vascular or intrathecal uptake. At this point, 1cc of 0.25% marcaine solution combined with 3cc or 10mg of dexamethasone and 12mg of betamethasone was injected without incident. The patent tolerated the procedure without signs of symptoms of complications prior to transfer to the recovery area for further monitoring. The patient was then transferred to the recovery area where they were observed for an appropriate period of time after the injection. The patient reported a VAS score of 6 prior to the procedure and a post-procedure VAS of 0. POST OP INSTRUCTIONS The patient was provided a Pain Log to continue to record their response to the target-specific procedure prior to follow-up visit with their referring physician. Additionally, specific post-injection care instructions and a contact number to our office were provided if concerns arise regarding possible complications associated with the procedure are suspected.
== END 2025-08-30 17:01 | disposition home or self-care (01) ==
PROVIDERS: Family Provider Family Medicine; PCP Family Medicine; Referring Provider Physical Medicine & Rehabilitation; Visit Provider Physical Medicine & Rehabilitation
DX: M51.17 Intervertebral disc disorders with radiculopathy, lumbosacral region (principal); M48.07 Spinal stenosis, lumbosacral region
CPT/HCPCS: 62323; 99152; J0702; J1100; J2250